=== PATIENT | female | born 1990 | race Caucasian/White ===

== ENCOUNTER 2019-12-18 16:57 | Inpatient (IN) ==
[2019-12-18] MEDS ORDERED: MoRPHine SULFATE 4 MG/ML 1 ML CARP\\VIAL IV STA ×2 (17:20→21:26)
[2019-12-18] MEDS ORDERED: ONDANSETRON INJ 2 MG/ML 2 ML VIAL IV STA (17:20)
[2019-12-18] MEDS ORDERED: SODIUM CHLORIDE 0.9% 1000ML 1,000 ML IV SCH (17:30)
--- NOTE | 2019-12-18 17:32 | Emergency Department Note ---
Impression & Plan DKA (diabetic ketoacidoses), of unknown anatomic location, Vaginal bleeding during , Abdominal pain during ED Provider Note CHIEF COMPLAINT: Heavy vaginal bleeding, severe abdominal pain, HISTORY OF PRESENTING ILLNESS: This is a 29-year-old female who presents to the emergency department by private vehicle with complaint of severe lower abdominal pain and heavy vaginal bleeding that started this morning. The patient states that she has been having very heavy bleeding and also passing large clots, states she was going through 2 pads an hour. She states that she is having severe stabbing lower abdominal pain that is constant, she has had trouble finding a position that is comfortable, and she rates the pain 10/10. She did not try anything for the pain. She notes that she believes she is about 13 weeks , she states her last menstrual period was 09/14, and she states she took home tests that were positive. She has not been evaluated for this by any medical billing and coding instructor and has not had an ultrasound. This is her first , she denies any previous pregnancies. She does not know her blood type. She denies any fevers, chills, headaches, vision changes, chest pain, shortness of breath, nausea or vomiting, urinary symptoms, or unusual rash. REVIEW OF SYSTEMS: A complete 10 point review of systems was reviewed with the patient with pertinent positives and negatives as per history of present illness. All else were negative. PAST MEDICAL HISTORY: No significant past medical or surgical history SOCIAL HISTORY: Lives at home, she is a current every day smoker ALLERGIES: No known allergies PHYSICAL EXAM: CONSTITUTIONAL: Alert, appears uncomfortable, hyperventilating and tearful. No acute distress. HEENT: Normocephalic, atraumatic. PERRL, EOMI, normal conjunctiva. Pharynx normal. NECK: Supple, full active range of motion without discomfort. RESPIRATORY: Clear to auscultation bilaterally with no wheezing, crackles, rhonchi or stridor. Equal expansion bilaterally. CARDIOVASCULAR: Regular rate and rhythm with no murmurs, rubs or gallops. Normal peripheral perfusion. No edema. GASTROINTESTINAL: Tender to palpation in the suprapubic and right lower quadrant, no rebound tenderness or guarding. Abdomen is otherwise nontender, soft, nondistended, obese abdomen. No palpable masses or HSM. Bowel sounds present in all quadrants. No CVA tenderness bilaterally. PELVIC EXAM: VULVA: No ulcers, vesicles or atrophy. VAGINA: Moderate amount of dark blood and blood clots within the vaginal canal, no foul odor. CERVIX: Cervical os is fingertip with open, pink, nontender, no cervical motion tenderness, with a small amount of bleeding from the opening. UTERUS: Slightly enlarged and tender to palpation. ADNEXAE: No masses or tenderness bilaterally. A nurse was present as a gravel hauler during the examination. MUSCULOSKELETAL: Full range of motion of all joints without discomfort. INTEGUMENTARY: No rash or other significant dermatologic conditions noted. NEUROLOGIC: Alert and oriented X 4 with normal affect. Normal strength and sensation in all 4 extremities. Normal speech. Normal gait observed. ED COURSE AND MEDICAL DECISION MAKING: CC: Patient presenting with complaint of abdominal pain, vaginal bleeding, DIFFERENTIAL DIAGNOSIS: Includes, but not limited to miscarriage, ectopic , ovarian cyst, ovarian torsion, hemorrhagic cyst, dysfunctional uterine bleeding, anemia, electrolyte abnormality, undiagnosed diabetes, DKA, among others. INTERPRETATION OF LABS: Mild leukocytosis with left shift, no anemia, normal platelets, hyponatremia, hyperkalemia, low bicarb with open gap, hyperglycemia, normal renal function, normal liver enzymes. Hemoglobin A1c significantly elevated at 9.0%. Beta hydroxybutyric acid is elevated. Beta hCG quant is elevated. Blood type A positive. IMAGING: US OB <= 14 weeks fetus HISTORY: 29 years-old Female , vag bleeding and severe pain acute vaginal bleeding with COMPARISON: None TECHNIQUE: Multiple real-time sonographic images of the deep pelvic structures were obtained transabdominally and transvaginally assessing grayscale appearance, color and spectral flow FINDINGS: TRANSABDOMINAL: Anteflexed uterus measures 10.1 x 4.3 x 4.6 cm. Endometrium measures 4 mm in thickness. No myometrial mass lesion. Ovaries are not diagnostically visualized. There is an indeterminate hypoechoic structure noted on the right aspect of the uterine body measuring 1.6 x 1.5 x 2.5 cm without associated color flow. TRANSVAGINAL: Heterogeneous appearance of the uterus. Endometrium measures 6 mm in thickness at the fundus and measures 1.8 cm within the mid aspect with ill-defined margins and areas of color flow. Complex material is noted within the endometrial cavity and endocervical canal. No intrauterine or extrauterine gestation identified. Nonvisualization of the ovaries. The patient experienced reported pain when scanning adnexal distributions. Trace free fluid is seen within the dependent pelvis. The study is overall limited secondary to patient's pain. IMPRESSION: 1. No definite intrauterine or extrauterine gestation identified. Additionally, there is a heterogeneous appearance of the endometrium with probable blood products in the endometrial cavity and endocervical canal. This finding in association with reported positive beta-hCG is concerning for possible spontaneous . Areas of increased flow within the endometrium which may reflect retained products of conception. Follow-up with serial quantitative beta hCG analysis and ultrasound imaging is needed. 2. Nonvisualization of the ovaries. 3. Indeterminate hypoechoic structure adjacent to the right aspect of the uterine body measures 2.5 cm. This may reflect a paraovarian cyst. An ectopic gestation is considered less likely. This finding should also be evaluated on follow-up. EKG INTERPRETATION: Shows normal sinus rhythm with a rate of 78 bpm, prolonged QT, no ST or T wave abnormalities, no peaked T waves, no ectopy, no significant change when compared to previous EKG from 08/08/2018 by my interpretation. MEDICATION RECONCILIATION: I attest that I have personally reviewed the patient's current medication list. INITIAL VITAL SIGNS REVIEW: I reviewed the patient's initial vital signs and interpret them as follows: T: Afebrile; BP: Hypertensive; HR: Within normal limits; RR: Within normal limits; Pulse Ox: Within normal limits on room air. Blood pressure screening: The patient was found to have an elevated blood pressure and was referred to the inpatient team for further management. MDM SUMMARY: Patient was evaluated at bedside, history and physical exam performed. Patient is alert and oriented, in no acute distress, but does appear uncomfortable, hyperventilating and tearful. Tender to palpation in the mid and right lower abdomen, no acute abdomen. She is afebrile and nontoxic-appearing. No pallor. Vital signs stable. Cardiac monitoring: An order was placed for continuous cardiac monitoring. The monitor shows a rate of 75 bpm with normal sinus rhythm. Orders were placed at bedside for labs including a beta hCG quant, IV fluid bolus for hydration, IV morphine for pain, IV Zofran for nausea, pelvic ultrasound to evaluate for miscarriage versus ectopic versus ovarian etiology. Patient discussed with Dr. Leon, who agrees with my assessment, plan, and disposition. Labs and imaging reviewed as above, lab abnormalities notable for hyperglycemia with hyponatremia, hyperkalemia, and low bicarb with an open gap. Beta hydroxybutyric acid is also elevated. Mild leukocytosis. Serum hCG quant is elevated consistent with early , blood type is a positive. Lab findings are concerning for DKA, most likely in the setting of undiagnosed diabetes. These findings were discussed with Dr. Leon, who agreed with the plan to start the patient on an insulin drip. Pelvic ultrasound noting findings appear consistent with spontaneous and possible retained products of conception. There is also note of an indeterminate extrauterine hypoechoic structure, cannot rule out an ectopic . Pelvic exam notable for a moderate amount of dark blood and blood clots, no significant bleeding or tissue noted within the cervical os. I spoke on the phone with Dr. Washington, [employer], who recommended that the patient have repeat quant in 2 days. She was happy to consult on the patient. I requested that Dr. Marques, [facility] Hospitalist, evaluate the patient for admission to manage her DKA and new onset diabetes. Patient reassessed multiple times throughout ED stay, she has remained hemodynamically stable and afebrile, and her pain is improved with IV morphine. The patient was updated on all results and plan for admission, all questions were answered to the best of my ability and patient verbalized understanding, she was agreeable to this plan. The patient was stable at time of admission. The chart was completed utilizing [email or web address] Speech voice recognition software. Grammatical errors, random word insertions, pronoun errors, and incomplete sentences are an occasional consequence of this system due to software limitations, ambient noise, and hardware issues. Any formal questions or concerns about the content, text, or information contained within the body of this dictation should be directly addressed to the nurse practitioner for clarification. Past Med/Surg History Medical History (Updated 12/19/19 @ 01:20 by PHILIP [place]) No significant past medical history Social History Smoking Status: Current every day smoker Tobacco Type: E-cigarettes / Vaping Preferred Language: Irish Current Living Situation: Family Feels Safe at Home: Yes Allergies Allergies Allergy/AdvReac Type Severity Reaction Status Date / Time Penicillins Allergy Unknown Unknown Verified 12/18/19 17:33 Home Meds Home Medications Medication Instructions Recorded Confirmed No Known Home Medications 12/18/19 12/18/19 Results & Data (ED) Vital Signs Vital Signs - 24 hr 12/18/19 17:06 12/18/19 17:43 12/18/19 17:52 Temperature 36.6 C Temperature Source Oral Pulse Rate 75 65 68 Pulse Rate [Right Finger] Pulse Rate from SpO2 Sensor Pulse Rhythm [Right Finger] Respiratory Rate 18 26 H 28 H Respiratory Depth Blood Pressure 144/93 H 139/71 Blood Pressure [Right Arm] Blood Pressure Mean 110 94 Blood Pressure Mean [Right Arm] Blood Pressure Position [Right Arm] Pulse Oximetry 99 100 Oxygen Delivery Method Room Air Room Air Sepsis Recent Fever Within 48 Hours No Sepsis New/Unexplained Change in Mental Status No Sepsis Action Taken by Nursing No Action Required 12/18/19 18:00 12/18/19 18:30 12/18/19 20:50 Temperature Temperature Source Pulse Rate 71 71 Pulse Rate [Right Finger] 85 Pulse Rate from SpO2 Sensor 69 71 Pulse Rhythm [Right Finger] Respiratory Rate 24 18 22 Respiratory Depth Normal Blood Pressure 144/90 H Blood Pressure [Right Arm] 144/74 H Blood Pressure Mean 103 Blood Pressure Mean [Right Arm] 97 Blood Pressure Position [Right Arm] Lying Pulse Oximetry 100 97 100 Oxygen Delivery Method Room Air Sepsis Recent Fever Within 48 Hours Sepsis New/Unexplained Change in Mental Status Sepsis Action Taken by Nursing 12/18/19 22:40 12/19/19 00:00 Temperature Temperature Source Pulse Rate Pulse Rate [Right Finger] 84 73 Pulse Rate from SpO2 Sensor Pulse Rhythm [Right Finger] Regular Respiratory Rate 18 16 Respiratory Depth Normal Normal Blood Pressure Blood Pressure [Right Arm] 152/91 H 147/86 H Blood Pressure Mean Blood Pressure Mean [Right Arm] 111 106 Blood Pressure Position [Right Arm] Lying Lying Pulse Oximetry 98 100 Oxygen Delivery Method Room Air Room Air Sepsis Recent Fever Within 48 Hours Sepsis New/Unexplained Change in Mental Status Sepsis Action Taken by Nursing Laboratory Data Result diagrams: 12/18/19 17:56 12/19/19 00:05 Lab Results 12/18/19 12/18/19 12/18/19 Range/Units 17:56 17:56 17:56 WBC 12.05 H (4.8-10.8) K/uL RBC 5.09 (4.2-5.4) M/uL Hgb 14.3 (12.0-16.0) g/dL Hct 41.5 (37-47) % MCV 81.5 (80-100) fL MCH 28.1 (25-34) pg MCHC 34.5 (32-36) g/dL RDW Std Deviation 44.5 (36.4-46.3) fL RDW Coeff of Sandy 15.1 H (11.5-14.5) % Plt Count 302 (130-400) K/uL MPV 10.7 H (7.4-10.4) fL Immature Gran % (Auto) 0.2 % Neut % (Auto) 90.0 % Lymph % (Auto) 6.6 % [place] % (Auto) 2.9 % Eos % (Auto) 0.1 % Baso % (Auto) 0.2 % Neut # (Auto) 10.86 H (1.4-6.5) K/uL Lymph # (Auto) 0.79 L (1.2-3.4) K/uL [place] # (Auto) 0.35 (0.11-0.59) K/uL Eos # (Auto) 0.01 (0-0.5) K/uL Baso # (Auto) 0.02 (0-0.2) K/uL Immature Gran # (Auto) 0.02 (0.00-0.02) K/uL PT 10.6 (9.0-12.0) Seconds INR 1.0 (0.9-1.1) APTT 20.5 L (21.0-31.0) Seconds PTT Ratio 0.7 VBG pH Sodium (136-145) mmol/L Potassium (3.5-5.1) mmol/L Chloride (98-107) mmol/L Carbon Dioxide (21-32) mmol/L Anion Gap (3-11) BUN (7-18) mg/dl Creatinine (0.6-1.2) mg/dl Est Cr Clr Drug Dosing Est GFR ( Amer) Est GFR (Non-Af Amer) BUN/Creatinine Ratio (10-20) Glucose (70-99) mg/dl POC Glucose (70-99) mg/dl Estimat Average Glucose mg/dl Hemoglobin A1c (4.5-5.6) % Calcium (8.5-10.1) mg/dl Phosphorus (2.5-4.9) mg/dl Magnesium (1.8-2.4) mg/dl Total Bilirubin (0.2-1) mg/dl AST (15-37) U/L ALT (12-78) U/L Alkaline Phosphatase (45-117) U/L Total Protein (6.4-8.2) gm/dl Albumin (3.4-5.0) gm/dl Globulin (2.5-4.0) gm/dl Albumin/Globulin Ratio (0.9-2) Beta-Hydroxybutyric Acd (0.2-2.81) mg/dl HCG, Quant mIU/ml Blood Type A Positive 12/18/19 12/18/19 12/18/19 Range/Units 17:56 17:56 17:56 WBC (4.8-10.8) K/uL RBC (4.2-5.4) M/uL Hgb (12.0-16.0) g/dL Hct (37-47) % MCV (80-100) fL MCH (25-34) pg MCHC (32-36) g/dL RDW Std Deviation (36.4-46.3) fL RDW Coeff of Sandy (11.5-14.5) % Plt Count (130-400) K/uL MPV (7.4-10.4) fL Immature Gran % (Auto) % Neut % (Auto) % Lymph % (Auto) % [place] % (Auto) % Eos % (Auto) % Baso % (Auto) % Neut # (Auto) (1.4-6.5) K/uL Lymph # (Auto) (1.2-3.4) K/uL [place] # (Auto) (0.11-0.59) K/uL Eos # (Auto) (0-0.5) K/uL Baso # (Auto) (0-0.2) K/uL Immature Gran # (Auto) (0.00-0.02) K/uL PT (9.0-12.0) Seconds INR (0.9-1.1) APTT (21.0-31.0) Seconds PTT Ratio VBG pH Sodium 129 L (136-145) mmol/L Potassium 5.6 H (3.5-5.1) mmol/L Chloride 103 (98-107) mmol/L Carbon Dioxide 14 L (21-32) mmol/L Anion Gap 12.0 H (3-11) BUN 12 (7-18) mg/dl Creatinine 0.73 (0.6-1.2) mg/dl Est Cr Clr Drug Dosing Not Reportable Est GFR ( Amer) 128.1 Est GFR (Non-Af Amer) 110.5 BUN/Creatinine Ratio 16.5 (10-20) Glucose 292 H (70-99) mg/dl POC Glucose (70-99) mg/dl Estimat Average Glucose mg/dl Hemoglobin A1c (4.5-5.6) % Calcium 9.3 (8.5-10.1) mg/dl Phosphorus (2.5-4.9) mg/dl Magnesium (1.8-2.4) mg/dl Total Bilirubin 0.8 (0.2-1) mg/dl AST 10 L (15-37) U/L ALT 28 (12-78) U/L Alkaline Phosphatase 90 (45-117) U/L Total Protein 8.5 H (6.4-8.2) gm/dl Albumin 4.1 (3.4-5.0) gm/dl Globulin 4.4 H (2.5-4.0) gm/dl Albumin/Globulin Ratio 0.9 (0.9-2) Beta-Hydroxybutyric Acd 33.37 H (0.2-2.81) mg/dl HCG, Quant 1168 mIU/ml Blood Type 12/18/19 12/18/19 12/18/19 Range/Units 17:56 20:02 20:08 WBC (4.8-10.8) K/uL RBC (4.2-5.4) M/uL Hgb (12.0-16.0) g/dL Hct (37-47) % MCV (80-100) fL MCH (25-34) pg MCHC (32-36) g/dL RDW Std Deviation (36.4-46.3) fL RDW Coeff of Sanyd (11.5-14.5) % Plt Count (130-400) K/uL MPV (7.4-10.4) fL Immature Gran % (Auto) % Neut % (Auto) % Lymph % (Auto) % [place] % (Auto) % Eos % (Auto) % Baso % (Auto) % Neut # (Auto) (1.4-6.5) K/uL Lymph # (Auto) (1.2-3.4) K/uL [place] # (Auto) (0.11-0.59) K/uL Eos # (Auto) (0-0.5) K/uL Baso # (Auto) (0-0.2) K/uL Immature Gran # (Auto) (0.00-0.02) K/uL PT (9.0-12.0) Seconds INR (0.9-1.1) APTT (21.0-31.0) Seconds PTT Ratio VBG pH Sodium 135 L (136-145) mmol/L Potassium 3.7 D (3.5-5.1) mmol/L Chloride 106 (98-107) mmol/L Carbon Dioxide 15 L (21-32) mmol/L Anion Gap 14.0 H (3-11) BUN 11 (7-18) mg/dl Creatinine 0.60 (0.6-1.2) mg/dl Est Cr Clr Drug Dosing Not Reportable Est GFR ( Amer) 141.8 Est GFR (Non-Af Amer) 122.3 BUN/Creatinine Ratio 17.9 (10-20) Glucose 269 H (70-99) mg/dl POC Glucose 254 H (70-99) mg/dl Estimat Average Glucose 212 mg/dl Hemoglobin A1c 9.0 H (4.5-5.6) % Calcium 8.7 (8.5-10.1) mg/dl Phosphorus 2.3 L (2.5-4.9) mg/dl Magnesium 1.7 L (1.8-2.4) mg/dl Total Bilirubin (0.2-1) mg/dl AST (15-37) U/L ALT (12-78) U/L Alkaline Phosphatase (45-117) U/L Total Protein (6.4-8.2) gm/dl Albumin (3.4-5.0) gm/dl Globulin (2.5-4.0) gm/dl Albumin/Globulin Ratio (0.9-2) Beta-Hydroxybutyric Acd (0.2-2.81) mg/dl HCG, Quant mIU/ml Blood Type 12/18/19 12/18/1920 Range/Units 20:08 20:40 22:08 WBC (4.8-10.8) K/uL RBC (4.2-5.4) M/uL Hgb (12.0-16.0) g/dL Hct (37-47) % MCV (80-100) fL MCH (25-34) pg MCHC (32-36) g/dL RDW Std Deviation (36.4-46.3) fL RDW Coeff of Sandy (11.5-14.5) % Plt Count (130-400) K/uL MPV (7.4-10.4) fL Immature Gran % (Auto) % Neut % (Auto) % Lymph % (Auto) % [place] % (Auto) % Eos % (Auto) % Baso % (Auto) % Neut # (Auto) (1.4-6.5) K/uL Lymph # (Auto) (1.2-3.4) K/uL [place] # (Auto) (0.11-0.59) K/uL Eos # (Auto) (0-0.5) K/uL Baso # (Auto) (0-0.2) K/uL Immature Gran # (Auto) (0.00-0.02) K/uL PT (9.0-12.0) Seconds INR (0.9-1.1) APTT (21.0-31.0) Seconds PTT Ratio VBG pH Cancelled 7.43 H Sodium (136-145) mmol/L Potassium (3.5-5.1) mmol/L Chloride (98-107) mmol/L Carbon Dioxide (21-32) mmol/L Anion Gap (3-11) BUN (7-18) mg/dl Creatinine (0.6-1.2) mg/dl Est Cr Clr Drug Dosing Est GFR ( Amer) Est GFR (Non-Af Amer) BUN/Creatinine Ratio (10-20) Glucose (70-99) mg/dl POC Glucose 320 H* (70-99) mg/dl Estimat Average Glucose mg/dl Hemoglobin A1c (4.5-5.6) % Calcium (8.5-10.1) mg/dl Phosphorus (2.5-4.9) mg/dl Magnesium (1.8-2.4) mg/dl Total Bilirubin (0.2-1) mg/dl AST (15-37) U/L ALT (12-78) U/L Alkaline Phosphatase (45-117) U/L Total Protein (6.4-8.2) gm/dl Albumin (3.4-5.0) gm/dl Globulin (2.5-4.0) gm/dl Albumin/Globulin Ratio (0.9-2) Beta-Hydroxybutyric Acd (0.2-2.81) mg/dl HCG, Quant mIU/ml Blood Type 12/18/19 12/19/19 12/19/19 Range/Units 22:56 00:05 00:05 WBC (4.8-10.8) K/uL RBC (4.2-5.4) M/uL Hgb (12.0-16.0) g/dL Hct (37-47) % MCV (80-100) fL MCH (25-34) pg MCHC (32-36) g/dL RDW Std Deviation (36.4-46.3) fL RDW Coeff of Sandy (11.5-14.5) % Plt Count (130-400) K/uL MPV (7.4-10.4) fL Immature Gran % (Auto) % Neut % (Auto) % Lymph % (Auto) % [place] % (Auto) % Eos % (Auto) % Baso % (Auto) % Neut # (Auto) (1.4-6.5) K/uL Lymph # (Auto) (1.2-3.4) K/uL [place] # (Auto) (0.11-0.59) K/uL Eos # (Auto) (0-0.5) K/uL Baso # (Auto) (0-0.2) K/uL Immature Gran # (Auto) (0.00-0.02) K/uL PT (9.0-12.0) Seconds INR (0.9-1.1) APTT (21.0-31.0) Seconds PTT Ratio VBG pH 7.41 Sodium 136 (136-145) mmol/L Potassium 3.7 (3.5-5.1) mmol/L Chloride 106 (98-107) mmol/L Carbon Dioxide 16 L (21-32) mmol/L Anion Gap 14.0 H (3-11) BUN 10 (7-18) mg/dl Creatinine 0.56 L (0.6-1.2) mg/dl Est Cr Clr Drug Dosing Not Reportable Est GFR ( Amer) 145.0 Est GFR (Non-Af Amer) 125.1 BUN/Creatinine Ratio 17.2 (10-20) Glucose 244 H (70-99) mg/dl POC Glucose 257 H (70-99) mg/dl Estimat Average Glucose mg/dl Hemoglobin A1c (4.5-5.6) % Calcium 8.7 (8.5-10.1) mg/dl Phosphorus 3.0 (2.5-4.9) mg/dl Magnesium 1.8 (1.8-2.4) mg/dl Total Bilirubin (0.2-1) mg/dl AST (15-37) U/L ALT (12-78) U/L Alkaline Phosphatase (45-117) U/L Total Protein (6.4-8.2) gm/dl Albumin (3.4-5.0) gm/dl Globulin (2.5-4.0) gm/dl Albumin/Globulin Ratio (0.9-2) Beta-Hydroxybutyric Acd (0.2-2.81) mg/dl HCG, Quant mIU/ml Blood Type Administered Medications Discontinued Medications Sodium Chloride (Nss 1000ml) 1,000 mls @ 999 mls/hr IV .Q1H1M GALI Stop: 12/18/19 18:30 Last Infusion: 12/18/19 19:04 Dose: 0 mls/hr Documented by: [id number] Admin: 12/18/19 17:59 Dose: 999 mls/hr Documented by: [id number] Insulin Human Regular 250 (units/ Sodium Chloride) 250 mls @ 2.8 mls/hr IV .Q24H GALI; Protocol Stop: 01/17/20 19:44 Last Titration: 12/18/19 22:58 Dose: 0 units/hr, 0 mls/hr Documented by: [id number] Cosigned by: [id number] Admin: 12/18/19 22:09 Dose: 2.8 units/hr, 2.8 mls/hr Documented by: [id number] Cosigned by: [id number] Parenteral Electrolytes (Normosol-R) 1,000 mls @ 200 mls/hr IV .Q5H GALI Stop: 01/17/20 19:44 Last Admin: 12/18/19 22:09 Dose: 200 mls/hr Documented by: [id number] Morphine Sulfate (Morphine Sulfate 4 Mg/Ml 1 Ml Carp\Vial) 4 mg IV NOW STA Stop: 12/18/19 17:21 Last Admin: 12/18/19 17:59 Dose: 4 mg Documented by: [id number] Morphine Sulfate (Morphine Sulfate 4 Mg/Ml 1 Ml Carp\Vial) 4 mg IV NOW STA Stop: 12/18/19 21:27 Last Admin: 12/18/19 21:49 Dose: 4 mg Documented by: [id number] Ondansetron HCl (Ondansetron Inj 2 Mg/Ml 2 Ml Vial) 4 mg IV NOW STA Stop: 12/18/19 17:21 Last Admin: 12/18/19 17:59 Dose: 4 mg Documented by: [id number] Discharge Plan Visit Data Chief Complaint: Abdominal Pain Stated Complaint: POSSIBLE MISCARRIAGE,13 WKS,ABD PAIN ED Provider: Michael Leon ED Midlevel Provider: Kamla Atkins Discharge Problem: DKA (diabetic ketoacidoses), of unknown anatomic location, Vaginal bleeding during , Abdominal pain during Patient Disposition: Admitted As Inpatient Condition: Good Forms Stand Alone Forms: [employer] Prescriptions Prescriptions: No Action No Known Home Medications RF: 0 Referrals Referrals: PCP,NO [Primary Care Provider] - Discharge Problem: DKA (diabetic ketoacidoses) Qualifiers: Diabetes mellitus complication detail: without coma Abdominal pain during Qualifiers: Trimester: unspecified trimester Qualified Code(s): O26.899 - Other specified related conditions, unspecified trimester
[2019-12-18 18:05] LABS: Basophils # (auto) 0.02 K/uL (0-0.2); Basophils % (auto) 0.2 %; Eosinophils # (auto) 0.01 K/uL (0-0.5); Eosinophils % (auto) 0.1 %; Hematocrit (blood only) 41.5 % (37-47); Hemoglobin 14.3 g/dL (12.0-16.0); Immature Granulocytes # (auto) 0.02 K/uL (0.00-0.02); Immature Granulocytes % (auto) 0.2 %; Lymphocytes # (auto) 0.79 K/uL (1.2-3.4); Lymphocytes % (auto) 6.6 %; Mean Corpuscular Hemoglobin 28.1 pg (25-34); Mean Corpuscular Hgb Conc 34.5 g/dL (32-36); Mean Corpuscular Volume 81.5 fL (80-100); Mean Platelet Volume 10.7 fL (7.4-10.4); Monocytes # (auto) 0.35 K/uL (0.11-0.59); Monocytes % (auto) 2.9 %; Neutrophils # (auto) 10.86 K/uL (1.4-6.5); Platelet Count 302 K/uL (130-400); RDW Coefficient of Variation 15.1 % (11.5-14.5); RDW Standard Deviation 44.5 fL (36.4-46.3); Red Blood Count 5.09 M/uL (4.2-5.4); White Blood Count 12.05 K/uL (4.8-10.8)
[2019-12-18 18:17] LABS: Partial Thromboplastin Ratio 0.7; Partial Thromboplastin Time 20.5 Seconds (21.0-31.0); Prothrombin Time 10.6 Seconds (9.0-12.0)
[2019-12-18 18:22] LABS: Alanine Aminotransferase 28 U/L (12-78); Albumin Level 4.1 gm/dl (3.4-5.0); Aspartate Aminotransferase 10 U/L (15-37); BUN Creatinine Ratio 16.5 (10-20); Blood Urea Nitrogen 12 mg/dl (7-18); Calcium 9.3 mg/dl (8.5-10.1); Carbon Dioxide 14 mmol/L (21-32); Chloride 103 mmol/L (98-107); Est GFR (African American) 128.1; Est GFR (Non-African American) 110.5; Glucose 292 mg/dl (70-99); Potassium 5.6 mmol/L (3.5-5.1); Sodium 129 mmol/L (136-145)
[2019-12-18 18:25] LABS: Albumin Globulin Ratio 0.9 (0.9-2); Alkaline Phosphatase 90 U/L (45-117); Bilirubin,Total 0.8 mg/dl (0.2-1); Globulin 4.4 gm/dl (2.5-4.0); Total Protein 8.5 gm/dl (6.4-8.2)
[2019-12-18 19:24] LABS: Estimated Average Glucose 212 mg/dl
[2019-12-18] MEDS ORDERED: INSULIN REGULAR 250 UNITS in SODIUM CHLORIDE 0.9% 247.5 ML IV SCH (19:45)
[2019-12-18] MEDS ORDERED: NORMOSOL-R 1,000 ML IV SCH (19:45)
--- NOTE | 2019-12-18 20:15 | Ultrasound Report ---
US OB <= 14 weeks fetus HISTORY: 29 years-old Female , vag bleeding and severe pain acute vaginal bleeding with preg jory COMPARISON: None TECHNIQUE: Multiple real-time sonographic images of the deep pelvic structures were obtained transabd ominally and transvaginally assessing grayscale appearance, color and spectral flow FINDINGS: TRANSABDOMINAL: Anteflexed uterus measures 10.1 x 4.3 x 4.6 cm. Endometrium measures 4 mm in thickness. No myometrial mass lesion. Ovaries are not diagnostically visualized. There is an indeterminate hypoechoic structu re noted on the right aspect of the uterine body measuring 1.6 x 1.5 x 2.5 cm without associated colo r flow. TRANSVAGINAL: Heterogeneous appearance of the uterus. Endometrium measures 6 mm in thickness at the fundus and jeremías ures 1.8 cm within the mid aspect with ill-defined margins and areas of color flow. Complex material is noted within the endometrial cavity and endocervical canal. No intrauterine or extrauterine gestat ion identified. Nonvisualization of the ovaries. The patient experienced reported pain when scanning adnexal distribu tions. Trace free fluid is seen within the dependent pelvis. The study is overall limited secondary t o patient's pain. IMPRESSION: 1. No definite intrauterine or extrauterine gestation identified. Additionally, there is a heterogene ous appearance of the endometrium with probable blood products in the endometrial cavity and endocerv ical canal. This finding in association with reported positive beta-hCG is concerning for possible sp ontaneous . Areas of increased flow within the endometrium which may reflect retained product s of conception. Follow-up with serial quantitative beta hCG analysis and ultrasound imaging is neede d. 2. Nonvisualization of the ovaries. 3. Indeterminate hypoechoic structure adjacent to the right aspect of the uterine body measures 2.5 c m. This may reflect a paraovarian cyst. An ectopic gestation is considered less likely. This finding should also be evaluated on follow-up. ACT 112: Negative or not required by law. The above report was generated using voice recognition software. It may contain grammatical, syntax o r spelling errors. Electronically signed by: Phoenix Sifuentes M.D. 12/18/2019 8:14 PM
[2019-12-18 20:37] LABS: BUN Creatinine Ratio 17.9 (10-20); Blood Urea Nitrogen 11 mg/dl (7-18); Calcium 8.7 mg/dl (8.5-10.1); Carbon Dioxide 15 mmol/L (21-32); Chloride 106 mmol/L (98-107); Est GFR (African American) 141.8; Est GFR (Non-African American) 122.3; Glucose 269 mg/dl (70-99); Magnesium 1.7 mg/dl (1.8-2.4); Phosphorus 2.3 mg/dl (2.5-4.9); Potassium 3.7 mmol/L (3.5-5.1); Sodium 135 mmol/L (136-145)
--- NOTE | 2019-12-18 23:56 | History & Physical Report ---
Date of Service December 18, 2019 Assessment & Plan (1) Spontaneous : Presumed spontaneous - Patient will be seen by TRAFFIC WORKFORCE REPRESENTATIVE in the a.m. Emergency discussed the case with TRAFFIC WORKFORCE REPRESENTATIVE while in the ED. Present on Admission?: Yes (2) Hyperglycemia due to diabetes mellitus: Patient has had chronically elevated blood sugar since her assessment over 1 year ago. Do not think she needs to be on insulin drip. We will place her on IV fluids, NSS plus KCl 20 mEq at 125 mL's per hour Perform Accu-Cheks before meals and at bedtime with NovoLog coverage. Check hemoglobin A1c in the a.m. Patient should be restarted on metformin as before, upon discharge, and may be best off establishing care with the resident group. Present on Admission?: Yes (3) of unknown anatomic location: (4) Abdominal pain during : History of Present Illness Chief Complaint: The patient presents to the emergency department with complaint of severe, a pelvic pain, with heavy vaginal bleeding. Primary Care Provider: NO PCP The patient is a 29-year-old female with past medical history of hyperglycemia/diabetes mellitus, that she reports she has been trying to control by diet due to not having any insurance. She had been prescribed metformin in the past but has not been able to afford it. She presents to the emergency department tonight with heavy vaginal bleeding and severe lower abdominal and pelvic pain. She underwent a transabdominal/transvaginal/ ultrasound which showed a heterogeneous appearance of the endometrium with probable blood products in the endometrial cavity and endocervical canal, that when combined with a positive beta hCG was concerning for possible spontaneous . Laboratory in the emergency department was significant for increased WBC 12.05, and glucose of 292, anion gap of 14, and beta hydroxybutyric acid 33.37 Allergies Allergy/AdvReac Type Severity Reaction Status Date / Time Penicillins Allergy Unknown Unknown Verified 12/18/19 17:33 Home Medications Home Medications Medication Instructions Recorded Confirmed Type No Known Home Medications 12/18/19 12/18/19 History Past Med/Surg History Medical History (Updated 12/19/19 @ 04:21 by Des Fink MD) Hyperglycemia due to diabetes mellitus No significant past medical history Social History Smoking Status: Current every day smoker Tobacco Type: E-cigarettes / Vaping Do You Dip or Chew Tobacco: No; Hx Alcohol Use: No Hx Substance Use: No Preferred Language: Sami Identification Clerk Required: No Beliefs That Will Affect Care: None Current Living Situation: Spouse Current Living Situation Comment: lives with boyfriend Aamir Bond Other Information That Helps Us Care for You: No Feels Safe at Home: Yes Safety Concerns: Feels Safe At This Time Review of Systems Review of Systems: The patient denies chest pain, palpitations, shortness of breath, dyspnea on exertion, cough, lower extremity swelling, sore throat, fevers, chills, sweats, nausea, vomiting, diarrhea , constipation, blood in urine or stool, dysuria, urinary frequency or urgency, lightheadedness, dizziness, headache, memory loss, loss of consciousness, rash, imbalance, focal or generalized weakness, numbness or tingling in arms or legs, neck pain, or night sweats. The review of systems is otherwise negative other than for that already noted above, and at least 10 systems have been reviewed. Physical Exam Physical Exam: The patient is awake, alert and oriented 3, normocephalic and atraumatic, sitting upright in bed and in no acute distress. HEENT--PERRL, EOMI, mucous membranes and oropharynx normal. Neck--supple. No JVD. No bruits. Thyroid normal, trachea midline, no adenopathy. Heart--normal S1 and S2. No murmurs, rubs or gallops. Lungs--clear bilaterally, no respiratory distress, no accessory muscle use. Abdomen--normal bowel sounds and soft. Tender lower abdominal/ pelvic area Extremities--no cyanosis or clubbing. No edema. Dermatologic--normal skin turgor, normal color, no abnormal lymph nodes, no rash. Neurologic--cranial nerves II through XII grossly intact. Rheumatologic--limited exam Psychiatric--tearful. Results & Data Results & Data ([facility]) Vital Signs (Past 12 Hours) Vital Signs Temp Pulse Pulse Resp BP BP Pulse Ox 12/18/19 22:40 84 18 152/91 H 98 12/18/19 20:50 85 22 144/74 H 100 12/18/19 18:30 71 18 144/90 H 97 12/18/19 18:00 71 24 100 12/18/19 17:52 68 28 H 12/18/19 17:43 65 26 H 139/71 100 12/18/19 17:06 97.9 F 75 18 144/93 H 99 Laboratory Results Laboratory Results WBC 13.84 K/uL (4.8-10.8) H 12/19/19 03:43 RBC 4.56 M/uL (4.2-5.4) 12/19/19 03:43 Hgb 12.8 g/dL (12.0-16.0) 12/19/19 03:43 Hct 36.7 % (37-47) L 12/19/19 03:43 MCV 80.5 fL (80-100) 12/19/19 03:43 MCH 28.1 pg (25-34) 12/19/19 03:43 MCHC 34.9 g/dL (32-36) 12/19/19 03:43 RDW Std Deviation 44.7 fL (36.4-46.3) 12/19/19 03:43 RDW Coeff of Sandy 15.3 % (11.5-14.5) H 12/19/19 03:43 Plt Count 282 K/uL (130-400) 12/19/19 03:43 MPV 10.4 fL (7.4-10.4) 12/19/19 03:43 Immature Gran % (Auto) 0.3 % 12/19/19 03:43 Neut % (Auto) 86.3 % 12/19/19 03:43 Lymph % (Auto) 9.0 % 12/19/19 03:43 Harris % (Auto) 4.2 % 12/19/19 03:43 Eos % (Auto) 0.1 % 12/19/19 03:43 Baso % (Auto) 0.1 % 12/19/19 03:43 Neut # (Auto) 11.95 K/uL (1.4-6.5) H 12/19/19 03:43 Lymph # (Auto) 1.24 K/uL (1.2-3.4) 12/19/19 03:43 Harris # (Auto) 0.58 K/uL (0.11-0.59) 12/19/19 03:43 Eos # (Auto) 0.02 K/uL (0-0.5) 12/19/19 03:43 Baso # (Auto) 0.01 K/uL (0-0.2) 12/19/19 03:43 Immature Gran # (Auto) 0.04 K/uL (0.00-0.02) H 12/19/19 03:43 PT 10.6 Seconds (9.0-12.0) 12/18/19 17:56 INR 1.0 (0.9-1.1) 12/18/19 17:56 APTT 26.3 Seconds (21.0-31.0) 12/19/19 03:43 PTT Ratio 0.9 12/19/19 03:43 VBG pH 7.41 (7.36-7.41) 12/19/19 03:43 Sodium 135 mmol/L (136-145) L 12/19/19 03:43 Potassium 3.6 mmol/L (3.5-5.1) 12/19/19 03:43 Chloride 107 mmol/L (98-107) 12/19/19 03:43 Carbon Dioxide 16 mmol/L (21-32) L 12/19/19 03:43 Anion Gap 12.0 (3-11) H 12/19/19 03:43 BUN 10 mg/dl (7-18) 12/19/19 03:43 Creatinine 0.49 mg/dl (0.6-1.2) L 12/19/19 03:43 Est Cr Clr Drug Dosing 197.9 ml/min 12/19/19 03:43 Est GFR ( Amer) > 150.0 12/19/19 03:43 Est GFR (Non-Af Amer) 130.7 12/19/19 03:43 BUN/Creatinine Ratio 20.3 (10-20) H 12/19/19 03:43 Glucose 230 mg/dl (70-99) H 12/19/19 03:43 POC Glucose 245 mg/dl (70-99) H 12/19/19 01:52 Estimat Average Glucose 212 mg/dl 12/18/19 17:56 Hemoglobin A1c 9.0 % (4.5-5.6) H 12/18/19 17:56 Calcium 8.2 mg/dl (8.5-10.1) L 12/19/19 03:43 Phosphorus 3.0 mg/dl (2.5-4.9) 12/19/19 03:43 Magnesium 1.7 mg/dl (1.8-2.4) L 12/19/19 03:43 Total Bilirubin 0.6 mg/dl (0.2-1) 12/19/19 03:43 AST 6 U/L (15-37) L 12/19/19 03:43 ALT 25 U/L (12-78) 12/19/19 03:43 Alkaline Phosphatase 75 U/L (45-117) 12/19/19 03:43 Total Protein 7.5 gm/dl (6.4-8.2) 12/19/19 03:43 Albumin 3.5 gm/dl (3.4-5.0) 12/19/19 03:43 Globulin 4.0 gm/dl (2.5-4.0) 12/19/19 03:43 Albumin/Globulin Ratio 0.9 (0.9-2) 12/19/19 03:43 Beta-Hydroxybutyric Acd 33.37 mg/dl (0.2-2.81) H 12/18/19 17:56 HCG, Quant 1168 mIU/ml 12/18/19 17:56 Blood Type A Positive 12/18/19 17:56 Diagnostic Findings [facility], [place] [phone] Ultrasound Report Patient: JAMES PARISH Date: 12/18/19 MR#: [id number]: [id number] [facility] Acct ID:[id number]: Date: 1990[facility] Zip: [place] [address] Age: 29Location: ED Sex: FRoom/Bed: Att Phy:Diagnosis: POSSIBLE MISCARRIAGE,13 WKS,ABD PAIN Courtney Phy: PCP,NOService Date: 12/18/19 Fam Phy: PCP,NOInterpreting Phy: Christ Sifuentes Admit Phy: Ordering Phy: Kamla Atkins CRNP cc: ~ US OB <= 14 weeks fetus HISTORY: 29 years-old Female , vag bleeding and severe pain acute vagin al bleeding with COMPARISON: None TECHNIQUE: Multiple real-time sonographic images of the deep pelvic structures were obtained transabdominally and transvaginally assessing grayscale appea angel, color and spectral flow FINDINGS: TRANSABDOMINAL: Anteflexed uterus measures 10.1 x 4.3 x 4.6 cm. Endometrium measures 4 mm in thickness. No myometrial mass lesion. Ovaries are not diagnostically visualized. There is an indeterminate hypoechoic structure noted on the right aspect of the uterine body measuring 1.6 x 1.5 x 2.5 cm without associated color flow. TRANSVAGINAL: Heterogeneous appearance of the uterus. Endometrium measures 6 mm in thickness at the fundus and measures 1.8 cm within the mid aspect with ill-defined margins and areas of color flow. Complex material is noted within the endometrial cavity and endocervical canal. No intrauterine or extrauterine gestation identified. Nonvisualization of the ovaries. The patient experienced reported pain when scanning adnexal distributions. Trace free fluid is seen within the dependent pelvis. The study is overall limited secondary to patient's pain. IMPRESSION: 1. No definite intrauterine or extrauterine gestation identified. Additionally, there is a heterogeneous appearance of the endometrium with probable blood products in the endometrial cavity and endocervical canal. This finding in association with reported positive beta-hCG is concerning for possible spontaneous . Areas of increased flow within the endometrium which may reflect retained products of conception. Follow-up with serial quantitative beta hCG analysis and ultrasound imaging is needed. 2. Nonvisualization of the ovaries. 3. Indeterminate hypoechoic structure adjacent to the right aspect of the uterine body measures 2.5 cm. This may reflect a paraovarian cyst. An ectopic gestation is considered less likely. This finding should also be evaluated on follow-up. ACT 112: Negative or not required by law. The above report was generated using voice recognition software. It may contain grammatical, syntax or spelling errors. Electronically signed by: Phoenix Sifuentes M.D. 12/18/2019 8:14 PM Dictated: 12/18/192006 Transcribed: 12/18/192006 Code Status & VTE Plan Code Status Full code VTE Prophylaxis Plan VTE Prophylaxis will be ordered: Yes PG Care Time/CCT Total # of Minutes Spent Total Time Spent with Patient: Total time spent is greater than 50% in coordination of care (as documented) at patient's floor/unit and/or counseling patient: Coding Level of Care Code 28574 OBS Care - Level 3 Diagnoses Spontaneous O03.9 Hyperglycemia due to diabetes mellitus E11.65 of unknown anatomic location O36.80X0 Abdominal pain during O26.899; R10.9 Trimester: unspecified trimester (1) Abdominal pain during Trimester: unspecified trimester Qualified Code(s): O26.899 - Other specified related conditions, unspecified trimester; R10.9 - Unspecified abdominal pain
[2019-12-19 00:41] LABS: BUN Creatinine Ratio 17.2 (10-20); Blood Urea Nitrogen 10 mg/dl (7-18); Calcium 8.7 mg/dl (8.5-10.1); Carbon Dioxide 16 mmol/L (21-32); Chloride 106 mmol/L (98-107); Est GFR (Non-African American) 125.1; Glucose 244 mg/dl (70-99); Magnesium 1.8 mg/dl (1.8-2.4); Potassium 3.7 mmol/L (3.5-5.1); Sodium 136 mmol/L (136-145)
[2019-12-19] MEDS ORDERED: GLUCOSE 40% GEL 15 GM TUBE PO PRN (02:01)
[2019-12-19] MEDS ORDERED: ZOLPIDEM TARTRATE 5 MG TAB PO PRN (02:01)
[2019-12-19] MEDS ORDERED: MAGNESIUM HYDROXIDE SUSP 30 ML UDC PO PRN (02:01)
[2019-12-19] MEDS ORDERED: GLUCOSE 10 TABS/TUBE PO PRN (02:01)
[2019-12-19] MEDS ORDERED: ALUMINUM/MAGNESIUM SUSP 30 ML UDC PO PRN (02:01)
[2019-12-19] MEDS ORDERED: GLUCAGON FOR INJ 1 MG VIAL SQ PRN (02:01)
[2019-12-19] MEDS ORDERED: CARBOHYDRATES FOR HYPOGLYCEMIA PO PRN (02:01)
[2019-12-19] MEDS ORDERED: ACETAMINOPHEN 325 MG TAB PO PRN (02:01)
[2019-12-19] MEDS ORDERED: DEXTROSE 50% 50 ML SYRINGE IV PRN (02:01)
[2019-12-19] MEDS: PATIENT'S HEIGHT AND/OR WEIGHT NEEDED SCH ×2 (02:21→02:25)
[2019-12-19] MEDS: HYDROCODONE/ACETAMOPHEN 5/325MG TAB PO PRN ×4 (02:29→20:14)
[2019-12-19] MEDS: NSS + 20MEQ KCL 20 MEQ/1,000 ML BAG IV SCH ×3 (02:30→18:11)
[2019-12-19] MEDS: MoRPHine SULFATE 4 MG/ML 1 ML CARP\\VIAL IV PRN ×4 (03:08→21:18)
[2019-12-19 03:55] LABS: Basophils # (auto) 0.01 K/uL (0-0.2); Basophils % (auto) 0.1 %; Eosinophils # (auto) 0.02 K/uL (0-0.5); Eosinophils % (auto) 0.1 %; Hematocrit (blood only) 36.7 % (37-47); Hemoglobin 12.8 g/dL (12.0-16.0); Immature Granulocytes # (auto) 0.04 K/uL (0.00-0.02); Immature Granulocytes % (auto) 0.3 %; Lymphocytes # (auto) 1.24 K/uL (1.2-3.4); Mean Corpuscular Hemoglobin 28.1 pg (25-34); Mean Corpuscular Hgb Conc 34.9 g/dL (32-36); Mean Corpuscular Volume 80.5 fL (80-100); Mean Platelet Volume 10.4 fL (7.4-10.4); Monocytes # (auto) 0.58 K/uL (0.11-0.59); Monocytes % (auto) 4.2 %; Neutrophils # (auto) 11.95 K/uL (1.4-6.5); Neutrophils % (auto) 86.3 %; Platelet Count 282 K/uL (130-400); RDW Coefficient of Variation 15.3 % (11.5-14.5); RDW Standard Deviation 44.7 fL (36.4-46.3); Red Blood Count 4.56 M/uL (4.2-5.4); White Blood Count 13.84 K/uL (4.8-10.8)
[2019-12-19 04:12] LABS: Alanine Aminotransferase 25 U/L (12-78); Albumin Level 3.5 gm/dl (3.4-5.0); Aspartate Aminotransferase 6 U/L (15-37); BUN Creatinine Ratio 20.3 (10-20); Blood Urea Nitrogen 10 mg/dl (7-18); Calcium 8.2 mg/dl (8.5-10.1); Carbon Dioxide 16 mmol/L (21-32); Chloride 107 mmol/L (98-107); Creatinine Clr Calc Pharmacy 197.9 ml/min; Est GFR (African American) > 150.0; Est GFR (Non-African American) 130.7; Glucose 230 mg/dl (70-99); Magnesium 1.7 mg/dl (1.8-2.4); Partial Thromboplastin Ratio 0.9; Partial Thromboplastin Time 26.3 Seconds (21.0-31.0); Potassium 3.6 mmol/L (3.5-5.1); Sodium 135 mmol/L (136-145)
[2019-12-19 04:15] LABS: Albumin Globulin Ratio 0.9 (0.9-2); Alkaline Phosphatase 75 U/L (45-117); Bilirubin,Total 0.6 mg/dl (0.2-1); Total Protein 7.5 gm/dl (6.4-8.2)
--- NOTE | 2019-12-19 08:13 | OB/GYN Consultation ---
Date of Consultation December 19, 2019 Assessment & Plan (1) of unknown anatomic location: (2) Threatened : Discussed with patient that we don't know if this bleeding is related to intrauterine or ectopic . explained significance of ectopic and sx associated with such that can be a surgical emergency. this most likely is an intrauterine with miscarriage. discussed common causes of miscarriage and association of poorly controlled dm with anomalies. RH pos. Need to follow trend of hcg to determine true dx and next steps. Rec repeat quant for about 48hr from prior, so that would be late afternoon tomorrow. I have put the order into ambulatory and plan to see the patient on in the office. She is aware of location of our facilities. She is obviously going to be encouraged to consider routine rail bonder care. She verbalized understanding. Unsure her LOS, and so if still in house tomorrow, can also have quant hcg drawn here in afternoon. Discussed ectopic precautions and likely abnl and support given. We do have apt planned for her in our office at 115pm with Dr. Washington--needs to arrive at 1pm to do paperwork since new to our office. She will me made aware of this by our office. History of Present Illness Reason for Consultation: and bleeding Requesting Physician: Dr. Davidson Attending Physician: Godfrey Davidson, DO History of Present Illness 29yo with cc of bleeding and new to me who i am asked to see on consult by Dr. Davidson. Patient has been SA with same partner and not contracepting. She was not trying to conceive. Her LMP was 5.29.20. She has usually monthly cycles but has been known to skip a few weeks, but when she had a gap longer than typical she checked a HPT about 2wks ago and it was positive. She has no rail bonder and so had appt [facility] see [facility]. On wednesday she started with spotting and then wednesday had heavy bleeding with clots and soaking a pad q hr and came to our ER. She was noted to have slowed bleeding by then, with stable hgb and vital signs and quant of 1100. She had u/s that did not show iup or evidence of ectopic although location was unsure. She has not seen or been anywhere for this prior to yesterday. She was having cramps yesterday as well, that were painful and in midline lower quadrant. The bleeding and cramping is less today, although she says they are offering her pain meds which she thinks has helped. She is rh positive. OBH: g1 GYNH: never had rail bonder care, no paps, no known stds. All Active Problems (Updated 12/19/19 @ 04:21 by Des Fink MD) Spontaneous Hyperglycemia due to diabetes mellitus of unknown anatomic location (Acute) Vaginal bleeding during (Acute) Abdominal pain during (Acute) Injury of right knee (Acute) Knee effusion, left (Acute) Knee pain (Acute) Numbness of right hand (Acute) Patella fracture (Acute) Allergies Allergy/AdvReac Type Severity Reaction Status Date / Time Penicillins Allergy Unknown Unknown Verified 12/18/19 17:33 Home Medications Home Medications Medication Instructions Recorded Confirmed Type No Known Home Medications 12/18/19 12/18/19 History Patient History Medical History (Updated 12/19/19 @ 08:12 by Carlie Washington MD, FACOG) Hyperglycemia due to diabetes mellitus No significant past medical history Surgical History (Updated 12/19/19 @ 08:09 by Carlie Washington MD, FACOG) No history of previous surgery Social History Smoking Status: Current every day smoker Tobacco Type: E-cigarettes / Vaping Do You Dip or Chew Tobacco: No; Hx Alcohol Use: No Hx Substance Use: No Preferred Language: Beninese Mounter Sousaphones Required: No Beliefs That Will Affect Care: None Current Living Situation: Spouse Current Living Situation Comment: lives with boyfriend Aamir Bond Other Information That Helps Us Care for You: No Feels Safe at Home: Yes Safety Concerns: Feels Safe At This Time Review of Systems Constitutional: as per Subjective / HPI; no fever Respiratory: no problem reported Cardiovascular: no problem reported Gastrointestinal: no change in stools Genitourinary: + abnormal vaginal bleeding; no dysuria Neurologic: no problem reported Psychiatric: tearful as all "this is overwhelming" Physical Exam Constitutional: WD/WN, vitals as above Respiratory: normal respiratory effort, lungs clear to auscultation Cardiovascular: Rate/Rhythm: regular rate and regular rhythm Gastrointestinal (Abdomen): Inspection/Auscultation: abdomen normal to inspection Percussion/Palpation: abdomen soft (obese); abdomen nontender and no guarding Musculoskeletal: nt calves Neurologic: grossly normal Psychiatric: A+Ox3, euthymic affect Affect: + tearful affect (on occasion) Genitourinary: deferred, perineal pad with blood. not soaked. Results & Data ([facility]) Vital Signs (Past 12 Hours) Vital Signs Temp Pulse Pulse Resp BP BP BP 12/19/19 07:23 98.1 F 91 H 18 106/70 12/19/19 03:23 98.2 F 99 H 21 120/73 12/19/19 02:00 98.3 F 101 H 99 H 18 143/83 H 12/19/19 01:27 79 16 156/83 H 12/19/19 00:00 73 16 147/86 H 12/18/19 22:40 84 18 152/91 H 12/18/19 20:50 85 22 144/74 H Pulse Ox 12/19/19 07:23 99 12/19/19 03:23 98 12/19/19 02:00 98 12/19/19 01:27 99 12/19/19 00:00 100 12/18/19 22:40 98 12/18/19 20:50 100 PG Care Time/CCT Total # of Minutes Spent Total Time Spent with Patient: Total time spent is greater than 50% in coordination of care (as documented) at patient's floor/unit and/or counseling patient: Coding Level of Care Code 21810 Inpt Consult Level 3 Diagnoses of unknown anatomic location O36.80X0 Threatened O20.0 Time Spent (min) 35
[2019-12-19 08:40] LABS: BUN Creatinine Ratio 22.7 (10-20); Blood Urea Nitrogen 11 mg/dl (7-18); Calcium 8.7 mg/dl (8.5-10.1); Carbon Dioxide 17 mmol/L (21-32); Chloride 109 mmol/L (98-107); Est GFR (African American) > 150.0; Est GFR (Non-African American) 131.6; Glucose 217 mg/dl (70-99); Magnesium 1.9 mg/dl (1.8-2.4); Potassium 3.7 mmol/L (3.5-5.1); Sodium 136 mmol/L (136-145)
[2019-12-19 08:43] LABS: Phosphorus 2.3 mg/dl (2.5-4.9)
[2019-12-19] MEDS ORDERED: PHARMACY GLYCEMIC MGMT CONSULT PRN (08:53)
[2019-12-19] MEDS: INSULIN ASPART 100 UNITS/ML 3 ML PEN SC SCH ×4 (09:26→21:12)
[2019-12-19] MEDS: INSULIN GLARGINE SOLOSTAR 100 UNITS/ML 3 ML PEN SC SCH ×2 (09:29→21:13)
--- NOTE | 2019-12-19 13:31 | Hospitalist Progress Note ---
Date of Service December 19, 2019 Assessment & Plan (1) Spontaneous : Presumed spontaneous - preschool education director consulted: Likely intrauterine but ectopic not ruled out. Will need repeat hcg tomorrow afternoon. She will follow up with billing department supervisor in the office on . CBC am (2) Hyperglycemia due to type 2 diabetes mellitus: Initially diagnosed a year ago in the emergency department with an A1c of 10.9. She was prescribed metformin but did not follow up with a provider due to lack of health insurance. Her A1c here is 9.0. She is hyperglycemic here with an elevated anion gap on admission, gap now closed. Continues to have decreased CO2. VBG 7.44. Pharmacy consulted for glycemic management I spent time bedside discussing diabetes with the patient. special educator saw her. She recommends the following regimen for titrating up her metformin after discharge : 1. Start with 500mg x 1 wk. 2. If tolerating, increase to 500mg BID x 1 wk. 3. If tolerating, increase to 500mg with breakfast and 1000mg (2 pills) with dinner x 1 wk. 4. If tolerating, increase to 1000mg (2 pills) with breakfast and 1000mg (2 pills) with dinner. (3) Hypophosphatemia: 1.6 this afternoon. Recheck ordered in 4 hours. Will order po replacement qid (4) DVT prophylaxis: SCDs Admission and Anticipated Discharge Date Admission Date: December 19, 2019 Subjective Ms. Becerra's pain is better than on admission. Her bleeding is slowing down, changing pads about every 1-2 hours. She is tearful. ROS Constitutional: no chills, aches, sweats or fever Respiratory: no sob,cough, sputum, or wheezing Cardiac: no chest pain, palpitations, edema, orthopnea or lightheadedness GI: no abdominal pain, nausea, vomiting, diarrhea or constipation : no dysuria or hesitancy Extremities: no joint pain or weakness Skin: no rash All other systems reviewed and negative Physical Exam Physical Exam: General: no distress Eyes: normal inspection, PERLL Respiratory: chest non tender, clear to auscultation, normal breath sounds, no respiratory distress, no accessory muscle use Cardiac: regular rate and rhythm, no rub or gallop, no murmur, no edema, no jvd GI/: active bowel sounds, no abd pain or tenderness, soft, non distended Extremities: normal range of motion, normal strength, non tender Neuro/Psych: alert and oriented x 3, normal mood and affect Skin: normal color, dry Results & Data Results & Data ([facility]) Vital Signs (Past 12 Hours) Vital Signs Temp Pulse Pulse Resp BP BP Pulse Ox 12/19/19 11:53 36.8 C 111 H 18 122/69 98 12/19/19 08:00 124 H 12/19/19 07:23 36.7 C 91 H 18 106/70 99 12/19/19 03:23 36.8 C 99 H 21 120/73 98 12/19/19 02:00 36.8 C 101 H 99 H 18 143/83 H 98 PG Care Time/CCT Total # of Minutes Spent Total Time Spent with Patient: Total time spent is greater than 50% in coordination of care (as documented) at patient's floor/unit and/or counseling patient: Coding Level of Care Code 68389 Subseq Hosp Care Lvl 2 Diagnoses Spontaneous O03.9 Hyperglycemia due to type 2 diabetes mellitus E11.65 Hypophosphatemia E83.39 DVT prophylaxis Z29.9
--- NOTE | 2019-12-19 13:41 | Pharmacy Report ---
Glycemic Control Consultation - Date of Service December 19, 2019 - Scope Scope: Glycemic Pharmacist consulted for glycemic control and to write orders per [facility] inpatient glycemic control protocol. - Objective Weight: 111.5 kg Accuchecks BSG (last 24hrs): 12/18/19 12/18/19 12/18/19 17:56 20:02 20:08 Glucose 292 H 269 H POC Glucose 254 H 12/18/19 12/18/19 12/19/19 22:08 22:56 00:05 Glucose 244 H POC Glucose 320 H* 257 H 12/19/19 12/19/19 12/19/19 01:52 03:43 07:35 Glucose 230 H POC Glucose 245 H 220 H 12/19/19 12/19/19 07:47 12:01 Glucose 217 H POC Glucose 208 H Laboratory Data (last 24hrs): 12/18/19 12/18/19 12/18/19 17:56 17:56 20:08 Potassium 5.6 H 3.7 D Carbon Dioxide 14 L 15 L Anion Gap 12.0 H 14.0 H Creatinine 0.73 0.60 Est Cr Clr Drug Dosing Not Reportable Not Reportable Beta-Hydroxybutyric Acd 33.37 H 12/19/19 12/19/19 12/19/19 00:05 03:43 07:47 Potassium 3.7 3.6 3.7 Carbon Dioxide 16 L 16 L 17 L Anion Gap 14.0 H 12.0 H 9.0 Creatinine 0.56 L 0.49 L 0.48 L Est Cr Clr Drug Dosing Not Reportable 197.9 202.0 Beta-Hydroxybutyric Acd HbA1c: Hemoglobin A1c 9.0 % (4.5-5.6) H 12/18/19 17:56 - Recent Pertinent Medications Outpatient Anti-diabetic Regimen: * None (previously prescribed metformin in 2019, but is no longer taking) * A1c = 9 % (12/18/19) The patient is currently receiving: * Basal insulin: none * Correctional Insulin: Novolog Correction per scale ACHS Goal Range: Low 100 mg/dL - High 150 mg/dL Correction Factor: 25 mg/dL/unit * Prandial insulin: Per carb ratio of 1 unit per 10 grams CHO consumed * Oral Agents: none - Assessment & Plan Assessment & Plan: ASSESSMENT: * WALTER is a 29 year old female who presented to [facility] ED on 12/18/19 with CC of severe lower abdominal pain and heavy vaginal bleeding * Presumed spontaneous * Patient appears to have long-standing chronic hyperglycemia (diagnosed in 2019, but takes no medications) * Hyperglycemia/mild DKA on admission * Labs in ED: BS mg/dL, A, CO2: 14, Beta-hydroxybutyric acid: 33.4 * Insulin gtt started in ED, but discontinued upon admission @~2300 * IV fluids initiated and currently infusing (NSS w/ 20 mEq of KCl @125 mL/hr) * Pharmacy consulted this morning (12/19/19) * Will initiate SC basal/bolus regimen w/ overnight checks this evening PLAN FOR INPATIENT GLYCEMIC CONTROL: * Holding outpatient oral diabetes medications * Basal insulin * Lantus 15 units SQ BID * Bolus insulin * NovoLog per scale ACHS or Q6hrs while NPO * Goal Range: Low 110 mg/dL - High 150 mg/dL * Correction Factor: 20 mg/dL/unit * Nutritional / Prandial insulin per carb ratio of 1 unit per 7 grams CHO consumed * 00,04 checks with same parameters * Please note that the plan above was derived based on current level of insulin resistance and hospital stress. These recommendations are appropriate for inpatient admission only. Plan of care upon discharge will need to be reassessed to avoid potential outpatient hypo/hyperglycemia. Thank you.
[2019-12-19 13:45] LABS: BUN Creatinine Ratio 25.6 (10-20); Calcium 8.1 mg/dl (8.5-10.1); Creatinine Clr Calc Pharmacy 182.9 ml/min; Est GFR (African American) 147.7; Est GFR (Non-African American) 127.4; Magnesium 1.8 mg/dl (1.8-2.4); Potassium 3.6 mmol/L (3.5-5.1)
[2019-12-19 13:48] LABS: Phosphorus 1.6 mg/dl (2.5-4.9)
[2019-12-19 16:29] LABS: BUN Creatinine Ratio 25.3 (10-20); Calcium 8.1 mg/dl (8.5-10.1); Creatinine Clr Calc Pharmacy 179.5 ml/min; Est GFR (African American) 146.8; Est GFR (Non-African American) 126.6; Magnesium 1.8 mg/dl (1.8-2.4); Potassium 3.7 mmol/L (3.5-5.1)
[2019-12-19 16:49] LABS: Phosphorus 1.3 mg/dl (2.5-4.9)
[2019-12-19] MEDS ORDERED: POT PHOSPHATE MONOBASIC W/ SOD TAB PO SCH (17:00)
[2019-12-19] MEDS ORDERED: POTASSIUM PHOS 3 MMOL/1 ML INFUSION IV STA ×2 (18:58→19:37)
[2019-12-19] MEDS ORDERED: POTASSIUM PHOSPHATE 30 MMOL in SODIUM CHLORIDE 0.9% 500 ML IV ONE (19:15)
[2019-12-19] MEDS ORDERED: POTASSIUM PHOSPHATE 15 MMOL in SODIUM CHLORIDE 0.9% 250 ML IV ONE (20:00)
[2019-12-19] MEDS: SODIUM CHLORIDE 0.9% 1000ML 1,000 ML IV SCH (20:04)
--- NOTE | 2019-12-19 22:18 | Electrocardiogram Report ---
Test Reason : Blood Pressure : / mmHG Vent. Rate : 078 BPM Atrial Rate : 078 BPM P-R Int : 180 ms QRS Dur : 072 ms QT Int : 434 ms P-R-T Axes : 044 037 025 degrees QTc Int : 494 ms Normal sinus rhythm Prolonged QT Abnormal ECG When compared with ECG of 08-AUG-2018 19:56, No significant change was found Confirmed by Osbaldo Martin ([id number]) on 12/19/2019 10:17:52 PM Referred By: REFERRED SELF Confirmed By:Osbaldo Martin
[2019-12-20] MEDS: INSULIN ASPART 100 UNITS/ML 3 ML PEN SC SCH ×6 (00:22→20:50)
[2019-12-20] MEDS: HYDROCODONE/ACETAMOPHEN 5/325MG TAB PO PRN (04:23)
[2019-12-20] MEDS: ONDANSETRON INJ 2 MG/ML 2 ML VIAL IV PRN ×3 (06:14→19:41)
[2019-12-20] MEDS: SODIUM CHLORIDE 0.9% 1000ML 1,000 ML IV SCH (06:23)
[2019-12-20 07:17] LABS: Basophils # (auto) 0.01 K/uL (0-0.2); Basophils % (auto) 0.1 %; Eosinophils # (auto) 0.07 K/uL (0-0.5); Eosinophils % (auto) 0.9 %; Hematocrit (blood only) 33.8 % (37-47); Hemoglobin 11.3 g/dL (12.0-16.0); Immature Granulocytes # (auto) 0.01 K/uL (0.00-0.02); Immature Granulocytes % (auto) 0.1 %; Lymphocytes # (auto) 1.08 K/uL (1.2-3.4); Lymphocytes % (auto) 14.6 %; Mean Corpuscular Hemoglobin 27.9 pg (25-34); Mean Corpuscular Hgb Conc 33.4 g/dL (32-36); Mean Corpuscular Volume 83.5 fL (80-100); Monocytes # (auto) 0.39 K/uL (0.11-0.59); Monocytes % (auto) 5.3 %; Neutrophils # (auto) 5.82 K/uL (1.4-6.5); Platelet Count 220 K/uL (130-400); RDW Coefficient of Variation 15.8 % (11.5-14.5); RDW Standard Deviation 48.2 fL (36.4-46.3); Red Blood Count 4.05 M/uL (4.2-5.4); White Blood Count 7.38 K/uL (4.8-10.8)
[2019-12-20 07:27] LABS: Partial Thromboplastin Ratio 0.9
[2019-12-20 07:50] LABS: Alanine Aminotransferase 28 U/L (12-78); Albumin Level 2.9 gm/dl (3.4-5.0); Aspartate Aminotransferase 13 U/L (15-37); BUN Creatinine Ratio 28.7 (10-20); Blood Urea Nitrogen 12 mg/dl (7-18); Calcium 7.6 mg/dl (8.5-10.1); Carbon Dioxide 18 mmol/L (21-32); Chloride 111 mmol/L (98-107); Creatinine Clr Calc Pharmacy 230.4 ml/min; Est GFR (African American) > 150.0; Est GFR (Non-African American) 136.5; Glucose 214 mg/dl (70-99); Magnesium 1.7 mg/dl (1.8-2.4); Potassium 3.7 mmol/L (3.5-5.1); Sodium 138 mmol/L (136-145)
[2019-12-20 07:54] LABS: Albumin Globulin Ratio 0.9 (0.9-2); Alkaline Phosphatase 65 U/L (45-117); Bilirubin,Total 0.4 mg/dl (0.2-1); Globulin 3.4 gm/dl (2.5-4.0); Phosphorus 2.1 mg/dl (2.5-4.9); Total Protein 6.3 gm/dl (6.4-8.2)
[2019-12-20] MEDS ORDERED: POTASSIUM PHOS 3 MMOL/1 ML INFUSION IV STA ×2 (07:56→13:00)
[2019-12-20] MEDS ORDERED: POTASSIUM PHOSPHATE 21 MMOL in SODIUM CHLORIDE 0.9% 500 ML IV SCH (08:00)
[2019-12-20] MEDS ORDERED: PROMETHAZINE HCL 12.5 MG in SODIUM CHLORIDE 0.9% 50 ML IV STA (08:23)
[2019-12-20] MEDS: MAGNESIUM SULFATE / D5W 1 GM/100 ML BAG IV SCH ×2 (08:49→10:33)
[2019-12-20] MEDS ORDERED: INSULIN GLARGINE SOLOSTAR 100 UNITS/ML 3 ML PEN SC SCH (09:00)
--- NOTE | 2019-12-20 09:08 | Communication Note ---
Date of Service: December 20, 2019 Visited with patient this am to let her know that her quant dropped from 1168 to 192. So this is likely a SAB. Patient has appt in the office tomorrow with Dr. Washington. If she is not d/c, will r/s. Patient notes that she is still bleeding but it is slowing. Discussed bleeding precautions. Blood type A+. Will be available if you need us and will sign off for now. Of note, patient is quite nauseated this am and had just received antiemetics. Notes she does not feel particularly crampy. Management will be per primary medicine team. Thank you.
--- NOTE | 2019-12-20 10:56 | Hospitalist Progress Note ---
Date of Service December 20, 2019 Assessment & Plan (1) DKA (diabetic ketoacidoses): Initially diagnosed a year ago in the emergency department with an A1c of 10.9. She was prescribed metformin but did not follow up with a provider due to lack of health insurance. Her A1c is 9.0 currently Changed to full admission Patient evaluated this morning in acute distress with Kussmaul breathing, tachypneic, acidotic on AM labs. Has been Sinus rhythm on monitor 80-100s Possible patient Type I? and triggered DKA --> glucose >300 on admission and beta-hydroxybutyrate 33.37. Changed IVF to NSS + 20meq KCl @ 125cc/hr VBG with alkalosis, 7.49 with pCO2 22 --> improving Spoke with pharmacy this morning to place patient on insulin gtt (initially ordered on admission but discontinued) * Replace electrolytes as needed. Phos 1.7 --> now 3.2. Mag 2.3 (given replacement, keep >2.0) * pH currently 7.43, pCO2 30 * May need to incorporate D5 into IVF this afternoon if patient drops too low * Serial labs Q4 (2) Hyperglycemia due to type 2 diabetes mellitus: * See above * community nutrition educator saw her. She recommends the following regimen for titrating up her metformin after discharge : (also discussed with educator as patient may need insulin if appearing more like Type I) 1. Start with 500mg x 1 wk. 2. If tolerating, increase to 500mg BID x 1 wk. 3. If tolerating, increase to 500mg with breakfast and 1000mg (2 pills) with dinner x 1 wk. 4. If tolerating, increase to 1000mg (2 pills) with breakfast and 1000mg (2 pills) with dinner. (3) Spontaneous : * Presumed spontaneous - * tool worker consulted: Likely intrauterine but ectopic not ruled out. * Repeat hcg with significant drop -- 1168 down to 192 and likely spontaneous * To initially have f/u with [facility] but will be staying inpatient secondary to above -- can reach out in AM and will need f/u once discharged * CBC stable -- expect some decrease dilutional from IVF as well -- patient states bleeding has decreased * CBC in AM (4) Hypophosphatemia: * Continued to be low --> given IV replacement. Also on oral replacement QID * Resolved currently --> 3.2 * Repeat with labs as above (5) DVT prophylaxis: * SCDs * No chemical in setting of spontaneous /bleeding as above Admission and Anticipated Discharge Date Admission Date: December 18, 2019 Supervising Physician Co-Signing Physician Notes Patient seen and examined with Chantelle SCHMID. I agree with her exam findings, review of systems, assessment and plan. I personally reviewed the lab work and imaging as well. patient in more distress today, clearly experiencing Kussmaul's respirations, blowing off acid blood gas with pH of 7.3, CO2 low at 30 due to respiratory compensation discussed with Chantelle Pena, will get started on insulin drip to stop the DKA, patient may have type I diabetes still passing clots and products of conception today but a lot less, beta hcg down to 192 from 1000 reviewed labs, Phos and mag low, will replace, follow K closely, Cr is stable - DKA: insulin drip, fluids, monitor BMP q 4 hours Subjective Patient evaluated this morning. Unable to get comfortable in bed. Nauseous with vomiting, last emesis this morning following minimal PO intake. Decreased appetite. Phenergan minimally helpful as it did "knock her out" but increased cramping/nausea once worn off later this morning. Discussed increasing this dose to see if any additional relief as we are ordered more labs and possible initiation of insulin. Endorses shortness of breath, minimal chest discomfort in epigastric region. Has been passing smaller amount of blood with clots. Discussed could be related to a mild DKA as she is slightly acidotic on labs and will discuss with pharmacy about initiating insulin to see if we can get improved results as well as Kussmaul breathing. Review of Systems Review of Systems: All systems reviewed & are unremarkable except as noted in HPI & below Physical Exam Constitutional: well developed, well nourished and + ill appearing diaphoretic, Kussmaul breathing noted Eyes: + anicteric sclerae and PERRL ENMT: dry mm Neck: normal visual inspection Respiratory: + tachypneic; no respiratory distress and no labored breathing Auscultation: + diminished lung sounds; no wheezes Cardiovascular: Rate/Rhythm: regular rate and regular rhythm Heart Sounds: no murmur Extremities: normal capillary refill; no edema Gastrointestinal (Abdomen): Inspection/Auscultation: abdomen normal to inspection and normal bowel sounds Percussion/Palpation: + abdomen tender (minimally tender diffusely) and abdomen soft; no guarding Musculoskeletal: no cyanosis or clubbing, extremities motor strength 5/5 Skin: moist Neurologic: patellar DTR's 2+ bilat, sensation intact and PERRL, EOMI, accommodation nl, no face palsy, no dysarthria Psychiatric: Orientation: alert and oriented x 3 Affect: + anxious affect and + tearful affect Lymphatic: no cervical or axillary lymphadenopathy Results & Data Results & Data ([facility]) Vital Signs (Past 12 Hours) Vital Signs Temp Pulse Pulse Resp BP Pulse Ox 12/20/19 07:44 36.7 C 79 18 120/78 99 12/20/19 07:23 80 12/20/19 04:00 36.7 C 88 20 114/75 99 12/20/19 01:37 86 12/19/19 23:00 36.6 C 95 H 20 109/64 99 Laboratory Results 12/20/19 12/20/19 12/20/19 Range/Units 16:28 14:53 14:53 WBC (4.8-10.8) K/uL RBC (4.2-5.4) M/uL Hgb (12.0-16.0) g/dL Hct (37-47) % MCV (80-100) fL MCH (25-34) pg MCHC (32-36) g/dL RDW Std Deviation (36.4-46.3) fL RDW Coeff of Sandy (11.5-14.5) % Plt Count (130-400) K/uL MPV (7.4-10.4) fL Immature Gran % (Auto) % Neut % (Auto) % Lymph % (Auto) % Weld % (Auto) % Eos % (Auto) % Baso % (Auto) % Neut # (Auto) (1.4-6.5) K/uL Lymph # (Auto) (1.2-3.4) K/uL Weld # (Auto) (0.11-0.59) K/uL Eos # (Auto) (0-0.5) K/uL Baso # (Auto) (0-0.2) K/uL Immature Gran # (Auto) (0.00-0.02) K/uL APTT (21.0-31.0) Seconds PTT Ratio VBG pH 7.43 H (7.36-7.41) VBG pCO2 30 L (38-50) mmHg VBG pO2 25 mmHg VBG HCO3 20 mmol/L VBG O2 Saturation < 60.0 % VBG Base Excess -3.3 mEq/L Barometric Pressure 726.7 mm/Hg Sodium 137 (136-145) mmol/L Potassium 4.4 (3.5-5.1) mmol/L Chloride 109 H (98-107) mmol/L Carbon Dioxide 17 L (21-32) mmol/L Anion Gap 11.0 (3-11) BUN 8 (7-18) mg/dl Creatinine 0.54 L (0.6-1.2) mg/dl Est Cr Clr Drug Dosing 183.5 ml/min Est GFR ( Amer) 146.8 Est GFR (Non-Af Amer) 126.6 BUN/Creatinine Ratio 14.4 (10-20) Glucose 151 H (70-99) mg/dl POC Glucose 127 H (70-99) mg/dl Calcium 8.2 L (8.5-10.1) mg/dl Phosphorus 3.2 D (2.5-4.9) mg/dl Magnesium 2.3 (1.8-2.4) mg/dl Total Bilirubin (0.2-1) mg/dl AST (15-37) U/L ALT (12-78) U/L Alkaline Phosphatase (45-117) U/L Total Protein (6.4-8.2) gm/dl Albumin (3.4-5.0) gm/dl Globulin (2.5-4.0) gm/dl Albumin/Globulin Ratio (0.9-2) HCG, Quant mIU/ml 12/20/19 12/20/19 12/20/19 Range/Units 14:35 13:42 12:39 WBC (4.8-10.8) K/uL RBC (4.2-5.4) M/uL Hgb (12.0-16.0) g/dL Hct (37-47) % MCV (80-100) fL MCH (25-34) pg MCHC (32-36) g/dL RDW Std Deviation (36.4-46.3) fL RDW Coeff of Sandy (11.5-14.5) % Plt Count (130-400) K/uL MPV (7.4-10.4) fL Immature Gran % (Auto) % Neut % (Auto) % Lymph % (Auto) % Weld % (Auto) % Eos % (Auto) % Baso % (Auto) % Neut # (Auto) (1.4-6.5) K/uL Lymph # (Auto) (1.2-3.4) K/uL Weld # (Auto) (0.11-0.59) K/uL Eos # (Auto) (0-0.5) K/uL Baso # (Auto) (0-0.2) K/uL Immature Gran # (Auto) (0.00-0.02) K/uL APTT (21.0-31.0) Seconds PTT Ratio VBG pH (7.36-7.41) VBG pCO2 (38-50) mmHg VBG pO2 mmHg VBG HCO3 mmol/L VBG O2 Saturation % VBG Base Excess mEq/L Barometric Pressure mm/Hg Sodium (136-145) mmol/L Potassium (3.5-5.1) mmol/L Chloride (98-107) mmol/L Carbon Dioxide (21-32) mmol/L Anion Gap (3-11) BUN (7-18) mg/dl Creatinine (0.6-1.2) mg/dl Est Cr Clr Drug Dosing ml/min Est GFR ( Amer) Est GFR (Non-Af Amer) BUN/Creatinine Ratio (10-20) Glucose (70-99) mg/dl POC Glucose 166 H 179 H 201 H (70-99) mg/dl Calcium (8.5-10.1) mg/dl Phosphorus (2.5-4.9) mg/dl Magnesium (1.8-2.4) mg/dl Total Bilirubin (0.2-1) mg/dl AST (15-37) U/L ALT (12-78) U/L Alkaline Phosphatase (45-117) U/L Total Protein (6.4-8.2) gm/dl Albumin (3.4-5.0) gm/dl Globulin (2.5-4.0) gm/dl Albumin/Globulin Ratio (0.9-2) HCG, Quant mIU/ml 09/02/20 09/02/20 09/02/20 Range/Units 11:31 11:25 11:25 WBC (4.8-10.8) K/uL RBC (4.2-5.4) M/uL Hgb (12.0-16.0) g/dL Hct (37-47) % MCV (80-100) fL MCH (25-34) pg MCHC (32-36) g/dL RDW Std Deviation (36.4-46.3) fL RDW Coeff of Sandy (11.5-14.5) % Plt Count (130-400) K/uL MPV (7.4-10.4) fL Immature Gran % (Auto) % Neut % (Auto) % Lymph % (Auto) % Weld % (Auto) % Eos % (Auto) % Baso % (Auto) % Neut # (Auto) (1.4-6.5) K/uL Lymph # (Auto) (1.2-3.4) K/uL Weld # (Auto) (0.11-0.59) K/uL Eos # (Auto) (0-0.5) K/uL Baso # (Auto) (0-0.2) K/uL Immature Gran # (Auto) (0.00-0.02) K/uL APTT (21.0-31.0) Seconds PTT Ratio VBG pH 7.49 H (7.36-7.41) VBG pCO2 22 L (38-50) mmHg VBG pO2 34 mmHg VBG HCO3 17 mmol/L VBG O2 Saturation 70.5 % VBG Base Excess -4.5 mEq/L Barometric Pressure 728.4 mm/Hg Sodium 136 (136-145) mmol/L Potassium 4.0 (3.5-5.1) mmol/L Chloride 109 H (98-107) mmol/L Carbon Dioxide 17 L (21-32) mmol/L Anion Gap 10.0 (3-11) BUN 9 (7-18) mg/dl Creatinine 0.53 L (0.6-1.2) mg/dl Est Cr Clr Drug Dosing 187.0 ml/min Est GFR ( Amer) 147.7 Est GFR (Non-Af Amer) 127.4 BUN/Creatinine Ratio 17.3 (10-20) Glucose 204 H (70-99) mg/dl POC Glucose 202 H (70-99) mg/dl Calcium 8.4 L (8.5-10.1) mg/dl Phosphorus 1.7 L (2.5-4.9) mg/dl Magnesium 2.4 (1.8-2.4) mg/dl Total Bilirubin (0.2-1) mg/dl AST (15-37) U/L ALT (12-78) U/L Alkaline Phosphatase (45-117) U/L Total Protein (6.4-8.2) gm/dl Albumin (3.4-5.0) gm/dl Globulin (2.5-4.0) gm/dl Albumin/Globulin Ratio (0.9-2) HCG, Quant mIU/ml 12/20/19 12/20/19 12/20/19 Range/Units 11:25 08:54 06:58 WBC (4.8-10.8) K/uL RBC (4.2-5.4) M/uL Hgb (12.0-16.0) g/dL Hct (37-47) % MCV (80-100) fL MCH (25-34) pg MCHC (32-36) g/dL RDW Std Deviation (36.4-46.3) fL RDW Coeff of Sandy (11.5-14.5) % Plt Count (130-400) K/uL MPV (7.4-10.4) fL Immature Gran % (Auto) % Neut % (Auto) % Lymph % (Auto) % Weld % (Auto) % Eos % (Auto) % Baso % (Auto) % Neut # (Auto) (1.4-6.5) K/uL Lymph # (Auto) (1.2-3.4) K/uL Weld # (Auto) (0.11-0.59) K/uL Eos # (Auto) (0-0.5) K/uL Baso # (Auto) (0-0.2) K/uL Immature Gran # (Auto) (0.00-0.02) K/uL APTT (21.0-31.0) Seconds PTT Ratio VBG pH (7.36-7.41) VBG pCO2 (38-50) mmHg VBG pO2 mmHg VBG HCO3 mmol/L VBG O2 Saturation % VBG Base Excess mEq/L Barometric Pressure mm/Hg Sodium (136-145) mmol/L Potassium (3.5-5.1) mmol/L Chloride (98-107) mmol/L Carbon Dioxide (21-32) mmol/L Anion Gap (3-11) BUN (7-18) mg/dl Creatinine (0.6-1.2) mg/dl Est Cr Clr Drug Dosing ml/min Est GFR ( Amer) Est GFR (Non-Af Amer) BUN/Creatinine Ratio (-20) Glucose (70-99) mg/dl POC Glucose 214 H (70-99) mg/dl Calcium (8.5-10.1) mg/dl Phosphorus Cancelled (2.5-4.9) mg/dl Magnesium Cancelled (1.8-2.4) mg/dl Total Bilirubin (0.2-1) mg/dl AST (15-37) U/L ALT (12-78) U/L Alkaline Phosphatase (45-117) U/L Total Protein (6.4-8.2) gm/dl Albumin (3.4-5.0) gm/dl Globulin (2.5-4.0) gm/dl Albumin/Globulin Ratio (0.9-2) HCG, Quant 192 mIU/ml 12/20/19 12/20/19 12/20/19 Range/Units 06:58 06:58 06:58 WBC 7.38 (4.8-10.8) K/uL RBC 4.05 L (4.2-5.4) M/uL Hgb 11.3 L (12.0-16.0) g/dL Hct 33.8 L (37-47) % MCV 83.5 (80-100) fL MCH 27.9 (25-34) pg MCHC 33.4 (32-36) g/dL RDW Std Deviation 48.2 H (36.4-46.3) fL RDW Coeff of Sandy 15.8 H (11.5-14.5) % Plt Count 220 (130-400) K/uL MPV 10.0 (7.4-10.4) fL Immature Gran % (Auto) 0.1 % Neut % (Auto) 79.0 % Lymph % (Auto) 14.6 % Weld % (Auto) 5.3 % Eos % (Auto) 0.9 % Baso % (Auto) 0.1 % Neut # (Auto) 5.82 (1.4-6.5) K/uL Lymph # (Auto) 1.08 L (1.2-3.4) K/uL Weld # (Auto) 0.39 (0.11-0.59) K/uL Eos # (Auto) 0.07 (0-0.5) K/uL Baso # (Auto) 0.01 (0-0.2) K/uL Immature Gran # (Auto) 0.01 (0.00-0.02) K/uL APTT 26.0 (21.0-31.0) Seconds PTT Ratio 0.9 VBG pH (7.36-7.41) VBG pCO2 (38-50) mmHg VBG pO2 mmHg VBG HCO3 mmol/L VBG O2 Saturation % VBG Base Excess mEq/L Barometric Pressure mm/Hg Sodium 138 (136-145) mmol/L Potassium 3.7 (3.5-5.1) mmol/L Chloride 111 H (98-107) mmol/L Carbon Dioxide 18 L (21-32) mmol/L Anion Gap 9.0 (3-11) BUN 12 (7-18) mg/dl Creatinine 0.43 L (0.6-1.2) mg/dl Est Cr Clr Drug Dosing 230.4 ml/min Est GFR ( Amer) > 150.0 Est GFR (Non-Af Amer) 136.5 BUN/Creatinine Ratio 28.7 H (10-20) Glucose 214 H (70-99) mg/dl POC Glucose (70-99) mg/dl Calcium 7.6 L (8.5-10.1) mg/dl Phosphorus 2.1 L (2.5-4.9) mg/dl Magnesium 1.7 L (1.8-2.4) mg/dl Total Bilirubin 0.4 (0.2-1) mg/dl AST 13 L (15-37) U/L ALT 28 (12-78) U/L Alkaline Phosphatase 65 (45-117) U/L Total Protein 6.3 L (6.4-8.2) gm/dl Albumin 2.9 L (3.4-5.0) gm/dl Globulin 3.4 (2.5-4.0) gm/dl Albumin/Globulin Ratio 0.9 (0.9-2) HCG, Quant mIU/ml 12/20/19 12/20/19 12/19/19 Range/Units 04:01 00:18 20:22 WBC (4.8-10.8) K/uL RBC (4.2-5.4) M/uL Hgb (12.0-16.0) g/dL Hct (37-47) % MCV (80-100) fL MCH (25-34) pg MCHC (32-36) g/dL RDW Std Deviation (36.4-46.3) fL RDW Coeff of Sandy (11.5-14.5) % Plt Count (130-400) K/uL MPV (7.4-10.4) fL Immature Gran % (Auto) % Neut % (Auto) % Lymph % (Auto) % Weld % (Auto) % Eos % (Auto) % Baso % (Auto) % Neut # (Auto) (1.4-6.5) K/uL Lymph # (Auto) (1.2-3.4) K/uL Weld # (Auto) (0.11-0.59) K/uL Eos # (Auto) (0-0.5) K/uL Baso # (Auto) (0-0.2) K/uL Immature Gran # (Auto) (0.00-0.02) K/uL APTT (21.0-31.0) Seconds PTT Ratio VBG pH (7.36-7.41) VBG pCO2 (38-50) mmHg VBG pO2 mmHg VBG HCO3 mmol/L VBG O2 Saturation % VBG Base Excess mEq/L Barometric Pressure mm/Hg Sodium (136-145) mmol/L Potassium (3.5-5.1) mmol/L Chloride (98-107) mmol/L Carbon Dioxide (21-32) mmol/L Anion Gap (3-11) BUN (7-18) mg/dl Creatinine (0.6-1.2) mg/dl Est Cr Clr Drug Dosing ml/min Est GFR ( Amer) Est GFR (Non-Af Amer) BUN/Creatinine Ratio (10-20) Glucose (70-99) mg/dl POC Glucose 161 H 175 H 207 H (70-99) mg/dl Calcium (8.5-10.1) mg/dl Phosphorus (2.5-4.9) mg/dl Magnesium (1.8-2.4) mg/dl Total Bilirubin (0.2-1) mg/dl AST (15-37) U/L ALT (12-78) U/L Alkaline Phosphatase (45-117) U/L Total Protein (6.4-8.2) gm/dl Albumin (3.4-5.0) gm/dl Globulin (2.5-4.0) gm/dl Albumin/Globulin Ratio (0.9-2) HCG, Quant mIU/ml 12/19/19 Range/Units 15:54 WBC (4.8-10.8) K/uL RBC (4.2-5.4) M/uL Hgb (12.0-16.0) g/dL Hct (37-47) % MCV (80-100) fL MCH (25-34) pg MCHC (32-36) g/dL RDW Std Deviation (36.4-46.3) fL RDW Coeff of Sandy (11.5-14.5) % Plt Count (130-400) K/uL MPV (7.4-10.4) fL Immature Gran % (Auto) % Neut % (Auto) % Lymph % (Auto) % Weld % (Auto) % Eos % (Auto) % Baso % (Auto) % Neut # (Auto) (1.4-6.5) K/uL Lymph # (Auto) (1.2-3.4) K/uL Weld # (Auto) (0.11-0.59) K/uL Eos # (Auto) (0-0.5) K/uL Baso # (Auto) (0-0.2) K/uL Immature Gran # (Auto) (0.00-0.02) K/uL APTT (21.0-31.0) Seconds PTT Ratio VBG pH (7.36-7.41) VBG pCO2 (38-50) mmHg VBG pO2 mmHg VBG HCO3 mmol/L VBG O2 Saturation % VBG Base Excess mEq/L Barometric Pressure mm/Hg Sodium (136-145) mmol/L Potassium (3.5-5.1) mmol/L Chloride (98-107) mmol/L Carbon Dioxide (21-32) mmol/L Anion Gap (3-11) BUN (7-18) mg/dl Creatinine (0.6-1.2) mg/dl Est Cr Clr Drug Dosing ml/min Est GFR ( Amer) Est GFR (Non-Af Amer) BUN/Creatinine Ratio (10-20) Glucose (70-99) mg/dl POC Glucose (70-99) mg/dl Calcium (8.5-10.1) mg/dl Phosphorus 1.3 L* (2.5-4.9) mg/dl Magnesium (1.8-2.4) mg/dl Total Bilirubin (0.2-1) mg/dl AST (15-37) U/L ALT (12-78) U/L Alkaline Phosphatase (45-117) U/L Total Protein (6.4-8.2) gm/dl Albumin (3.4-5.0) gm/dl Globulin (2.5-4.0) gm/dl Albumin/Globulin Ratio (0.9-2) HCG, Quant mIU/ml PG Care Time/CCT Total # of Minutes Spent Total Time Spent with Patient: Total time spent is greater than 50% in coordination of care (as documented) at patient's floor/unit and/or counseling patient: Coding Level of Care Code 73156 Subseq Hosp Care Lvl 3 Diagnoses DKA (diabetic ketoacidoses) E11.10 Hyperglycemia due to type 2 diabetes mellitus E11.65 Spontaneous O03.9 Hypophosphatemia E83.39 DVT prophylaxis Z29.9
[2019-12-20] MEDS ORDERED: INSULIN PROTOCOL GOAL RANGE ONE (10:59)
[2019-12-20] MEDS ORDERED: MODERATE STRESS LEVEL ONE (10:59)
[2019-12-20] MEDS ORDERED: INSULIN REGULAR 250 UNITS in SODIUM CHLORIDE 0.9% 247.5 ML IV SCH (11:15)
[2019-12-20] MEDS: POTASSIUM CHLORIDE 20 MEQ in SODIUM CHLORIDE 0.9% 1000ML 1,000 ML IV SCH ×2 (11:32→19:41)
[2019-12-20 11:39] LABS: Base Excess VBG -4.5 mEq/L; Oxygen Saturation VBG 70.5 %; pH VBG 7.49 (7.36-7.41)
[2019-12-20 12:01] LABS: BUN Creatinine Ratio 17.3 (10-20); Calcium 8.4 mg/dl (8.5-10.1); Est GFR (African American) 147.7; Est GFR (Non-African American) 127.4; Magnesium 2.4 mg/dl (1.8-2.4)
[2019-12-20 12:04] LABS: Phosphorus 1.7 mg/dl (2.5-4.9)
[2019-12-20] MEDS ORDERED: POTASSIUM PHOSPHATE 30 MMOL in SODIUM CHLORIDE 0.9% 500 ML IV ONE (13:30)
--- NOTE | 2019-12-20 14:28 | Pharmacy Report ---
Pharmacy Glycemic Short Note 2 - Date of Service December 20, 2019 - Glycemic Short BSG Results (Last 24 hours): 12/19/19 12/19/19 12/19/19 15:29 15:54 20:22 Glucose 183 H POC Glucose 190 H 207 H 12/20/19 12/20/19 12/20/19 00:18 04:01 06:58 Glucose 214 H POC Glucose 175 H 161 H 12/20/19 12/20/19 12/20/19 08:54 11:25 11:31 Glucose 204 H POC Glucose 214 H 202 H 12/20/19 12/20/19 12:39 13:42 Glucose POC Glucose 201 H 179 H OUTPATIENT ANTIDIABETIC REGIMEN: * None (previously prescribed metformin in 2019, but is no longer taking) * A1c = 9 % (12/18/19) ASSESSMENT: 12/20/19 * Patient received 53 units of insulin yesterday * 30 units of basal and 23 units of prandial/correctional * BSGs ranging 175-220 mg/dL * Today, patient had increased nausea, vomiting, and shortness of breath * Believed to be potentially related to mild DKA - insulin drip requested to be restarted and maintained for rest of day today by hospitalist * NS w/ 20 mEq KCl infusing at 125 mL/hr -> may need to incorporate dextrose into fluids if BSGs remain within insulin drip target range * Will leave consult with second shift pharmacist to follow-up with provider * Most recent pertinent labs this afternoon: Anion gap: 11, CO2: 17, pH: 7.43, K+: 4.4 12/19/19 * HL is a 29 year old female who presented to [facility] ED on 12/18/19 with CC of severe lower abdominal pain and heavy vaginal bleeding * Presumed spontaneous * Patient appears to have long-standing chronic hyperglycemia (diagnosed in 2019, but takes no medications) * Hyperglycemia/mild DKA on admission * Labs in ED: BS mg/dL, A, CO2: 14, Beta-hydroxybutyric acid: 33.4 * Insulin gtt started in ED, but discontinued upon admission @~2300 * IV fluids initiated and currently infusing (NSS w/ 20 mEq of KCl @125 mL/hr) * Pharmacy consulted this morning (12/19/19) * Will initiate SC basal/bolus regimen w/ overnight checks this evening PLAN FOR INPATIENT GLYCEMIC CONTROL: * Insulin infusion with BSG range of 110-180 mg/dL * Basal insulin * Lantus 25 units SQ x 1 given this morning * Will hold basal this evening to allow for continued IV insulin infusion * Bolus insulin * NovoLog per scale ACHS or Q6hrs while NPO * Nutritional / Prandial insulin per carb ratio of 1 unit per 5 grams CHO consumed PLAN FOR DISCHARGE: * To be determined
[2019-12-20 15:08] LABS: Base Excess VBG -3.3 mEq/L; HCO3 VBG 20 mmol/L; Oxygen Saturation VBG < 60.0 %; PCO2 VBG 30 mmHg (38-50); PO2 VBG 25 mmHg; pH VBG 7.43 (7.36-7.41)
[2019-12-20 15:24] LABS: BUN Creatinine Ratio 14.4 (10-20); Calcium 8.2 mg/dl (8.5-10.1); Creatinine Clr Calc Pharmacy 183.5 ml/min; Est GFR (African American) 146.8; Est GFR (Non-African American) 126.6; Magnesium 2.3 mg/dl (1.8-2.4); Potassium 4.4 mmol/L (3.5-5.1)
[2019-12-20 15:38] LABS: Phosphorus 3.2 mg/dl (2.5-4.9)
[2019-12-20] MEDS: PROMETHAZINE HCL 25 MG in SODIUM CHLORIDE 0.9% 50 ML IV PRN ×2 (16:07→23:50)
[2019-12-20 19:07] LABS: Base Excess VBG -4.2 mEq/L; Oxygen Saturation VBG 76.2 %; pH VBG 7.44 (7.36-7.41)
[2019-12-20 19:20] LABS: Blood Urea Nitrogen 7 mg/dl (7-18); Calcium 7.9 mg/dl (8.5-10.1); Carbon Dioxide 17 mmol/L (21-32); Chloride 109 mmol/L (98-107); Creatinine Clr Calc Pharmacy 198.2 ml/min; Est GFR (African American) > 150.0; Est GFR (Non-African American) 129.9; Glucose 110 mg/dl (70-99); Magnesium 2.2 mg/dl (1.8-2.4); Sodium 136 mmol/L (136-145)
[2019-12-20 22:50] LABS: Base Excess VBG -3.1 mEq/L; pH VBG 7.44 (7.36-7.41)
[2019-12-20 23:03] LABS: BUN Creatinine Ratio 13.4 (10-20); Blood Urea Nitrogen 6 mg/dl (7-18); Calcium 8.2 mg/dl (8.5-10.1); Carbon Dioxide 20 mmol/L (21-32); Chloride 112 mmol/L (98-107); Creatinine Clr Calc Pharmacy 215.4 ml/min; Est GFR (African American) > 150.0; Est GFR (Non-African American) 133.5; Glucose 89 mg/dl (70-99); Magnesium 2.2 mg/dl (1.8-2.4); Phosphorus 3.1 mg/dl (2.5-4.9); Potassium 3.5 mmol/L (3.5-5.1); Sodium 139 mmol/L (136-145)
--- NOTE | 2019-12-21 00:29 | Communication Note ---
Date of Service: December 21, 2019 Pharmacy requested to discuss current management of drip, thoughts were to either discontinue or thought to actually add Dextrose to fluids to provide a dded glucose to ensure safe levels as last POCs were 93 and 101. No elevated anion gap from last blood draw and last two POC have been well controlled. Not sure any added benefit to continue drip at this point. In agreement with pharmacist, will stop the insulin drip and monitor with POC glucose. Resident Activity Tracking Resident Involvement: Resident Care Provided Care Provided: Adult Hospital Medicine
[2019-12-21] MEDS: POTASSIUM CHLORIDE 20 MEQ in SODIUM CHLORIDE 0.9% 1000ML 1,000 ML IV SCH (02:56)
[2019-12-21] MEDS ORDERED: INSULIN ASPART 100 UNITS/ML 3 ML PEN SC SCH (04:00)
[2019-12-21 06:21] LABS: Basophils # (auto) 0.01 K/uL (0-0.2); Basophils % (auto) 0.1 %; Eosinophils # (auto) 0.02 K/uL (0-0.5); Eosinophils % (auto) 0.3 %; Hematocrit (blood only) 33.2 % (37-47); Hemoglobin 11.5 g/dL (12.0-16.0); Immature Granulocytes # (auto) 0.03 K/uL (0.00-0.02); Immature Granulocytes % (auto) 0.4 %; Lymphocytes # (auto) 1.39 K/uL (1.2-3.4); Lymphocytes % (auto) 17.6 %; Mean Corpuscular Hemoglobin 28.1 pg (25-34); Mean Corpuscular Hgb Conc 34.6 g/dL (32-36); Mean Corpuscular Volume 81.2 fL (80-100); Mean Platelet Volume 9.9 fL (7.4-10.4); Monocytes # (auto) 0.45 K/uL (0.11-0.59); Monocytes % (auto) 5.7 %; Neutrophils # (auto) 5.99 K/uL (1.4-6.5); Neutrophils % (auto) 75.9 %; Platelet Count 246 K/uL (130-400); RDW Coefficient of Variation 15.4 % (11.5-14.5); RDW Standard Deviation 44.9 fL (36.4-46.3); Red Blood Count 4.09 M/uL (4.2-5.4); White Blood Count 7.89 K/uL (4.8-10.8)
[2019-12-21 06:43] LABS: Partial Thromboplastin Ratio 0.8; Partial Thromboplastin Time 22.5 Seconds (21.0-31.0)
[2019-12-21 07:15] LABS: Alanine Aminotransferase 54 U/L (12-78); Albumin Globulin Ratio 0.8 (0.9-2); Albumin Level 2.9 gm/dl (3.4-5.0); Alkaline Phosphatase 86 U/L (45-117); Aspartate Aminotransferase 37 U/L (15-37); BUN Creatinine Ratio 18.5 (10-20); Bilirubin,Total 0.5 mg/dl (0.2-1); Blood Urea Nitrogen 7 mg/dl (7-18); Calcium 8.1 mg/dl (8.5-10.1); Carbon Dioxide 16 mmol/L (21-32); Chloride 112 mmol/L (98-107); Creatinine Clr Calc Pharmacy 258.3 ml/min; Est GFR (African American) > 150.0; Est GFR (Non-African American) 142.2; Globulin 3.6 gm/dl (2.5-4.0); Glucose 148 mg/dl (70-99); Magnesium 2.1 mg/dl (1.8-2.4); Potassium 4.1 mmol/L (3.5-5.1); Sodium 137 mmol/L (136-145); Total Protein 6.5 gm/dl (6.4-8.2)
[2019-12-21] MEDS: ONDANSETRON INJ 2 MG/ML 2 ML VIAL IV PRN ×2 (08:34→17:27)
[2019-12-21] MEDS: INSULIN GLARGINE SOLOSTAR 100 UNITS/ML 3 ML PEN SC SCH (08:36)
[2019-12-21] MEDS: INSULIN ASPART 100 UNITS/ML 3 ML PEN SC SCH ×4 (08:37→21:00)
--- NOTE | 2019-12-21 10:25 | Pharmacy Report ---
Pharmacy Glycemic Short Note 2 - Date of Service December 21, 2019 - Glycemic Short BSG Results (Last 24 hours): 12/20/19 12/20/19 12/20/19 11:25 11:31 12:39 Glucose 204 H POC Glucose 202 H 201 H 12/20/19 12/20/19 12/20/19 13:42 14:35 14:53 Glucose 151 H POC Glucose 179 H 166 H 12/20/19 12/20/19 12/20/19 16:28 18:29 18:56 Glucose 110 H POC Glucose 127 H 106 H 12/20/19 12/20/19 12/20/19 20:25 22:27 22:37 Glucose 89 POC Glucose 107 H 93 12/20/19 12/21/19 12/21/19 23:58 03:57 05:55 Glucose 148 H POC Glucose 101 H 144 H 12/21/19 07:24 Glucose POC Glucose 159 H OUTPATIENT ANTIDIABETIC REGIMEN: * None (previously prescribed metformin in 2018, but is no longer taking) * A1c = 9 % (12/18/19) ASSESSMENT: 12/21/19: * Pt has received 31 units of SQ insulin + 40.6 units of IV insulin over the past 24hrs * 25 units of basal + 6 units of prandial (decreased PO intake d/t N/V) * IV insulin infusion stopped around midnight. Estimated total daily insulin dose is ~ 60-70 units/day. * Will start transition process of IV --> SQ basal bolus insulin regimen. 12/20/19 * Patient received 53 units of insulin yesterday * 30 units of basal and 23 units of prandial/correctional * BSGs ranging 175-220 mg/dL * Today, patient had increased nausea, vomiting, and shortness of breath * Believed to be potentially related to mild DKA - insulin drip requested to be restarted and maintained for rest of day today by hospitalist * NS w/ 20 mEq KCl infusing at 125 mL/hr -> may need to incorporate dextrose into fluids if BSGs remain within insulin drip target range * Will leave consult with second shift pharmacist to follow-up with provider * Most recent pertinent labs this afternoon: Anion gap: 11, CO2: 17, pH: 7.43, K+: 4.4 12/19/19 * HL is a 29 year old female who presented to [facility] ED on 12/18/19 with CC of severe lower abdominal pain and heavy vaginal bleeding * Presumed spontaneous * Patient appears to have long-standing chronic hyperglycemia (diagnosed in 2019, but takes no medications) * Hyperglycemia/mild DKA on admission * Labs in ED: BS mg/dL, A, CO2: 14, Beta-hydroxybutyric acid: 33.4 * Insulin gtt started in ED, but discontinued upon admission @~2300 * IV fluids initiated and currently infusing (NSS w/ 20 mEq of KCl @125 mL/hr) * Pharmacy consulted this morning (12/19/19) * Will initiate SC basal/bolus regimen w/ overnight checks this evening PLAN FOR INPATIENT GLYCEMIC CONTROL: * DC IV Insulin infusion and transition to SQ basal bolus (estimated TDD ~ 60-70 units) * May try to give 1st doses of oral anti-diabetic agents this evening. * Basal insulin * Lantus 30 units SQ x 1 given this morning * Bolus insulin * NovoLog per scale ACHS or Q6hrs while NPO * Goal range 110-140 mg/dl * CF = 15 mg/dl/unit * Nutritional / Prandial insulin per carb ratio of 1 unit per 5 grams CHO consumed PLAN FOR DISCHARGE: * A1c = 9% * Pt will require either two oral agents at dc VS one oral agent + basal insulin. Recommending two oral agents for low cost option and to increase compliance/complexity of regimen. Discussed with DM educator * Recommend: * Metformin XR 500mg PO daily with evening meal. Continue to titrate metformin dosing upwards as recommended. Dosage increases should be made in increments of 500 mg weekly, up to 2,000 mg/day PO, given in divided doses. Doses above 2000 mg/day may be better tolerated if divided and given 3 times per day with meals. Max: 2,550 mg/day PO, in divided doses * Glimepiride 2mg PO daily with breakfast (or the first meal of the day) * Both of these agents are on the $4 [employer] Spine-Yes[employer]! list
[2019-12-21] MEDS: HYDROCODONE/ACETAMOPHEN 5/325MG TAB PO PRN (11:09)
[2019-12-21] MEDS: PROMETHAZINE HCL 25 MG in SODIUM CHLORIDE 0.9% 50 ML IV PRN (12:01)
[2019-12-21] MEDS: NSS + 20MEQ KCL 20 MEQ/1,000 ML BAG IV SCH ×2 (12:01→21:13)
--- NOTE | 2019-12-21 12:47 | Hospitalist Progress Note ---
Date of Service December 21, 2019 Assessment & Plan (1) DKA (diabetic ketoacidoses): Initially diagnosed a year ago in the emergency department with an A1c of 10.9. She was prescribed metformin but did not follow up with a provider due to lack of health insurance. Her A1c is 9.0 currently On the morning of 12/19, patient was found to be in acute distress with Kussmaul breathing, tachypnea, and acidotic on labs. Possible patient Type I? and triggered DKA --> glucose >300 on admi ssion and beta-hydroxybutyrate 33.37. Continue IVF Insulin gtt discontinued 12/20 to transition patient to basal/bolus. Will need insulin administration education as it is now unclear what type of diabetes patient is suffering from. * Replace electrolytes as needed. (2) Hyperglycemia due to type 2 diabetes mellitus: * See above * Continue diabetes education (3) Spontaneous : * Presumed spontaneous - * marking machine tender consulted: Likely intrauterine but ectopic not ruled out. * Repeat hcg with significant drop -- 1168 down to 192 and likely spontaneous * To initially have f/u with [facility] but will be staying inpatient secondary to above -- follow up appt made and next hcg level 12/26 * CBC stable -- expect some decrease dilutional from IVF as well -- patient states bleeding has decreased * CBC in AM (4) Hypophosphatemia: * Replaced, continue oral supplementation (5) DVT prophylaxis: * SCDs * No chemical in setting of spontaneous /bleeding as above Admission and Anticipated Discharge Date Admission Date: December 20, 2019 Subjective Ms. Becerra feels better today but continues to be nauseas and had two episodes of vomiting this morning. No further abdominal pain. Bleeding slowing ROS Constitutional: no chills, aches, sweats or fever Respiratory: no sob,cough, sputum, or wheezing Cardiac: no chest pain, palpitations, edema, orthopnea or lightheadedness GI: see HPI : no dysuria or hesitancy Extremities: no joint pain or weakness Skin: no rash All other systems reviewed and negative Physical Exam Physical Exam: General: no distress Eyes: normal inspection, PERLL Respiratory: chest non tender, clear to auscultation, normal breath sounds, no respiratory distress, no accessory muscle use Cardiac: regular rate and rhythm, no rub or gallop, no murmur, no edema, no jvd GI/: active bowel sounds, no abd pain or tenderness, soft, non distended Extremities: normal range of motion, normal strength, non tender Neuro/Psych: alert and oriented x 3, normal mood and affect Skin: normal color, dry Results & Data Results & Data ([facility]) Vital Signs (Past 12 Hours) Vital Signs Temp Pulse Pulse Resp BP Pulse Ox 12/21/19 11:29 37.0 C 71 20 144/83 H 98 12/21/19 07:48 36.5 C 71 20 141/86 H 100 12/21/19 07:28 84 12/21/19 04:00 36.9 C 73 20 151/83 H 99 12/21/19 01:12 72 PG Care Time/CCT Total # of Minutes Spent Total Time Spent with Patient: Total time spent is greater than 50% in coordination of care (as documented) at patient's floor/unit and/or counseling patient: Coding Level of Care Code 47230 Subseq Hosp Care Lvl 3 Diagnoses DKA (diabetic ketoacidoses) E11.10 Hyperglycemia due to type 2 diabetes mellitus E11.65 Spontaneous O03.9 Hypophosphatemia E83.39 DVT prophylaxis Z29.9
[2019-12-22] MEDS: NSS + 20MEQ KCL 20 MEQ/1,000 ML BAG IV SCH ×2 (03:47→12:15)
[2019-12-22] MEDS: MoRPHine SULFATE 4 MG/ML 1 ML CARP\\VIAL IV PRN (06:08)
[2019-12-22] MEDS: ONDANSETRON INJ 2 MG/ML 2 ML VIAL IV PRN ×2 (07:18→13:13)
[2019-12-22] MEDS: HYDROCODONE/ACETAMOPHEN 5/325MG TAB PO PRN (07:19)
[2019-12-22 08:57] LABS: Hemoglobin 12.4 g/dL (12.0-16.0); Mean Corpuscular Hemoglobin 28.3 pg (25-34); Mean Corpuscular Hgb Conc 34.4 g/dL (32-36); Mean Corpuscular Volume 82.2 fL (80-100); Mean Platelet Volume 9.8 fL (7.4-10.4); Platelet Count 263 K/uL (130-400); RDW Coefficient of Variation 15.2 % (11.5-14.5); RDW Standard Deviation 45.5 fL (36.4-46.3); Red Blood Count 4.38 M/uL (4.2-5.4); White Blood Count 8.45 K/uL (4.8-10.8)
--- NOTE | 2019-12-22 09:06 | Pharmacy Report ---
Pharmacy Glycemic Short Note 2 - Date of Service December 22, 2019 - Glycemic Short BSG Results (Last 24 hours): 12/21/19 12/21/19 12/21/19 11:25 16:49 20:49 POC Glucose 149 H 156 H 117 H 12/22/19 07:25 POC Glucose 133 H OUTPATIENT ANTIDIABETIC REGIMEN: * None (previously prescribed metformin in 2019, but is no longer taking) * A1c = 9 % (12/18/19) ASSESSMENT: 12/22/19: * Pt has received 34 units of insulin over the past 24hrs * 30 units of basal + 4 units of correctional * BSGs [phone] mg/dl * Regimen is heavily weighted towards basal insulin d/t no PO intake yesterday secondary to significant N/V * AM fasting BS is in goal range for inpatient targets at 133 mg/dl. No changes needed to basal insulin at this time. * Unable to evaluate prandial insulin coverage orders since pt is essentially NPO. However, parameters currently ordered (31/08) are "aggressive"with respect to basal insulin needs. Will empirically loosen parameters to prevent low BSG if/when pt starts tolerating PO 12/21/19: * Pt has received 31 units of SQ insulin + 40.6 units of IV insulin over the past 24hrs * 25 units of basal + 6 units of prandial (decreased PO intake d/t N/V) * IV insulin infusion stopped around midnight. Estimated total daily insulin dose is ~ 60-70 units/day. * Will start transition process of IV --> SQ basal bolus insulin regimen. 12/20/19 * Patient received 53 units of insulin yesterday * 30 units of basal and 23 units of prandial/correctional * BSGs ranging 175-220 mg/dL * Today, patient had increased nausea, vomiting, and shortness of breath * Believed to be potentially related to mild DKA - insulin drip requested to be restarted and maintained for rest of day today by hospitalist * NS w/ 20 mEq KCl infusing at 125 mL/hr -> may need to incorporate dextrose into fluids if BSGs remain within insulin drip target range * Will leave consult with second shift pharmacist to follow-up with provider * Most recent pertinent labs this afternoon: Anion gap: 11, CO2: 17, pH: 7.43, K+: 4.4 12/19/19 * HL is a 29 year old female who presented to [facility] ED on 12/18/19 with CC of severe lower abdominal pain and heavy vaginal bleeding * Presumed spontaneous * Patient appears to have long-standing chronic hyperglycemia (diagnosed in 2019, but takes no medications) * Hyperglycemia/mild DKA on admission * Labs in ED: BS mg/dL, A, CO2: 14, Beta-hydroxybutyric acid: 3 3.4 * Insulin gtt started in ED, but discontinued upon admission @~2300 * IV fluids initiated and currently infusing (NSS w/ 20 mEq of KCl @125 mL/hr) * Pharmacy consulted this morning (12/19/19) * Will initiate SC basal/bolus regimen w/ overnight checks this evening PLAN FOR INPATIENT GLYCEMIC CONTROL: * Basal insulin: no change * Lantus 30 units SQ daily * Bolus insulin: loosen parameters * NovoLog per scale ACHS or Q6hrs while NPO * Goal range 110-140 mg/dl * CF = 20 mg/dl/unit * Nutritional / Prandial insulin per carb ratio of 1 unit per 7 grams CHO consumed PLAN FOR DISCHARGE: * A1c = 9% * Discussed transitions of care/discharge recs with Karie PALACIOS and DM educator Valorie Orr * Hospitalist would like to dc patient with insulin since this may be a mixed type1/2 picture * Pt is starting a new job and will likely have insurance to cover Lantus but does not at this time and is unsure of when it will start. Will outline two insulin regimens for discharge for patient to use based on insurance coverage * Lantus + Regular Insulin * At this time, Recommend Lantus 30 units SQ daily in AM (this dose may change based on the next 24hrs of BSG trends) * Regular insulin 5 units with snacks/small meals and 10 units with large meals (this dose may change based on the next 24hrs of BSG trends) * Pt can take home the Lantus pen that is being used in house and use until the pen is complete * When it is time for Rx refill, if she does not have insurance: * Recommend: NPH 15 units SQ BIDM + Regular insulin * Regular insulin 5 units with snacks/small meals and 10 units with large meals (this dose may change based on the next 24hrs of BSG trends)
[2019-12-22 09:24] LABS: Alanine Aminotransferase 72 U/L (12-78); Aspartate Aminotransferase 32 U/L (15-37); BUN Creatinine Ratio 20.6 (10-20); Blood Urea Nitrogen 8 mg/dl (7-18); Calcium 8.4 mg/dl (8.5-10.1); Carbon Dioxide 17 mmol/L (21-32); Chloride 109 mmol/L (98-107); Creatinine Clr Calc Pharmacy 251.7 ml/min; Est GFR (African American) > 150.0; Est GFR (Non-African American) 140.9; Glucose 133 mg/dl (70-99); Potassium 3.9 mmol/L (3.5-5.1); Sodium 136 mmol/L (136-145)
[2019-12-22 09:27] LABS: Albumin Globulin Ratio 0.8 (0.9-2); Alkaline Phosphatase 100 U/L (45-117); Bilirubin,Total 0.6 mg/dl (0.2-1); Globulin 3.6 gm/dl (2.5-4.0); Total Protein 6.6 gm/dl (6.4-8.2)
[2019-12-22] MEDS: INSULIN GLARGINE SOLOSTAR 100 UNITS/ML 3 ML PEN SC SCH (09:44)
[2019-12-22] MEDS: INSULIN ASPART 100 UNITS/ML 3 ML PEN SC SCH ×3 (09:45→17:52)
--- NOTE | 2019-12-22 13:18 | Hospitalist Progress Note ---
Date of Service December 22, 2019 Assessment & Plan (1) DKA (diabetic ketoacidoses): Initially diagnosed with diabetes a year ago in the emergency department with an A1c of 10.9. She was prescribed metformin but did not follow up with a provider due to lack of health insurance. Her A1c is 9.0 currently On the morning of 12/19, patient was found to be in acute distress with Kussmaul breathing, tachypnea, and acidotic on labs. Possible mixed type diabetes and triggered DKA --> glucose >300 on admission and beta-hydroxybutyrate 33.37. Continue IVF Insulin gtt discontinued 12/20 to transition patient to basal/bolus. Will need insulin administration education as it is now unclear what type of diabetes patient is suffering from. * Replace electrolytes as needed. Unfortunately patient will not be able to obtain insurance until open enrollment at her work. This likely means April as the earliest she can receive coverage. Case management gave her information for [facility]. It would be optimal to get her in to see endocrine shortly after discharge but this is probably not financially feasible for her. Could consider work ups for PCOS or other hormonal disturbances. Discussed plan for discharge glycemic management with pharmacist and stock shipper. Likely a combination of NPH, as it is relatively inexpensive without insurance, and metformin slowly titrated up, will be the best plan financially and complexity crow for Ms. Becerra. She is agreeable to self injecting. (2) Hyperglycemia due to type 2 diabetes mellitus: * See above * Continue diabetes education (3) Spontaneous : * Presumed spontaneous - * brim greaser operator consulted: Likely intrauterine but ectopic not ruled out. * Repeat hcg with significant drop -- 1168 down to 192 and likely spontaneous * To initially have f/u with [facility] but will be staying inpatient secondary to above -- follow up appt made and next hcg level 12/26 * CBC stable -- expect some decrease dilutional from IVF as well -- patient states bleeding has decreased * CBC in AM (4) Hypophosphatemia: * Replaced, continue oral supplementation (5) DVT prophylaxis: * SCDs * No chemical in setting of spontaneous /bleeding as above Admission and Anticipated Discharge Date Admission Date: December 20, 2019 Subjective Ms. Becerra is feeling better today. No vomiting, eating small amounts. Physical Exam Physical Exam: General: no distress Eyes: normal inspection, PERLL Respiratory: chest non tender, clear to auscultation, normal breath sounds, no respiratory distress, no accessory muscle use Cardiac: regular rate and rhythm, no rub or gallop, no murmur, no edema, no jvd GI/: active bowel sounds, no abd pain or tenderness, soft, non distended Extremities: normal range of motion, normal strength, non tender Neuro/Psych: alert and oriented x 3, normal mood and affect Skin: normal color, dry Results & Data Results & Data ([facility]) Vital Signs (Past 12 Hours) Vital Signs Temp Pulse Pulse Resp BP BP Pulse Ox 12/22/19 11:12 36.7 C 62 20 152/85 H 100 12/22/19 08:00 63 12/22/19 07:08 36.9 C 74 22 150/81 H 99 12/22/19 04:00 37 C 68 20 128/79 99 12/22/19 03:53 67 PG Care Time/CCT Total # of Minutes Spent Total Time Spent with Patient: Total time spent is greater than 50% in coordination of care (as documented) at patient's floor/unit and/or counseling patient: Coding Level of Care Code 92093 Subseq Hosp Care Lvl 3 Diagnoses DKA (diabetic ketoacidoses) E11.10 Hyperglycemia due to type 2 diabetes mellitus E11.65 Spontaneous O03.9 Hypophosphatemia E83.39 DVT prophylaxis Z29.9
--- NOTE | 2019-12-22 18:36 | Discharge Summary ---
Date of Service December 22, 2019 Admission HPI Per Admitting Provider The patient is a 29-year-old female with past medical history of hyperglycemia/diabetes mellitus, that she reports she has been trying to control by diet due to not having any insurance. She had been prescribed metformin in the past but has not been able to afford it. She presents to the emergency department tonight with heavy vaginal bleeding and severe lower abdominal and pelvic pain. She underwent a transabdominal/transvaginal/ ultrasound which showed a heterogeneous appearance of the endometrium with probable blood products in the endometrial cavity and endocervical canal, that when combined with a positive beta hCG was concerning for possible spontaneous . Laboratory in the emergency department was significant for increased WBC 12.05, and glucose of 292, anion gap of 14, and beta hydroxybutyric acid 33.37 Principal Diagnosis DKA, spontaneous Discharge Exam Constitutional WD/WN, vitals as above Respiratory normal respiratory effort, lungs clear to auscultation Cardiovascular RRR, no murmur, no edema Gastrointestinal (Abdomen) normal bowel sounds, soft, nontender, no hepatosplenomegaly Musculoskeletal no cyanosis or clubbing, extremities motor strength 5/5 Skin no rashes, warm and dry Neurologic moves all extremities and awake Psychiatric A+Ox3, euthymic affect Discharge Data Allergies Allergy/AdvReac Type Severity Reaction Status Date / Time Penicillins Allergy Unknown Unknown Verified 12/18/19 17:33 Consultations 12/18/19 22:02 ED Decision to Admit Stat 12/19/19 02:01 Consult Case Management - Discharge Planning Routine 12/19/19 07:49 Consult Gynecology Routine Ordered Studies 12/18/19 17:20 US OB <= 14 weeks fetus Stat 12/18/19 19:53 US OB transvaginal Routine Hospital Course (1) DKA (diabetic ketoacidoses): Initially diagnosed with diabetes a year ago in the emergency department with an A1c of 10.9. She was prescribed metformin but did not follow up with a provider due to lack of health insurance. Her A1c is 9.0 currently On the morning of 12/19, patient was found to be in acute distress with Kussmaul breathing, tachypnea, and acidotic on labs. Possible mixed type diabetes and triggered DKA --> glucose >300 on admission and beta-hydroxybutyrate 33.37. Given IVF Insulin gtt discontinued 12/20 to transition patient to basal/bolus. 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 This likely means April as the earliest she can receive coverage. Case management gave her information for [facility]. It would be optimal to get her in to see endocrine shortly after discharge but this is probably not financially feasible for her. Could consider work ups for PCOS or other hormonal disturbances in follow up. Discussed plan for discharge glycemic management with pharmacist and template inspector. Will start Novolin-N 15 units with breakfast and 15 units with dinner and metformin XR 500 mg with dinner. She can work to titrate up the metformin as she can tolerate it. She will finish her insulin glargine pen first . This is the best plan financially and complexity crow for Ms. Becerra. She is agreeable to self injecting and education on self injecting was given I was leaning on patient staying one more night as this is the first day that she was really eating and no longer nauseas or vomiting but she was adamant about going home. We spent time going over her discharge instructions and she felt she had a good handle on them. She also had significant teaching from the template inspector (2) Hyperglycemia due to type 2 diabetes mellitus: * See above * Continue diabetes education (3) Spontaneous : * Presumed spontaneous - * motorized squad sergeant consulted: Likely intrauterine but ectopic not ruled out. * Repeat hcg with significant drop -- 1168 down to 192 and likely spontaneous . Per motorized squad sergeant she does not need any follow up imaging at this time to monitor if the is ectopic, just to trend the HCG until it is zero. * Follow up appt made and next hcg level 12/26 (4) Hypophosphatemia: * Replaced (5) DVT prophylaxis: * SCDs * No chemical in setting of spontaneous /bleeding as above Total Time Total Time Spent Total Time Spent (In Minutes): greater than 30 minutes Discharge Plan Discharge Items Patient Disposition: Home - Self-Care Reason For Visit: SPONTANEOUS Discharge Diagnosis: Spontaneous , Diabetic Ketoacidosis Condition on Discharge: Good Activity: Resume your previous activity Non-emergency contact: Primary Care Provider Call non-emergency contact if: you have any medication questions Follow-up/Referrals: Carlie Washington MD, FACOG [Physician] - (When you are discharged please call [phone] to schedule an appt with Dr. Washington. You will need weekly labs drawn to check your levels, the next time your labs need to be drawn on 12/27/2019. It is very important that you have the lab drawn, the order was placed and be drawn here at the hospital or at the building in front of the hospital. ) Liana Cabello MD [Physician] - 12/27/19 2:00 pm (We have set you up with Dr. Liana Cabello for a new patient appt on WednesdayDec.26 at 2pm. New patient paperwork is online if you are interested in filling it out and take it with you. Please arrive 15 minutes prior to appt to speak with the nurse and do your check in. Remember to bring a mask with you. Dr. Cabello is located at [address] [place] [address]. The phone number to the office is [phone]. ) Diet: Regular Addtl Attending Provider Instructions: (1) DKA (diabetic ketoacidoses): Your A1c is 9.0. An A1c above 5.7 is abnormal, and above 6.5 is considered diabetic. Your goal is to get your A1c closer to 7.0. 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 While you were here you developed diabetic ketoacidosis due to elevated blood sugar levels for which you were treated. Plan: - You will use the insulin glargine pen 30 units per day in the morning until it runs out. At that time you will switch and use the Novolin - N ReliOn Flexpens which can be purchased over the counter from from [employer] - 15 units with breakfast and 15 units with supper. - You will take metformin 500 mg once per day with supper and will work to titrate this up with your primary care provider. You can start this medication tomorrow - Check your blood sugars two times per day before breakfast and before supper. - Please follow closely with your primary care provider at the above appointment. If you feel you cannot afford an appointment with Yovana [facility], please call [facility] for follow up next week - If you become hypoglycemic and your blood sugar is running below 70, you should drink 4 oz of orange juice or take a food/drink with 15 grams of sugar. Recheck your blood sugar after 15 minutes to ensure it is over 70 and then eat a food with protein and fat such as peanut butter crackers. If your blood sugar persists in being low you will need to call your doctor or return to the emergency room. If your blood sugar is above 200 you need to call your doctor or return to the emergency department - Please establish with [facility] endocrinology as soon as you feel you can financially do so (2) Spontaneous (miscarriage): Please make sure you keep your next appointment as above and repeat your lab work as instructed. Pending Studies at Discharge: No Stand-Alone Forms: My [facility] [employer], Smoking Cessation Medications and DC Order Prescriptions: New Novolin N Flexpen 100 unit/mL (3 mL) insulin pen 15 unit subcut BID Qty: 15 RF: 1 metformin 500 mg tablet extended release 24 hr 500 mg PO DAILY Qty: 30 RF: 1 No Action No Known Home Medications RF: 0 Discharge Orders: Discharge Order (Routine); Ordered 12/22/19 Ordered By: Kamla Gaitan/Other Patient Handouts: Hypoglycemia (Low Blood Sugar), Diabetic Ketoacidosis Admission Data Admit Date/Time: 12/20/19 16:48 Attending Provider: Godfrey Davidson Admit Provider: Des Fink Primary Care Provider: PCP,NO Other Providers: Des Fink ; Carlie Washington ; [facility],Medicine Other Interventions: Discharge Summary Assessment (RN) Last Done: 12/22/19 18:36 Supervising Physician Co-Signing Physician Notes Attending note: patient seen and examined with Kamla PALACIOS. I agree with her discharge summary. I personally reviewed the labs and imaging findings. patient feeling better, sugars well controlled on basal bolus insulin discussed with Dr. Condon, executive chairman of the board, pharmacy, and lead case manager will arrange for Metformin and NPH - DKA: likely type 1.5 diabetes gap closed, acidosis resolved treated initially with insulin drip now stable on basal bolus insulin due to cost, will use Metformin and NPH - Spontaneous no further bleeding or products of conception Coding Level of Care Code D/C Day Management >30 mins Diagnoses DKA (diabetic ketoacidoses) E11.10 Hyperglycemia due to type 2 diabetes mellitus E11.65 Spontaneous O03.9 Hypophosphatemia E83.39 DVT prophylaxis Z29.9
--- NOTE | 2019-12-24 17:32 | Communication Note ---
Date of Service: December 24, 2019 Called to follow up with patient post discharge. She continues to have reduced appetite but feels her nauseas is resolving, trying to eat small amounts throughout the day. Her blood sugars are around 125 on her checks and she is doing well with insulin administration. We discussed her options for following up. She is deciding whether to follow up with Dr. Cabello on Wednesday and pay out of pocket to establish or whether she will call [facility] on Wednesday. I stressed that she can do either but just needs to make sure she follows up with someone this week and gets her lab work drawn.
--- NOTE | 2019-12-27 09:53 | Coding Query ---
BMI To promote full compliance with coding requirements relating to patient care, physician participation is requested in all cases of tool machinist uncertainty. Please assist us with the question(s) below: Please place an X within the parenthesis (x). If other, please document: BMI 45 was documented in this record for this patient. If the BMI is significant, please check the box that provides a more specific associated diagnosis: ( ) Overweight/Obese ( x) Obesity ( ) Morbid obesity ( ) Obesity Hypoventilation Syndrome (OHS) ( ) Heathy weight, not significant ( ) Underweight/Thin ( ) Other, please specify Thank you Susan COLEMAN
== END 2019-12-22 19:22 | disposition home or self-care (01) | DRG 638 ==
LOC: 2N 16:57 → ED 16:57 → SUATTDRO 12-19 → 2N 12-19 01:27

== ENCOUNTER 2022-05-14 16:15 | Inpatient (IN) ==
[2022-05-14] MEDS ORDERED: SODIUM CHLORIDE 0.9% 1000ML 2,000 ML IV ONE (16:22)
[2022-05-14] MEDS ORDERED: cefTRIAXone SODIUM 2,000 MG/70 ML BAG IV STA (16:22)
--- NOTE | 2022-05-14 16:30 | Emergency Department Note ---
Impression & Plan DKA (diabetic ketoacidoses), Pneumomediastinum, Metabolic acidosis, Acute metabolic encephalopathy ED Provider Note NAME: JAMES PARISH AGE: 31 SEX: F : 1990 ARRIVES VIA: Ambulance INFORMANT: Patient, EMS ED PROVIDER(S): Rambo Maria DO CHIEF COMPLAINT: AMS and hypothermia HPI: Patient is a 31-year-old female with a past medical history of DKA, who presents to the ER who was found lying in her home covered in water and extremely cold. Family member there notes that she has not been taking her insulin for over a year. She has been confused for the past 3 to 4 days and this was significantly worse over the past 24 hours. He notes that she is not really getting up and moving around. History was obtained from EMS and family members as patient was initially nonverbal upon presentation PAST MEDICAL HISTORY:See Below PAST SURGICAL HISTORY:See Below FAMILY HISTORY:See Below SOCIAL HISTORY:See Below HOME MEDICATIONS:See Below ALLERGIES:See Below VITALS:See Below PHYSICAL EXAMINATION: GENERAL: Laying in bed, ill-appearing but alert extremely cold to the touch EYE EXAM: normal conjunctiva. OROPHARYNX: Dry mucous membranes NECK: supple, no nuchal rigidity, no adenopathy, non-tender LUNGS: Clear to auscultation. Normal chest wall mechanics HEART: no murmurs, S1 normal and S2 normal ABDOMEN: abdomen soft, non-tender, normo-active bowel sounds, no masses, no rebound or guarding. BACK: Back is symmetrical on inspection and there is no deformity, no midline tenderness, no CVA tenderness. UPPER EXTREMITIES: upper extremities are grossly normal. LOWER EXTREMITIES: No pitting edema. NEURO EXAM: Patient is awake moving upper and lower extremities but unable to state name or location. She is following commands and able to shake head yes and no to questions MEDICAL DECISION MAKING: Patient is a 31-year-old female brought in found to have a temperature of 88 C and is awake but not speaking and shaking her head yes and no. IVs were estab lished blood work was obtained. She found to be hypotensive. Labs show leukocytosis of 18,000. No significant anemia. VBG and ABG with a pH of less than 7 and a bicarb of 3. BMP with a potassium of initially 2.9. Bicarb was 5. Creatinine was 1.75 up from baseline of 25. Sugars were elevated at 44. LFTs bilirubin was unremarkable. Lipase at 1000. CT [place] scan shows small bowel pneumonitis. She does vape/smoke marijuana. Tox positive for marijuana. She is COVID-positive. She has been improving. She was given 3 L of IV fluids. She was given 40 mill equivalents of potassium IV as well as 40 through the NG tube. I discussed with director for [employer] who accept the patient was agreeable. Recommended adding Flagyl on top of the Rocephin already given due to pneumomediastinum and enteritis. Discussed with Lenny Christianson in regards to presentation work-up and treatment. Patient was not given insulin due to the hypokalemia at 2.9 which was repleted while in the ER. She was given aggressive IV fluid hydration. Family was updated bedside. She is admitted for further work-up to the ICU. External records were reviewed and family also notes that she is noncompliant and has not taken insulin for a year as she cannot afford it. Triage Nursing notes reviewed. Limited review of prior medical records performed Vital Signs: reviewed and remarkable for no significant abnormalities Differential diagnosis: Differential diagnoses includes but is not limited to toxic, metabolic, infectious, traumatic, cardiac, neurologic, hematologic, psychiatric and inflammatory etiologies. ER treatment provided: See below Diagnostics interpreted by me include EKG and cardiac monitoring as listed below : -Cardiac Monitoring: An order was placed for continuous cardiac monitoring. The monitor shows a rate of 90 with sinus rhythm. -ECG: none -Laboratory studies:Interpreted by me as stated above in MDM and shown below. Imaging studies: Xrays: As interpreted by me: KUB initially shows NG tube coiled in esophagus. This was repeated and KUB showed appropriate placement of NG tube CTs show: CT of the head chest abdomen pelvis shows pneumomediastinum. Consultation(s): Discussed with Lenny Christianson from the hospital service in regards to presentation work-up and treatment and further evaluation. Discussed with director for [employer] in regards to presentation treatment work-up and they are agreeable to taking the patient. They did recommend NG and 40 mill equivalents potassium via NG. Procedures:none Critical Care: I have personally spent 75 minutes of critical care time in the direct management of this patient. This includes bedside care, interpretation of diagnostic studies, and testing, discussion with consultants, patient, and family members, and other required patient management activities. This 75 minutes is in excess of all separately billable procedures. Past Med/Surg History Medical History (Updated 05/14/22 @ 21:53 by Rambo Maria, DO) Acute renal failure Duodenitis Hyperglycemia due to diabetes mellitus Hypovolemia No significant past medical history Pneumomediastinum Surgical History (Updated 12/19/19 @ 08:09 by Carlie Washington MD, FACOG) No history of previous surgery Social History (Updated 01/03/20 @ 13:16 by Tori Mendiola) Smoking Status: Unknown if ever smoked Tobacco Type: E-cigarettes / Vaping Do You Dip or Chew Tobacco: No; Tobacco Cessation Education Requested by Patient: Yes Hx Alcohol Use: No Hx Substance Use: No Preferred Language: Albanian Communication Ability: Effective Communication Ability Comment: unable to obtain Credit Advisor Required: No Beliefs That Will Affect Care: None Current Living Situation: Spouse Current Living Situation Comment: lives with boyfriend Aamir Bond Feels Safe at Home: Declines to Answer Assistive Devices: None Allergies Allergies Allergy/AdvReac Type Severity Reaction Status Date / Time Penicillins Allergy Unknown Unknown Verified 05/14/22 16:32 Home Meds Previous Rx's Medication Instructions Recorded insulin NPH isoph U-100 human 100 15 unit (0.15 mL) subcut BID #15 mL 12/22/19 unit/mL (3 mL) subcutaneous pen (Novolin N FlexPen) metformin 500 mg tablet,extended 500 mg PO DAILY #30 tabs 12/22/19 release 24 hr norgestimate 0.25 mg-ethinyl 1 tab PO DAILY #84 tabs 01/03/20 estradiol 35 mcg tablet (Sprintec (28)) Results & Data (ED) Vital Signs Vital Signs - 24 hr 05/14/22 16:30 05/14/22 17:57 05/14/22 16:50 Temperature 31.3 C L Temperature Source Rectal Pulse Rate 73 73 Pulse Rate from SpO2 Sensor 73 Pulse Rhythm Regular Pulse Strength Normal Respiratory Rate 27 H 29 H Respiratory Effort / Characteristics Spontaneous Accessory Muscle Use Respiratory Depth Normal Respiratory Pattern Regular Blood Pressure 93/54 L Blood Pressure Mean 67 Blood Pressure Position Lying Pulse Oximetry 99 100 Oxygen Delivery Method Room Air Room Air Sepsis Recent Fever Within 48 Hours No Sepsis New/Unexplained Change in Mental Status Yes Sepsis Action Taken by Nursing MD Previously Notified 05/14/22 17:00 05/14/22 17:09 05/14/22 17:09 Temperature Temperature Source Pulse Rate 73 Pulse Rate from SpO2 Sensor 74 75 Pulse Rhythm Pulse Strength Respiratory Rate 24 23 Respiratory Effort / Characteristics Respiratory Depth Respiratory Pattern Blood Pressure 82/60 L Blood Pressure Mean 67 Blood Pressure Position Pulse Oximetry 99 99 Oxygen Delivery Method Sepsis Recent Fever Within 48 Hours Sepsis New/Unexplained Change in Mental Status Sepsis Action Taken by Nursing 05/14/22 17:34 05/14/22 17:35 05/14/22 17:35 Temperature Temperature Source Pulse Rate Pulse Rate from SpO2 Sensor 75 76 Pulse Rhythm Pulse Strength Respiratory Rate Respiratory Effort / Characteristics Respiratory Depth Respiratory Pattern Blood Pressure 123/63 Blood Pressure Mean 83 Blood Pressure Position Pulse Oximetry 98 98 Oxygen Delivery Method Sepsis Recent Fever Within 48 Hours Sepsis New/Unexplained Change in Mental Status Sepsis Action Taken by Nursing 05/14/22 17:45 05/14/22 17:45 05/14/22 18:00 Temperature Temperature Source Pulse Rate 74 74 Pulse Rate from SpO2 Sensor 74 74 Pulse Rhythm Pulse Strength Respiratory Rate 31 H 23 Respiratory Effort / Characteristics Respiratory Depth Respiratory Pattern Blood Pressure 148/64 H Blood Pressure Mean 92 Blood Pressure Position Pulse Oximetry 98 97 Oxygen Delivery Method Sepsis Recent Fever Within 48 Hours Sepsis New/Unexplained Change in Mental Status Sepsis Action Taken by Nursing Laboratory Data 05/14/22 16:54 05/14/22 19:27 Lab Results 05/14/22 05/14/22 05/14/22 Range/Units 16:24 16:25 16:40 WBC (4.8-10.8) K/ul RBC (4.20-5.40) M/uL Hgb (12.0-16.0) g/dl Hct (37.0-47.0) % MCV (80.0-100.0) fL MCH (25.0-34.0) pg MCHC (32.0-36.0) g/dL RDW Std Deviation (36.4-46.3) fL RDW Coeff of Sandy (11.5-14.5) % Plt Count (130-400) K/uL MPV (9.4-12.4) fL Neutrophils % (Manual) % Lymphocytes % (Manual) % Monocytes % (Manual) % Neutrophils # (Manual) (1.40-6.50) K/uL Total Absolute Neuts (1.4-6.5) K/uL Lymphocytes # (Manual) (1.2-3.4) K/uL Total Abs Lymphocytes (1.2-3.4) K/uL Monocytes # (Manual) (0.11-0.59) K/uL Echinocytes ABG pH (7.35-7.45) ABG pCO2 (35-46) mmHg ABG pO2 (80-95) mmHg ABG HCO3 (19-24) mmol/L ABG O2 Saturation (90-95) % ABG Base Excess (-9-1.8) mEq/L Tavon Test (Pos) VBG pH (7.36-7.41) VBG pCO2 (38-50) mmHg VBG pO2 mmHg VBG HCO3 mmol/L VBG O2 Saturation % VBG Base Excess mEq/L Oxygen Given Sodium (136-145) mmol/L Potassium (3.5-5.1) mmol/L Chloride (98-107) mmol/L Carbon Dioxide (21-32) mmol/L Anion Gap (3-11) BUN (6-23) mg/dl Creatinine (0.6-1.2) mg/dl Est Cr Clr Drug Dosing ml/min Est GFR ( Amer) ml/min Est GFR (Non-Af Amer) ml/min BUN/Creatinine Ratio (10-20) Glucose (70-99(Fasting)) mg/dl POC Glucose 480 H* 491 H* (70-99) mg/dl Estimat Average Glucose mg/dl Hemoglobin A1c (4.5-5.6) % Lactate (0.4-2.0) mmol/L Calcium (8.5-10.1) mg/dl Magnesium (1.7-2.4) mg/dl Total Bilirubin (0.2-1.0) mg/dl Direct Bilirubin (0-0.2) mg/dl AST (13-39) U/L ALT (7-52) U/L Alkaline Phosphatase (34-104) U/L Total Creatine Kinase 82 (26-192) U/L Troponin I High Sens (0-14) pg/ml Total Protein (6.0-8.3) gm/dl Albumin (3.4-5.0) gm/dl Procalcitonin (0-0.5) ng/ml TSH (0.300-4.500) uIu/ml Urine Color Urine Appearance (Clear) Urine pH (4.5-7.5) Ur Specific [place] (1.000-1.030) Urine Protein (Negative) Urine Glucose (UA) (Negative) Urine Ketones (Negative) Urine Blood (Negative) Urine Nitrite (Negative) Urine Bilirubin (Negative) Urine Urobilinogen (Negative) Ur Leukocyte Esterase (Negative) Urine WBC (Auto) (0-5) /hpf Urine RBC (Auto) (0-4) /hpf U Hyaline Cast (Auto) (0-5) /lpf U Epithel Cells (Auto) (0-5) /lpf Urine Bacteria (Auto) (Negative) Urine Test (Negative) Urine Opiates Screen (Neg) Ur Methadone, Qual (Neg) Urine Barbiturates (Neg) Ur Phencyclidine (PCP) (Neg) U Amphetamin/Meth Scrn (Neg) MDMA (Ecstasy) Screen (Neg) U Benzodiazepines Scrn (Neg) Ur Cocaine Metabolite (Neg) U Marijuana (THC) Screen (Neg) SARS-CoV-2 (PCR) (Negative) Influenza Type A (PCR) (Neg) Influenza Type B (PCR) (Neg) RSV (RT-PCR) (Neg) 05/14/22 05/14/22 05/14/22 Range/Units 16:40 16:40 16:54 WBC 18.25 H (4.8-10.8) K/ul RBC 5.36 (4.20-5.40) M/uL Hgb 15.1 (12.0-16.0) g/dl Hct 42.5 (37.0-47.0) % MCV 79.3 L (80.0-100.0) fL MCH 28.2 (25.0-34.0) pg MCHC 35.5 (32.0-36.0) g/dL RDW Std Deviation 44.2 (36.4-46.3) fL RDW Coeff of Sandy 15.6 H (11.5-14.5) % Plt Count 223 (130-400) K/uL MPV 10.7 (9.4-12.4) fL Neutrophils % (Manual) 89 % Lymphocytes % (Manual) 3 % Monocytes % (Manual) 9 % Neutrophils # (Manual) 16.24 H (1.40-6.50) K/uL Total Absolute Neuts 16.24 H (1.4-6.5) K/uL Lymphocytes # (Manual) 0.55 L (1.2-3.4) K/uL Total Abs Lymphocytes 0.55 L (1.2-3.4) K/uL Monocytes # (Manual) 1.64 H (0.11-0.59) K/uL Echinocytes 1+ ABG pH (7.35-7.45) ABG pCO2 (35-46) mmHg ABG pO2 (80-95) mmHg ABG HCO3 (19-24) mmol/L ABG O2 Saturation (90-95) % ABG Base Excess (-9-1.8) mEq/L Tavon Test (Pos) VBG pH (7.36-7.41) VBG pCO2 (38-50) mmHg VBG pO2 mmHg VBG HCO3 mmol/L VBG O2 Saturation % VBG Base Excess mEq/L Oxygen Given Sodium (136-145) mmol/L Potassium (3.5-5.1) mmol/L Chloride (98-107) mmol/L Carbon Dioxide (21-32) mmol/L Anion Gap (3-11) BUN (6-23) mg/dl Creatinine (0.6-1.2) mg/dl Est Cr Clr Drug Dosing ml/min Est GFR ( Amer) ml/min Est GFR (Non-Af Amer) ml/min BUN/Creatinine Ratio (10-20) Glucose (70-99(Fasting)) mg/dl POC Glucose (70-99) mg/dl Estimat Average Glucose 237 mg/dl Hemoglobin A1c 9.9 H (4.5-5.6) % Lactate (0.4-2.0) mmol/L Calcium (8.5-10.1) mg/dl Magnesium (1.7-2.4) mg/dl Total Bilirubin (0.2-1.0) mg/dl Direct Bilirubin (0-0.2) mg/dl AST (13-39) U/L ALT (7-52) U/L Alkaline Phosphatase (34-104) U/L Total Creatine Kinase (26-192) U/L Troponin I High Sens (0-14) pg/ml Total Protein (6.0-8.3) gm/dl Albumin (3.4-5.0) gm/dl Procalcitonin (0-0.5) ng/ml TSH 2.709 (0.300-4.500) uIu/ml Urine Color Urine Appearance (Clear) Urine pH (4.5-7.5) Ur Specific [place] (1.000-1.030) Urine Protein (Negative) Urine Glucose (UA) (Negative) Urine Ketones (Negative) Urine Blood (Negative) Urine Nitrite (Negative) Urine Bilirubin (Negative) Urine Urobilinogen (Negative) Ur Leukocyte Esterase (Negative) Urine WBC (Auto) (0-5) /hpf Urine RBC (Auto) (0-4) /hpf U Hyaline Cast (Auto) (0-5) /lpf U Epithel Cells (Auto) (0-5) /lpf Urine Bacteria (Auto) (Negative) Urine Test (Negative) Urine Opiates Screen (Neg) Ur Methadone, Qual (Neg) Urine Barbiturates (Neg) Ur Phencyclidine (PCP) (Neg) U Amphetamin/Meth Scrn (Neg) MDMA (Ecstasy) Screen (Neg) U Benzodiazepines Scrn (Neg) Ur Cocaine Metabolite (Neg) U Marijuana (THC) Screen (Neg) SARS-CoV-2 (PCR) (Negative) Influenza Type A (PCR) (Neg) Influenza Type B (PCR) (Neg) RSV (RT-PCR) (Neg) 05/14/22 05/14/22 05/14/22 Range/Units 16:54 16:54 16:54 WBC (4.8-10.8) K/ul RBC (4.20-5.40) M/uL Hgb (12.0-16.0) g/dl Hct (37.0-47.0) % MCV (80.0-100.0) fL MCH (25.0-34.0) pg MCHC (32.0-36.0) g/dL RDW Std Deviation (36.4-46.3) fL RDW Coeff of Sandy (11.5-14.5) % Plt Count (130-400) K/uL MPV (9.4-12.4) fL Neutrophils % (Manual) % Lymphocytes % (Manual) % Monocytes % (Manual) % Neutrophils # (Manual) (1.40-6.50) K/uL Total Absolute Neuts (1.4-6.5) K/uL Lymphocytes # (Manual) (1.2-3.4) K/uL Total Abs Lymphocytes (1.2-3.4) K/uL Monocytes # (Manual) (0.11-0.59) K/uL Echinocytes ABG pH (7.35-7.45) ABG pCO2 (35-46) mmHg ABG pO2 (80-95) mmHg ABG HCO3 (19-24) mmol/L ABG O2 Saturation (90-95) % ABG Base Excess (-9-1.8) mEq/L Tavon Test (Pos) VBG pH (7.36-7.41) VBG pCO2 (38-50) mmHg VBG pO2 mmHg VBG HCO3 mmol/L VBG O2 Saturation % VBG Base Excess mEq/L Oxygen Given Sodium 129 L (136-145) mmol/L Potassium 2.9 L (3.5-5.1) mmol/L Chloride 105 (98-107) mmol/L Carbon Dioxide 4 L* (21-32) mmol/L Anion Gap 20 H (3-11) BUN 63 H (6-23) mg/dl Creatinine 1.94 H (0.6-1.2) mg/dl Est Cr Clr Drug Dosing 51.4 ml/min Est GFR ( Amer) 38.7 ml/min Est GFR (Non-Af Amer) 33.4 ml/min BUN/Creatinine Ratio 32.5 H (10-20) Glucose 483 H* (70-99(Fasting)) mg/dl POC Glucose (70-99) mg/dl Estimat Average Glucose mg/dl Hemoglobin A1c (4.5-5.6) % Lactate 0.9 (0.4-2.0) mmol/L Calcium 7.7 L (8.5-10.1) mg/dl Magnesium 2.6 H (1.7-2.4) mg/dl Total Bilirubin 0.6 (0.2-1.0) mg/dl Direct Bilirubin 0.1 (0-0.2) mg/dl AST 7 L (13-39) U/L ALT 12 (7-52) U/L Alkaline Phosphatase 114 H (34-104) U/L Total Creatine Kinase (26-192) U/L Troponin I High Sens 19.4 H (0-14) pg/ml Total Protein 7.0 (6.0-8.3) gm/dl Albumin 4.0 (3.4-5.0) gm/dl Procalcitonin 0.46 (0-0.5) ng/ml TSH (0.300-4.500) uIu/ml Urine Color Urine Appearance (Clear) Urine pH (4.5-7.5) Ur Specific [place] (1.000-1.030) Urine Protein (Negative) Urine Glucose (UA) (Negative) Urine Ketones (Negative) Urine Blood (Negative) Urine Nitrite (Negative) Urine Bilirubin (Negative) Urine Urobilinogen (Negative) Ur Leukocyte Esterase (Negative) Urine WBC (Auto) (0-5) /hpf Urine RBC (Auto) (0-4) /hpf U Hyaline Cast (Auto) (0-5) /lpf U Epithel Cells (Auto) (0-5) /lpf Urine Bacteria (Auto) (Negative) Urine Test (Negative) Urine Opiates Screen (Neg) Ur Methadone, Qual (Neg) Urine Barbiturates (Neg) Ur Phencyclidine (PCP) (Neg) U Amphetamin/Meth Scrn (Neg) MDMA (Ecstasy) Screen (Neg) U Benzodiazepines Scrn (Neg) Ur Cocaine Metabolite (Neg) U Marijuana (THC) Screen (Neg) SARS-CoV-2 (PCR) (Negative) Influenza Type A (PCR) (Neg) Influenza Type B (PCR) (Neg) RSV (RT-PCR) (Neg) 05/14/22 05/14/22 05/14/22 Range/Units 16:54 16:56 17:08 WBC (4.8-10.8) K/ul RBC (4.20-5.40) M/uL Hgb (12.0-16.0) g/dl Hct (37.0-47.0) % MCV (80.0-100.0) fL MCH (25.0-34.0) pg MCHC (32.0-36.0) g/dL RDW Std Deviation (36.4-46.3) fL RDW Coeff of Sandy (11.5-14.5) % Plt Count (130-400) K/uL MPV (9.4-12.4) fL Neutrophils % (Manual) % Lymphocytes % (Manual) % Monocytes % (Manual) % Neutrophils # (Manual) (1.40-6.50) K/uL Total Absolute Neuts (1.4-6.5) K/uL Lymphocytes # (Manual) (1.2-3.4) K/uL Total Abs Lymphocytes (1.2-3.4) K/uL Monocytes # (Manual) (0.11-0.59) K/uL Echinocytes ABG pH (7.35-7.45) ABG pCO2 (35-46) mmHg ABG pO2 (80-95) mmHg ABG HCO3 (19-24) mmol/L ABG O2 Saturation (90-95) % ABG Base Excess (-9-1.8) mEq/L Tavon Test (Pos) VBG pH < 7.00 L (7.36-7.41) VBG pCO2 24 L (38-50) mmHg VBG pO2 60 mmHg VBG HCO3 4 mmol/L VBG O2 Saturation 90.8 % VBG Base Excess -28.5 mEq/L Oxygen Given Sodium (136-145) mmol/L Potassium (3.5-5.1) mmol/L Chloride (98-107) mmol/L Carbon Dioxide (21-32) mmol/L Anion Gap (3-11) BUN (6-23) mg/dl Creatinine (0.6-1.2) mg/dl Est Cr Clr Drug Dosing ml/min Est GFR ( Amer) ml/min Est GFR (Non-Af Amer) ml/min BUN/Creatinine Ratio (10-20) Glucose (70-99(Fasting)) mg/dl POC Glucose (70-99) mg/dl Estimat Average Glucose mg/dl Hemoglobin A1c (4.5-5.6) % Lactate (0.4-2.0) mmol/L Calcium (8.5-10.1) mg/dl Magnesium 2.7 H (1.7-2.4) mg/dl Total Bilirubin (0.2-1.0) mg/dl Direct Bilirubin (0-0.2) mg/dl AST (13-39) U/L ALT (7-52) U/L Alkaline Phosphatase (34-104) U/L Total Creatine Kinase (26-192) U/L Troponin I High Sens (0-14) pg/ml Total Protein (6.0-8.3) gm/dl Albumin (3.4-5.0) gm/dl Procalcitonin (0-0.5) ng/ml TSH (0.300-4.500) uIu/ml Urine Color Yellow Urine Appearance Cloudy A (Clear) Urine pH 5.0 (4.5-7.5) Ur Specific [place] 1.018 (1.000-1.030) Urine Protein 2+ H (Negative) Urine Glucose (UA) 3+ H (Negative) Urine Ketones 3+ H (Negative) Urine Blood 2+ H (Negative) Urine Nitrite Negative (Negative) Urine Bilirubin Negative (Negative) Urine Urobilinogen Negative (Negative) Ur Leukocyte Esterase Negative (Negative) Urine WBC (Auto) 1-5 (0-5) /hpf Urine RBC (Auto) 5-10 H (0-4) /hpf U Hyaline Cast (Auto) 5-10 H (0-5) /lpf U Epithel Cells (Auto) >30 H (0-5) /lpf Urine Bacteria (Auto) Negative (Negative) Urine Test (Negative) Urine Opiates Screen (Neg) Ur Methadone, Qual (Neg) Urine Barbiturates (Neg) Ur Phencyclidine (PCP) (Neg) U Amphetamin/Meth Scrn (Neg) MDMA (Ecstasy) Screen (Neg) U Benzodiazepines Scrn (Neg) Ur Cocaine Metabolite (Neg) U Marijuana (THC) Screen (Neg) SARS-CoV-2 (PCR) (Negative) Influenza Type A (PCR) (Neg) Influenza Type B (PCR) (Neg) RSV (RT-PCR) (Neg) 05/14/22 05/14/22 05/14/22 Range/Units 17:08 17:08 17:10 WBC (4.8-10.8) K/ul RBC (4.20-5.40) M/uL Hgb (12.0-16.0) g/dl Hct (37.0-47.0) % MCV (80.0-100.0) fL MCH (25.0-34.0) pg MCHC (32.0-36.0) g/dL RDW Std Deviation (36.4-46.3) fL RDW Coeff of Sandy (11.5-14.5) % Plt Count (130-400) K/uL MPV (9.4-12.4) fL Neutrophils % (Manual) % Lymphocytes % (Manual) % Monocytes % (Manual) % Neutrophils # (Manual) (1.40-6.50) K/uL Total Absolute Neuts (1.4-6.5) K/uL Lymphocytes # (Manual) (1.2-3.4) K/uL Total Abs Lymphocytes (1.2-3.4) K/uL Monocytes # (Manual) (0.11-0.59) K/uL Echinocytes ABG pH (7.35-7.45) ABG pCO2 (35-46) mmHg ABG pO2 (80-95) mmHg ABG HCO3 (19-24) mmol/L ABG O2 Saturation (90-95) % ABG Base Excess (-9-1.8) mEq/L Tavon Test (Pos) VBG pH (7.36-7.41) VBG pCO2 (38-50) mmHg VBG pO2 mmHg VBG HCO3 mmol/L VBG O2 Saturation % VBG Base Excess mEq/L Oxygen Given Sodium (136-145) mmol/L Potassium (3.5-5.1) mmol/L Chloride (98-107) mmol/L Carbon Dioxide (21-32) mmol/L Anion Gap (3-11) BUN (6-23) mg/dl Creatinine (0.6-1.2) mg/dl Est Cr Clr Drug Dosing ml/min Est GFR ( Amer) ml/min Est GFR (Non-Af Amer) ml/min BUN/Creatinine Ratio (10-20) Glucose (70-99(Fasting)) mg/dl POC Glucose (70-99) mg/dl Estimat Average Glucose mg/dl Hemoglobin A1c (4.5-5.6) % Lactate (0.4-2.0) mmol/L Calcium (8.5-10.1) mg/dl Magnesium (1.7-2.4) mg/dl Total Bilirubin (0.2-1.0) mg/dl Direct Bilirubin (0-0.2) mg/dl AST (13-39) U/L ALT (7-52) U/L Alkaline Phosphatase (34-104) U/L Total Creatine Kinase (26-192) U/L Troponin I High Sens (0-14) pg/ml Total Protein (6.0-8.3) gm/dl Albumin (3.4-5.0) gm/dl Procalcitonin (0-0.5) ng/ml TSH (0.300-4.500) uIu/ml Urine Color Urine Appearance (Clear) Urine pH (4.5-7.5) Ur Specific [place] (1.000-1.030) Urine Protein (Negative) Urine Glucose (UA) (Negative) Urine Ketones (Negative) Urine Blood (Negative) Urine Nitrite (Negative) Urine Bilirubin (Negative) Urine Urobilinogen (Negative) Ur Leukocyte Esterase (Negative) Urine WBC (Auto) (0-5) /hpf Urine RBC (Auto) (0-4) /hpf U Hyaline Cast (Auto) (0-5) /lpf U Epithel Cells (Auto) (0-5) /lpf Urine Bacteria (Auto) (Negative) Urine Test Negative (Negative) Urine Opiates Screen Neg (Neg) Ur Methadone, Qual Neg (Neg) Urine Barbiturates Neg (Neg) Ur Phencyclidine (PCP) Neg (Neg) U Amphetamin/Meth Scrn Neg (Neg) MDMA (Ecstasy) Screen Neg (Neg) U Benzodiazepines Scrn Neg (Neg) Ur Cocaine Metabolite Neg (Neg) U Marijuana (THC) Screen Pos H (Neg) SARS-CoV-2 (PCR) POSITIVE A* (Negative) Influenza Type A (PCR) Negative (Neg) Influenza Type B (PCR) Negative (Neg) RSV (RT-PCR) Negative (Neg) 05/14/22 Range/Units 17:51 WBC (4.8-10.8) K/ul RBC (4.20-5.40) M/uL Hgb (12.0-16.0) g/dl Hct (37.0-47.0) % MCV (80.0-100.0) fL MCH (25.0-34.0) pg MCHC (32.0-36.0) g/dL RDW Std Deviation (36.4-46.3) fL RDW Coeff of Sandy (11.5-14.5) % Plt Count (130-400) K/uL MPV (9.4-12.4) fL Neutrophils % (Manual) % Lymphocytes % (Manual) % Monocytes % (Manual) % Neutrophils # (Manual) (1.40-6.50) K/uL Total Absolute Neuts (1.4-6.5) K/uL Lymphocytes # (Manual) (1.2-3.4) K/uL Total Abs Lymphocytes (1.2-3.4) K/uL Monocytes # (Manual) (0.11-0.59) K/uL Echinocytes ABG pH < 7.00 L* (7.35-7.45) ABG pCO2 14 L (35-46) mmHg ABG pO2 117 H (80-95) mmHg ABG HCO3 3 L (19-24) mmol/L ABG O2 Saturation 98.4 H (90-95) % ABG Base Excess -27.2 L (-9-1.8) mEq/L [place] Test Pos (Pos) VBG pH (7.36-7.41) VBG pCO2 (38-50) mmHg VBG pO2 mmHg VBG HCO3 mmol/L VBG O2 Saturation % VBG Base Excess mEq/L Oxygen Given ROOM AIR Sodium (136-145) mmol/L Potassium (3.5-5.1) mmol/L Chloride (98-107) mmol/L Carbon Dioxide (21-32) mmol/L Anion Gap (3-11) BUN (6-23) mg/dl Creatinine (0.6-1.2) mg/dl Est Cr Clr Drug Dosing ml/min Est GFR ( Amer) ml/min Est GFR (Non-Af Amer) ml/min BUN/Creatinine Ratio (10-20) Glucose (70-99(Fasting)) mg/dl POC Glucose (70-99) mg/dl Estimat Average Glucose mg/dl Hemoglobin A1c (4.5-5.6) % Lactate (0.4-2.0) mmol/L Calcium (8.5-10.1) mg/dl Magnesium (1.7-2.4) mg/dl Total Bilirubin (0.2-1.0) mg/dl Direct Bilirubin (0-0.2) mg/dl AST (13-39) U/L ALT (7-52) U/L Alkaline Phosphatase (34-104) U/L Total Creatine Kinase (26-192) U/L Troponin I High Sens (0-14) pg/ml Total Protein (6.0-8.3) gm/dl Albumin (3.4-5.0) gm/dl Procalcitonin (0-0.5) ng/ml TSH (0.300-4.500) uIu/ml Urine Color Urine Appearance (Clear) Urine pH (4.5-7.5) Ur Specific [place] (1.000-1.030) Urine Protein (Negative) Urine Glucose (UA) (Negative) Urine Ketones (Negative) Urine Blood (Negative) Urine Nitrite (Negative) Urine Bilirubin (Negative) Urine Urobilinogen (Negative) Ur Leukocyte Esterase (Negative) Urine WBC (Auto) (0-5) /hpf Urine RBC (Auto) (0-4) /hpf U Hyaline Cast (Auto) (0-5) /lpf U Epithel Cells (Auto) (0-5) /lpf Urine Bacteria (Auto) (Negative) Urine Test (Negative) Urine Opiates Screen (Neg) Ur Methadone, Qual (Neg) Urine Barbiturates (Neg) Ur Phencyclidine (PCP) (Neg) U Amphetamin/Meth Scrn (Neg) MDMA (Ecstasy) Screen (Neg) U Benzodiazepines Scrn (Neg) Ur Cocaine Metabolite (Neg) U Marijuana (THC) Screen (Neg) SARS-CoV-2 (PCR) (Negative) Influenza Type A (PCR) (Neg) Influenza Type B (PCR) (Neg) RSV (RT-PCR) (Neg) Administered Medications Pantoprazole Sodium 40 mg/ (Syringe) 10 mls @ 5 mls/min IV BID GALI Stop: 06/13/22 20:59 Last Admin: 05/14/22 21:01 Dose: 5 mls/min Documented By: BRA Discontinued Medications Ceftriaxone Sodium (Rocephin) 2,000 mg in 70 mls @ 140 mls/hr IV NOW STA Stop: 05/14/22 16:51 Last Infusion: 05/14/22 19:26 Dose: 0 mls/hr Documented By: Admin: 05/14/22 18:45 Dose: 140 mls/hr Documented By: LONNIE Sodium Chloride (Nss 1000ml) 2,000 mls @ 999 mls/hr IV .Q2H1M ONE Stop: 05/14/22 18:22 Last Infusion: 05/14/22 19:27 Dose: 0 mls/hr Documented By: Admin: 05/14/22 17:04 Dose: 999 mls/hr Documented By: LONNIE Potassium Chloride (K Keith / Wtr) 10 meq in 100 mls @ 100 mls/hr IV Q1H GALI; Protocol Stop: 05/14/22 18:59 Last Infusion: 05/14/22 19:27 Dose: 0 mls/hr Documented By: Admin: 05/14/22 18:09 Dose: 100 mls/hr Documented By: Infusion: 05/14/22 18:09 Dose: 0 mls/hr Documented By: Admin: 05/14/22 17:04 Dose: 100 mls/hr Documented By: LONNIE Potassium Chloride 10 meq/ (Sodium Chloride) 1,005 mls @ 1,005 mls/hr IV .Q1H GALI Stop: 05/14/22 18:29 Last Infusion: 05/14/22 19:27 Dose: 0 mls/hr Documented By: Admin: 05/14/22 18:09 Dose: 1,005 mls/hr Documented By: LONNIE Metronidazole (Flagyl) 500 mg in 100 mls @ 100 mls/hr IV NOW STA Stop: 05/14/22 18:51 Last Admin: 05/14/22 19:13 Dose: 100 mls/hr Documented By: KIRTI Lactated Ringer's (Lr) 1,000 mls @ 999 mls/hr IV .Q1H1M GALI Stop: 05/14/22 20:32 Last Admin: 05/14/22 21:35 Dose: 999 mls/hr Documented By: VERO Potassium Chloride (K Keith / Wtr) 10 meq in 100 mls @ 200 mls/hr IV Q30M GALI Stop: 05/14/22 21:29 Last Admin: 05/14/22 21:40 Dose: 200 mls/hr Documented By: Infusion: 05/14/22 21:31 Dose: 200 mls/hr Documented By: Admin: 05/14/22 21:01 Dose: 200 mls/hr Documented By: VERO Potassium Chloride (Potassium Chloride 20 Meq/15 Ml Udc) 40 meq PO NOW STA Stop: 05/14/22 17:53 Last Admin: 05/14/22 19:13 Dose: 40 meq Documented By: KIRTI Potassium Chloride (Potassium Chloride 20 Meq/15 Ml Udc) 40 meq PO NOW STA Stop: 05/14/22 21:05 Last Admin: 05/14/22 21:36 Dose: 40 meq Documented By: VERO Sodium Bicarbonate (Sodium Bicarbonate 8.4% Inj 50 Meq/50 Ml Vial) 50 meq IV NOW STA Stop: 05/14/22 18:33 Last Admin: 05/14/22 18:45 Dose: 50 meq Documented By: LONNIE Sodium Bicarbonate (Sodium Bicarb 8.4% Inj 50 Meq/50 Ml Syr) 50 meq IV NOW STA Stop: 05/14/22 21:07 Last Admin: 05/14/22 21:37 Dose: 50 meq Documented By: VERO Sodium Bicarbonate (Sodium Bicarb 8.4% Inj 50 Meq/50 Ml Syr) 50 meq IV NOW STA Stop: 05/14/22 21:09 Last Admin: 05/14/22 21:38 Dose: 50 meq Documented By: VERO Imaging Data Radiologist's Impression: Cervical Spine CT 05/14/22 16:[address] DOSE: HISTORY: fall TECHNIQUE: Multiaxial CT images of the cervical spine were performed and reformatted in the sagittal and coronal plane without the use of contrast. A dose lowering technique was utilized adhering to the principles of ALARA. COMPARISON: None. FINDINGS: No fractures. No subluxation. Prevertebral soft tissues and the C1-C2 interval are intact. No pneumothorax. IMPRESSION: No fractures within the cervical spine. ACT 112: Negative or not required by law. Electronically signed by: Joe Myers M.D. 05/14/2022 5:40 PM Chest X-Ray 05/14/22 16:22 XR chest 1V portable HISTORY: 31 years-old Female Sepsis acute sepsis COMPARISON: Chest radiograph 08/08/2018 TECHNIQUE: AP view of the chest FINDINGS: Cardiac silhouette is enlarged. No pneumothorax, pleural effusion, airspace consolidation or overt pulmonary edema. Bones of the chest appear grossly intact. IMPRESSION: No acute process. ACT 112: Negative or not required by law. The above report was generated using voice recognition software. It may contain grammatical, syntax or spelling errors. Electronically signed by: Christ Sifuentes M.D. 05/14/2022 4:[address] 05/14/22 16:[address] DOSE: HISTORY: Fall. Altered mental status. TECHNIQUE: Multiaxial CT images of the head were performed without the use of intravenous contrast. Automated exposure control was utilized for this study. A dose lowering technique was utilized adhering to the principles of ALARA. Comparison: None. Findings: Motion artifact. Near complete opacification of the right sphenoid sinus. The mastoid air cells are clear. The calvarium and skull base are intact. The ventricles and sulci are within normal limits. There is no mass, hematoma, midline shift, or acute infarct. Impression: Motion artifact. No definite acute intracranial abnormality. ACT 112: Negative or not required by law. Electronically signed by: Joe Myers M.D. 05/14/2022 5:38 PM Abdomen/Pelvis CT 05/14/22 16:51 CT chest diagnostic wo con, CT abd pelvis wo con CT DOSE: 5691.03 mGy.cm CLINICAL HISTORY: 31 years-old Female with ams. Acute chest and abdominal trauma status post fall TECHNIQUE: Multiaxial CT images of the chest, abdomen and pelvis were performed without contrast. A dose lowering technique was utilized adhering to the prin ciples of ALARA. COMPARISON: Chest radiograph of same day FINDINGS: CT CHEST: Limited exam secondary to positioning and respiratory motion artifact. No thyroid nodule. Small to moderate amount of pneumomediastinum which is most pronounced in the anterior and middle mediastinum and tracks inferiorly along the distal esophagus. The heart is mildly enlarged. No pericardial effusion. No thoracic aortic aneurysm. Pneumothorax, pleural effusion, airspace consolidation or overt pulmonary edema. Central airways are patent. Unremarkable soft tissues. No acute fracture identified considering the aforementioned limitations as above. CT ABDOMEN/PELVIS: Mild wall thickening of the distal esophagus. No pneumatosis or pneumoperitoneum. Study is limited secondary to positioning, and respiratory motion artifact. The unenhanced spleen, mildly atrophic pancreas and adrenal glands are unremarkable. Hepatic steatosis with mild hepatomegaly. The visualized gallbladder appears unremarkable. Unremarkable kidneys. Decompressed or bladder with Crespo catheter in place. Unremarkable uterus and adnexa. Aorta and IVC are unremarkable. Mildly prominent inguinal chain lymph nodes are likely reactive. Questioned mild wall thickening of the duodenal bulb. No bowel obstruction. Normal appendix. Unremarkable soft tissues. No acute fracture identified. Chronic bilateral L5 pars defects without spondylolisthesis. IMPRESSION: 1. Nonspecific mild to moderate pneumomediastinum. 2. No pneumothorax or acute fracture identified. 3. Mild nonspecific distal esophageal wall thickening. 4. Mild wall thickening of the duodenum may be secondary to partial distention versus a nonspecific duodenitis. 5. Hepatic steatosis. ACT 112: Negative or not required by law. Electronically signed by: Christ Sifuentes M.D. 05/14/2022 5:[address] 05/14/22 16:51 CT chest diagnostic wo con, CT abd pelvis wo con CT DOSE: 5691.03 mGy.cm CLINICAL HISTORY: 31 years-old Female with ams. Acute chest and abdominal trauma status post fall TECHNIQUE: Multiaxial CT images of the chest, abdomen and pelvis were performed without contrast. A dose lowering technique was utilized adhering to the principles of ALARA. COMPARISON: Chest radiograph of same day FINDINGS: CT CHEST: Limited exam secondary to positioning and respiratory motion artifact. No thyroid nodule. Small to moderate amount of pneumomediastinum which is most pronounced in the anterior and middle mediastinum and tracks inferiorly along the distal esophagus. The heart is mildly enlarged. No pericardial effusion. No thoracic aortic aneurysm. Pneumothorax, pleural effusion, airspace consolidation or overt pulmonary edema. Central airways are patent. Unremarkable soft tissues. No acute fracture identified considering the aforementioned limitations as above. CT ABDOMEN/PELVIS: Mild wall thickening of the distal esophagus. No pneumatosis or pneumoperitoneum. Study is limited secondary to positioning, and respiratory motion artifact. The unenhanced spleen, mildly atrophic pancreas and adrenal glands are unremarkable. Hepatic steatosis with mild hepatomegaly. The visualized gallbladder appears unremarkable. Unremarkable kidneys. Decompressed or bladder with Crespo catheter in place. Unremarkable uterus and adnexa. Aorta and IVC are unremarkable. Mildly prominent inguinal chain lymph nodes are likely reactive. Questioned mild wall thickening of the duodenal bulb. No bowel obstruction. Normal appendix. Unremarkable soft tissues. No acute fracture identified. Chronic bilateral L5 pars defects without spondylolisthesis. IMPRESSION: 1. Nonspecific mild to moderate pneumomediastinum. 2. No pneumothorax or acute fracture identified. 3. Mild nonspecific distal esophageal wall thickening. 4. Mild wall thickening of the duodenum may be secondary to partial distention versus a nonspecific duodenitis. 5. Hepatic steatosis. ACT 112: Negative or not required by law. Electronically signed by: Christ Sifuentes M.D. 05/14/2022 5:40 PM KUB X-Ray 05/14/22 17:52 KUB HISTORY: NG tube placement. COMPARISON: None. FINDINGS: The nasogastric tube is curled at the mid mediastinum with the tip terminating at the superior mediastinum. This could be curled within the esophagus or trachea. This should be removed. No pneumothorax. No pleural fusions. The heart is normal in size. The lungs are clear. IMPRESSION: The nasogastric tube is curled at the mid mediastinum with the tip terminating at the superior mediastinum. This could be curled within the esophagus or trachea. This should be removed. ACT 112: Negative or not required by law. Electronically signed by: Joe Myers M.D. 05/14/2022 6:20 PM Discharge Plan Visit Data Chief Complaint: Hyperglycemia Stated Complaint: HYPERGLYCEMIA, HYPOTHERMIA ED Provider: Rambo Maria Discharge Problem: DKA (diabetic ketoacidoses), Pneumomediastinum, Metabolic acidosis, Acute metabolic encephalopathy Patient Disposition: Admitted As Inpatient Discharge Instructions Interventions: ED Discharge Assessment Last Done: 05/14/22 20:04
--- NOTE | 2022-05-14 16:45 | XRay Report ---
XR chest 1V portable HISTORY: 31 years-old Female Sepsis acute sepsis COMPARISON: Chest radiograph 08/08/2018 TECHNIQUE: AP view of the chest FINDINGS: Cardiac silhouette is enlarged. No pneumothorax, pleural effusion, airspace consolidation or overt pu lmonary edema. Bones of the chest appear grossly intact. IMPRESSION: No acute process. ACT 112: Negative or not required by law. The above report was generated using voice recognition software. It may contain grammatical, syntax o r spelling errors. Electronically signed by: Christ Sifuentes M.D. 05/14/2022 4:44 PM
[2022-05-14] MEDS: POTASSIUM CHLORIDE / WTR 10 MEQ/100 ML PLCT IV SCH ×4 (17:04→21:40)
[2022-05-14 17:18] LABS: Hematocrit (blood only) 42.5 % (37.0-47.0); Hemoglobin 15.1 g/dl (12.0-16.0); Mean Corpuscular Hemoglobin 28.2 pg (25.0-34.0); Mean Corpuscular Hgb Conc 35.5 g/dL (32.0-36.0); Mean Corpuscular Volume 79.3 fL (80.0-100.0); Mean Platelet Volume 10.7 fL (9.4-12.4); Platelet Count 223 K/uL (130-400); RDW Coefficient of Variation 15.6 % (11.5-14.5); RDW Standard Deviation 44.2 fL (36.4-46.3); Red Blood Count 5.36 M/uL (4.20-5.40); White Blood Count 18.25 K/ul (4.8-10.8)
[2022-05-14 17:19] LABS: Base Excess VBG -28.5 mEq/L; HCO3 VBG 4 mmol/L; Oxygen Saturation VBG 90.8 %; PCO2 VBG 24 mmHg (38-50); PO2 VBG 60 mmHg; pH VBG < 7.00 (7.36-7.41)
[2022-05-14] MEDS ORDERED: GLUCOSE 10 TAB/TUBE PO PRN (17:26)
[2022-05-14] MEDS ORDERED: GLUCAGON FOR INJ 1 MG VIAL SQ PRN (17:26)
[2022-05-14] MEDS ORDERED: CARBOHYDRATES FOR HYPOGLYCEMIA PO PRN (17:26)
[2022-05-14] MEDS ORDERED: DKA GOAL RANGE 150-250 mg/dl ONE ×2 (17:26→20:19)
[2022-05-14] MEDS ORDERED: DEXTROSE 50% 50 ML SYRINGE IV PRN (17:26)
[2022-05-14] MEDS ORDERED: GLUCOSE 40% GEL 15 GM TUBE PO PRN (17:26)
[2022-05-14] MEDS ORDERED: POTASSIUM CHLORIDE 10 MEQ in SODIUM CHLORIDE 0.9% 1000ML 1,000 ML IV SCH (17:30)
[2022-05-14] MEDS ORDERED: INSULIN REGULAR 250 UNITS in SODIUM CHLORIDE 0.9% 247.5 ML IV SCH (17:30)
--- NOTE | 2022-05-14 17:40 | CT Scan Report ---
HEAD CT NONCONTRAST CT DOSE: HISTORY: Fall. Altered mental status. TECHNIQUE: Multiaxial CT images of the head were performed without the use of intravenous contrast. A utomated exposure control was utilized for this study. A dose lowering technique was utilized adheri ng to the principles of ALARA. Comparison: None. Findings: Motion artifact. Near complete opacification of the right sphenoid sinus. The mastoid air c ells are clear. The calvarium and skull base are intact. The ventricles and sulci are within normal l imits. There is no mass, hematoma, midline shift, or acute infarct. Impression: Motion artifact. No definite acute intracranial abnormality. ACT 112: Negative or not required by law. Electronically signed by: Joe Myers M.D. 05/14/2022 5:38 PM
--- NOTE | 2022-05-14 17:41 | CT Scan Report ---
CERVICAL SPINE CT CT DOSE: HISTORY: fall TECHNIQUE: Multiaxial CT images of the cervical spine were performed and reformatted in the sagittal and coronal plane without the use of contrast. A dose lowering technique was utilized adhering to th e principles of ALARA. COMPARISON: None. FINDINGS: No fractures. No subluxation. Prevertebral soft tissues and the C1-C2 interval are intact. No pneumothorax. IMPRESSION: No fractures within the cervical spine. ACT 112: Negative or not required by law. Electronically signed by: Joe Myers M.D. 05/14/2022 5:40 PM
[2022-05-14 17:42] LABS: ALC (manual) 0.55 K/uL (1.2-3.4); ANC (manual) 16.24 K/uL (1.4-6.5); Echinocytes 1+; Lymphocytes # (manual) 0.55 K/uL (1.2-3.4); Lymphocytes % (manual) 3 %; Monocytes # (manual) 1.64 K/uL (0.11-0.59); Monocytes % (manual) 9 %; Neutrophils # (manual) 16.24 K/uL (1.40-6.50); Neutrophils % (manual) 89 %
--- NOTE | 2022-05-14 17:42 | CT Scan Report ---
CT chest diagnostic wo con, CT abd pelvis wo con CT DOSE: 5691.03 mGy.cm CLINICAL HISTORY: 31 years-old Female with ams. Acute chest and abdominal trauma status post fall TECHNIQUE: Multiaxial CT images of the chest, abdomen and pelvis were performed without contrast. A dose lowering technique was utilized adhering to the principles of ALARA. COMPARISON: Chest radiograph of same day FINDINGS: CT CHEST: Limited exam secondary to positioning and respiratory motion artifact. No thyroid nodule. Small to mo derate amount of pneumomediastinum which is most pronounced in the anterior and middle mediastinum an d tracks inferiorly along the distal esophagus. The heart is mildly enlarged. No pericardial effusion . No thoracic aortic aneurysm. Pneumothorax, pleural effusion, airspace consolidation or overt pulmonary edema. Central airways are patent. Unremarkable soft tissues. No acute fracture identified considering the aforementioned limita tions as above. CT ABDOMEN/PELVIS: Mild wall thickening of the distal esophagus. No pneumatosis or pneumoperitoneum. Study is limited se condary to positioning, and respiratory motion artifact. The unenhanced spleen, mildly atrophic pancr eas and adrenal glands are unremarkable. Hepatic steatosis with mild hepatomegaly. The visualized gal lbladder appears unremarkable. Unremarkable kidneys. Decompressed or bladder with Crespo catheter in place. Unremarkable uterus and a dnexa. Aorta and IVC are unremarkable. Mildly prominent inguinal chain lymph nodes are likely reactiv e. Questioned mild wall thickening of the duodenal bulb. No bowel obstruction. Normal appendix. Unremark able soft tissues. No acute fracture identified. Chronic bilateral L5 pars defects without spondyloli sthesis. IMPRESSION: 1. Nonspecific mild to moderate pneumomediastinum. 2. No pneumothorax or acute fracture identified. 3. Mild nonspecific distal esophageal wall thickening. 4. Mild wall thickening of the duodenum may be secondary to partial distention versus a nonspecific d uodenitis. 5. Hepatic steatosis. ACT 112: Negative or not required by law. Electronically signed by: Christ Sifuentes M.D. 05/14/2022 5:40 PM
[2022-05-14 17:47] LABS: BUN Creatinine Ratio 32.5 (10-20); Bilirubin Direct 0.1 mg/dl (0-0.2); Bilirubin,Total 0.6 mg/dl (0.2-1.0); Calcium 7.7 mg/dl (8.5-10.1); Creatinine Clr Calc Pharmacy 51.4 ml/min; Est GFR (African American) 38.7 ml/min; Est GFR (Non-African American) 33.4 ml/min; Magnesium 2.6 mg/dl (1.7-2.4); Potassium 2.9 mmol/L (3.5-5.1); Troponin I High Sensitivity 19.4 pg/ml (0-14)
[2022-05-14] MEDS ORDERED: POTASSIUM CHLORIDE 20 MEQ/15 ML UDC PO STA ×2 (17:52→21:04)
[2022-05-14] MEDS ORDERED: metroNIDAZOLE 500 MG/100 ML BAG IV STA (17:52)
--- NOTE | 2022-05-14 18:08 | History & Physical Report ---
Date of Service May 14, 2022 Assessment & Plan (1) DKA (diabetic ketoacidoses): Plan: Secondary to not taking insulin, untreated diabetes. Previous DKA episode in 2019. NSS 2L bolus + NSS+[id number] 1L bolus given in ER. MAP currently > 65 will defer ongoing IV fluids to ICU team. Hold off insulin until K > 3.3. KCl 10meq IV x2. Agree with NG tube and 40 meq PO to be given. Repeat K following this. ABG pending to determine need for bicarbonate DKA protocol labs, insulin drip, IV fluids Admit to ICU - discussed care with Dr Vera on admission (2) Hypokalemia: Plan: As above (3) Acute metabolic encephalopathy: Plan: Suspect secondary to severe metabolic acidosis CT head negative for acute intracranial pathology Urine toxicology screen positive only for marijuana Procalcitonin negative - no clear infection on exam but limited history, blood cultures taken, antibiotics deferred to ICU team. (4) Hypothermia: Plan: Suspect environmental given story of being found covered in water TSH WNL Infection not ruled out until blood cultures negative Continue Kevin johnson, will defer warmed IV fluids to ICU (5) Acute renal failure: Plan: Secondary to severe dehydration from DKA. Continue to monitor with DKA labs q4h. Crespo catheter placed in ER and patient producing good amounts of urine already. (6) Metabolic acidosis: Plan: Secondary to ketosis from DKA Lactate 0.9 (7) Duodenitis: Plan: Pantoprazole 40mg IV BID (8) Pneumomediastinum: Plan: Seen incidentally on CT chest. Continue to monitor. (9) SARS-CoV-2 positive: Plan: Screening test in the ER positive. CT chest clear. Pt on room air. Unclear if pre-symptomatic, asymptomatic or false positive. Consider repeating if not having any symptoms of COVID-19 Plan VTE Prophylaxis - low risk given age Diet - NPO Disposition - admit to ICU Admission and Anticipated Discharge Date Admission Date: May 14, 2022 History of Present Illness Chief Complaint: Unresponsiveness Primary Care Provider: NO PCP Valorie Becerra is a 31 year old female who presents to the ER with unresponsiveness. Unable to get any history from patient at this time therefore history taken from EMS/triage/ER notes. Reportedly found unresponsive, extremely cold, covered in water. Known diabetic but not taking insulin for over a year and confused for the last 3-4 days. Allergies Allergy/AdvReac Type Severity Reaction Status Date / Time Penicillins Allergy Unknown Unknown Verified 05/14/22 16:32 Home Medications Medication Instructions Recorded Confirmed Type insulin NPH isoph U-100 human 100 15 unit (0.15 mL) subcut BID #15 mL 12/22/19 01/03/20 Rx unit/mL (3 mL) subcutaneous pen (Novolin N FlexPen) metformin 500 mg tablet,extended 500 mg PO DAILY #30 tabs 12/22/19 01/03/20 Rx release 24 hr norgestimate 0.25 mg-ethinyl 1 tab PO DAILY #84 tabs 01/03/20 01/03/20 Rx estradiol 35 mcg tablet (Sprintec (28)) Past Med/Surg History Medical History (Updated 05/15/22 @ 03:00 by Lenny Christianson MD) Acute renal failure Duodenitis Hyperglycemia due to diabetes mellitus Hypovolemia No significant past medical history Pneumomediastinum Surgical History (Updated 12/19/19 @ 08:09 by Carlie Washington MD, FACOG) No history of previous surgery Social History (Updated 01/03/20 @ 13:16 by Tori Mendiola) Smoking Status: Unknown if ever smoked Tobacco Type: E-cigarettes / Vaping Do You Dip or Chew Tobacco: No; Tobacco Cessation Education Requested by Patient: Yes Hx Alcohol Use: No Hx Substance Use: No Preferred Language: Danish Communication Ability: Effective Communication Ability Comment: unable to obtain [employer] Specialist Required: No Beliefs That Will Affect Care: None Current Living Situation: Spouse Current Living Situation Comment: lives with boyfriend Aamir Bond Feels Safe at Home: Declines to Answer Assistive Devices: None Review of Systems Review of Systems: Unobtainable due to cognitive status Physical Exam Constitutional: well developed, + acute distress (Kussmauls breathing) and + ill appearing Eyes: PERRL, conjunctivae normal, anicteric sclerae Respiratory: + respiratory distress, + labored breathing, + uses accessory muscles and + tachypneic; + abnormal respiratory effort, expiratory phase not prolonged, no audible wheezes and no stridor Auscultation: + diminished lung sounds; no crackles, no rales, no rhonchi and no wheezes Cardiovascular: Rate/Rhythm: regular rhythm and + tachycardic Heart Sounds: no murmur Extremities: normal capillary refill; no calf tenderness and no pedal edema Gastrointestinal (Abdomen): Percussion/Palpation: abdomen soft; abdomen nontender, no guarding and abdomen not rigid Skin: no rashes, warm and dry Neurologic: moves all extremities (appears to be moving all 4 equally, currently in restraints) and awake (GCS 10 [id number]) Psychiatric: Orientation: alert; + not oriented x 3 Results & Data Results & Data ([facility]) Vital Signs (Past 12 Hours) Vital Signs Temp Pulse Resp BP Pulse Ox O2 Del Method 05/14/22 16:30 31.3 C L 73 27 H 93/54 L 99 Room Air Diagnostic Findings HEAD CT NONCONTRAST CT DOSE: HISTORY: Fall. Altered mental status. TECHNIQUE: Multiaxial CT images of the head were performed without the use of intravenous contrast. Automated exposure control was utilized for this study. A dose lowering technique was utilized adhering to the principles of ALARA. Comparison: None. Findings: Motion artifact. Near complete opacification of the right sphenoid sinus. The mastoid air cells are clear. The calvarium and skull base are intact. The ventricles and sulci are within normal limits. There is no mass, hematoma, midline shift, or acute infarct. Impression: Motion artifact. No definite acute intracranial abnormality. XR chest 1V portable HISTORY: 31 years-old Female Sepsis acute sepsis COMPARISON: Chest radiograph 08/08/2018 TECHNIQUE: AP view of the chest FINDINGS: Cardiac silhouette is enlarged. No pneumothorax, pleural effusion, airspace con solidation or overt pulmonary edema. Bones of the chest appear grossly intact. IMPRESSION: No acute process. CERVICAL SPINE CT CT DOSE: HISTORY: fall TECHNIQUE: Multiaxial CT images of the cervical spine were performed and reformatted in the sagittal and coronal plane without the use of contrast. A dose lowering technique was utilized adhering to the principles of ALARA. COMPARISON: None. FINDINGS: No fractures. No subluxation. Prevertebral soft tissues and the C1-C2 interval are intact. No pneumothorax. IMPRESSION: No fractures within the cervical spine. CT chest diagnostic wo con, CT abd pelvis wo con CT DOSE: 5691.03 mGy.cm CLINICAL HISTORY: 31 years-old Female with ams. Acute chest and abdominal trauma status post fall TECHNIQUE: Multiaxial CT images of the chest, abdomen and pelvis were performed without contrast. A dose lowering technique was utilized adhering to the principles of ALARA. COMPARISON: Chest radiograph of same day FINDINGS: CT CHEST: Limited exam secondary to positioning and respiratory motion artifact. No thyroid nodule. Small to moderate amount of pneumomediastinum which is most pronounced in the anterior and middle mediastinum and tracks inferiorly along the distal esophagus. The heart is mildly enlarged. No pericardial effusion. No thoracic aortic aneurysm. Pneumothorax, pleural effusion, airspace consolidation or overt pulmonary edema. Central airways are patent. Unremarkable soft tissues. No acute fracture identified considering the aforementioned limitations as above. CT ABDOMEN/PELVIS: Mild wall thickening of the distal esophagus. No pneumatosis or pneumoperitoneum. Study is limited secondary to positioning, and respiratory motion artifact. The unenhanced spleen, mildly atrophic pancreas and adrenal glands are unremarkable. Hepatic steatosis with mild hepatomegaly. The visualized gallbladder appears unremarkable. Unremarkable kidneys. Decompressed or bladder with Crespo catheter in place. Unremarkable uterus and adnexa. Aorta and IVC are unremarkable. Mildly prominent inguinal chain lymph nodes are likely reactive. Questioned mild wall thickening of the duodenal bulb. No bowel obstruction. Normal appendix. Unremarkable soft tissues. No acute fracture identified. Chronic bilateral L5 pars defects without spondylolisthesis. IMPRESSION: 1. Nonspecific mild to moderate pneumomediastinum. 2. No pneumothorax or acute fracture identified. 3. Mild nonspecific distal esophageal wall thickening. 4. Mild wall thickening of the duodenum may be secondary to partial distention versus a nonspecific duodenitis. 5. Hepatic steatosis. Medications Administered ER medications given: Ceftriaxone 2 g IV NSS 2 L bolus K rider 10 M EQ's x2 10 M EQ potassium chloride in 1 L normal saline bolus Metronidazole 500 mg IV Potassium chloride elixir 40 M EQ p.o. (placed down NG tube) ECG Indication: altered mental status and tachycardia Rate (beats per minute): 72 Rhythm: normal sinus Additional Comments: Very poor quality limits interpretation of acute ischemic changes Code Status & VTE Plan Code Status Full VTE Prophylaxis Plan VTE Prophylaxis will be ordered: No PG Care Time/CCT Total # of Minutes Spent Total Time Spent with Patient: Total time spent is greater than 50% in coordination of care (as documented) at patient's floor/unit and/or counseling patient: Coding Level of Care Code 70999 INT INP/OBS CARE 3/75MIN Diagnoses DKA (diabetic ketoacidoses) E11.10 Hypokalemia E87.6 Acute metabolic encephalopathy G93.41 Hypothermia T68.XXXA Acute renal failure N17.9 Metabolic acidosis E87.20 Duodenitis K29.80 Pneumomediastinum J98.2 SARS-CoV-2 positive U07.1
--- NOTE | 2022-05-14 18:08 | Critical Care Consultation ---
Date of Consultation May 14, 2022 Assessment & Plan (1) DKA (diabetic ketoacidoses): (2) Pneumomediastinum: (3) Duodenitis: (4) Hypovolemia: (5) Acute renal failure: Plan 31-year-old female with history of medical noncompliance who presents to the hospital with severe diabetic ketoacidosis and altered mental status. Neurologic: Hypoactive delirium secondary to severe metabolic acidosis. Check urine drug screen. CT head negative, but limited due to motion artifact. Pulmonary: Tachypnea noted due to severe metabolic acidosis. Oxygen needs minimal. Incidental pneumomediastinum noted on CT chest. Continue supportive care. No intervention at this time. Cardiovascular: Hypotensive secondary to hypovolemia. Maintain maps above 65. Continue aggressive fluid hydration. Likely need placement of arterial line. Gastrointestinal: Start IV Protonix 40 mg twice daily given nonspecific findings of duodenitis on CT abdomen. Continue Rocephin. Start Flagyl. Monitor for signs of diarrhea. Check lipase level. Place NG tube. Renal: Aggressive hydration with crystalloids. Monitor electrolytes closely. Replace potassium aggressively. Monitor urine output. Will replace with IV potassium and p.o. potassium via NG. Check CK to evaluate for rhabdomyolysis. Give an amp of bicarb now due to severe acidosis. Infectious disease: Blood cultures, urine cultures and respiratory viral panel. Antibiotics with Rocephin and Flagyl. Hematologic: No issues. Endocrine: Check TSH to evaluate for myxedema coma. DKA protocol. A1c. Hypothermia likely secondary to DKA. Kevin hugger blanket in place. Lines and tubes: Peripheral IVs and Crespo catheter. 2 20-gauge IVs in place. I requested an additional 18-gauge IV. VTE prophylaxis: SCDs. CODE STATUS: Full Family at bedside: Not available at bedside Disposition: ICU I have personally spent 41 minutes of critical care time in the direct management of this patient. This is a life/limb threatening event. This includes time spent evaluating patient, direct bedside care, chart review, placing orders, interpretation of diagnostic studies, discussion with consultants, patient, and family members, as well as other required patient management activities. This time is exclusive of all separately billable procedures, and teaching time and separate from and in addition to any other critical care service time. Thank you for allowing us to participate in the care of this patient. History of Present Illness Reason for Consultation: Severe diabetic ketoacidosis History of Present Illness 31-year-old female who presented to the ER via EMS. She was found by her boyfriend on the floor. Apparently she has been confused for the last 3 to 4 days. History is limited due to the patient's altered mental status. I was able to obtain collateral information through chart review and discussion with the ER physician. She received approximately 650 mL of crystalloids prior to the ER and has a liter of fluids hanging currently along with potassium. I requested that an NG tube be placed and 40 mEq of p.o. potassium be given. Insulin drip has not been started as of yet due to severe hypokalemia. She was found to be hypotensive and profoundly hypothermic in the ER. She was started on Rocephin. I also requested the addition of Flagyl. Labs are significant for findings consistent with diabetic ketoacidosis and acute renal failure. She had a CT of her chest without contrast which was limited due to severe motion artifact. Mild wall thickening of the distal esophagus and nonspecific duodenitis was seen. Additionally, mild pneumomediastinum was noted. Allergies Allergy/AdvReac Type Severity Reaction Status Date / Time Penicillins Allergy Unknown Unknown Verified 05/14/22 16:32 Home Medications Medication Instructions Recorded Confirmed Type insulin NPH isoph U-100 human 100 15 unit (0.15 mL) subcut BID #15 mL 12/22/19 01/03/20 Rx unit/mL (3 mL) subcutaneous pen (Novolin N FlexPen) metformin 500 mg tablet,extended 500 mg PO DAILY #30 tabs 12/22/19 01/03/20 Rx release 24 hr norgestimate 0.25 mg-ethinyl 1 tab PO DAILY #84 tabs 01/03/20 01/03/20 Rx estradiol 35 mcg tablet (Sprintec (28)) Patient History Medical History (Updated 05/14/22 @ 18:03 by Raphael Vera MD) Acute renal failure Duodenitis Hyperglycemia due to diabetes mellitus Hypovolemia No significant past medical history Pneumomediastinum Surgical History (Updated 12/19/19 @ 08:09 by Carlie Washington MD, FACOG) No history of previous surgery Social History (Updated 01/03/20 @ 13:16 by Tori Mendiola) Smoking Status: Unknown if ever smoked Tobacco Type: E-cigarettes / Vaping Hx Alcohol Use: No Hx Substance Use: No Preferred Language: Moldovan Communication Ability: Effective Cleaning Crew Member Required: No Beliefs That Will Affect Care: None Current Living Situation: Spouse Current Living Situation Comment: lives with boyfriend Aamir Bond Feels Safe at Home: Declines to Answer Assistive Devices: None Review of Systems Review of Systems: Unobtainable due to reduced consciousness Physical Exam Physical Exam: Constitutional: Morbidly obese appearing female in severe distress. Tachypneic. Eyes: Pupils are equal round and reactive to light. Conjunctivae are normal. Anicteric sclera. Ears nose, mouth and throat: Mallampati class 2. Normal posterior oropharynx. Uvula is midline. Neck: Trachea is midline. Visual inspection is normal. Respiratory: Clear to auscultation bilaterally. No use of accessory muscles. No significant clubbing noted. Cardiovascular: Regular rate and rhythm. No murmurs. No edema. Gastrointestinal: Normal bowel sounds, soft, nontender and nondistended. No hepatosplenomegaly noted. Musculoskeletal: No cyanosis. Patient is able to move all extremities. Strength is 5 out of 5 in the upper and lower extremities. Skin: No rashes, warm dry and intact. Neurologic: GCS 8. Nonfocal. Psychiatric: Unable to assess due to decreased mentation Results & Data Results & Data ([facility]) Vital Signs (Past 12 Hours) Vital Signs Temp Pulse Resp BP Pulse Ox O2 Del Method 05/14/22 16:30 31.3 C L 73 27 H 93/54 L 99 Room Air Coding Level of Care Code Critical Care 1st 30-74 mins Diagnoses DKA (diabetic ketoacidoses) E11.10 Pneumomediastinum J98.2 Duodenitis K29.80 Hypovolemia E86.1 Acute renal failure N17.9 Time Spent (min) 41
[2022-05-14 18:09] LABS: Base Excess ABG -27.2 mEq/L (-9-1.8); HCO3 ABG 3 mmol/L (19-24); Oxygen Saturation ABG 98.4 % (90-95); PCO2 ABG 14 mmHg (35-46); PO2 ABG 117 mmHg (80-95)
[2022-05-14 18:16] LABS: pH ABG < 7.00 (7.35-7.45)
[2022-05-14 18:17] LABS: Allen Test Pos (Pos)
--- NOTE | 2022-05-14 18:22 | XRay Report ---
KUB HISTORY: NG tube placement. COMPARISON: None. FINDINGS: The nasogastric tube is curled at the mid mediastinum with the tip terminating at the super ior mediastinum. This could be curled within the esophagus or trachea. This should be removed. No pne umothorax. No pleural fusions. The heart is normal in size. The lungs are clear. IMPRESSION: The nasogastric tube is curled at the mid mediastinum with the tip terminating at the superior medias tinum. This could be curled within the esophagus or trachea. This should be removed. ACT 112: Negative or not required by law. Electronically signed by: Joe Myers M.D. 05/14/2022 6:20 PM
[2022-05-14] MEDS ORDERED: SODIUM BICARBONATE 8.4% INJ 50 MEQ/50 ML VIAL IV STA (18:32)
--- NOTE | 2022-05-14 18:50 | XRay Report ---
KUB HISTORY: NG tube placement COMPARISON: None. FINDINGS: The NG tube now terminates in the mid stomach. No pneumothorax. No pleural effusions. The h eart is normal in size. No pneumoperitoneum or pneumatosis. IMPRESSION: NG tube now terminates in the mid stomach. ACT 112: Negative or not required by law. Electronically signed by: Joe Myers M.D. 05/14/2022 6:47 PM
[2022-05-14 18:59] LABS: Influenza A virus by PCR Negative (Neg); Influenza B virus by PCR Negative (Neg); RSV by PCR Negative (Neg)
[2022-05-14 19:03] LABS: SARS CoV2 RNA(COVID-19) Ceph POSITIVE (Negative)
[2022-05-14] MEDS ORDERED: POTASSIUM CHLORIDE / WTR 10 MEQ/100 ML PLCT IV SCH (19:15)
[2022-05-14 19:26] LABS: Pregnancy Test, Urine Negative (Negative)
[2022-05-14 19:28] LABS: Appearance Urine Cloudy (Clear); Bacteria Urine Automated Negative (Negative); Bilirubin Urine Negative (Negative); Blood Urine 2+ (Negative); Color Urine Yellow; Epithelial Cell Urine Auto >30 /lpf (0-5); Glucose Urine UA 3+ (Negative); Ketones Urine 3+ (Negative); Leukocyte Esterase Urine Negative (Negative); Nitrite Urine Negative (Negative); Protein Urine 2+ (Negative); Specific Gravity Urine 1.018 (1.000-1.030); Urobilinogen Urine Negative (Negative)
[2022-05-14 19:58] LABS: Acetaminophen < 3 ug/ml (10-30); Salicylate < 3.0 mg/dl (3.0-30)
[2022-05-14 20:05] LABS: BUN Creatinine Ratio 34.9 (10-20); Calcium 6.9 mg/dl (8.5-10.1); Est GFR (African American) 43.9 ml/min; Est GFR (Non-African American) 37.9 ml/min; Potassium 3.2 mmol/L (3.5-5.1)
[2022-05-14 20:13] LABS: Amphetamines+Metham, Urine Neg (Neg); Barbiturates, Urine Neg (Neg); Benzodiazepine, Urine Neg (Neg); Cocaine, Urine Neg (Neg); MDMA (Ecstacy), Urine Neg (Neg); Methadone, Urine Neg (Neg); Opiate, Urine Neg (Neg); Phencyclidine, Urine Neg (Neg)
[2022-05-14 20:16] LABS: Estimated Average Glucose 237 mg/dl; Hemoglobin A1C 9.9 % (4.5-5.6)
[2022-05-14] MEDS ORDERED: PHARMACY GLYCEMIC MGMT CONSULT PRN (20:18)
[2022-05-14] MEDS ORDERED: STAT IV Infusion **Titration per Protocol STA (20:18)
[2022-05-14] MEDS ORDERED: PENDING 1/2NSS+40mEq KCL IVF SCH (20:30)
[2022-05-14 20:40] LABS: Creatine Kinase 87 U/L (26-192); Lipase 1061 U/L (11-82)
[2022-05-14] MEDS ORDERED: INSULIN ASPART PER UNIT SC SCH (21:00)
[2022-05-14] MEDS ORDERED: ICU Protocol for HYPERglycemia SCH (21:00)
[2022-05-14] MEDS: PANTOprazole 40 MG in SYRINGE 0 ML IV SCH (21:01)
[2022-05-14] MEDS ORDERED: SODIUM BICARB 8.4% INJ 50 MEQ/50 ML SYR IV STA ×2 (21:06→21:08)
[2022-05-14] MEDS ORDERED: CALCIUM GLUCONATE 10% 2,000 MG in DEXTROSE 5% 50 ML IV ONE (21:10)
[2022-05-14] MEDS ORDERED: STAT IV STA ×2 (21:10→21:11)
[2022-05-14] MEDS: LACTATED RINGER'S 1,000 ML IV SCH ×4 (21:35→22:40)
[2022-05-14] MEDS ORDERED: CALCIUM GLUCONATE 10% 3,000 MG in DEXTROSE 5% 100 ML IV ONE (21:45)
[2022-05-14] MEDS: POTASSIUM CHLORIDE 40 MEQ in SODIUM CHLORIDE 0.45 % 1,000 ML IV SCH (22:00)
[2022-05-14] MEDS: INSULIN ASPART PER UNIT SC SCH (22:25)
[2022-05-14] MEDS: INSULIN REGULAR 250 UNITS in SODIUM CHLORIDE 0.9% 247.5 ML IV SCH (22:30)
[2022-05-14] MEDS: PENDING D5 1/2NS+40mEq KCL IVF SCH (22:41)
[2022-05-15 01:07] LABS: BUN Creatinine Ratio 36.8 (10-20); Creatinine Clr Calc Pharmacy 56.8 ml/min; Est GFR (African American) 44.2 ml/min; Est GFR (Non-African American) 38.1 ml/min; Phosphorus 2.3 mg/dl (2.5-4.9); Potassium 3.6 mmol/L (3.5-5.1)
[2022-05-15] MEDS ORDERED: SODIUM BICARB 8.4% INJ 50 MEQ/50 ML SYR IV STA ×3 (01:07→18:24)
[2022-05-15] MEDS ORDERED: POTASSIUM CHLORIDE 20 MEQ/15 ML UDC PO STA ×3 (01:08→18:28)
[2022-05-15] MEDS: metroNIDAZOLE 500 MG/100 ML BAG IV SCH ×3 (01:25→17:20)
[2022-05-15] MEDS: POTASSIUM CHLORIDE 40 MEQ in SODIUM CHLORIDE 0.45 % 1,000 ML IV SCH (01:26)
[2022-05-15 02:03] LABS: Basophils # (auto) 0.04 K/uL (0-0.2); Basophils % (auto) 0.3 %; Hemoglobin 12.4 g/dl (12.0-16.0); Immature Granulocytes # (auto) 0.52 K/uL (0.01-0.20); Immature Granulocytes % (auto) 4.1 %; Lymphocytes # (auto) 0.22 K/uL (1.2-3.4); Lymphocytes % (auto) 1.7 %; Mean Corpuscular Hemoglobin 28.1 pg (25.0-34.0); Mean Corpuscular Hgb Conc 36.5 g/dL (32.0-36.0); Mean Corpuscular Volume 77.1 fL (80.0-100.0); Mean Platelet Volume 10.5 fL (9.4-12.4); Monocytes # (auto) 0.64 K/uL (0.11-0.59); Monocytes % (auto) 5.1 %; Neutrophils # (auto) 11.21 K/uL (1.40-6.50); Neutrophils % (auto) 88.8 %; Platelet Count 157 K/uL (130-400); RDW Standard Deviation 41.6 fL (36.4-46.3); Red Blood Count 4.41 M/uL (4.20-5.40); White Blood Count 12.63 K/ul (4.8-10.8)
[2022-05-15] MEDS: POTASSIUM CHLORIDE 40 MEQ in D5W AND 1/2NSS 1,000 ML IV SCH ×3 (02:19→10:02)
[2022-05-15] MEDS: PENDING D5 1/2NS+40mEq KCL IVF SCH (03:24)
[2022-05-15 04:48] LABS: Hematocrit (blood only) 34.3 % (37.0-47.0); Hemoglobin 12.6 g/dl (12.0-16.0); Mean Corpuscular Hemoglobin 27.9 pg (25.0-34.0); Mean Corpuscular Hgb Conc 36.7 g/dL (32.0-36.0); Mean Corpuscular Volume 76.1 fL (80.0-100.0); Platelet Count 155 K/uL (130-400); RDW Coefficient of Variation 15.1 % (11.5-14.5); RDW Standard Deviation 41.9 fL (36.4-46.3); Red Blood Count 4.51 M/uL (4.20-5.40); White Blood Count 11.37 K/ul (4.8-10.8)
[2022-05-15 05:14] LABS: Anion Gap 15 (3-11); BUN Creatinine Ratio 34.5 (10-20); Blood Urea Nitrogen 59 mg/dl (6-23); Carbon Dioxide 9 mmol/L (21-32); Chloride 117 mmol/L (98-107); Creatinine Clr Calc Pharmacy 57.8 ml/min; Est GFR (African American) 45.1 ml/min; Est GFR (Non-African American) 38.9 ml/min; Glucose 185 mg/dl (70-99(Fasting)); Lipase 516 U/L (11-82); Magnesium 1.8 mg/dl (1.7-2.4); Phosphorus < 1.0 mg/dl (2.5-4.9); Potassium 3.6 mmol/L (3.5-5.1); Sodium 141 mmol/L (136-145)
[2022-05-15 05:23] LABS: Basophils # (auto) 0.03 K/uL (0-0.2); Basophils % (auto) 0.3 %; Immature Granulocytes # (auto) 0.29 K/uL (0.01-0.20); Immature Granulocytes % (auto) 2.6 %; Lymphocytes # (auto) 0.16 K/uL (1.2-3.4); Lymphocytes % (auto) 1.4 %; Monocytes # (auto) 0.64 K/uL (0.11-0.59); Monocytes % (auto) 5.6 %; Neutrophils # (auto) 10.25 K/uL (1.40-6.50); Neutrophils % (auto) 90.1 %
[2022-05-15] MEDS ORDERED: POTASSIUM PHOS 3 MMOL/1 ML INFUSION IV STA ×2 (06:10→23:00)
[2022-05-15] MEDS ORDERED: MAGNESIUM SULFATE / D5W 1 GM/100 ML BAG IV ONE (06:11)
[2022-05-15] MEDS ORDERED: POTASSIUM PHOSPHATE 24 MMOL in SODIUM CHLORIDE 0.9% 500 ML IV ONE (06:45)
[2022-05-15] MEDS: INSULIN ASPART PER UNIT SC SCH ×4 (08:36→21:15)
[2022-05-15] MEDS ORDERED: LACTATED RINGER'S 2,000 ML IV ONE (09:05)
--- NOTE | 2022-05-15 09:08 | Critical Care Progress Note ---
Date of Service May 15, 2022 Assessment & Plan (1) DKA (diabetic ketoacidoses): (2) Pneumomediastinum: (3) Duodenitis: (4) Hypovolemia: (5) Acute renal failure: (6) Pancreatitis: Plan Pt is a 31 yo female with PMH of DM presenting to the hospital d/t being found unconscious on the ground. She was found to be in DKA d/t noncompliance w/ her medications. Reason critically ill: DKA w/ AMS Neuro: - Pt w/ AMS secondary to DKA; expect improvement with improvement of acidosis - UDS pos for cannabis - head CT upon admission neg Cardiac: - no significant cardiac hx - pt still appears hypovolemic; given an additional 2L LR Respiratory: - no significant pulmonary hx - tachypneic secondary to metabolic acidosis; O2 sats in high 90s on RA - continue to monitor GI: - duodenitis noted on CTAP; lipase trending down - continue flagyl and rocephin - continue protonix 40 mg BID - NG tube in place Renal/electrolytes: - given additional 2L LR, K and P replacement - continue q4hr BMP, Mg, P, VBG - replace electrolytes as needed : - scherer in place Endo: - continue DKA protocol; will overlap IV insulin with SQ insulin before d/c IV - A1c= 9.9 - anion gap decreasing, but not normal Heme: - Hgb stable - no concerns ID: - COVID pos but appears asymptomatic - blood cx pending Lines/IV access: peripheral IV DVT ppx: SCDs, heparin 5000 units BID Please refer to Dr. Vera's documentation for any further recommendations. Admission and Anticipated Discharge Date Admission Date: May 14, 2022 Supervising Physician Co-Signing Physician Notes Patient seen exam with resident physician. Agree with the assessment and plan aside for any additions/exceptions noted: Patient with profound DKA and hypovolemia. We will give an additional 2 L of lactated Ringer's and increase her insulin drip now. Her anion gap has improved, but she remains very drowsy and acidotic. She is protecting her airway and remains tachypneic. We will continue close monitoring the ICU. She was also found to be COVID-positive, but does not have any evidence of viral pneumonia. We will hold off on specific therapies for COVID-19 at this time. Continue ceftriaxone and Flagyl for nonspecific duodenitis. She also has mild pneumomediastinum likely secondary to smoking marijuana. We will review the chest x-ray today. She has evidence of pancreatitis which appears to be improving. Lipase is trending downwards. A1c 9.9. TSH within normal limits. CK unremarkable. He does continue to have renal failure, but urine output adequate. Continue aggressive hydration. Follow urine output closely. Continue aggressive electrolyte replacements. Continue BMP every 4 hours. Subjective Pt is a 31 yo female with PMH of DM presenting to the hospital d/t being found unconscious on the ground. She was found to be in DKA d/t noncompliance with her medications. Pt seen at bedside this AM. She is still mostly unresponsive. Her eyes open to her voice but she doesn't speak to answer any questions. When asked if she knows where she is, she shakes her head no. Review of Systems Review of Systems: Unobtainable due to cognitive status Physical Exam Constitutional: Pt appears uncomfortable. NG tube in place. Neck: Trachea midline. Respiratory: Tachypneic. CTA bilaterally. No wheezing, rhonchi, or crackles. Moderately labored breathing. Cardiovascular: Tachycardic. Regular rhythm. No murmur noted. No LE edema. Gastrointestinal (Abdomen): +BS. Soft. Pt winces and appears to be in pain upon deep palpation in all four quadrants. No masses noted. Neurologic: Pt opens her eyes to her voice but is unable to tell me her name. She does not respond to commands. She does indicate that she can hear me. She will shake her head yes/no for some simple questions. Results & Data Results & Data ([facility]) Vital Signs (Past 12 Hours) Vital Signs Temp Pulse Resp BP Pulse Ox O2 Del Method 05/15/22 07:00 Room Air 05/15/22 07:00 36.2 C L 131 H 47 H 146/78 H 97 Room Air 05/15/22 05:00 35.7 C L 123 H 51 H 97 05/15/22 04:30 35.6 C L 127 H 16 99 05/15/22 04:00 35.4 C L 124 H 38 H 97 05/15/22 04:00 111/70 05/15/22 03:38 35.4 C L 123 H 44 H 98 05/15/22 03:38 137/80 05/15/22 03:30 35.4 C L 126 H 36 H 98 05/15/22 03:01 35.4 C L 123 H 39 H 97 05/15/22 03:01 171/134 H 05/15/22 03:00 35.4 C L 124 H 49 H 98 05/15/22 02:30 35.3 C L 124 H 43 H 97 05/15/22 02:01 35.2 C L 126 H 27 H 95 05/15/22 02:01 153/110 H 05/15/22 02:00 35.2 C L 127 H 20 97 05/15/22 01:30 35.1 C L 121 H 24 98 05/15/22 01:01 145/65 H 05/15/22 01:01 34.9 C L 115 H 36 H 98 05/15/22 01:00 34.9 C L 116 H 42 H 97 05/15/22 00:30 34.8 C L 115 H 40 H 97 05/15/22 00:01 34.5 C L 114 H 27 H 97 05/15/22 00:01 126/64 05/15/22 00:00 34.5 C L 116 H 27 H 98 05/14/22 23:30 34.2 C L 108 H 39 H 97 05/14/22 23:00 33.8 C L 109 H 43 H 97 05/14/22 23:00 126/51 L 05/14/22 22:30 33.5 C L 103 H 35 H 95 05/14/22 22:00 33.1 C L 102 H 36 H 96 05/14/22 21:30 32.8 C L 91 H 35 H 97 Resident Activity Tracking Resident Involvement: Resident Care Provided Care Provided: Adult [facility] Medicine
[2022-05-15] MEDS: PANTOprazole 40 MG in SYRINGE 0 ML IV SCH ×2 (09:30→20:00)
[2022-05-15 09:48] LABS: iSTAT Creatinine 1.9 mg/dl (0.6-1.3); iSTAT Hemoglobin 15.6 g/dl (12.0-16.0); iSTAT Ionized Calcium 1.24 mmol/l (1.12-1.32)
--- NOTE | 2022-05-15 10:16 | Billing Data ---
Date of Service May 15, 2022 Coding Level of Care Code Critical Care 1st 30-74 mins Time Spent (min) 49
--- NOTE | 2022-05-15 10:50 | Pharmacy Report ---
Pharmacy Glycemic Short Note 2 - Date of Service May 15, 2022 - Glycemic Short BSG Results (Last 24 hours): 05/14/22 05/14/22 05/14/22 16:24 16:25 16:44 Glucose POC Glucose 480 H* 491 H* POC Glucose (other) 490 H* 05/14/22 05/14/22 05/14/22 16:54 19:27 20:08 Glucose 483 H* 440 H* POC Glucose 391 H* POC Glucose (other) 05/14/22 05/14/22 05/14/22 20:17 21:55 23:21 Glucose POC Glucose 403 H* 359 H* 334 H* POC Glucose (other) 05/14/22 05/15/22 05/15/22 23:54 00:37 01:29 Glucose 337 H* POC Glucose 277 H 244 H POC Glucose (other) 05/15/22 05/15/22 05/15/22 02:34 03:36 04:32 Glucose POC Glucose 181 H 174 H 194 H POC Glucose (other) 05/15/22 05/15/22 05/15/22 04:39 06:15 08:24 Glucose 185 H POC Glucose 173 H 187 H POC Glucose (other) 05/15/22 08:56 Glucose Cancelled POC Glucose POC Glucose (other) OUTPATIENT ANTIDIABETIC REGIMEN: * n/a -- not taking any meds @ home HbA1C: 9.9% (05/14/22) ASSESSMENT: * Patient is a 31 year old female with type 2 diabetes admitted after being found by her boyfriend on the floor. Arrived in severe DKA- initial labs: pH <7, CO2-4, AG-20, BSG-480. Pharmacy consulted to assist with glycemic management. * Insulin drip initiated yesterday ~2230 at half rate, 5 units/hr due to severe hypokalemia. Drip has been running at 5 units/hr all night into this AM based on BSG trend. BSGs within goal range. D5 1/2NS w/ 40mEq KCL running @ 250mL/hr. Pt remains NPO. * Remains in DKA and minimally responsive this AM. Discussed on rounds- will increase insulin drip rate (despite calculator). Pt likely severely basal deficient. Patient's BSG declined after rate increase so IVF adjusted to contain D10% in order to maintain a higher drip rate. Electrolyte repletion in D5 base. No plan for transition to SQ today. PLAN FOR INPATIENT GLYCEMIC CONTROL: * Hold outpatient oral diabetes medications * Basal insulin * Insulin infusion * Bolus insulin * NovoLog per scale ACHS or Q6hrs while NPO * Goal Range: Low 150 mg/dL - High 250 mg/dL * Correction Factor: - mg/dL/unit * Nutritional / Prandial insulin per carb ratio per calculator
[2022-05-15] MEDS: HEPARIN SOD 5,000 UNIT/0.5 ML VIAL SQ SCH ×2 (11:35→20:05)
[2022-05-15 11:59] LABS: Anion Gap 10 (3-11); Calcium 7.9 mg/dl (8.5-10.1); Carbon Dioxide 12 mmol/L (21-32); Chloride 121 mmol/L (98-107); Potassium 3.8 mmol/L (3.5-5.1); Sodium 143 mmol/L (136-145)
[2022-05-15 12:05] LABS: BUN Creatinine Ratio 33.5 (10-20); Blood Urea Nitrogen 55 mg/dl (6-23); Creatinine Clr Calc Pharmacy 60.3 ml/min; Est GFR (African American) 47.5 ml/min; Glucose 194 mg/dl (70-99(Fasting))
[2022-05-15] MEDS ORDERED: STAT IV STA ×2 (12:17→18:24)
[2022-05-15 12:18] LABS: Phosphorus < 1.0 mg/dl (2.5-4.9)
[2022-05-15] MEDS ORDERED: LACTATED RINGER'S 500 ML IV ONE (12:20)
--- NOTE | 2022-05-15 12:21 | XRay Report ---
XR chest 1V portable HISTORY: 31 years-old Female Pneumomediastinum acute shortness of breath in a patient with pneumomed iastinum COMPARISON: Chest CT May 14, 2022 TECHNIQUE: AP view of the chest FINDINGS: Enteric tube courses below the diaphragm with distal tip in the gastric cardia. Hypoinflation. Cardio megaly with pulmonary vascular congestion and interstitial coarsening with bronchovascular crowding. Question small pleural effusions with mild bibasilar densities. No definite pneumomediastinum identif ied. Bones appear grossly intact. IMPRESSION: 1. The patient's known pneumomediastinum is better seen on the comparison chest CT. 2. Hypoinflation. 3. Suggested pulmonary edema with small pleural effusions. 4. No pneumothorax identified. ACT 112: Negative or not required by law. The above report was generated using voice recognition software. It may contain grammatical, syntax o r spelling errors. Electronically signed by: Christ Sifuentes M.D. 05/15/2022 12:19 PM
[2022-05-15] MEDS ORDERED: SODIUM PHOSPHATE 3 MMOL/1 ML INFUSION IV STA (12:22)
[2022-05-15] MEDS ORDERED: CALCIUM GLUCONATE 10% 2,000 MG in DEXTROSE 5% 50 ML IV ONE (12:30)
[2022-05-15] MEDS ORDERED: D5W AND 1/2NSS + 20MEQ KCL 20 MEQ/1,000 ML BAG IV SCH (12:30)
[2022-05-15] MEDS ORDERED: SODIUM PHOSPHATE 21 MMOL in DEXTROSE 5% 500 ML IV ONE (12:35)
[2022-05-15] MEDS ORDERED: SODI CHLOR 2.5MEQ/ML 14.6% 77 MEQ, POTASSIUM CHLORIDE 20 MEQ in DEXTROSE 10% 1,000 ML IV SCH (12:45)
--- NOTE | 2022-05-15 14:36 | Hospitalist Progress Note ---
Date of Service May 15, 2022 Assessment & Plan (1) DKA (diabetic ketoacidoses): Plan: Anion gap has improved but still widened at 15. She remains on insulin drip. Continue DKA protocol. Critical care consultation and management appreciated (2) Hypokalemia: Plan: Parenteral replacement. Serial labs (3) Acute metabolic encephalopathy: Plan: Supportive care. Treat underlying DKA and other acute medical problems . CT h ead negative for acute intracranial pathology. Urine toxicology screen positive only for marijuana (4) Hypothermia: Plan: Suspect environmental etiology given story of being found covered in water. TSH WNL. Kevin hugger until body temperature normalized (5) Acute renal failure: Plan: Secondary to severe dehydration from DKA. IV fluid resuscitation. Monitor urine output. Serial labs. (6) Metabolic acidosis: Plan: Secondary to ketosis from DKA. Serial labs (7) Duodenitis: Plan: Seen on imaging. No evidence of GI bleeding. Continue pantoprazole 40mg IV BID (8) Pneumomediastinum: Plan: Seen incidentally on CT chest. No intervention necessary at this time. (9) SARS-CoV-2 positive: Plan: Screening test in the ER positive. CT chest clear. Pt on room air. No apparent active COVID infection. Supportive care Plan VTE Prophylaxis - low risk given age Diet -currently NPO Disposition -to be determined. Anticipate eventual discharge back to home Admission and Anticipated Discharge Date Admission Date: May 14, 2022 Subjective She still has a significant anion gap but improved. She remains on insulin drip. She remains on Rocephin and Flagyl, day 2. NG tube remains in place. Blood cultures and urine culture final results are pending. Review of Systems Review of Systems: The patient cannot answer any questions regarding review of systems at this time Physical Exam Physical Exam: General-awake but delirious. HEENT-head atraumatic and normocephalic, pupils equal and reactive to light, extraocular muscles intact. NG tube is in place Neck-no lymphadenopathy or thyromegaly, trachea midline Chest-clear to auscultation percussion. Scattered bilateral rhonchi. No wheezing. Tachypneic Cardiac-tachycardic regular rhythm. Normal S1 and S2. Abdomen-obese. Hypoactive bowel sounds. No apparent focal tenderness Extremities-no cyanosis, clubbing, or edema Neuro-moving all extremities randomly. No apparent focal deficits Psych-unable to assess Results & Data Results & Data ([facility]) Vital Signs (Past 12 Hours) Vital Signs Temp Pulse Resp BP Pulse Ox O2 Del Method 05/15/22 13:00 36.9 C 127 H 43 H 155/81 H 97 Room Air 05/15/22 11:00 36.4 C L 128 H 37 H 138/90 95 05/15/22 10:00 36.1 C L 128 H 28 H 144/97 H 98 Room Air 05/15/22 09:00 36.3 C L 127 H 46 H 115/93 97 Room Air 05/15/22 08:27 36.3 C L 128 H 37 H 144/75 H 96 Room Air 05/15/22 08:00 36.3 C L 129 H 41 H 97/67 L 96 Room Air 05/15/22 07:00 Room Air 05/15/22 07:00 36.2 C L 131 H 47 H 146/78 H 97 Room Air 05/15/22 05:00 35.7 C L 123 H 51 H 97 05/15/22 04:30 35.6 C L 127 H 16 99 05/15/22 04:00 35.4 C L 124 H 38 H 97 05/15/22 04:00 111/70 05/15/22 03:38 35.4 C L 123 H 44 H 98 05/15/22 03:38 137/80 05/15/22 03:30 35.4 C L 126 H 36 H 98 05/15/22 03:01 35.4 C L 123 H 39 H 97 05/15/22 03:01 171/134 H 05/15/22 03:00 35.4 C L 124 H 49 H 98 05/15/22 02:30 35.3 C L 124 H 43 H 97 Laboratory Results 05/15/22 04:39 PG Care Time/CCT Total # of Minutes Spent Total Time Spent with Patient: Total time spent is greater than 50% in coordination of care (as documented) at patient's floor/unit and/or counseling patient: Coding Level of Care Code 95295 SUB INP/OBS CARE 3/50MIN Diagnoses DKA (diabetic ketoacidoses) E11.10 Hypokalemia E87.6 Acute metabolic encephalopathy G93.41 Hypothermia T68.XXXA Acute renal failure N17.9 Metabolic acidosis E87.20 Duodenitis K29.80 Pneumomediastinum J98.2 SARS-CoV-2 positive U07.1
[2022-05-15 14:50] LABS: Calcium 8.4 mg/dl (8.5-10.1); Magnesium 1.9 mg/dl (1.7-2.4)
[2022-05-15 14:56] LABS: BUN Creatinine Ratio 32.4 (10-20); Creatinine Clr Calc Pharmacy 66.8 ml/min; Est GFR (African American) 53.7 ml/min; Est GFR (Non-African American) 46.4 ml/min
[2022-05-15 15:00] LABS: Phosphorus 1.2 mg/dl (2.5-4.9)
--- NOTE | 2022-05-15 15:08 | Electrocardiogram Report ---
Test Reason : Blood Pressure : / mmHG Vent. Rate : 072 BPM Atrial Rate : 072 BPM P-R Int : 162 ms QRS Dur : 078 ms QT Int : 508 ms P-R-T Axes : 068 041 -56 degrees QTc Int : 556 ms Poor data quality, interpretation may be adversely affected Normal sinus rhythm When compared with ECG of 18-DEC-2019 19:16, Inverted T waves have replaced nonspecific T wave abnormality in Inferior leads Nonspecific T wave abnormality, worse in Anterolateral leads QT has lengthened Confirmed by Garry Mcallister ([id number]) on 05/15/2022 3:07:53 PM Referred By: REFERRED SELF Confirmed By:Augusto Mcallister
[2022-05-15] MEDS ORDERED: cefTRIAXone SODIUM 2,000 MG in DEXTROSE 5% 50 ML IV SCH (16:00)
[2022-05-15 18:16] LABS: Calcium 8.4 mg/dl (8.5-10.1); Magnesium 1.9 mg/dl (1.7-2.4); Potassium 3.6 mmol/L (3.5-5.1)
[2022-05-15 18:25] LABS: BUN Creatinine Ratio 34.1 (10-20); Creatinine Clr Calc Pharmacy 74.9 ml/min; Est GFR (African American) 61.7 ml/min; Est GFR (Non-African American) 53.2 ml/min; Phosphorus 2.3 mg/dl (2.5-4.9)
[2022-05-15] MEDS ORDERED: NORMOSOL-R 500 ML IV ONE (18:26)
[2022-05-15] MEDS: MAGNESIUM SULFATE / D5W 1 GM/100 ML BAG IV SCH ×2 (19:46→21:41)
[2022-05-15] MEDS: SODIUM BICARBONATE 8.4% 150 MEQ in DEXTROSE 5% 1,000 ML IV SCH (19:46)
[2022-05-15] MEDS: SODIUM CHLOR 0.45% + 20MEQ KCL 20 MEQ/1,000 ML BAG IV SCH (19:59)
[2022-05-15] MEDS ORDERED: NYSTATIN POWDER 15GM BTL EXT PRN (22:12)
[2022-05-15 22:32] LABS: Calcium 8.2 mg/dl (8.5-10.1); Magnesium 2.2 mg/dl (1.7-2.4)
[2022-05-15 22:38] LABS: BUN Creatinine Ratio 29.9 (10-20); Creatinine Clr Calc Pharmacy 73.8 ml/min; Est GFR (African American) 60.6 ml/min; Est GFR (Non-African American) 52.3 ml/min
[2022-05-15] MEDS ORDERED: POTASSIUM PHOSPHATE 15 MMOL in SODIUM CHLORIDE 0.9% 250 ML IV ONE (23:30)
[2022-05-16] MEDS: TUBE FEEDING WATER FLUSH GT SCH ×6 (00:15→14:33)
[2022-05-16] MEDS: metroNIDAZOLE 500 MG/100 ML BAG IV SCH (01:56)
[2022-05-16 03:41] LABS: Eosinophils # (auto) 0.01 K/uL (0-0.50); Eosinophils % (auto) 0.1 %; Hematocrit (blood only) 31.4 % (37.0-47.0); Hemoglobin 11.8 g/dl (12.0-16.0); Immature Granulocytes # (auto) 0.08 K/uL (0.01-0.20); Immature Granulocytes % (auto) 1.1 %; Lymphocytes # (auto) 0.47 K/uL (1.2-3.4); Lymphocytes % (auto) 6.4 %; Mean Corpuscular Hemoglobin 27.8 pg (25.0-34.0); Mean Corpuscular Hgb Conc 37.6 g/dL (32.0-36.0); Mean Corpuscular Volume 73.9 fL (80.0-100.0); Monocytes # (auto) 0.73 K/uL (0.11-0.59); Neutrophils # (auto) 6.01 K/uL (1.40-6.50); Neutrophils % (auto) 82.4 %; Platelet Count 159 K/uL (130-400); RDW Coefficient of Variation 15.6 % (11.5-14.5); RDW Standard Deviation 41.7 fL (36.4-46.3); Red Blood Count 4.25 M/uL (4.20-5.40)
[2022-05-16] MEDS: SODIUM CHLOR 0.45% + 20MEQ KCL 20 MEQ/1,000 ML BAG IV SCH (03:51)
[2022-05-16 03:57] LABS: Calcium 8.1 mg/dl (8.5-10.1); Magnesium 2.3 mg/dl (1.7-2.4); Potassium 3.3 mmol/L (3.5-5.1)
[2022-05-16 04:10] LABS: BUN Creatinine Ratio 29.2 (10-20); Creatinine Clr Calc Pharmacy 82.4 ml/min; Est GFR (African American) 69.3 ml/min; Est GFR (Non-African American) 59.8 ml/min; Phosphorus 1.2 mg/dl (2.5-4.9)
[2022-05-16] MEDS: SODIUM BICARBONATE 8.4% 150 MEQ in DEXTROSE 5% 1,000 ML IV SCH (04:45)
[2022-05-16] MEDS ORDERED: POTASSIUM CHLORIDE 20 MEQ/15 ML UDC PO STA ×2 (05:05→10:50)
[2022-05-16] MEDS ORDERED: POTASSIUM PHOS 3 MMOL/1 ML INFUSION IV STA ×2 (05:07→10:50)
[2022-05-16] MEDS ORDERED: POTASSIUM PHOSPHATE 15 MMOL in DEXTROSE 5% 250 ML IV ONE (05:15)
[2022-05-16] MEDS ORDERED: SODIUM BICARBONATE 8.4% 100 MEQ in DEXTROSE 5% 1,000 ML IV SCH (05:15)
[2022-05-16] MEDS: POTASSIUM CHLORIDE 20 MEQ in DEXTROSE 5% 1,000 ML IV SCH ×2 (05:38→14:32)
[2022-05-16] MEDS: INSULIN REGULAR 250 UNITS in SODIUM CHLORIDE 0.9% 247.5 ML IV SCH ×2 (07:49→15:26)
[2022-05-16] MEDS: INSULIN ASPART PER UNIT SC SCH ×4 (07:53→20:32)
[2022-05-16] MEDS: PANTOprazole 40 MG in SYRINGE 0 ML IV SCH ×2 (08:15→20:12)
[2022-05-16] MEDS: HEPARIN SOD 5,000 UNIT/0.5 ML VIAL SQ SCH ×2 (08:15→20:12)
--- NOTE | 2022-05-16 08:36 | XRay Report ---
KUB CLINICAL HISTORY: NG placement COMPARISON STUDY: KUB and CT of the abdomen and pelvis May 14, 2022. FINDINGS: Tip of nasogastric tube is within the distal stomach. This study is compromised by suboptim al penetration. Visualized bowel gas pattern is unremarkable. IMPRESSION: Tip of nasogastric tube within the distal stomach. ACT 112: Negative or not required by law. Electronically signed by: Govind Roblero M.D. 05/16/2022 8:34 AM
[2022-05-16] MEDS ORDERED: LORazepam 2 MG/1 ML VIAL IV STA (08:37)
--- NOTE | 2022-05-16 09:02 | Critical Care Progress Note ---
Date of Service May 16, 2022 Assessment & Plan (1) DKA (diabetic ketoacidoses): (2) Pneumomediastinum: (3) Duodenitis: (4) Hypovolemia: (5) Acute renal failure: (6) Pancreatitis: (7) Delirium: Plan Pt is a 31 yo female with PMH of DM presenting to the hospital d/t being found unconscious on the ground. She was found to be in DKA d/t noncompliance w/ her medications. Reason critically ill: DKA w/ AMS Neuro: - Pt w/ AMS secondary to DKA; slowly improving. Appears delirious and possibly in withdrawal. Will trial dose of 1 mg Ativan. Start thiamine 200 mg every morning. Hypernatremia may also be contributing to agitation and delirium. - UDS pos for cannabis - head CT upon admission neg Cardiac: -Hypertensive and tachycardic. Possible component of withdrawal. Respiratory: - no significant pulmonary hx - tachypneic secondary to metabolic acidosis; O2 sats in high 90s on RA - continue to monitor -COVID-positive, but no signs of COVID viral pneumonia GI: - duodenitis noted on CTAP; no significant clinical signs of pancreatitis at this time despite elevated lipase on admission. - continue protonix 40 mg BID - NG tube in place Renal/electrolytes: -Continue free water due to hypernatremia. She also has a nongap acidosis. VBG suggestive of alkalosis. We will discontinue bicarbonate drip. - continue q4hr BMP, Mg, P - replace electrolytes as needed : - scherer in place Endo: -Appreciate pharmacy assistance with IV insulin. Continue DKA protocol. Bicarb trending upwards. - A1c= 9.9 Heme: - Hgb stable - no concerns ID: - COVID pos but appears asymptomatic - blood cx negative to date. Discontinue antibiotics as no clear signs of infection. Lines/IV access: peripheral IV DVT ppx: SCDs, heparin 5000 units BID CRITICAL CARE TIME - I have personally spent 39 minutes of critical care time in the direct management of this patient. This is a life/limb threatening event. This includes time spent evaluating patient, direct bedside care, chart review, placing orders, interpretation of diagnostic studies, discussion with consultants, patient, and family members, as well as other required patient management activities. This time is exclusive of all separately billable procedures, and teaching time and separate from and in addition to any other critical care service time. Admission and Anticipated Discharge Date Admission Date: May 14, 2022 Subjective Patient seen and examined. She is definitely more responsive today, but very anxious. She remains tachypneic and hypertensive at times. She is saturating well on room air. She pulled out her NG tube earlier this morning and a new 1 was placed. She denies any pain. She is able to follow simple commands such as squeezing my fingers and wiggling toes. Review of Systems Review of Systems: All systems reviewed & are unremarkable except as noted in HPI & below Physical Exam Physical Exam: Constitutional: Morbidly obese appearing female in severe distress. Tachypneic. Eyes: Pupils are equal round and reactive to light. Conjunctivae are normal. Anicteric sclera. Ears nose, mouth and throat: Mallampati class 2. Normal posterior oropharynx. Uvula is midline. Neck: Trachea is midline. Visual inspection is normal. Respiratory: Clear to auscultation bilaterally. Tachypnea. Cardiovascular: Regular rate and rhythm. No murmurs. No edema. Gastrointestinal: Normal bowel sounds, soft, nontender and nondistended. No hepatosplenomegaly noted. Musculoskeletal: No cyanosis. Patient is able to move all extremities. Strength is 5 out of 5 in the upper and lower extremities. Skin: Papular lesions noted in her lower extremities. No obvious rash. Neurologic: Able to move all extremities. Nonfocal. Agitated at times. Psychiatric: Very anxious appearing. Alert. Results & Data Results & Data ([facility]) Vital Signs (Past 12 Hours) Vital Signs Temp Pulse Resp BP Pulse Ox O2 Del Method 05/16/22 08:00 37.4 C 131 H 43 H 161/91 H 96 Room Air 05/16/22 07:46 37.4 C 128 H 34 H 145/95 H 97 Room Air 05/16/22 07:00 37.2 C 126 H 29 H 132/88 95 Room Air 05/16/22 08:00 130 H 05/16/22 07:00 Room Air 05/16/22 06:00 37.3 C 130 H 37 H 96 05/16/22 06:00 166/119 H 05/16/22 05:00 37.4 C 126 H 22 94 05/16/22 05:00 154/97 H 05/16/22 04:00 37.5 C 122 H 25 H 97 05/16/22 04:00 152/73 H 05/16/22 03:00 37.6 C H 120 H 27 H 97 05/16/22 03:00 157/79 H 05/16/22 02:00 37.7 C H 124 H 30 H 96 05/16/22 02:00 166/90 H 05/16/22 01:00 141/84 H 05/16/22 01:00 37.6 C H 124 H 33 H 96 05/16/22 01:00 141/84 H 05/16/22 00:00 37.5 C 125 H 30 H 93 05/16/22 00:00 139/88 05/15/22 23:00 159/83 H 05/16/22 00:17 122 H 05/15/22 23:00 37.7 C H 127 H 39 H 95 05/15/22 22:00 37.7 C H 123 H 35 H 05/15/22 22:00 157/86 H 05/15/22 21:00 37.5 C 127 H 31 H 98 05/15/22 21:00 157/83 H Coding Level of Care Code Critical Care 1st 30-74 mins Diagnoses DKA (diabetic ketoacidoses) E11.10 Pneumomediastinum J98.2 Duodenitis K29.80 Hypovolemia E86.1 Acute renal failure N17.9 Pancreatitis K85.90 Delirium R41.0 Time Spent (min) 39
[2022-05-16] MEDS: THIAMINE HCL 200 MG in SODIUM CHLORIDE 0.9% 50 ML IV SCH (09:18)
[2022-05-16 10:38] LABS: Calcium 7.8 mg/dl (8.5-10.1); Magnesium 2.2 mg/dl (1.7-2.4); Potassium 3.1 mmol/L (3.5-5.1)
[2022-05-16 10:43] LABS: BUN Creatinine Ratio 27.1 (10-20); Creatinine Clr Calc Pharmacy 96.1 ml/min; Est GFR (African American) 79.6 ml/min; Est GFR (Non-African American) 68.6 ml/min
[2022-05-16] MEDS ORDERED: STAT IV STA (10:54)
[2022-05-16] MEDS ORDERED: CALCIUM GLUCONATE 10% 2,000 MG in DEXTROSE 5% 50 ML IV ONE (11:15)
[2022-05-16] MEDS ORDERED: POTASSIUM PHOSPHATE 30 MMOL in DEXTROSE 5% 500 ML IV ONE (11:15)
[2022-05-16] MEDS ORDERED: POTASSIUM PHOSPHATE 30 MMOL in SODIUM CHLORIDE 0.9% 500 ML IV ONE (11:15)
--- NOTE | 2022-05-16 14:26 | Hospitalist Progress Note ---
Date of Service May 16, 2022 Assessment & Plan (1) DKA (diabetic ketoacidoses): Plan: Anion gap has now normalized. She remains on insulin drip. Continue DKA prot ocol. Critical care consultation and management appreciated (2) Hypokalemia: Plan: Parenteral replacement. Serial labs (3) Acute metabolic encephalopathy: Plan: Supportive care. Treat underlying DKA and other acute medical problems . CT head negative for acute intracranial pathology. Urine toxicology screen positive only for marijuana. Drug withdrawal has been considered and is being treated (4) Hypothermia: Plan: Suspect environmental etiology given story of being found covered in water. TSH WNL. Kevin hugger until body temperature normalized (5) Acute renal failure: Plan: Secondary to severe dehydration from DKA. IV fluid resuscitation. Monitor urine output. Serial labs. (6) Metabolic acidosis: Plan: Secondary to ketosis from DKA. Serial labs (7) Duodenitis: Plan: Seen on imaging. No evidence of GI bleeding. Continue pantoprazole 40mg IV BID (8) Pneumomediastinum: Plan: Seen incidentally on CT chest. No intervention necessary at this time. (9) SARS-CoV-2 positive: Plan: Screening test in the ER positive. CT chest clear. Pt on room air. No apparent active COVID infection. Supportive care (10) Hypophosphatemia: Plan: Parenteral replacement therapy. Serial labs Plan VTE Prophylaxis - low risk given age Diet -currently NPO Disposition -to be determined. Anticipate eventual discharge back to home Admission and Anticipated Discharge Date Admission Date: May 14, 2022 Subjective Somewhat improved from yesterday, May 15, but she still remains delirious. Critical care entry noted. Cultures remain negative. She continues with intravenous Rocephin and Flagyl. Anion gap has normalized. Glucose 180 earlier this morning. Phosphorus is low and replacement ordered Review of Systems Review of Systems: The patient cannot answer any questions regarding review of systems at this time Physical Exam Physical Exam: General-awake but delirious. HEENT-head atraumatic and normocephalic, pupils equal and reactive to light, extraocular muscles intact. NG tube is in place Neck-no lymphadenopathy or thyromegaly, trachea midline Chest-clear to auscultation percussion. Scattered bilateral rhonchi. No wheezing. Tachypneic Cardiac-tachycardic regular rhythm. Normal S1 and S2. Abdomen-obese. Hypoactive bowel sounds. No apparent focal tenderness Extremities-no cyanosis, clubbing, or edema Neuro-moving all extremities randomly. No apparent focal deficits Psych-unable to assess Results & Data Results & Data ([facility]) Vital Signs (Past 12 Hours) Vital Signs Temp Pulse Resp BP Pulse Ox O2 Del Method 05/16/22 13:00 37.1 C 113 H 25 H 131/87 96 Room Air 05/16/22 12:00 37.1 C 120 H 27 H 165/71 H 97 Room Air 05/16/22 11:00 37.1 C 117 H 22 143/91 H 96 Room Air 05/16/22 10:18 37.3 C 126 H 30 H 164/99 H 96 Room Air 05/16/22 09:01 37.4 C 127 H 21 158/78 H 97 Room Air 05/16/22 08:00 37.4 C 131 H 43 H 161/91 H 96 Room Air 05/16/22 07:46 37.4 C 128 H 34 H 145/95 H 97 Room Air 05/16/22 07:00 37.2 C 126 H 29 H 132/88 95 Room Air 05/16/22 08:00 130 H 05/16/22 07:00 Room Air 05/16/22 06:00 37.3 C 130 H 37 H 96 05/16/22 06:00 166/119 H 05/16/22 05:00 37.4 C 126 H 22 94 05/16/22 05:00 154/97 H 05/16/22 04:00 37.5 C 122 H 25 H 97 05/16/22 04:00 152/73 H 05/16/22 03:00 37.6 C H 120 H 27 H 97 05/16/22 03:00 157/79 H Laboratory Results 05/16/22 03:21 05/16/22 09:59 PG Care Time/CCT Total # of Minutes Spent Total Time Spent with Patient: Total time spent is greater than 50% in coordination of care (as documented) at patient's floor/unit and/or counseling patient: Coding Level of Care Code 71608 SUB INP/OBS CARE 3/50MIN Diagnoses DKA (diabetic ketoacidoses) E11.10 Hypokalemia E87.6 Acute metabolic encephalopathy G93.41 Hypothermia T68.XXXA Acute renal failure N17.9 Metabolic acidosis E87.20 Duodenitis K29.80 Pneumomediastinum J98.2 SARS-CoV-2 positive U07.1 Hypophosphatemia E83.39
--- NOTE | 2022-05-16 14:39 | Pharmacy Report ---
Pharmacy Glycemic Short Note 2 - Date of Service May 16, 2022 - Glycemic Short BSG Results (Last 24 hours): 05/14/22 05/15/22 05/15/22 23:54 14:16 15:30 Glucose 337 H* 163 H POC Glucose 168 H 05/15/22 05/15/22 05/15/22 16:06 17:13 17:30 Glucose Cancelled 232 H POC Glucose 188 H 05/15/22 05/15/22 05/15/22 18:45 20:32 21:39 Glucose 145 H POC Glucose 172 H 158 H 05/15/22 05/15/22 05/16/22 22:36 23:47 00:46 Glucose POC Glucose 134 H 147 H 165 H 05/16/22 05/16/22 05/16/22 01:47 02:43 03:21 Glucose 180 H POC Glucose 171 H 160 H 05/16/22 05/16/22 05/16/22 04:50 05:55 07:01 Glucose POC Glucose 149 H 167 H 211 H 05/16/22 05/16/22 05/16/22 08:05 09:06 09:59 Glucose 233 H POC Glucose 209 H 221 H 05/16/22 05/16/22 10:19 11:16 Glucose POC Glucose 213 H 199 H OUTPATIENT ANTIDIABETIC REGIMEN: * n/a -- not taking any meds @ home HbA1C: 9.9% (05/14/22) ASSESSMENT: 05/16/22 * Patient remains on insulin infusion. Rates are roughly averaging out to 5.8 units/hr (~140 units/day). * Per previous admission, patient requires Lantus 30 units daily. Weight-based stress of 3 Lantus is 50 units daily. * Confirmed with provider that he will continue D5 @ 100 mL/hr. He is hopefully that patient may begin PO diet. Therefore will start with Lantus 40 units daily. Re-evaluate tomorrow with expectation that closer to 30 units will be necessary. Insulin infusion will end around 1999 so checks overnight will truly identify basal needs. * Novolog weight-based stress of 3 q4. Will use aggressive Novolog to provide tighter coverage. BACKGROUND * Patient is a 31 year old female with type 2 diabetes admitted after being found by her boyfriend on the floor. Arrived in severe DKA- initial labs: pH <7, CO2-4, AG-20, BSG-480. Pharmacy consulted to assist with glycemic management. * Insulin drip initiated yesterday ~2230 at half rate, 5 units/hr due to severe hypokalemia. Drip has been running at 5 units/hr all night into this AM based on BSG trend. BSGs within goal range. D5 1/2NS w/ 40mEq KCL running @ 250mL/hr. Pt remains NPO. * Remains in DKA and minimally responsive this AM. Discussed on rounds- will increase insulin drip rate (despite calculator). Pt likely severely basal deficient. Patient's BSG declined after rate increase so IVF adjusted to contain D10% in order to maintain a higher drip rate. Electrolyte repletion in D5 base. No plan for transition to SQ today. PLAN FOR INPATIENT GLYCEMIC CONTROL: * Hold outpatient oral diabetes medications * Basal insulin * Lantus 40 units SQ x 1 then re-evaluate 05/17/22 * Bolus insulin * NovoLog per scale ACHS or Q6hrs while NPO * Goal Range: Low 110 mg/dL - High 240 mg/dL * Correction Factor: 15 mg/dL/unit * Nutritional / Prandial insulin 1 units per 5 grams of carbohydrates consumed
[2022-05-16] MEDS ORDERED: LANTUS PER UNIT CHARGE SQ ONE (14:45)
[2022-05-16 16:39] LABS: Calcium 8.2 mg/dl (8.5-10.1); Magnesium 2.1 mg/dl (1.7-2.4); Potassium 3.8 mmol/L (3.5-5.1)
[2022-05-16 16:47] LABS: BUN Creatinine Ratio 22.6 (10-20); Est GFR (African American) 80.5 ml/min; Est GFR (Non-African American) 69.4 ml/min; Phosphorus 2.9 mg/dl (2.5-4.9)
[2022-05-16] MEDS ORDERED: DC IV INSULIN INFUSION 1 EA DEVI ONE (20:00)
[2022-05-17] MEDS: INSULIN ASPART PER UNIT SC SCH ×6 (01:30→20:05)
[2022-05-17 06:08] LABS: Calcium 7.8 mg/dl (8.5-10.1); Potassium 3.1 mmol/L (3.5-5.1)
[2022-05-17 06:14] LABS: BUN Creatinine Ratio 20.9 (10-20); Est GFR (African American) 96.8 ml/min; Est GFR (Non-African American) 83.5 ml/min; Phosphorus 2.1 mg/dl (2.5-4.9)
[2022-05-17 07:12] LABS: Marijuana Quant, GCMS Urine 52 ng/mL (<5)
[2022-05-17] MEDS: HEPARIN SOD 5,000 UNIT/0.5 ML VIAL SQ SCH ×2 (07:55→20:55)
[2022-05-17] MEDS: PANTOprazole 40 MG in SYRINGE 0 ML IV SCH (07:57)
[2022-05-17] MEDS: THIAMINE HCL 200 MG in SODIUM CHLORIDE 0.9% 50 ML IV SCH (07:57)
[2022-05-17] MEDS ORDERED: LANTUS PER UNIT CHARGE SQ ONE (08:00)
[2022-05-17] MEDS ORDERED: POTASSIUM PHOS 3 MMOL/1 ML INFUSION IV STA (09:04)
[2022-05-17] MEDS ORDERED: POTASSIUM PHOSPHATE 30 MMOL in DEXTROSE 5% 500 ML IV ONE (09:30)
[2022-05-17] MEDS: POTASSIUM CHLORIDE 20 MEQ in DEXTROSE 5% 1,000 ML IV SCH (09:56)
[2022-05-17] MEDS: SODIUM CHLOR 0.45% + 20MEQ KCL 20 MEQ/1,000 ML BAG IV SCH ×2 (10:34→22:59)
--- NOTE | 2022-05-17 12:21 | Pharmacy Report ---
Pharmacy Glycemic Short Note 2 - Date of Service May 17, 2022 - Glycemic Short BSG Results (Last 24 hours): 05/16/22 05/16/22 05/16/22 13:24 15:37 15:50 Glucose 267 H POC Glucose 204 H 248 H 05/16/22 05/16/22 05/17/22 17:21 20:20 00:16 Glucose POC Glucose 258 H 219 H 226 H 05/17/22 05/17/22 05/17/22 03:56 05:22 07:06 Glucose 203 H POC Glucose 209 H 192 H 05/17/22 11:23 Glucose POC Glucose 220 H OUTPATIENT ANTIDIABETIC REGIMEN: * n/a -- not taking any meds @ home HbA1C: 9.9% (05/14/22) ASSESSMENT: 05/17/22 * Patient remained on insulin infusion @ 5.8 units/hr until 1999. BSGs after that were 219-226-209 and today are 192-220 mg/dL. * Will split Lantus into 20 units SQ BID - this will allow for easier titration. * Patient continued on D5 @100 mL/hr until mid-morning and this was transition to 1/2NS. Patient has started to eat. * Will continue Novolog q4 at this time to better establish true basal needs. 05/16/22 * Patient remains on insulin infusion. Rates are roughly averaging out to 5.8 units/hr (~140 units/day). * Per previous admission, patient requires Lantus 30 units daily. Weight-based stress of 3 Lantus is 50 units daily. * Confirmed with provider that he will continue D5 @ 100 mL/hr. He is hopefully that patient may begin PO diet. Therefore will start with Lantus 40 units daily. Re-evaluate tomorrow with expectation that closer to 30 units will be necessary. Insulin infusion will end around 1999 so checks overnight will truly identify basal needs. * Novolog weight-based stress of 3 q4. Will use aggressive Novolog to provide tighter coverage. BACKGROUND * Patient is a 31 year old female with type 2 diabetes admitted after being found by her boyfriend on the floor. Arrived in severe DKA- initial labs: pH <7, CO2-4, AG-20, BSG-480. Pharmacy consulted to assist with glycemic management. * Insulin drip initiated yesterday ~2230 at half rate, 5 units/hr due to severe hypokalemia. Drip has been running at 5 units/hr all night into this AM based on BSG trend. BSGs within goal range. D5 1/2NS w/ 40mEq KCL running @ 250mL/hr. Pt remains NPO. * Remains in DKA and minimally responsive this AM. Discussed on rounds- will increase insulin drip rate (despite calculator). Pt likely severely basal deficient. Patient's BSG declined after rate increase so IVF adjusted to contain D10% in order to maintain a higher drip rate. Electrolyte repletion in D5 base. No plan for transition to SQ today. PLAN FOR INPATIENT GLYCEMIC CONTROL: * Hold outpatient oral diabetes medications * Basal insulin * Lantus 20 units SQ BID * Bolus insulin * NovoLog per scale ACHS or Q6hrs while NPO * Goal Range: Low 110 mg/dL - High 240 mg/dL * Correction Factor: 15 mg/dL/unit * Nutritional / Prandial insulin 1 units per 5 grams of carbohydrates consumed
--- NOTE | 2022-05-17 15:15 | Hospitalist Progress Note ---
Date of Service May 17, 2022 Assessment & Plan (1) DKA (diabetic ketoacidoses): Plan: Resolved. We will start metformin twice daily. Hopefully we can avoid long-t erm basal insulin therapy. She is off the insulin drip. (2) Hypokalemia: Plan: Parenteral replacement. Serial labs (3) Acute metabolic encephalopathy: Plan: Resolved. Mental status has now normalized. (4) Hypothermia: Plan: Resolved (5) Acute renal failure: Plan: Resolved. Monitor urine output. Serial labs. (6) Metabolic acidosis: Plan: Secondary to ketosis from DKA. Serial labs. Resolved (7) Duodenitis: Plan: Seen on imaging. No evidence of GI bleeding. No current symptoms. (8) Pneumomediastinum: Plan: Seen incidentally on CT chest. No intervention necessary at this time. (9) SARS-CoV-2 positive: Plan: Screening test in the ER positive. CT chest clear. Pt on room air. No apparent active COVID infection. Supportive care (10) Hypophosphatemia: Plan: Parenteral replacement therapy. Serial labs Plan VTE Prophylaxis - low risk given age. Ambulation Diet -ADA diet Disposition -probable discharge to home tomorrow, May 18 Admission and Anticipated Discharge Date Admission Date: May 14, 2022 Subjective Alert and oriented. Significant other at the bedside. She is much much improved. Antibiotics have been discontinued. Potassium and phosphorus replace ment continue. Sodium improved to 146. She is off the insulin drip. We will start her on metformin p.o. and hopefully avoid basal insulin therapy at discharge. Review of Systems Review of Systems: Constitutional-no fever or chills ENT-no blurred vision, no double vision, no epistaxis, no sore throat Respiratory-no cough, no wheezing, no shortness of breath Cardiac-no palpitations, no chest pain, no syncope GI-no nausea, vomiting, diarrhea, melena, hematochezia -no urinary retention, no urinary incontinence, no dysuria, no hematuria Musculoskeletal-no joint pain, no muscle tenderness Skin-no bruising, no rashes, no pruritus Neuro-no isolated weakness, no paresthesia, no weakness Psych-no depression, no anxiety Physical Exam Physical Exam: General-alert and oriented x3, no fevers, no chills HEENT-head atraumatic and normocephalic, pupils equal and reactive to light, extraocular muscles intact Neck-no lymphadenopathy or thyromegaly, trachea midline Chest-clear to auscultation percussion. No rales wheezing or rhonchi Cardiac-regular rate and rhythm, normal S1 and S2 Abdomen-normal bowel sounds, nontender, no hepatosplenomegaly Extremities-no cyanosis, clubbing, or edema Neuro-cranial nerves II through XII intact, motor and sensory function within normal limits, strength symmetrical , no focal deficits Psych-normal affect, normal mood Results & Data Results & Data ([facility]) Vital Signs (Past 12 Hours) Vital Signs Temp Pulse Pulse Resp BP BP Pulse Ox 05/17/22 14:22 108 H 05/17/22 13:22 05/17/22 12:56 37.2 C 110 H 12 125/81 100 05/17/22 11:15 100 H 18 134/77 99 05/17/22 11:15 36.6 C 05/17/22 07:08 108 H 23 118/86 98 05/17/22 07:00 05/17/22 07:08 37.0 C 05/17/22 07:00 108 H 05/17/22 06:06 110 H 19 05/17/22 05:00 37.4 C 104 H 24 98 05/17/22 05:00 133/79 05/17/22 04:00 34.9 C L 108 H 28 H 97 05/17/22 04:00 157/79 H 05/17/22 03:57 160/86 H 05/17/22 03:57 37.4 C 110 H 20 97 O2 Del Method 05/17/22 14:22 05/17/22 13:22 Room Air 05/17/22 12:56 Room Air 05/17/22 11:15 Room Air 05/17/22 11:15 05/17/22 07:08 Room Air 05/17/22 07:00 Room Air 05/17/22 07:08 05/17/22 07:00 05/17/22 06:06 05/17/22 05:00 05/17/22 05:00 05/17/22 04:00 05/17/22 04:00 05/17/22 03:57 05/17/22 03:57 Laboratory Results 05/16/22 03:21 05/17/22 05:22 PG Care Time/CCT Total # of Minutes Spent Total Time Spent with Patient: Total time spent is greater than 50% in coordination of care (as documented) at patient's floor/unit and/or counseling patient: Coding Level of Care Code 03464 SUB INP/OBS CARE 3/50MIN Diagnoses DKA (diabetic ketoacidoses) E11.10 Hypokalemia E87.6 Acute metabolic encephalopathy G93.41 Hypothermia T68.XXXA Acute renal failure N17.9 Metabolic acidosis E87.20 Duodenitis K29.80 Pneumomediastinum J98.2 SARS-CoV-2 positive U07.1 Hypophosphatemia E83.39
[2022-05-17] MEDS: metFORMIN HCL 500 MG TAB PO SCH (17:18)
[2022-05-18] MEDS: INSULIN ASPART PER UNIT SC SCH ×6 (00:21→20:06)
[2022-05-18] MEDS ORDERED: PYRIDOXINE HCL 50 MG TAB PO PRN (06:29)
[2022-05-18 06:46] LABS: Basophils # (auto) 0.01 K/uL (0-0.2); Basophils % (auto) 0.2 %; Eosinophils # (auto) 0.09 K/uL (0-0.50); Eosinophils % (auto) 2.2 %; Hematocrit (blood only) 29.8 % (37.0-47.0); Hemoglobin 10.4 g/dl (12.0-16.0); Immature Granulocytes # (auto) 0.02 K/uL (0.01-0.20); Immature Granulocytes % (auto) 0.5 %; Lymphocytes # (auto) 1.62 K/uL (1.2-3.4); Lymphocytes % (auto) 38.9 %; Mean Corpuscular Hemoglobin 27.7 pg (25.0-34.0); Mean Corpuscular Hgb Conc 34.9 g/dL (32.0-36.0); Mean Corpuscular Volume 79.3 fL (80.0-100.0); Mean Platelet Volume 10.9 fL (9.4-12.4); Monocytes # (auto) 0.39 K/uL (0.11-0.59); Monocytes % (auto) 9.4 %; Neutrophils # (auto) 2.03 K/uL (1.40-6.50); Neutrophils % (auto) 48.8 %; Platelet Count 106 K/uL (130-400); RDW Coefficient of Variation 15.8 % (11.5-14.5); RDW Standard Deviation 45.5 fL (36.4-46.3); Red Blood Count 3.76 M/uL (4.20-5.40); White Blood Count 4.16 K/ul (4.8-10.8)
[2022-05-18 07:17] LABS: Calcium 7.3 mg/dl (8.5-10.1); Magnesium 1.8 mg/dl (1.7-2.4); Potassium 3.7 mmol/L (3.5-5.1)
[2022-05-18 07:23] LABS: BUN Creatinine Ratio 16.7 (10-20); Creatinine Clr Calc Pharmacy 158.6 ml/min; Est GFR (African American) 135.5 ml/min; Est GFR (Non-African American) 116.9 ml/min; Phosphorus 2.2 mg/dl (2.5-4.9)
[2022-05-18] MEDS: HEPARIN SOD 5,000 UNIT/0.5 ML VIAL SQ SCH ×2 (08:34→20:34)
[2022-05-18] MEDS: PANTOprazole 40 MG TAB PO SCH (08:35)
[2022-05-18] MEDS: metFORMIN HCL 500 MG TAB PO SCH ×2 (08:35→17:43)
[2022-05-18] MEDS: THIAMINE HCL 100 MG TAB PO SCH (08:35)
[2022-05-18] MEDS ORDERED: LANTUS PER UNIT CHARGE SQ SCH (09:00)
[2022-05-18] MEDS ORDERED: POTASSIUM PHOS 3 MMOL/1 ML INFUSION IV STA (09:35)
[2022-05-18] MEDS ORDERED: POTASSIUM PHOSPHATE 21 MMOL in SODIUM CHLORIDE 0.9% 500 ML IV ONE (10:00)
[2022-05-18] MEDS: ONDANSETRON INJ 2 MG/ML 2 ML VIAL IV PRN ×2 (10:02→20:35)
[2022-05-18] MEDS: NSS + 20MEQ KCL 20 MEQ/1,000 ML BAG IV SCH ×2 (12:56→22:28)
--- NOTE | 2022-05-18 14:49 | Hospitalist Progress Note ---
Date of Service May 18, 2022 Assessment & Plan (1) DKA (diabetic ketoacidoses): Plan: Resolved. She is now on metformin. She has been requiring a considerable daniel unt of insulin and it appears she will need to be discharged on insulin. Basal dosing ordered. Continue sliding scale coverage. She is on a clear liquid diet at this time due to nausea and right upper quadrant tenderness. Underlying gallbladder disease needs to be ruled out. (2) Hypokalemia: Plan: Parenteral replacement. Serial labs (3) Acute metabolic encephalopathy: Plan: Resolved. Mental status has now normalized. (4) Hypothermia: Plan: Resolved (5) Acute renal failure: Plan: Resolved. Monitor urine output. Serial labs. (6) Metabolic acidosis: Plan: Secondary to ketosis from DKA. Serial labs. Resolved (7) Duodenitis: Plan: Seen on imaging. No evidence of GI bleeding. No current symptoms. (8) Pneumomediastinum: Plan: Seen incidentally on CT chest. No intervention necessary at this time. (9) SARS-CoV-2 positive: Plan: Screening test in the ER positive. CT chest clear. Pt on room air. No apparent active COVID infection. Supportive care (10) Hypophosphatemia: Plan: Parenteral replacement therapy. Serial labs Plan VTE Prophylaxis - low risk given age. Ambulation Diet -ADA diet Disposition -eventual discharge to home. It now appears she will need insulin therapy at discharge. We will consult surgery if HIDA scan and/or gallbladder ultrasound are abnormal. Admission and Anticipated Discharge Date Admission Date: May 14, 2022 Subjective Alert and oriented. She is nauseated and has right upper quadrant tenderness on exam. This raises the question of underlying gallbladder disease. Imaging has been ordered. She is requiring a considerable amount of insulin therapy and is now on basal insulin. It appears she will need insulin at discharge which will not be today. Potassium and phosphorus supplementation continues. Continue IV fluids until oral intake improves Review of Systems 2 Review of Systems: Constitutional-no fever or chills ENT-no blurred vision, no double vision, no epistaxis, no sore throat Respiratory-no cough, no wheezing, no shortness of breath Cardiac-no palpitations, no chest pain, no syncope GI-nauseated with right upper quadrant tenderness to palpation. No vomiting. No hematochezia. No melena. -no urinary retention, no urinary incontinence, no dysuria, no hematuria Musculoskeletal-no joint pain, no muscle tenderness Skin-no bruising, no rashes, no pruritus Neuro-no isolated weakness, no paresthesia, no weakness Psych-no depression, no anxiety Physical Exam Physical Exam: General-alert and oriented x3, no fevers, no chills HEENT-head atraumatic and normocephalic, pupils equal and reactive to light, extraocular muscles intact Neck-no lymphadenopathy or thyromegaly, trachea midline Chest-clear to auscultation percussion. No rales wheezing or rhonchi Cardiac-regular rate and rhythm, normal S1 and S2 Abdomen-mild right upper quadrant tenderness to palpation. Bowel sounds are active. No rebound or guarding . She is nauseated Extremities-no cyanosis, clubbing, or edema Neuro-cranial nerves II through XII intact, motor and sensory function within normal limits, strength symmetrical , no focal deficits Psych-normal affect, normal mood Results & Data Results & Data ([facility]) Vital Signs (Past 12 Hours) Vital Signs Temp Pulse Pulse Resp BP BP Pulse Ox 05/18/22 11:35 36.7 C 89 20 129/76 97 05/18/22 07:58 37.0 C 88 20 160/82 H 97 05/18/22 07:00 87 05/18/22 03:46 36.9 C 85 17 126/81 99 O2 Del Method 05/18/22 11:35 Room Air 05/18/22 07:58 Room Air 05/18/22 07:00 05/18/22 03:46 Room Air Laboratory Results 05/18/22 06:09 05/18/22 06:09 PG Care Time/CCT Total # of Minutes Spent Total Time Spent with Patient: Total time spent is greater than 50% in coordination of care (as documented) at patient's floor/unit and/or counseling patient: Coding Level of Care Code 23218 SUB INP/OBS CARE 3/50MIN Diagnoses DKA (diabetic ketoacidoses) E11.10 Hypokalemia E87.6 Acute metabolic encephalopathy G93.41 Hypothermia T68.XXXA Acute renal failure N17.9 Metabolic acidosis E87.20 Duodenitis K29.80 Pneumomediastinum J98.2 SARS-CoV-2 positive U07.1 Hypophosphatemia E83.39
--- NOTE | 2022-05-18 15:56 | Ultrasound Report ---
ABDOMINAL ULTRASOUND, RIGHT UPPER QUADRANT HISTORY: nausea, RUQ tenderness. COMPARISON: Abdomen and pelvis CT 05/14/2022. FINDINGS: Pancreas: The pancreas demonstrates a normal echotexture. Liver: The liver is echogenic consistent with fatty change. 20 cm in length. Gallbladder: No gallbladder wall thickening. No gallstones. CBD: 2 mm. Right kidney: No hydronephrosis. IMPRESSION: 1. Normal gallbladder. No gallstones. 2. Hepatomegaly demonstrating fatty change. ACT 112: Negative or not required by law. Electronically signed by: Joe Myers M.D. 05/18/2022 3:54 PM
[2022-05-18] MEDS: LANTUS PER UNIT CHARGE SQ SCH (20:06)
[2022-05-19 06:12] LABS: Basophils # (auto) 0.01 K/uL (0-0.2); Basophils % (auto) 0.2 %; Eosinophils # (auto) 0.07 K/uL (0-0.50); Eosinophils % (auto) 1.6 %; Hematocrit (blood only) 30.9 % (37.0-47.0); Hemoglobin 10.6 g/dl (12.0-16.0); Immature Granulocytes # (auto) 0.05 K/uL (0.01-0.20); Immature Granulocytes % (auto) 1.1 %; Lymphocytes # (auto) 1.74 K/uL (1.2-3.4); Lymphocytes % (auto) 39.3 %; Mean Corpuscular Hemoglobin 27.7 pg (25.0-34.0); Mean Corpuscular Hgb Conc 34.3 g/dL (32.0-36.0); Mean Corpuscular Volume 80.7 fL (80.0-100.0); Mean Platelet Volume 10.4 fL (9.4-12.4); Monocytes % (auto) 11.3 %; Neutrophils # (auto) 2.06 K/uL (1.40-6.50); Neutrophils % (auto) 46.5 %; Platelet Count 165 K/uL (130-400); RDW Coefficient of Variation 15.6 % (11.5-14.5); RDW Standard Deviation 45.2 fL (36.4-46.3); Red Blood Count 3.83 M/uL (4.20-5.40); White Blood Count 4.43 K/ul (4.8-10.8)
[2022-05-19] MEDS: metFORMIN HCL 500 MG TAB PO SCH ×2 (09:08→17:12)
[2022-05-19] MEDS: PANTOprazole 40 MG TAB PO SCH ×2 (09:08→22:02)
[2022-05-19] MEDS: THIAMINE HCL 100 MG TAB PO SCH (09:08)
[2022-05-19] MEDS: HEPARIN SOD 5,000 UNIT/0.5 ML VIAL SQ SCH ×2 (09:09→20:36)
[2022-05-19] MEDS: INSULIN ASPART PER UNIT SC SCH ×4 (09:19→20:08)
[2022-05-19] MEDS: LANTUS PER UNIT CHARGE SQ SCH ×2 (09:20→20:09)
[2022-05-19 10:25] LABS: Albumin Level 3.1 gm/dl (3.4-5.0); Bilirubin,Total 0.4 mg/dl (0.2-1.0); Calcium 7.7 mg/dl (8.5-10.1); Potassium 3.9 mmol/L (3.5-5.1)
[2022-05-19 10:31] LABS: Albumin Globulin Ratio 1.2 (0.9-2); BUN Creatinine Ratio 10.9 (10-20); Creatinine Clr Calc Pharmacy 163.8 ml/min; Est GFR (African American) 136.8 ml/min; Est GFR (Non-African American) 118.1 ml/min; Globulin 2.5 gm/dl (2.5-4.0); Total Protein 5.6 gm/dl (6.0-8.3)
[2022-05-19] MEDS: NSS + 20MEQ KCL 20 MEQ/1,000 ML BAG IV SCH (12:17)
[2022-05-19] MEDS: ONDANSETRON INJ 2 MG/ML 2 ML VIAL IV PRN (12:34)
[2022-05-19] MEDS ORDERED: SINCALIDE 2.4 MCG in 0.9 % SODIUM CHLORIDE 100 ML IV ONE (13:00)
--- NOTE | 2022-05-19 16:07 | Nuclear Medicine Report ---
NUCLEAR MEDICINE HEPATOBILIARY SCAN WITH EJECTION FRACTION HISTORY: nausea, RUQ tenderness, MO COMPARISON: Abdominal ultrasound 05/18/2022. TECHNIQUE: Immediately following the intravenous administration of 5.3 mCi Tc-99m Choletec, dynamic a nterior abdominal imaging pre/post 2.4 mcg of Kinevac was performed. FINDINGS: Uniform hepatic tracer accumulation is shown. Prompt intrahepatic biliary excretion is seen. The gall bladder, common bile duct, and small bowel are all visualized by 30 minutes. This appearance represen ts the normal sequence of biliary excretion. The gall bladder ejection fraction following administration of Kinevac was 98% (normal >35%). IMPRESSION: 1. No evidence for cystic duct obstruction. 2. Gallbladder ejection fraction calculated to be 98 %. ACT 112: Negative or not required by law. Electronically signed by: Joe Myers M.D. 05/19/2022 4:06 PM
[2022-05-19] MEDS: LACTATED RINGER'S 1,000 ML IV SCH (17:12)
[2022-05-19] MEDS: FAMOTIDINE 20 MG in SYRINGE 3 ML IV SCH (18:45)
[2022-05-19] MEDS ORDERED: METOCLOPRAMIDE HCL INJ 5 MG/ML 2 ML VIAL IV ONE (19:00)
--- NOTE | 2022-05-19 20:24 | Hospitalist Progress Note ---
Date of Service May 19, 2022 Assessment & Plan (1) Nausea and vomiting: Plan: 2nd to acute pancreatitis? 2nd to esophageal issues / esophagitis (CT chest early in stay with esophageal wall thickening)? THC hyperemesis syndrome? (tox screen +THC use at admission) other? keep on clears. change fluids to LR. add pepcid IV bid. increase PPI to bid dosing. if THC related consider trial of capsaicin cream and hot showers. (2) Acute pancreatitis: Plan: peak lipase about 1000 trended towards about 100, then increased overnight to 300 GB u/s, CT a/p, and HIDA all negative for biliary tract disease check trigs in am given +COVID status her pancreatitis may be from COVID itself cont clears change fluids to LR at 125cc/hr supportive care. if any worsening then MRCP to r/o pancreatic divisum, etc. (3) COVID-19: Plan: pulmonary crow very few symptoms. could have acute pancreatitis from such. no indication at this time for Remdesivir or steroids. cont airborne precautions. (4) Pneumomediastinum: Plan: Seen incidentally on CT chest early in stay. Suspect barotrauma from frequent vomiting in context of DKA. Given the esophageal findings on CT, and given ongoing vomiting etc - check CT chest with PO contrast to ensure no esophageal tear, etc. (5) DKA (diabetic ketoacidoses): Plan: Resolved. Appreciate pharmacy glycemic team and recs. Cont lantus BID Cont novolog metformin added back (500mg BID) by prior attending Control at this time satisfactory (6) Hypokalemia: Plan: replaced resolved (7) Acute metabolic encephalopathy: Plan: Resolved. 2nd to DKA at time of admission. (8) Hypothermia: Plan: Resolved Present on admission 2nd to DKA (9) Acute renal failure: Plan: Resolved. Peak Cr 1.9 0.6 today was 2nd to DKA and severe volume depletion at admission (10) Metabolic acidosis: Plan: Secondary to ketosis from DKA. Resolved. (11) Duodenitis: Plan: Seen on imaging. Increase PPI to bid dosing. Add pepcid IV. if #1 persists consider GI consultation. (12) Hypophosphatemia: Plan: s/p replacement repeat level am (13) Marihuana abuse: Plan: as seen on tox screen from admission causing hyperemesis syndrome?? see #1 above (14) Morbid obesity with BMI of 40.0-44.9, adult: Plan: BMI 44 (15) DVT prophylaxis: Plan: heparin SC but dose is low for her body size this needs adjustment given her LE edema will check dopplers - r/o DVT (risk factors - COVID infection, prior OCP use, immobility first few days of hospital stay, etc) Admission and Anticipated Discharge Date Admission Date: May 14, 2022 Subjective tele stable/normal overnight she continues with frequent episodes of nausea along with vomiting has vomited at least 3-4 times today unable to really take even clear liquids continues with mild stomach pain - some located centrally, and still some pain located lateral RUQ denies chest pain has mild cough/congestion but no dyspnea no fever boyfriend at bedside during the visit her mother was on speaker phone during the visit Review of Systems Review of Systems: gen - no fevers/chills; remains tired HENT - nasal congestion pulm - no sputum GI - throwing up "bile" but the contents are not green - they are yellow; +diarrhea x 1 today - no LUTS Physical Exam Physical Exam: gen - obese, NAD mouth - MMM neck - no JVD heart - RRR, s1 s2, no murmur lungs - CTA b/l abd - soft, mildly tender periumbilical and RUQ; no peritoneal signs; BS+, no HSM ext - 1+ edema b/l, pulses 2+ b/l psych - a/o x 3 skin - no rash Results & Data Results & Data ([facility]) Vital Signs (Past 12 Hours) Vital Signs Temp Pulse Pulse Resp BP Pulse Ox O2 Del Method 05/19/22 19:39 36.7 C 84 18 151/87 H 99 Room Air 05/19/22 16:00 86 05/19/22 16:09 36.5 C 82 18 159/95 H 100 Room Air Laboratory Results Laboratory Results - last 24 hr 05/19/22 05/19/22 05/19/22 05:40 08:04 09:19 WBC 4.43 L RBC 3.83 L Hgb 10.6 L Hct 30.9 L MCV 80.7 MCH 27.7 MCHC 34.3 RDW Std Deviation 45.2 RDW Coeff of Sandy 15.6 H Plt Count 165 D MPV 10.4 Immature Gran % (Auto) 1.1 Neut % (Auto) 46.5 Lymph % (Auto) 39.3 [place] % (Auto) 11.3 Eos % (Auto) 1.6 Baso % (Auto) 0.2 Neut # (Auto) 2.06 Lymph # (Auto) 1.74 [place] # (Auto) 0.50 Eos # (Auto) 0.07 Baso # (Auto) 0.01 Immature Gran # (Auto) 0.05 Sodium 141 Potassium 3.9 Chloride 111 H Carbon Dioxide 22 Anion Gap 8 BUN 7 Creatinine 0.64 Est Cr Clr Drug Dosing 163.8 Est GFR ( Amer) 136.8 Est GFR (Non-Af Amer) 118.1 BUN/Creatinine Ratio 10.9 Glucose 245 H POC Glucose 165 H Calcium 7.7 L Total Bilirubin 0.4 AST 26 ALT 30 Alkaline Phosphatase 150 H Total Protein 5.6 L Albumin 3.1 L Globulin 2.5 Albumin/Globulin Ratio 1.2 Lipase 303 H 05/19/22 05/19/22 05/19/22 11:51 16:08 19:27 WBC RBC Hgb Hct MCV MCH MCHC RDW Std Deviation RDW Coeff of Sandy Plt Count MPV Immature Gran % (Auto) Neut % (Auto) Lymph % (Auto) [place] % (Auto) Eos % (Auto) Baso % (Auto) Neut # (Auto) Lymph # (Auto) [place] # (Auto) Eos # (Auto) Baso # (Auto) Immature Gran # (Auto) Sodium Potassium Chloride Carbon Dioxide Anion Gap BUN Creatinine Est Cr Clr Drug Dosing Est GFR ( Amer) Est GFR (Non-Af Amer) BUN/Creatinine Ratio Glucose POC Glucose 202 H 116 H 165 H Calcium Total Bilirubin AST ALT Alkaline Phosphatase Total Protein Albumin Globulin Albumin/Globulin Ratio Lipase PG Care Time/CCT Total # of Minutes Spent Total Time Spent with Patient: Total time spent is greater than 50% in coordination of care (as documented) at patient's floor/unit and/or counseling patient: Coding Level of Care Code 64091 SUB INP/OBS CARE 3/50MIN Diagnoses Nausea and vomiting R11.2 Acute pancreatitis K85.90 COVID-19 U07.1 Pneumomediastinum J98.2 DKA (diabetic ketoacidoses) E11.10 Hypokalemia E87.6 Acute metabolic encephalopathy G93.41 Hypothermia T68.XXXA Acute renal failure N17.9 Metabolic acidosis E87.20 Duodenitis K29.80 Hypophosphatemia E83.39 Marihuana abuse F12.10 Morbid obesity with BMI of 40.0-44.9, adult E66.01; Z68.41 DVT prophylaxis Z29.9
[2022-05-20] MEDS: LACTATED RINGER'S 1,000 ML IV SCH ×3 (00:52→17:23)
[2022-05-20] MEDS: FAMOTIDINE 20 MG in SYRINGE 3 ML IV SCH ×2 (04:52→17:31)
[2022-05-20 07:39] LABS: Basophils # (auto) 0.03 K/uL (0-0.2); Basophils % (auto) 0.4 %; Eosinophils % (auto) 1.2 %; Hematocrit (blood only) 34.1 % (37.0-47.0); Hemoglobin 11.5 g/dl (12.0-16.0); Immature Granulocytes # (auto) 0.13 K/uL (0.01-0.20); Immature Granulocytes % (auto) 1.6 %; Lymphocytes # (auto) 1.75 K/uL (1.2-3.4); Lymphocytes % (auto) 21.1 %; Mean Corpuscular Hemoglobin 27.3 pg (25.0-34.0); Mean Corpuscular Hgb Conc 33.7 g/dL (32.0-36.0); Mean Corpuscular Volume 80.8 fL (80.0-100.0); Mean Platelet Volume 10.1 fL (9.4-12.4); Monocytes # (auto) 0.87 K/uL (0.11-0.59); Monocytes % (auto) 10.5 %; Neutrophils # (auto) 5.42 K/uL (1.40-6.50); Neutrophils % (auto) 65.2 %; Platelet Count 220 K/uL (130-400); RDW Coefficient of Variation 15.2 % (11.5-14.5); Red Blood Count 4.22 M/uL (4.20-5.40)
[2022-05-20 08:00] LABS: Albumin Globulin Ratio 1.3 (0.9-2); Albumin Level 3.4 gm/dl (3.4-5.0); BUN Creatinine Ratio 6.6 (10-20); Bilirubin,Total 0.5 mg/dl (0.2-1.0); Calcium 8.4 mg/dl (8.5-10.1); Creatinine Clr Calc Pharmacy 137.8 ml/min; Est GFR (African American) 120.3 ml/min; Est GFR (Non-African American) 103.8 ml/min; Globulin 2.7 gm/dl (2.5-4.0); Phosphorus 3.1 mg/dl (2.5-4.9); Potassium 3.6 mmol/L (3.5-5.1); Total Protein 6.1 gm/dl (6.0-8.3)
[2022-05-20] MEDS: PANTOprazole 40 MG TAB PO SCH ×2 (08:08→20:45)
[2022-05-20] MEDS: HEPARIN SOD 5,000 UNIT/0.5 ML VIAL SQ SCH ×3 (08:08→20:44)
[2022-05-20] MEDS: metFORMIN HCL 500 MG TAB PO SCH (08:08)
[2022-05-20] MEDS: THIAMINE HCL 100 MG TAB PO SCH (08:08)
[2022-05-20] MEDS: ONDANSETRON INJ 2 MG/ML 2 ML VIAL IV PRN (08:13)
[2022-05-20] MEDS: INSULIN ASPART PER UNIT SC SCH ×4 (08:19→20:15)
[2022-05-20] MEDS: LANTUS PER UNIT CHARGE SQ SCH ×2 (08:20→20:02)
--- NOTE | 2022-05-20 09:00 | Ultrasound Report ---
ULTRASOUND BILATERAL LOWER EXTREMITY VENOUS CLINICAL HISTORY: Lower extremity edema. COMPARISON STUDY: No priors. TECHNIQUE: Real-time, grayscale, and color Doppler sonography of the deep veins of the right and left lower extremity was performed from the inguinal crease to the calf. Compression and augmentation wer e utilized. FINDINGS: There is no sonographic evidence of deep venous thrombosis identified in the right or left lower extremity. The common femoral, superficial femoral, and popliteal veins are patent and normally compressible bilaterally. The greater saphenous vein and the profunda femoris vein at the junction w ith the common femoral vein are clear in both legs. The visualized calf veins are patent bilaterally. IMPRESSION: There is no sonographic evidence of deep venous thrombosis identified in the right or lef t lower extremity. ACT 112: Negative or not required by law. Electronically signed by: Claudio Pool M.D. 05/20/2022 8:59 AM
[2022-05-20] MEDS ORDERED: CAPSAICIN CR 0.075% 60 GM TUBE EXT PRN (14:04)
[2022-05-20] MEDS ORDERED: PROMETHAZINE HCL 12.5 MG in SODIUM CHLORIDE 0.9% 50 ML IV STA (14:05)
--- NOTE | 2022-05-20 15:44 | CT Scan Report ---
CT chest diagnostic wo con CT DOSE: 1192.72 mGy.cm CLINICAL HISTORY: 31 years-old Female with pneumomediastinum; r/o esoph. rupture. Follow-up study in a patient with pneumomediastinum TECHNIQUE: Multiaxial CT images of the chest were performed without IV contrast. A small amount of en teric contrast was used. A dose lowering technique was utilized adhering to the principles of ALARA. COMPARISON: Chest CT 05/14/2022 FINDINGS: Limited study secondary to respiratory motion artifact. No thyroid nodule. Resolution of the previous ly described pneumomediastinum. The heart is mildly enlarged. No pericardial effusion. No thoracic ao rtic aneurysm. No pneumothorax, airspace consolidation or overt pulmonary edema. Small pleural effusions with mild s ubsegmental bibasilar atelectasis. Central airways are patent. Unremarkable soft tissues. No acute fr acture identified. Enteric contrast noted within the stomach and esophagus. No extravasation identifi ed. Minimal nonspecific esophageal wall thickening. Hepatomegaly with hepatic steatosis. Unremarkable soft tissues. No acute fracture. IMPRESSION: 1. Resolution of the previously described pneumomediastinum. 2. No enteric contrast extravasation identified to suggest esophageal perforation. 3. Small pleural effusions with mild bibasilar atelectasis. 4. Hepatomegaly with hepatic steatosis. ACT 112: Negative or not required by law. Electronically signed by: Christ Sifuentes M.D. 05/20/2022 3:43 PM
--- NOTE | 2022-05-20 20:49 | Hospitalist Progress Note ---
Date of Service May 20, 2022 Assessment & Plan (1) Nausea and vomiting: Plan: slightly improved today. 2nd to acute pancreatitis? 2nd to esophageal issues / esophagitis (CT chest early in stay with esophageal wall thickening)? THC hyperemesis syndrome? (tox screen +THC use at admission) combination? keep on clears today. cont LR hydration. cont pepcid IV bid. cont PPI bid. we discussed her THC use today. she is a daily user for several years. if THC related will trial her on capsaicin cream today and encouraged to take hot showers frequently. although LFTs flor overnight she has no pain on exam - thus, hold off on MRCP for now. previous CT abd/pelvis, HIDA, and GB u/s without acute biliary tract pathology. (2) Acute pancreatitis: Plan: peak lipase about 1000 trended towards about 100, then increased to 300, but now back to ~200. GB u/s, CT a/p, and HIDA all negative for biliary tract disease triglycerides minimally elevated thus not the cause. given +COVID status her pancreatitis may be from COVID itself cont clears cont LR at 125cc/hr supportive care. defer on MRCP for now. repeat LFTs and lipase in am. (3) COVID-19: Plan: pulmonary crow very few symptoms. could have acute pancreatitis from such. no indication at this time for Remdesivir or steroids. cont airborne precautions. (4) Pneumomediastinum: Plan: Seen incidentally on CT chest early in stay. Suspect barotrauma from frequent vomiting in context of DKA. Given the esophageal findings on CT, and given ongoing vomiting etc - check CT chest with PO contrast to ensure no esophageal tear, etc. This returned NEGATIVE today. (5) DKA (diabetic ketoacidoses): Plan: Resolved. Appreciate pharmacy glycemic team and recs. Cont lantus BID Cont novolog HOLD metformin Control at this time satisfactory (6) Hypokalemia: Plan: replaced resolved (7) Acute metabolic encephalopathy: Plan: Resolved. 2nd to DKA at time of admission. (8) Hypothermia: Plan: Resolved Present on admission 2nd to DKA (9) Acute renal failure: Plan: Resolved. Peak Cr 1.9 was 2nd to DKA and severe volume depletion at admission (10) Metabolic acidosis: Plan: Secondary to ketosis from DKA. Resolved. (11) Duodenitis: Plan: Seen on imaging. Increased PPI to bid dosing. Added pepcid IV. if #1 persists consider GI consultation. (12) Hypophosphatemia: Plan: s/p replacement repeat level wnl today (13) Marihuana abuse: Plan: as seen on tox screen from admission causing hyperemesis syndrome?? see #1 above (14) Morbid obesity with BMI of 40.0-44.9, adult: Plan: BMI 44 (15) DVT prophylaxis: Plan: heparin SC but dose is low for her body size this needs adjustment - increased to 7500 units TID checked dopplers legs -- neg for DVT Admission and Anticipated Discharge Date Admission Date: May 14, 2022 Subjective tele wnl overnight pt still with nausea and still with emesis but quantities of emesis are smaller drinking very little abd pain resolved today no diarrhea today mild chest symptoms - cough/congestion, but no pleuritic pain despite the above she says "I do think I feel a little better today" Review of Systems Review of Systems: gen - no fevers or chills cv - no chest pain pulm - mild cough; no sputum GI - no abd pain today; no hematemesis Physical Exam Physical Exam: gen - obese, NAD; she looks better today mouth - MMM neck - no JVD heart - RRR, s1 s2, no murmur lungs - CTA b/l abd - soft, nontender, no peritoneal signs; BS+, no HSM ext - <1+ edema b/l, pulses 2+ b/l psych - a/o x 3 skin - no rash Results & Data Results & Data ([facility]) Vital Signs (Past 12 Hours) Vital Signs Temp Pulse Pulse Resp BP Pulse Ox O2 Del Method 05/20/22 20:05 36.5 C 78 20 176/95 H 99 Room Air 05/20/22 16:00 76 05/20/22 16:49 36.8 C 86 18 156/95 H 97 Room Air 05/20/22 15:00 Room Air 05/20/22 11:29 36.6 C 75 20 159/93 H 100 Room Air Laboratory Results Laboratory Results - last 24 hr 05/20/22 05/20/22 05/20/22 07:17 07:17 07:17 WBC 8.30 RBC 4.22 Hgb 11.5 L Hct 34.1 L MCV 80.8 MCH 27.3 MCHC 33.7 RDW Std Deviation 45.0 RDW Coeff of Sandy 15.2 H Plt Count 220 MPV 10.1 Immature Gran % (Auto) 1.6 Neut % (Auto) 65.2 Lymph % (Auto) 21.1 [place] % (Auto) 10.5 Eos % (Auto) 1.2 Baso % (Auto) 0.4 Neut # (Auto) 5.42 Lymph # (Auto) 1.75 [place] # (Auto) 0.87 H Eos # (Auto) 0.10 Baso # (Auto) 0.03 Immature Gran # (Auto) 0.13 Sodium 144 Potassium 3.6 Chloride 110 H Carbon Dioxide 25 Anion Gap 9 BUN 5 L Creatinine 0.76 Est Cr Clr Drug Dosing 137.8 Est GFR ( Amer) 120.3 Est GFR (Non-Af Amer) 103.8 BUN/Creatinine Ratio 6.6 L Glucose 131 H POC Glucose Calcium 8.4 L Phosphorus 3.1 Cancelled Magnesium 2.0 Cancelled Total Bilirubin 0.5 AST 59 H ALT 58 H Alkaline Phosphatase 255 H Total Protein 6.1 Albumin 3.4 Globulin 2.7 Albumin/Globulin Ratio 1.3 Triglycerides 213 H Lipase 216 H 05/20/22 05/20/22 05/20/22 07:38 10:52 16:38 WBC RBC Hgb Hct MCV MCH MCHC RDW Std Deviation RDW Coeff of Sandy Plt Count MPV Immature Gran % (Auto) Neut % (Auto) Lymph % (Auto) [place] % (Auto) Eos % (Auto) Baso % (Auto) Neut # (Auto) Lymph # (Auto) [place] # (Auto) Eos # (Auto) Baso # (Auto) Immature Gran # (Auto) Sodium Potassium Chloride Carbon Dioxide Anion Gap BUN Creatinine Est Cr Clr Drug Dosing Est GFR ( Amer) Est GFR (Non-Af Amer) BUN/Creatinine Ratio Glucose POC Glucose 143 H 130 H 104 H Calcium Phosphorus Magnesium Total Bilirubin AST ALT Alkaline Phosphatase Total Protein Albumin Globulin Albumin/Globulin Ratio Triglycerides Lipase 05/20/22 19:35 WBC RBC Hgb Hct MCV MCH MCHC RDW Std Deviation RDW Coeff of Sandy Plt Count MPV Immature Gran % (Auto) Neut % (Auto) Lymph % (Auto) [place] % (Auto) Eos % (Auto) Baso % (Auto) Neut # (Auto) Lymph # (Auto) [place] # (Auto) Eos # (Auto) Baso # (Auto) Immature Gran # (Auto) Sodium Potassium Chloride Carbon Dioxide Anion Gap BUN Creatinine Est Cr Clr Drug Dosing Est GFR ( Amer) Est GFR (Non-Af Amer) BUN/Creatinine Ratio Glucose POC Glucose 83 Calcium Phosphorus Magnesium Total Bilirubin AST ALT Alkaline Phosphatase Total Protein Albumin Globulin Albumin/Globulin Ratio Triglycerides Lipase PG Care Time/CCT Total # of Minutes Spent Total Time Spent with Patient: Total time spent is greater than 50% in coordination of care (as documented) at patient's floor/unit and/or counseling patient: Coding Level of Care Code 48093 SUB INP/OBS CARE 3/50MIN Diagnoses Nausea and vomiting R11.2 Acute pancreatitis K85.90 COVID-19 U07.1 Pneumomediastinum J98.2 DKA (diabetic ketoacidoses) E11.10 Hypokalemia E87.6 Acute metabolic encephalopathy G93.41 Hypothermia T68.XXXA Acute renal failure N17.9 Metabolic acidosis E87.20 Duodenitis K29.80 Hypophosphatemia E83.39 Marihuana abuse F12.10 Morbid obesity with BMI of 40.0-44.9, adult E66.01; Z68.41 DVT prophylaxis Z29.9
[2022-05-21] MEDS: ONDANSETRON INJ 2 MG/ML 2 ML VIAL IV PRN (01:54)
[2022-05-21] MEDS: LACTATED RINGER'S 1,000 ML IV SCH ×2 (01:55→12:31)
[2022-05-21] MEDS: FAMOTIDINE 20 MG in SYRINGE 3 ML IV SCH ×2 (05:10→17:19)
[2022-05-21 07:52] LABS: Hematocrit (blood only) 34.6 % (37.0-47.0); Hemoglobin 11.8 g/dl (12.0-16.0); Mean Corpuscular Hemoglobin 27.6 pg (25.0-34.0); Mean Corpuscular Hgb Conc 34.1 g/dL (32.0-36.0); Mean Corpuscular Volume 80.8 fL (80.0-100.0); Mean Platelet Volume 10.1 fL (9.4-12.4); Platelet Count 292 K/uL (130-400); RDW Coefficient of Variation 14.9 % (11.5-14.5); RDW Standard Deviation 43.6 fL (36.4-46.3); Red Blood Count 4.28 M/uL (4.20-5.40)
[2022-05-21] MEDS: INSULIN ASPART PER UNIT SC SCH ×4 (07:56→20:22)
[2022-05-21] MEDS: LANTUS PER UNIT CHARGE SQ SCH ×2 (08:32→20:33)
[2022-05-21] MEDS: THIAMINE HCL 100 MG TAB PO SCH (08:40)
[2022-05-21] MEDS: PANTOprazole 40 MG TAB PO SCH ×2 (08:40→20:36)
[2022-05-21] MEDS: HEPARIN SOD 5,000 UNIT/0.5 ML VIAL SQ SCH ×3 (08:40→20:22)
[2022-05-21 08:59] LABS: Albumin Level 3.5 gm/dl (3.4-5.0); Bilirubin,Total 0.5 mg/dl (0.2-1.0); Calcium 8.5 mg/dl (8.5-10.1); Potassium 3.3 mmol/L (3.5-5.1)
[2022-05-21 09:05] LABS: Albumin Globulin Ratio 1.3 (0.9-2); BUN Creatinine Ratio 5.5 (10-20); Creatinine Clr Calc Pharmacy 144.8 ml/min; Est GFR (African American) 126.3 ml/min; Globulin 2.8 gm/dl (2.5-4.0); Total Protein 6.3 gm/dl (6.0-8.3)
[2022-05-21] MEDS: POTASSIUM CHLORIDE CRTAB 20 MEQ TABCR PO SCH ×2 (12:31→20:36)
[2022-05-21] MEDS: SUCRALFATE 1 GM/10 ML UDC PO SCH ×2 (17:19→20:23)
--- NOTE | 2022-05-21 22:01 | Hospitalist Progress Note ---
Date of Service May 21, 2022 Assessment & Plan (1) Nausea and vomiting: Plan: again improved today/resolving slowly. suspect multi-factorial - acute pancreatitis, 2nd to esophageal issues / esophagitis (CT chest early in stay with esophageal wall thickening), THC hyperemesis syndrome (tox screen +THC use at admission) and COVID itself. allow full liquids today. stop LR hydration. cont pepcid IV bid. cont PPI bid. she is THC daily user for several years. if THC related cont hot showers frequently. She tried capcaisin - no relief of symptoms. although LFTs flor overnight once again she still has no pain on exam - thus, hold off on MRCP for now. previous CT abd/pelvis, HIDA, and GB u/s without acute biliary tract pathology. (2) Acute pancreatitis: Plan: peak lipase about 1000. now nearly normal. abdominal pain resolved. GB u/s, CT a/p, and HIDA all negative for biliary tract disease triglycerides minimally elevated thus not the cause. given +COVID status her pancreatitis may be from COVID itself advance diet to full liquids. stop IV fluids. defer on MRCP for now. repeat LFTs in am. if any worsening in LFTs and especially if she has abd pain again -- MRCP. (3) COVID-19: Plan: pulmonary crow very few symptoms. could have acute pancreatitis from such. no indication at this time for Remdesivir or steroids. cont airborne precautions. (4) Pneumomediastinum: Plan: Seen incidentally on CT chest early in stay. Suspect barotrauma from frequent vomiting in context of DKA. CT chest with PO contrast - NO evidence of esophageal tear/rupture. And - pneumomediastinum resolved on this study. (5) DKA (diabetic ketoacidoses): Plan: Resolved. Appreciate pharmacy glycemic team and recs. Cont lantus BID - pt's BSGs are very tightly controlled with AM lows -- drop lantus to 15 units BID Cont novolog HOLD metformin (6) Hypokalemia: Plan: replaced (7) Acute metabolic encephalopathy: Plan: Resolved. 2nd to DKA at time of admission. (8) Hypothermia: Plan: Resolved Present on admission 2nd to DKA (9) Acute renal failure: Plan: Resolved. Peak Cr 1.9 was 2nd to DKA and severe volume depletion at admission (10) Metabolic acidosis: Plan: Secondary to ketosis from DKA. Resolved. (11) Duodenitis: Plan: Seen on imaging. Increased PPI to bid dosing. Added pepcid IV. if #1 persists consider GI consultation. 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 see #1 above (14) Morbid obesity with BMI of 40.0-44.9, adult: Plan: BMI 44 (15) DVT prophylaxis: Plan: heparin SC 7500 units TID checked dopplers legs -- neg for DVT Plan edema of legs - due to IV fluids and 3rd spacing once she is overall improved -- lasix making steady progress Admission and Anticipated Discharge Date Admission Date: May 14, 2022 Subjective tele overnight wnl she continues with occasional emesis but this is slowly improving less frequent, and less voluminous hot showers do help symptoms tried capcaisin cream on abdominal wall - uncertain if it helped her GI symptoms is drinking some fluids denies abd pain c/o burping mild cough and URI symptoms but no dyspnea complains of LE edema - feet are tight Review of Systems Review of Systems: gen - no fevers; she overall feels that she is improving cv - no chest pain pulm - no dyspnea; cough is nonproductive GI - no RUQ pain Physical Exam Physical Exam: gen - obese, NAD; she looks good today; more energetic mouth - MMM neck - no JVD heart - RRR, s1 s2, no murmur lungs - CTA b/l abd - soft, nontender, no peritoneal signs; BS+, no HSM ext - 1+ edema b/l, pulses 2+ b/l psych - a/o x 3 Results & Data Results & [facility]) Vital Signs (Past 12 Hours) Vital Signs Temp Pulse Pulse Resp BP Pulse Ox O2 Del Method 05/21/22 19:14 36.8 C 92 H 18 145/86 H 97 Room Air 05/21/22 16:00 73 05/21/22 15:29 36.7 C 78 20 160/96 H 98 Room Air 05/21/22 11:28 36.6 C 79 19 157/83 H 96 Room Air Laboratory Results Laboratory Results - last 24 hr 02/06/1105/21/22 05/21/22 07:16 07:16 07:28 WBC 7.30 RBC 4.28 Hgb 11.8 L Hct 34.6 L MCV 80.8 MCH 27.6 MCHC 34.1 RDW Std Deviation 43.6 RDW Coeff of Sandy 14.9 H Plt Count 292 MPV 10.1 Sodium 143 Potassium 3.3 L Chloride 107 Carbon Dioxide 26 Anion Gap 10 BUN 4 L Creatinine 0.73 Est Cr Clr Drug Dosing 144.8 Est GFR ( Amer) 126.3 Est GFR (Non-Af Amer) 109.0 BUN/Creatinine Ratio 5.5 L Glucose 64 L POC Glucose 67 L* Calcium 8.5 Total Bilirubin 0.5 AST 66 H ALT 79 H Alkaline Phosphatase 308 H Total Protein 6.3 Albumin 3.5 Globulin 2.8 Albumin/Globulin Ratio 1.3 Lipase 94 H 05/21/22 05/21/22 05/21/22 07:50 08:38 11:32 WBC RBC Hgb Hct MCV MCH MCHC RDW Std Deviation RDW Coeff of Sandy Plt Count MPV Sodium Potassium Chloride Carbon Dioxide Anion Gap BUN Creatinine Est Cr Clr Drug Dosing Est GFR ( Amer) Est GFR (Non-Af Amer) BUN/Creatinine Ratio Glucose POC Glucose 70 101 H 102 H Calcium Total Bilirubin AST ALT Alkaline Phosphatase Total Protein Albumin Globulin Albumin/Globulin Ratio Lipase 05/21/22 05/21/22 16:22 20:20 WBC RBC Hgb Hct MCV MCH MCHC RDW Std Deviation RDW Coeff of Sandy Plt Count MPV Sodium Potassium Chloride Carbon Dioxide Anion Gap BUN Creatinine Est Cr Clr Drug Dosing Est GFR ( Amer) Est GFR (Non-Af Amer) BUN/Creatinine Ratio Glucose POC Glucose 99 126 H Calcium Total Bilirubin AST ALT Alkaline Phosphatase Total Protein Albumin Globulin Albumin/Globulin Ratio Lipase PG Care Time/CCT Total # of Minutes Spent Total Time Spent with Patient: Total time spent is greater than 50% in coordination of care (as documented) at patient's floor/unit and/or counseling patient: Coding Level of Care Code 50793 SUB INP/OBS CARE 2/35MIN Diagnoses Nausea and vomiting R11.2 Acute pancreatitis K85.90 COVID-19 U07.1 Pneumomediastinum J98.2 DKA (diabetic ketoacidoses) E11.10 Hypokalemia E87.6 Acute metabolic encephalopathy G93.41 Hypothermia T68.XXXA Acute renal failure N17.9 Metabolic acidosis E87.20 Duodenitis K29.80 Hypophosphatemia E83.39 Marihuana abuse F12.10 Morbid obesity with BMI of 40.0-44.9, adult E66.01; Z68.41 DVT prophylaxis Z29.9
[2022-05-22] MEDS: FAMOTIDINE 20 MG in SYRINGE 3 ML IV SCH ×2 (05:21→17:43)
[2022-05-22] MEDS: INSULIN ASPART PER UNIT SC SCH ×4 (07:59→20:20)
[2022-05-22 08:52] LABS: Albumin Globulin Ratio 1.3 (0.9-2); Albumin Level 3.5 gm/dl (3.4-5.0); BUN Creatinine Ratio 4.7 (10-20); Bilirubin,Total 0.6 mg/dl (0.2-1.0); Calcium 9.2 mg/dl (8.5-10.1); Creatinine Clr Calc Pharmacy 120.3 ml/min; Est GFR (African American) 103.6 ml/min; Est GFR (Non-African American) 89.4 ml/min; Globulin 2.7 gm/dl (2.5-4.0); Total Protein 6.2 gm/dl (6.0-8.3)
[2022-05-22] MEDS: LANTUS PER UNIT CHARGE SQ SCH ×2 (08:53→20:20)
[2022-05-22] MEDS: PANTOprazole 40 MG TAB PO SCH ×2 (08:58→21:00)
[2022-05-22] MEDS: POTASSIUM CHLORIDE CRTAB 20 MEQ TABCR PO SCH (08:58)
[2022-05-22] MEDS: HEPARIN SOD 5,000 UNIT/0.5 ML VIAL SQ SCH ×3 (08:58→20:59)
[2022-05-22] MEDS: THIAMINE HCL 100 MG TAB PO SCH (08:59)
[2022-05-22] MEDS: SUCRALFATE 1 GM/10 ML UDC PO SCH ×4 (08:59→20:59)
[2022-05-22] MEDS ORDERED: POTASSIUM CHLORIDE CRTAB 20 MEQ TABCR PO STA ×2 (11:01→18:08)
[2022-05-22] MEDS ORDERED: POTASSIUM CHLORIDE CRTAB 20 MEQ TABCR PO SCH (14:00)
[2022-05-22] MEDS ORDERED: MAGNESIUM OXIDE 400 MG TAB PO STA (18:08)
[2022-05-22] MEDS ORDERED: FUROSEMIDE 20 MG TAB PO ONE (18:08)
--- NOTE | 2022-05-22 20:54 | Hospitalist Progress Note ---
Date of Service May 22, 2022 Assessment & Plan (1) Nausea and vomiting: Plan: resolved multi-factorial - acute pancreatitis, esophageal issues / esophagitis (CT chest early in stay with esophageal wall thickening), THC hyperemesis syndrome (tox screen +THC use at admission) and COVID itself. now tolerating DM/low-fat diet. stop pepcid cont PPI bid. she is THC daily user for several years. if THC related cont hot showers frequently. She tried capcaisin - no relief of symptoms. LFTs improving; thus, hold off on MRCP. previous CT abd/pelvis, HIDA, and GB u/s without acute biliary tract pathology. (2) Acute pancreatitis: Plan: peak lipase about 1000. most recent level nearly normal. abdominal pain resolved. GB u/s, CT a/p, and HIDA all negative for biliary tract disease triglycerides minimally elevated thus not the cause. does not drink etoh. given +COVID status her pancreatitis may have been from COVID itself advance diet to DM/low-fat today will need to follow low-fat diet for at least 10 days post-d/c repeat LFTs in am. if any worsening in LFTs and especially if she has recurrent abd pain -- MRCP. (3) COVID-19: Plan: resolving never qualified for dexamethasone or Remdesivir likely cause of pancreatitis likely cause of DKA (4) Pneumomediastinum: Plan: Seen incidentally on CT chest early in stay. Suspect barotrauma from frequent vomiting in context of DKA. Repeat CT chest with PO contrast - NO evidence of esophageal tear/rupture. And - pneumomediastinum resolved on that study. (5) DKA (diabetic ketoacidoses): Plan: Resolved. Appreciate pharmacy glycemic team and recs. Cont lantus BID - pt's BSGs are very tightly controlled with AM lows -- dropped lantus to 15 units BID Cont novolog Resume metformin in am - use XR version at discharge plan metformin xr BID and once-daily lantus appreciate pharmacy assistance & diabetes education assistance (6) Hypokalemia: Plan: replace multiple times today repeat BMP with mag in am (7) Acute metabolic encephalopathy: Plan: Resolved. 2nd to DKA at time of admission. (8) Hypothermia: Plan: Resolved Present on admission 2nd to DKA (9) Acute renal failure: Plan: Resolved. Peak Cr 1.9 was 2nd to DKA and severe volume depletion at admission last few creatinine levels all normal (10) Metabolic acidosis: Plan: 2nd DKA -- Resolved. (11) Duodenitis: Plan: Seen on imaging. Increased PPI to bid dosing. In light of duodenitis, esophagitis, etc -- refer to GI post d/c for consideration of EGD. (12) Hypophosphatemia: Plan: s/p replacement repeat level wnl (13) [place] abuse: Plan: as seen on tox screen from admission suspect THC hyperemesis syndrome contributing to previous vomiting see #1 above patient is hoping to NOT resume regular use post-d/c (14) Morbid obesity with BMI of 40.0-44.9, adult: Plan: BMI 44 (15) DVT prophylaxis: Plan: heparin SC 7500 units TID checked dopplers legs -- neg for DVT (16) Edema: Plan: lasix 20mg po x 1 2nd to COPIOUS IV hydration during the stay likely to need another dose tomorrow (17) Abnormal LFTs: Plan: IMPROVING was likely reactive to her COVID-[address] abd/pelvis, RUQ u/s, and HIDA scan without signs of acute cholecystitis fatty liver only on imaging repeat LFTs am (18) Insomnia: Plan: chronic issue try combo of melatonin 3mg HS + vistaril 25mg HS tonight if effective send home with vistaril Plan anticipate d/c home tomorrow AM Admission and Anticipated Discharge Date Admission Date: May 14, 2022 Subjective patient feeling much better today has not had emesis at all throughout the day no nausea tolerating a regular low-fat meal no diarrhea no abd pain occasional reflux symptoms but mild minimal cough; no dyspnea anxious to go home reports chronic sleep issues often worsened by anxiety can't fall asleep at HS - often her mind races and she ruminates over things her Medicaid application was approved; she is very happy about this needs a new PCP Review of Systems Review of Systems: gen - no fevers; better energy; appetite is good cv - no orthopnea pulm - no dyspnea GI - no pain, no further vomiting Physical Exam Physical Exam: gen - obese, NAD, sitting in chair, best she has looked all week; is tearful discussing her medical problems mouth - MMM neck - no JVD heart - RRR, s1 s2, no murmur lungs - CTA b/l abd - soft, nontender, no peritoneal signs; BS+, no HSM ext - 1+ edema b/l ankles/feet, pulses 2+ b/l psych - a/o x 3 Results & Data Results & Data ([facility]) Vital Signs (Past 12 Hours) Vital Signs Temp Pulse Resp BP Pulse Ox O2 Del Method 05/22/22 19:38 36.5 C 93 H 20 150/83 H 95 Room Air 05/22/22 16:29 36.8 C 81 18 166/100 H 96 Room Air 05/22/22 11:48 36.8 C 103 H 18 136/85 97 Room Air Laboratory Results Laboratory Results - last 24 hr 05/22/22 05/22/22 05/22/22 07:05 07:23 11:40 Sodium 144 Potassium 3.0 L Chloride 107 Carbon Dioxide 26 Anion Gap 11 BUN 4 L Creatinine 0.86 Est Cr Clr Drug Dosing 120.3 Est GFR ( Amer) 103.6 Est GFR (Non-Af Amer) 89.4 BUN/Creatinine Ratio 4.7 L Glucose 75 POC Glucose 72 82 Calcium 9.2 Total Bilirubin 0.6 AST 29 ALT 62 H Alkaline Phosphatase 247 H Total Protein 6.2 Albumin 3.5 Globulin 2.7 Albumin/Globulin Ratio 1.3 05/22/22 05/22/22 16:27 20:08 Sodium Potassium Chloride Carbon Dioxide Anion Gap BUN Creatinine Est Cr Clr Drug Dosing Est GFR ( Amer) Est GFR (Non-Af Amer) BUN/Creatinine Ratio Glucose POC Glucose 140 H 87 Calcium Total Bilirubin AST ALT Alkaline Phosphatase Total Protein Albumin Globulin Albumin/Globulin Ratio PG Care Time/CCT Total # of Minutes Spent Total Time Spent with Patient: Total time spent is greater than 50% in coordination of care (as documented) at patient's floor/unit and/or counseling patient: Coding Level of Care Code 91915 SUB INP/OBS CARE 3/50MIN Diagnoses Nausea and vomiting R11.2 Acute pancreatitis K85.90 COVID-19 U07.1 Pneumomediastinum J98.2 DKA (diabetic ketoacidoses) E11.10 Hypokalemia E87.6 Acute metabolic encephalopathy G93.41 Hypothermia T68.XXXA Acute renal failure N17.9 Metabolic acidosis E87.20 Duodenitis K29.80 Hypophosphatemia E83.39 [place] abuse F12.10 Morbid obesity with BMI of 40.0-44.9, adult E66.01; Z68.41 DVT prophylaxis Z29.9 Edema R60.9 Abnormal LFTs R79.89 Insomnia G47.00
[2022-05-22] MEDS ORDERED: hydrOXYzine HCl 25 MG TAB PO SCH (21:30)
[2022-05-22] MEDS ORDERED: MELATONIN 3 MG TAB PO SCH (21:30)
[2022-05-23 07:18] LABS: Albumin Globulin Ratio 1.2 (0.9-2); Albumin Level 3.1 gm/dl (3.4-5.0); BUN Creatinine Ratio 5.2 (10-20); Bilirubin,Total 0.6 mg/dl (0.2-1.0); Calcium 8.6 mg/dl (8.5-10.1); Creatinine Clr Calc Pharmacy 134.2 ml/min; Est GFR (African American) 118.4 ml/min; Est GFR (Non-African American) 102.2 ml/min; Globulin 2.6 gm/dl (2.5-4.0); Magnesium 2.1 mg/dl (1.7-2.4); Potassium 3.7 mmol/L (3.5-5.1); Total Protein 5.7 gm/dl (6.0-8.3)
[2022-05-23] MEDS: INSULIN ASPART PER UNIT SC SCH (07:33)
[2022-05-23] MEDS: LANTUS PER UNIT CHARGE SQ SCH (08:13)
[2022-05-23] MEDS: SUCRALFATE 1 GM/10 ML UDC PO SCH (08:15)
[2022-05-23] MEDS: THIAMINE HCL 100 MG TAB PO SCH (08:15)
[2022-05-23] MEDS: PANTOprazole 40 MG TAB PO SCH (08:15)
[2022-05-23] MEDS: HEPARIN SOD 5,000 UNIT/0.5 ML VIAL SQ SCH (08:15)
[2022-05-23] MEDS ORDERED: metFORMIN HCL ER 500 MG TABCR PO SCH (09:00)
--- NOTE | 2022-05-23 10:18 | Discharge Summary ---
Date of Service date of admission - May 14, 2022 date of discharge - May 23, 2022 Admission HPI Per Admitting Provider Valorie Becerra is a 31 year old female who presents to the ER with unresponsiveness. Unable to get any history from patient at this time therefore history taken from EMS/triage/ER notes. Reportedly found unresponsive, extremely cold, covered in water. Known diabetic but not taking insulin for over a year and confused for the last 3-4 days. Principal Diagnosis 1. COVID-19 infection - resolving 2. Diabetic ketoacidosis - resolved 3. Uncontrolled diabetes - improved; hemoglobin a1c 9.9% 4. acute pancreatitis - likely due to COVID infection - resolved 5. abnormal liver function tests - likely due to COVID infection - resolving 6. nausea and vomiting - likely combo of factors including COVID infection, acute pancreatitis, possible hyperemesis syndrome from Marijuana use, esophagitis, etc 7. pneumomediastinum - likely due to forceful vomiting - resolved radiographically 8. chronic THC use 9. acute kidney injury / acute renal failure - resolved Discharge Exam gen - obese, NAD, sitting in chair, looks very good mouth - MMM neck - no JVD heart - RRR, s1 s2, no murmur lungs - CTA b/l abd - soft, nontender, no peritoneal signs; BS+, no HSM ext - < 1+ edema b/l ankles/feet, pulses 2+ b/l psych - a/o x 3 skin - no rash Discharge Data Allergies Allergy/AdvReac Type Severity Reaction Status Date / Time Penicillins Allergy Unknown Unknown Verified 05/14/22 16:32 Consultations Programming [facility] [facility] glycemic team Ordered Studies Cervical Spine CT 05/14/22 16:[address] DOSE: HISTORY: fall TECHNIQUE: Multiaxial CT images of the cervical spine were performed and reformatted in the sagittal and coronal plane without the use of contrast. A dose lowering technique was utilized adhering to the principles of ALARA. COMPARISON: None. FINDINGS: No fractures. No subluxation. Prevertebral soft tissues and the C1-C2 interval are intact. No pneumothorax. IMPRESSION: No fractures within the cervical spine. ACT 112: Negative or not required by law. Electronically signed by: Joe Myers M.D. 05/14/2022 5:40 PM Chest X-Ray 05/14/22 16:22 XR chest 1V portable HISTORY: 31 years-old Female Sepsis acute sepsis COMPARISON: Chest radiograph 08/08/2018 TECHNIQUE: AP view of the chest FINDINGS: Cardiac silhouette is enlarged. No pneumothorax, pleural effusion, airspace consolidation or overt pulmonary edema. Bones of the chest appear grossly intact. IMPRESSION: No acute process. ACT 112: Negative or not required by law. The above report was generated using voice recognition software. It may contain grammatical, syntax or spelling errors. Electronically signed by: Christ Sifuentes M.D. 05/14/2022 4:[address] 05/14/22 16:[address] DOSE: HISTORY: Fall. Altered mental status. TECHNIQUE: Multiaxial CT images of the head were performed without the use of intravenous contrast. Automated exposure control was utilized for this study. A dose lowering technique was utilized adhering to the principles of ALARA. Comparison: None. Findings: Motion artifact. Near complete opacification of the right sphenoid sinus. The mastoid air cells are clear. The calvarium and skull base are intact. The ventricles and sulci are within normal limits. There is no mass, hematoma, midline shift, or acute infarct. Impression: Motion artifact. No definite acute intracranial abnormality. ACT 112: Negative or not required by law. Electronically signed by: Joe Myers M.D. 05/14/2022 5:38 PM Abdomen/Pelvis CT 05/14/22 16:51 CT chest diagnostic wo con, CT abd pelvis wo con CT DOSE: 5691.03 mGy.cm CLINICAL HISTORY: 31 years-old Female with ams. Acute chest and abdominal trauma status post fall TECHNIQUE: Multiaxial CT images of the chest, abdomen and pelvis were performed without contrast. A dose lowering technique was utilized adhering to the principles of ALARA. COMPARISON: Chest radiograph of same day FINDINGS: CT CHEST: Limited exam secondary to positioning and respiratory motion artifact. No thyroid nodule. Small to moderate amount of pneumomediastinum which is most pronounced in the anterior and middle mediastinum and tracks inferiorly along the distal esophagus. The heart is mildly enlarged. No pericardial effusion. No thoracic aortic aneurysm. Pneumothorax, pleural effusion, airspace consolidation or overt pulmonary edema. Central airways are patent. Unremarkable soft tissues. No acute fracture identified considering the aforementioned limitations as above. CT ABDOMEN/PELVIS: Mild wall thickening of the distal esophagus. No pneumatosis or pneumoperitoneum. Study is limited secondary to positioning, and respiratory motion artifact. The unenhanced spleen, mildly atrophic pancreas and adrenal glands are unremarkable. Hepatic steatosis with mild hepatomegaly. The visualized gallbladder appears unremarkable. Unremarkable kidneys. Decompressed or bladder with Crespo catheter in place. Unremarkable uterus and adnexa. Aorta and IVC are unremarkable. Mildly prominent inguinal chain lymph nodes are likely reactive. Questioned mild wall thickening of the duodenal bulb. No bowel obstruction. Normal appendix. Unremarkable soft tissues. No acute fracture identified. Chronic bilateral L5 pars defects without spondylolisthesis. IMPRESSION: 1. Nonspecific mild to moderate pneumomediastinum. 2. No pneumothorax or acute fracture identified. 3. Mild nonspecific distal esophageal wall thickening. 4. Mild wall thickening of the duodenum may be secondary to partial distention versus a nonspecific duodenitis. 5. Hepatic steatosis. ACT 112: Negative or not required by law. Electronically signed by: Christ Sifuentes M.D. 05/14/2022 5:[address] 05/14/22 16:51 CT chest diagnostic wo con, CT abd pelvis wo con CT DOSE: 5691.03 mGy.cm CLINICAL HISTORY: 31 years-old Female with ams. Acute chest and abdominal trauma status post fall TECHNIQUE: Multiaxial CT images of the chest, abdomen and pelvis were performed without contrast. A dose lowering technique was utilized adhering to the principles of ALARA. COMPARISON: Chest radiograph of same day FINDINGS: CT CHEST: Limited exam secondary to positioning and respiratory motion artifact. No thyroid nodule. Small to moderate amount of pneumomediastinum which is most pronounced in the anterior and middle mediastinum and tracks inferiorly along the distal esophagus. The heart is mildly enlarged. No pericardial effusion. No thoracic aortic aneurysm. Pneumothorax, pleural effusion, airspace consolidation or overt pulmonary edema. Central airways are patent. Unremarkable soft tissues. No acute fracture identified considering the aforementioned limitations as above. CT ABDOMEN/PELVIS: Mild wall thickening of the distal esophagus. No pneumatosis or pneumoperitoneum. Study is limited secondary to positioning, and respiratory motion artifact. The unenhanced spleen, mildly atrophic pancreas and adrenal glands are unremarkable. Hepatic steatosis with mild hepatomegaly. The visualized gallbladder appears unremarkable. Unremarkable kidneys. Decompressed or bladder with Crespo catheter in place. Unremarkable uterus and adnexa. Aorta and IVC are unremarkable. Mildly prominent inguinal chain lymph nodes are likely reactive. Questioned mild wall thickening of the duodenal bulb. No bowel obstruction. Normal appendix. Unremarkable soft tissues. No acute fracture identified. Chronic bilateral L5 pars defects without spondylolisthesis. IMPRESSION: 1. Nonspecific mild to moderate pneumomediastinum. 2. No pneumothorax or acute fracture identified. 3. Mild nonspecific distal esophageal wall thickening. 4. Mild wall thickening of the duodenum may be secondary to partial distention versus a nonspecific duodenitis. 5. Hepatic steatosis. ACT 112: Negative or not required by law. Electronically signed by: Christ Sifuentes M.D. 05/14/2022 5:40 PM KUB X-Ray 05/14/22 17:52 KUB HISTORY: NG tube placement. COMPARISON: None. FINDINGS: The nasogastric tube is curled at the mid mediastinum with the tip terminating at the superior mediastinum. This could be curled within the esophagus or trachea. This should be removed. No pneumothorax. No pleural fusions. The heart is normal in size. The lungs are clear. IMPRESSION: The nasogastric tube is curled at the mid mediastinum with the tip terminating at the superior mediastinum. This could be curled within the esophagus or trachea. This should be removed. ACT 112: Negative or not required by law. Electronically signed by: Joe Myers M.D. 05/14/2022 6:20 PM KUB X-Ray 05/14/22 18:38 KUB HISTORY: NG tube placement COMPARISON: None. FINDINGS: The NG tube now terminates in the mid stomach. No pneumothorax. No pleural effusions. The heart is normal in size. No pneumoperitoneum or p neumatosis. IMPRESSION: NG tube now terminates in the mid stomach. ACT 112: Negative or not required by law. Electronically signed by: Joe Myers M.D. 05/14/2022 6:47 PM Chest X-Ray 05/15/22 11:55 XR chest 1V portable HISTORY: 31 years-old Female Pneumomediastinum acute shortness of breath in a patient with pneumomediastinum COMPARISON: Chest CT May 14, 2022 TECHNIQUE: AP view of the chest FINDINGS: Enteric tube courses below the diaphragm with distal tip in the gastric cardia. Hypoinflation. Cardiomegaly with pulmonary vascular congestion and interstitial coarsening with bronchovascular crowding. Question small pleural effusions with mild bibasilar densities. No definite pneumomediastinum identified. Bones appear grossly intact. IMPRESSION: 1. The patient's known pneumomediastinum is better seen on the comparison chest CT. 2. Hypoinflation. 3. Suggested pulmonary edema with small pleural effusions. 4. No pneumothorax identified. ACT 112: Negative or not required by law. The above report was generated using voice recognition software. It may contain grammatical, syntax or spelling errors. Electronically signed by: Christ Sifuentes M.D. 05/15/2022 12:19 PM KUB X-Ray 05/16/22 01:52 KUB CLINICAL HISTORY: NG placement COMPARISON STUDY: KUB and CT of the abdomen and pelvis May 14, 2022. FINDINGS: Tip of nasogastric tube is within the distal stomach. This study is compromised by suboptimal penetration. Visualized bowel gas pattern is unremarkable. IMPRESSION: Tip of nasogastric tube within the distal stomach. ACT 112: Negative or not required by law. Electronically signed by: Govind Roblero M.D. 05/16/2022 8:34 AM Gallbladder Ultrasound 05/18/22 10:43 ABDOMINAL ULTRASOUND, RIGHT UPPER QUADRANT HISTORY: nausea, RUQ tenderness. COMPARISON: Abdomen and pelvis CT 05/14/2022. FINDINGS: Pancreas: The pancreas demonstrates a normal echotexture. Liver: The liver is echogenic consistent with fatty change. 20 cm in length. Gallbladder: No gallbladder wall thickening. No gallstones. CBD: 2 mm. Right kidney: No hydronephrosis. IMPRESSION: 1. Normal gallbladder. No gallstones. 2. Hepatomegaly demonstrating fatty change. ACT 112: Negative or not required by law. Electronically signed by: Joe Myers M.D. 05/18/2022 3:54 PM Hepatobiliary Scan Nuclear Medicine 05/19/22 14:15 NUCLEAR MEDICINE HEPATOBILIARY SCAN WITH EJECTION FRACTION HISTORY: nausea, RUQ tenderness, MO COMPARISON: Abdominal ultrasound 05/18/2022. TECHNIQUE: Immediately following the intravenous administration of 5.3 mCi Tc- 99m Choletec, dynamic anterior abdominal imaging pre/post 2.4 mcg of Kinevac was performed. FINDINGS: Uniform hepatic tracer accumulation is shown. Prompt intrahepatic biliary excretion is seen. The gallbladder, common bile duct, and small bowel are all visualized by 30 minutes. This appearance represents the normal sequence of biliary excretion. The gall bladder ejection fraction following administration of Kinevac was 98% (normal >35%). IMPRESSION: 1. No evidence for cystic duct obstruction. 2. Gallbladder ejection fraction calculated to be 98 %. ACT 112: Negative or not required by law. Electronically signed by: Joe Myers M.D. 05/19/2022 4:[address] 05/19/22 17:47 CT chest diagnostic wo con CT DOSE: 1192.72 mGy.cm CLINICAL HISTORY: 31 years-old Female with pneumomediastinum; r/o esoph. rupture. Follow-up study in a patient with pneumomediastinum TECHNIQUE: Multiaxial CT images of the chest were performed without IV contrast. A small amount of enteric contrast was used. A dose lowering technique was utilized adhering to the principles of ALARA. COMPARISON: Chest CT 05/14/2022 FINDINGS: Limited study secondary to respiratory motion artifact. No thyroid nodule. Resolution of the previously described pneumomediastinum. The heart is mildly enlarged. No pericardial effusion. No thoracic aortic aneurysm. No pneumothorax, airspace consolidation or overt pulmonary edema. Small pleural effusions with mild subsegmental bibasilar atelectasis. Central airways are patent. Unremarkable soft tissues. No acute fracture identified. Enteric contrast noted within the stomach and esophagus. No extravasation identified. Minimal nonspecific esophageal wall thickening. Hepatomegaly with hepatic steatosis. Unremarkable soft tissues. No acute fracture. IMPRESSION: 1. Resolution of the previously described pneumomediastinum. 2. No enteric contrast extravasation identified to suggest esophageal perforation. 3. Small pleural effusions with mild bibasilar atelectasis. 4. Hepatomegaly with hepatic steatosis. ACT 112: Negative or not required by law. Electronically signed by: Christ Sifuentes M.D. 05/20/2022 3:43 PM Venous Doppler Study 05/20/22 07:00 ULTRASOUND BILATERAL LOWER EXTREMITY VENOUS CLINICAL HISTORY: Lower extremity edema. COMPARISON STUDY: No priors. TECHNIQUE: Real-time, grayscale, and color Doppler sonography of the deep veins of the right and left lower extremity was performed from the inguinal crease to the calf. Compression and augmentation were utilized. FINDINGS: There is no sonographic evidence of deep venous thrombosis identified in the right or left lower extremity. The common femoral, superficial femoral, and popliteal veins are patent and normally compressible bilaterally. The greater saphenous vein and the profunda femoris vein at the junction with the common femoral vein are clear in both legs. The visualized calf veins are patent bilaterally. IMPRESSION: There is no sonographic evidence of deep venous thrombosis identified in the right or left lower extremity. ACT 112: Negative or not required by law. Electronically signed by: Claudio Pool M.D. 05/20/2022 8:59 AM Hospital Course (1) DKA (diabetic ketoacidoses): Patient presented with severe DKA with significantly altered mental status, glucose of 483, and pH of <7. She was initiated on insulin drip, copious IV hydration, and was admitted to the ICU. Her mentation improved with Rx of her DKA. Her DKA was managed by the wood veneer taper and the pharmacy glycemic team. She was ultimately transitioned to SC lantus/novolog. Hemoglobin a1c was 9.9%. Her stay was complicated by COVID-19 infection, acute pancreatitis, and refractory nausea/vomiting. Fortunately all of the above ultimately resolved with supportive care and time. At discharge her diabetes medication plan included - * metformin XR 500mg BID * once-daily lantus 15 units qam She was requiring little to no novolog coverage in the days leading up to discharge. However, as she transitions home, her BSGs will need to be tracked carefully to determine if she needs novolog with meals in the future. (2) COVID-19: Patient tested positive for such at time of admission. She never had hypoxia or signs of COVID-19 pneumonia while here. She never qualified for dexamethasone or Remdesivir treatment. However, I suspect her COVID-19 was the cause of her acute pancreatitis, abnormal LFTs, and likely instigated the development of DKA. The patient had presented with severe hypothermia - likely due to DKA. Her only documented low-grade fevers were on 05/15 and 05/16. (3) Nausea and vomiting: Finally resolved about 36 hours prior to discharge. Likely multi-factorial - acute pancreatitis, esophageal issues / esophagitis (CT chest with esophageal wall thickening), THC hyperemesis syndrome (tox screen +THC use at admission), and COVID infection itself. Was tolerating a diabetic/low-fat diet at time of discharge. The patient reported she was a daily THC user for several years. Thus, she was allowed to take frequent hot showers in the event she had THC hyperemesis syndrome. This did provide relief of nausea/emesis. She did not have relief of symptoms with topical capcaisin cream, however. CT abd/pelvis, HIDA, and GB u/s without acute biliary tract pathology. MRCP was deferred while here. Due to the severity of the nausea/emesis, CT chest showing signs of possible esophagitis, etc we recommended - * protonix 40mg BID * f/u with [facility] for consideration of EGD (4) Acute pancreatitis: Peak lipase was about 1000. Level prior to discharge was ~90. Abdominal pain, nausea, and emesis fully resolved by time of discharge. She was tolerating a low fat/diabetic diet prior to discharge. GB u/s, CT a/p, and HIDA all negative for biliary tract disease / acute cholecystitis. Triglycerides were only mildly elevated at 213; thus not the cause. She does not drink etoh. Was not on any offending medications that would cause pancreatitis. Total calcium levels were normal. Given her COVID positive status her pancreatitis may have been from COVID infection as there is a large body of evidence showing COVID-19 causing acute pancreatitis. Advised a low-fat diet for at least 10 days post-d/c. MRCP was deferred during the stay as her abnormal LFTs nearly normalized and her abdominal pain resolved with supportive measures. (5) Pneumomediastinum: Seen incidentally on CT chest early in stay. Suspect barotrauma from frequent vomiting in context of DKA. Repeat CT chest with PO contrast - NO evidence of esophageal tear/rupture, and - pneumomediastinum resolved on that study. (6) Hypokalemia: replaced and resolved. (7) Acute metabolic encephalopathy: Resolved. 2nd to DKA at time of admission. (8) Hypothermia: Resolved. Present on admission. 2nd to DKA. (9) Acute renal failure: Resolved. Peak Cr 1.9 Was 2nd to DKA and severe volume depletion at admission. Creatinine at discharge = 0.77. (10) Metabolic acidosis: 2nd DKA -- Resolved. Presenting pH was <7. (11) Duodenitis: Seen on imaging. Discharged on PPI twice daily. In light of duodenitis, esophagitis, etc -- refer to GI post d/c for consideration of EGD. (12) Hypophosphatemia: s/p replacement resolved (13) Morbid obesity with BMI of 40.0-44.9, adult: BMI 43-44 (14) Edema: 2nd to COPIOUS IV hydration during the stay was given lasix by mouth while here, and will d/c home on a short course of low- dose oral lasix LE venous dopplers were NEGATIVE for DVT (15) Abnormal LFTs: Was likely reactive to her COVID-[address] abd/pelvis, RUQ u/s, and HIDA scan without signs of acute cholecystitis. fatty liver only on imaging. LFTs were nearly normal by time of discharge. (16) Insomnia: chronic issue improved with combination of melatonin 3mg HS + vistaril 25mg HS patient was given a prescription for vistaril prn at discharge (17) Marijuana user: as seen on tox screen from admission suspect THC hyperemesis syndrome contributed to her nausea & vomiting patient is hoping to NOT resume regular THC use post-d/c hyperemesis syndrome was discussed with patient in detail Plan Given her morbid obesity and COVID-19 infection I recommended that she stop her oral contraceptive for at least 1 month given her higher risk of VTE during her recovery. Discussed use of back-up form of control while off of her OCPs. Defer to her outpatient providers the optimal time to resume her OCPs. Total Time Total Time Spent Total Time Spent (In Minutes): 50 Discharge Plan Discharge Items Patient Disposition: Home - Self-Care Reason For Visit: DIABETIC KETOACIDOSIS Discharge Diagnosis: 1. COVID-19 infection - resolving 2. Diabetic ketoacidosis - resolved 3. Uncontrolled diabetes - improved; hemoglobin a1c 9.9% 4. acute pancreatitis - likely due to COVID infection - resolved 5. abnormal liver function tests - likely due to COVID infection - resolving 6. nausea and vomiting - likely combo of factors including COVID infection, acute pancreatitis, "hyperemesis syndrome" from Marijuana use, esophagitis, etc - resolved 7. chronic insomnia 8. edema of legs - improving 9. low potassium - resolved Activity: As commented below Activity Comment: gradually increase activities over the next 7-10 days Sexual Activity: Wait until after follow-up appointment Exercise/Sports: Wait until after follow-up appointment Driving/Machine Use: Resume 1 day after discharge Non-emergency contact: Primary Care Provider and [employer] Superintendent Call non-emergency contact if: you have any medication questions, your symptoms worsen, your pain is not controlled, your pain is worsening, your pain is un usual for you, your pain is concerning for you and you have a fever Follow-up/Referrals: Debo Mcclelland PA-C [Physician Roll Carrier] - 05/29/22 11:00 am (see [facility] for consideration of endoscopy due to esophagitis seen on CT scan ) Yakelin Casillas MD [Physician] - 05/29/22 1:30 pm (we will help to set up an appointment for you this coming week ) Diet: Carb Consistent or DM2 and Low Fat Addtl Attending Provider Instructions: Ms Becerra, You were hospitalized for diabetic ketoacidosis, severe dehydration, confusion, COVID-19 infection, and acute pancreatitis. The dehydration and confusion were due to the diabetic ketoacidosis ("DKA"). Please see handout on DKA. You required ICU level of care for a period of time. Your DKA resolved with IV fluids, IV insulin, and supportive care. Fortunately you never had pneumonia from your COVID infection. The pancreatitis was likely due to the COVID infection itself as we have seen several cases of pancreatitis due to the virus. Later in the stay you had severe nausea and vomiting. This ultimately resolved with time, hot showers, nausea medications, etc. The nausea/vomiting was likely due to several factors as listed above. At this time your pancreatitis is resolved. Your liver function tests are nearly normal. Your blood sugars are excellent. Recommendations - 1. diabetes - * check blood sugars EVERY MORNING and at least 1 other time during the day * for the 2nd blood sugar check please vary the time day to day; for example, on some days check it at bedtime; on other days check it before lunch or dinner * by varying the time of the 2nd sugar check you will have a better feel for your overall diabetic control * write all numbers done and show these to your family doctor 2. diabetes medications - * metformin XR - 500mg twice daily with breakfast & dinner; take your next dose tonight with dinner * lantus 15 units once daily each morning; take your first dose tomorrow on 05/24/22 * please know we may need to increase or decrease the lantus depending on what your blood sugars do over the next 1-2 weeks * some people experience GI upset, loose stool, etc with metformin but the XR form is typically better tolerated than regular metformin; we have prescribed the XR (extended release) metformin 3. for insomnia / sleep - * hydroxyzine 25mg once daily at bedtime * if you use this medication please do not take Tylenol PM, benadryl, etc in conjunction with hydroxyzine 4. for swelling/edema - * furosemide 20mg once daily x 3 days beginning today upon return home * take potassium supplement once daily x 5 days beginning today upon return home 5. for nausea - * ondansetron 4mg every 6 hours as needed for nausea/vomiting 6. diet - please follow a diabetic diet indefinitely. Also, for the next 7-10 days, please follow a low-fat diet due to the recent pancreatitis. See handout on low-fat diet. 7. please discontinue your control at this time. You can resume it in about 1 month. If you are sexually active please use another form of control until you resume your oral control pill down the line. 8. for reflux/heartburn/esophagitis - * pantoprazole 40mg twice daily * we will help set up an appointment with Terry SHANNON in the near-future for consideration of endoscopy to look at your esophagus 9. at this time you are unlikely to be contagious to others from your COVID. However, to play it safe, please plan to spend this weekend recovering at home. Limit visitors to your home if possible. If you have visitors this weekend please have them wear a mask and you should mask as well. On Wednesday you can end your isolation and go about in the community as usual. 10. you likely have another 1-2 weeks of recovery from your COVID and this illness/hospital stay in general. You may need to rest more so than usual. This is common. Gradually increase activities as tolerated. Focus on good nutrition during your recovery (see handouts on diabetic diet and meal planning). 11. if possible please discontinue all marijuana use. Return to [facility] if - * you have worsening shortness of breath * you have chest pains * you have recurrent abdominal pains * you have nausea/vomiting not responding to your nausea medication * you have any concerns about high (sugars consistently >250) or low (<70) blood sugars * any other concerns It was our pleasure to care for you at [facility]! Please continue to feel better, Dr Moy Pending Studies at Discharge: No Stand-Alone Forms: [facility], Smoking Cessation Medications and DC Order Prescriptions: New pantoprazole 40 mg Tablet,Delayed Release (Dr/Ec) 40 mg PO BID Qty: 60 1RF hydroxyzine HCl 25 mg Tablet 25 mg PO HS PRN (Reason: sleep) Qty: 30 0RF furosemide [Lasix] 20 mg tablet 20 mg PO DAILY Qty: 3 0RF Rx Instructions: take 2/4, 2/5, and 2/6 for swelling. insulin glargine [Lantus Solostar U-100 Insulin] 100 unit/mL (3 mL) insulin pen 15 unit subcut QAM Qty: 15 2RF (DME) pen needle, diabetic [Comfort EZ Pen [place]] 32 gauge x 5/32" needle See Rx Instructions .Route Qty: 100 2RF Rx Instructions: As directed - use with lantus pen. (DME) blood-glucose meter [OneTouch Ultra2 Meter] Misc See Rx Instructions .Route Qty: 1 0RF Rx Instructions: As directed (DME) OneTouch Ultra Test Strip See Rx Instructions .Route Qty: 100 2RF Rx Instructions: As directed - check blood sugars at least twice daily. (DME) lancets [OneTouch Delica Lancets] 33 gauge misc See Rx Instructions .Route Qty: 100 2RF Rx Instructions: As directed - check blood sugars at least twice daily. ondansetron 4 mg tablet,disintegrating 4 mg PO Q6H PRN (Reason: nausea and vomiting) Qty: 10 0RF Changed metformin 500 mg tablet extended release 24 hr 500 mg PO BIDM Qty: 60 2RF Rx Instructions: take with breakfast & dinner meals. Discontinued norgestimate-ethinyl estradiol [Sprintec (28)] 0.25-35 mg-mcg tablet 1 tab PO DAILY Qty: 84 1RF Novolin N FlexPen 100 unit/mL (3 mL) insulin pen 15 unit subcut BID Qty: 15 1RF Rx Instructions: Before breakfast and before supper Discharge Orders: Discharge Order (Routine); Ordered 05/23/22 Ordered By: Lenny Gaitan/Other Patient Handouts: Esophagitis, Healthy Meals for Diabetes, Understanding Pancreatitis, Managing Diabetes: The A1C Test, Diabetes: Meal Planning, Diabetic Ketoacidosis, Hypoglycemia Tx Steps, ED Diet, Low Fat Admission Data Admit Date/Time: 05/14/22 18:01 Attending Provider: Lenny Moy Admit Provider: Lenny Christianson Primary Care Provider: PCP,NO Other Providers: Lenny Christianson ; Raphael Vera Other Interventions: Discharge Summary Assessment (RN) Last Done: 05/23/22 10:20 Coding Level of Care Code HOSP INP/OBS DISCH >30 MIN Diagnoses DKA (diabetic ketoacidoses) E11.10 COVID-19 U07.1 Nausea and vomiting R11.2 Acute pancreatitis K85.90 Pneumomediastinum J98.2 Hypokalemia E87.6 Acute metabolic encephalopathy G93.41 Hypothermia T68.XXXA Acute renal failure N17.9 Metabolic acidosis E87.20 Duodenitis K29.80 Hypophosphatemia E83.39 Morbid obesity with BMI of 40.0-44.9, adult E66.01; Z68.41 Edema R60.9 Abnormal LFTs R79.89 Insomnia G47.00 Marijuana user F12.90
== END 2022-05-23 10:32 | disposition home or self-care (01) | DRG 637 ==
LOC: ED 16:20 → 1E 18:01 → SUATTDRO 18:01 → 1E 20:04 → 2S 05-17 12:41
DX: X58.XXXA Exposure to other specified factors, initial encounter; N17.9 Acute kidney failure, unspecified; E11.10 Type 2 diabetes mellitus with ketoacidosis without coma; Z68.41 Body mass index [BMI] 40.0-44.9, adult; R11.10 Vomiting, unspecified; F17.290 Nicotine dependence, other tobacco product, uncomplicated; E83.39 Other disorders of phosphorus metabolism; G93.41 Metabolic encephalopathy; E87.6 Hypokalemia; E87.2 Acidosis; B97.29 Other coronavirus as the cause of diseases classified elsewhere; E87.0 Hyperosmolality and hypernatremia; Z79.84 Long term (current) use of oral hypoglycemic drugs; K85.80 Other acute pancreatitis without necrosis or infection; Z79.4 Long term (current) use of insulin; Z91.14 Patient's other noncompliance with medication regimen; Y92.019 Unspecified place in single-family (private) house as the place of occurrence of the external cause; K20.9 Esophagitis, unspecified; E66.01 Morbid (severe) obesity due to excess calories; G47.00 Insomnia, unspecified; K29.80 Duodenitis without bleeding; F12.10 Cannabis abuse, uncomplicated; J98.2 Interstitial emphysema; T68.XXXA Hypothermia, initial encounter

== ENCOUNTER 2022-07-24 12:29 | Inpatient (IN) ==
[2022-07-24] MEDS ORDERED: SODIUM CHLORIDE 0.9% 1000ML 1,000 ML IV STA (12:35)
--- NOTE | 2022-07-24 12:39 | Emergency Department Note ---
Impression & Plan Hypoxia ADMIT ED Provider Note HPI: The patient is a 31-year-old female with history of Boerhaave syndrome with pneumomediastinum, previously required transfer to tertiary care facility at [facility] in [place] on 07/04/2022 from this facility, presents the emergency de partment with a chief complaint of cough and shortness of breath. Patient was seen initially at urgent care earlier today and brought to the ED by ambulance as she was noted to have oxygen saturations in the mid 80s in urgent care. On arrival here to the ED the patient has borderline oxygen saturations at 88 to 90%. She was placed on nasal cannula oxygen with good improvement. Patient states she does get some pain with deep breathing, states she has not had any vomiting recently but she has had a harsh cough. She does admit to some shortness of breath. Patient is initially hypertensive on arrival, mildly tachycardic, saturating well on nasal cannula oxygen following initially hypoxia. Patient denies any abdominal pain, states she does have some chest discomfort with deep breathing, denies any recent vomiting. Patient is afebrile on presentation at 37.3. ROS: - Per HPI *Outpatient medications and allergy history reviewed. *Pertinent external medical records reviewed. PE: General: Alert, obese, mild distress secondary to increased work of breathing HEENT: Normocephalic, trachea midline Eyes: Extraocular eye movement is intact, no scleral erythema Pulmonary: Diminished bilateral breath sounds without expiratory wheeze Cardio: Tachycardic rate with regular rhythm GI: Abdomen is soft to palpation : No suprapubic tenderness MSK: No evidence of trauma or malformation of the extremities, no edema Skin: No evidence of rash Neuro: Alert, no focal deficits Psychiatric: Cooperative telemetry monitor: (As interpreted by myself): - An order was placed for continuous cardiac monitoring - Patient was noted to be in sinus rhythm with a rate of 105 EKG: (As interpreted by myself): Rate: 112 Rhythm: Sinus tachycardia Intervals: QTc 507, otherwise within normal limits ST changes: No ST elevation Time: 1239 Interventions provided in ED: -IV vancomycin, IV cefepime, IV Lasix, IV potassium, IV fluid bolus, supplemental oxygen/high flow nasal cannula oxygen, IV morphine, IV Zofran Differential Diagnosis: Pneumomediastinum, mediastinitis, pneumonia, acute c ongestive heart failure, pulmonary embolism, acute coronary syndrome, myocarditis, amongst other potential pathologies. Medical Decision Making: The patient is a 31-year-old female with history of pneumomediastinum secondary to Boerhaave syndrome, presented to the emergency department with hypoxia. On arrival here to the ED the patient was initially hypertensive and placed on nasal cannula oxygen for hypoxia at 88% on room air with good improvement initially. IV was established and lab work was obtained, patient was placed on telemetry monitor. Patient was initially IV fluid bolused and given IV morphine and IV Zofran for chest discomfort. Lab work obtained and shows leukopenia at 4.57, also noted to be new anemia at 7.7, patient denies any recent hematemesis or blood per rectum. Platelet count is noted to be within normal limits, potassium is low 2.9 which was ordered for IV repletion. CT angiography of the chest does not show any evidence of pulmonary embolism but does show bilateral pleural effusions, right greater than left. Also evidence of what appears to be a multifocal pneumonia. No evidence of any pneumomediastinum. Following my discussion with on-call radiology, Dr. Roblero, findings are more consistent with CHF. BNP level was obtained and is elevated in the 700s. Troponin is also elevated at 66 although this has downtrended from the patient's previous level in June. COVID-19 testing is negative as is influenza testing. Following this finding, I did discuss the patient's presentation with on-call intensive care, Dr. Gates, recommends diuresis at this point and holding off on blood transfusion as the patient is likely fluid overloaded. Packed red blood cells were initially ordered but were canceled following findings on CT imaging of the chest, patient was ordered 40 of IV Lasix. She did require escalation of her oxygen requirements to 10 L OxyMask, patient remained stable on this prior to admission, case was then discussed with Dr. Christianson of the admitting service and patient was placed for admission. Patient shortly thereafter did have an escalation in her oxygen requirement and was placed on high flow nasal cannula oxygen with good improvement. Following this discussion was had by the hospitalist with intensive care service and plan was changed for the patient to be admitted to the ICU. Patient was placed for admission in the ICU in improved condition and transported in stable condition for further management. Consultants: -Intensive Care, Dr. Gates -Hospitalist, Dr. Christianson -Radiologist, Dr. Roblero Disposition discussion held by myself with: Patient * CRITICAL CARE TIME: ( 93 ) minutes -Time spent at the bedside independent of any procedures and stabilization of hypoxia requiring eventually high flow nasal cannula for oxygen saturations less than 90% on nasal cannula oxygen. Consultation with multiple physicians including intensive care, radiology, and hospitalist service for admission. Time spent at the bedside and physical examination and with the patient in regards to disposition. Interpretation of diagnostic studies and EKG, arrangement of admission to ICU for pulmonary edema, pleural effusions, and hypoxia. Diagnosis: 1. Hypoxia, acute 2. Bilateral pleural effusions, acute 3. Pulmonary edema, acute 4. Multifocal pneumonia, acute 5. Elevated high-sensitivity troponin level 6. Hypokalemia 7. Anemia, acute, nonspecific Disposition: Admission Faraz Evangelista DO Emergency Medicine Past Med/Surg History Medical History Abnormal LFTs Acute renal failure Asthma in childhood, no inhaler Diabetes mellitus, type 2 DKA (diabetic ketoacidoses) currently an inpatient @ [facility] (to be discharged today 07/08/22) for this (admitted on 07/03/22 to [facility] ICU)--pt states she was having severe vomiting History of COVID-19 diagnosed 05/14/22--pt was admitted to [facility] ICU with DKA (found unresponsive and had confusion for 4 days, does not appear to have had any breathing issues, was on room air)--complaints of taste issues still and having vomiting Insomnia Morbid obesity with BMI of 40.0-44.9, adult Pneumomediastinum Surgical History No history of previous surgery Family History Other No family history of adverse response to anesthesia Social History Smoking Status: Former smoker Tobacco Type: E-cigarettes / Vaping Second Hand Exposure: No; Hx Alcohol Use: No Hx Substance Use: Yes Last Used Substance: Unknown Last Used Substance Other:: hx of cocaine use, clean for 8yrs ago Preferred Language: [place] Communication Ability: Effective Cheese Cook Required: No Beliefs That Will Affect Care: None Current Living Situation: Significant Other Current Living Situation Comment: lives with boyfriend Aamir Bond current occupational status: employed Other Information That Helps Us Care for You: No Feels Safe at Home: Yes Safety Concerns: Feels Safe At This Time Assistive Devices: None Allergies Allergies Allergy/AdvReac Type Severity Reaction Status Date / Time Penicillins Allergy Unknown HAPPENED Verified 07/16/22 13:43 A SMALL CHILD Home Meds Home Medications Medication Instructions Recorded Confirmed insulin aspart U-100 100 unit/mL 5 unit subcut DAILY PRN BSG control 06/09/22 07/24/22 (3 mL) subcutaneous pen (Novolog FlexPen U-100 Insulin aspart) metformin 500 mg tablet,extended 500 mg PO UD 07/24/22 07/24/22 release 24 hr Previous Rx's Medication Instructions Recorded blood sugar diagnostic (OneTouch #100 ea 05/23/22 Ultra Test strips) blood-glucose meter (EV ConnectTouch #1 ea 05/23/22 Ultra2 Meter) hydroxyzine HCl 25 mg tablet 25 mg PO HS PRN sleep #30 tabs 05/23/22 insulin glargine 100 unit/mL (3 15 unit (0.15 mL) subcut QAM #15 mL 05/23/22 mL) subcutaneous pen (Lantus Solostar U-100 Insulin) lancets 33 gauge (OneTouch Delica #100 ea 05/23/22 Lancets) ondansetron 4 mg disintegrating 4 mg PO Q6H PRN nausea and 05/23/22 tablet vomiting #10 tabs pen needle, diabetic 32 gauge x #100 ea 05/23/22 532" (Comfort EZ Pen [place]) pantoprazole 40 mg tablet,delayed 40 mg PO BID #60 tabs 07/16/22 release Results & Data (ED) Vital Signs Vital Signs - 24 hr 07/24/22 12:32 07/24/22 12:32 07/24/22 12:42 Temperature 37.3 C Temperature Source Oral Pulse Rate 116 H Pulse Rate from SpO2 Sensor Respiratory Rate 26 H Respiratory Effort / Characteristics Non-Labored Spontaneous Labored Respiratory Depth Normal Normal Respiratory Pattern Regular Blood Pressure 174/97 H Blood Pressure Mean 122 Pulse Oximetry 89 L 89 L Oxygen Delivery Method Room Air Room Air Room Air Oxygen Flow Rate 0 Fraction of Inspired Oxygen Sepsis Recent Fever Within 48 Hours No Sepsis New/Unexplained Change in Mental Status N/A Sepsis Action Taken by Nursing Physician Notified Oxygen Flow Rate - Titration 4 Pulse Oximetry Post Tiitration 94 07/24/22 12:42 07/24/22 12:42 07/24/22 12:45 Temperature Temperature Source Pulse Rate 110 H Pulse Rate from SpO2 Sensor Respiratory Rate 19 Respiratory Effort / Characteristics Non-Labored Respiratory Depth Normal Respiratory Pattern Blood Pressure Blood Pressure Mean Pulse Oximetry 94 96 Oxygen Delivery Method Nasal Cannula Nasal Cannula Oxygen Flow Rate 4 4 Fraction of Inspired Oxygen Sepsis Recent Fever Within 48 Hours Sepsis New/Unexplained Change in Mental Status Sepsis Action Taken by Nursing Oxygen Flow Rate - Titration Pulse Oximetry Post Tiitration 07/24/22 12:44 07/24/22 13:00 07/24/22 13:30 Temperature Temperature Source Pulse Rate 109 H 110 H 106 H Pulse Rate from SpO2 Sensor 109 H 110 H 106 H Respiratory Rate 20 29 H 27 H Respiratory Effort / Characteristics Respiratory Depth Respiratory Pattern Blood Pressure Blood Pressure Mean Pulse Oximetry 97 89 L 87 L Oxygen Delivery Method Oxygen Flow Rate Fraction of Inspired Oxygen Sepsis Recent Fever Within 48 Hours Sepsis New/Unexplained Change in Mental Status Sepsis Action Taken by Nursing Oxygen Flow Rate - Titration Pulse Oximetry Post Tiitration 07/24/22 14:00 07/24/22 14:24 07/24/22 14:24 Temperature Temperature Source Pulse Rate 108 H 107 H Pulse Rate from SpO2 Sensor 108 H 109 H Respiratory Rate 30 H 34 H Respiratory Effort / Characteristics Respiratory Depth Respiratory Pattern Blood Pressure 158/100 H Blood Pressure Mean 119 Pulse Oximetry 90 90 Oxygen Delivery Method Nasal Cannula Oxygen Flow Rate 5 Fraction of Inspired Oxygen Sepsis Recent Fever Within 48 Hours Sepsis New/Unexplained Change in Mental Status Sepsis Action Taken by Nursing Oxygen Flow Rate - Titration Pulse Oximetry Post Tiitration 07/24/22 14:30 07/24/22 14:30 07/24/22 15:00 Temperature Temperature Source Pulse Rate 109 H Pulse Rate from SpO2 Sensor 109 H Respiratory Rate 20 Respiratory Effort / Characteristics Respiratory Depth Respiratory Pattern Blood Pressure 150/90 H 150/85 H Blood Pressure Mean 110 106 Pulse Oximetry 91 Oxygen Delivery Method Oxymask Oxygen Flow Rate 7 Fraction of Inspired Oxygen Sepsis Recent Fever Within 48 Hours Sepsis New/Unexplained Change in Mental Status Sepsis Action Taken by Nursing Oxygen Flow Rate - Titration Pulse Oximetry Post Tiitration 07/24/22 15:00 07/24/22 15:30 07/24/22 15:43 Temperature Temperature Source Pulse Rate 105 H 110 H Pulse Rate from SpO2 Sensor 106 H 110 H Respiratory Rate 37 H 41 H Respiratory Effort / Characteristics Respiratory Depth Respiratory Pattern Blood Pressure 147/81 H Blood Pressure Mean 103 Pulse Oximetry 90 93 Oxygen Delivery Method Oxygen Flow Rate Fraction of Inspired Oxygen Sepsis Recent Fever Within 48 Hours Sepsis New/Unexplained Change in Mental Status Sepsis Action Taken by Nursing Oxygen Flow Rate - Titration Pulse Oximetry Post Tiitration 07/24/22 15:43 07/24/22 16:00 07/24/22 16:00 Temperature Temperature Source Pulse Rate 115 H 109 H Pulse Rate from SpO2 Sensor 116 H 109 H Respiratory Rate 18 34 H Respiratory Effort / Characteristics Respiratory Depth Respiratory Pattern Blood Pressure 157/88 H Blood Pressure Mean 111 Pulse Oximetry 93 93 Oxygen Delivery Method Oxymask Oxygen Flow Rate 15 Fraction of Inspired Oxygen Sepsis Recent Fever Within 48 Hours Sepsis New/Unexplained Change in Mental Status Sepsis Action Taken by Nursing Oxygen Flow Rate - Titration Pulse Oximetry Post Tiitration 07/24/22 16:30 Temperature Temperature Source Pulse Rate 117 H Pulse Rate from SpO2 Sensor 116 H Respiratory Rate 40 H Respiratory Effort / Characteristics Respiratory Depth Respiratory Pattern Blood Pressure Blood Pressure Mean Pulse Oximetry 99 Oxygen Delivery Method High Flow Nasal Cannula Oxygen Flow Rate 40 Fraction of Inspired Oxygen 90 Sepsis Recent Fever Within 48 Hours Sepsis New/Unexplained Change in Mental Status Sepsis Action Taken by Nursing Oxygen Flow Rate - Titration Pulse Oximetry Post Tiitration Laboratory Data 07/24/22 17:59 07/24/22 17:06 Lab Results 07/24/22 07/24/22 07/24/22 Range/Units 13:10 13:10 13:10 WBC 4.57 L (4.8-10.8) K/ul RBC 2.66 L (4.20-5.40) M/uL Hgb 7.7 L (12.0-16.0) g/dl Hct 23.5 L (37.0-47.0) % MCV 88.3 (80.0-100.0) fL MCH 28.9 (25.0-34.0) pg MCHC 32.8 (32.0-36.0) g/dL RDW Std Deviation 58.4 H (36.4-46.3) fL RDW Coeff of Sandy 18.4 H (11.5-14.5) % Plt Count 262 (130-400) K/uL MPV 10.7 (9.4-12.4) fL Immature Gran % (Auto) 0.4 % Neut % (Auto) 72.7 % Lymph % (Auto) 19.7 % [place] % (Auto) 5.9 % Eos % (Auto) 1.1 % Baso % (Auto) 0.2 % Neut # (Auto) 3.32 (1.40-6.50) K/uL Lymph # (Auto) 0.90 L (1.2-3.4) K/uL [place] # (Auto) 0.27 (0.11-0.59) K/uL Eos # (Auto) 0.05 (0-0.50) K/uL Baso # (Auto) 0.01 (0-0.2) K/uL Immature Gran # (Auto) 0.02 (0.01-0.20) K/uL Polychromasia 1+ Microcytosis Present Stomatocytes 1+ PT (9.0-12.0) Seconds INR (0.9-1.1) APTT PTT Ratio D-Dimer 1660 H* (0-500) ug/L FEU Sodium (136-145) mmol/L Potassium (3.5-5.1) mmol/L Chloride (98-107) mmol/L Carbon Dioxide (21-32) mmol/L Anion Gap (3-11) BUN (6-23) mg/dl Creatinine (0.6-1.2) mg/dl Est Cr Clr Drug Dosing ml/min Est GFR ( Amer) ml/min Est GFR (Non-Af Amer) ml/min BUN/Creatinine Ratio (10-20) Glucose (70-99(Fasting)) mg/dl Lactate (0.4-2.0) mmol/L Calcium (8.6-10.3) mg/dl Total Bilirubin (0.2-1.0) mg/dl AST (13-39) U/L ALT (7-52) U/L Alkaline Phosphatase (34-104) U/L Troponin I High Sens (0-14) pg/ml B-Natriuretic Peptide (0-100) pg/ml Total Protein (6.0-8.3) gm/dl Albumin (3.4-5.0) gm/dl Globulin (2.5-4.0) gm/dl Albumin/Globulin Ratio (0.9-2) Lipase (11-82) U/L Procalcitonin (0-0.5) ng/ml HCG, Qual Negative (Negative) Nasal Screen MRSA (PCR) (Negative) SARS-CoV-2 (PCR) (Negative) Influenza Type A (PCR) (Neg) Influenza Type B (PCR) (Neg) RSV (RT-PCR) (Neg) Blood Type Antibody Screen Crossmatch 07/24/22 07/24/22 07/24/22 Range/Units 13:10 13:10 13:10 WBC (4.8-10.8) K/ul RBC (4.20-5.40) M/uL Hgb (12.0-16.0) g/dl Hct (37.0-47.0) % MCV (80.0-100.0) fL MCH (25.0-34.0) pg MCHC (32.0-36.0) g/dL RDW Std Deviation (36.4-46.3) fL RDW Coeff of Sandy (11.5-14.5) % Plt Count (130-400) K/uL MPV (9.4-12.4) fL Immature Gran % (Auto) % Neut % (Auto) % Lymph % (Auto) % [place] % (Auto) % Eos % (Auto) % Baso % (Auto) % Neut # (Auto) (1.40-6.50) K/uL Lymph # (Auto) (1.2-3.4) K/uL [place] # (Auto) (0.11-0.59) K/uL Eos # (Auto) (0-0.50) K/uL Baso # (Auto) (0-0.2) K/uL Immature Gran # (Auto) (0.01-0.20) K/uL Polychromasia Microcytosis Stomatocytes PT 12.2 H (9.0-12.0) Seconds INR 1.2 H (0.9-1.1) APTT Cancelled PTT Ratio Cancelled D-Dimer (0-500) ug/L FEU Sodium 143 (136-145) mmol/L Potassium 2.9 L (3.5-5.1) mmol/L Chloride 107 (98-107) mmol/L Carbon Dioxide 27 (21-32) mmol/L Anion Gap 9 (3-11) BUN 12 (6-23) mg/dl Creatinine 0.47 L (0.6-1.2) mg/dl Est Cr Clr Drug Dosing 202.0 ml/min Est GFR ( Amer) > 150.0 ml/min Est GFR (Non-Af Amer) 130.7 ml/min BUN/Creatinine Ratio 25.5 H (10-20) Glucose 135 H (70-99(Fasting)) mg/dl Lactate (0.4-2.0) mmol/L Calcium 8.3 L (8.6-10.3) mg/dl Total Bilirubin 1.0 (0.2-1.0) mg/dl AST 21 (13-39) U/L ALT 32 (7-52) U/L Alkaline Phosphatase 167 H (34-104) U/L Troponin I High Sens 66.1 H* (0-14) pg/ml B-Natriuretic Peptide (0-100) pg/ml Total Protein 6.6 (6.0-8.3) gm/dl Albumin 3.5 (3.4-5.0) gm/dl Globulin 3.1 (2.5-4.0) gm/dl Albumin/Globulin Ratio 1.1 (0.9-2) Lipase 30 (11-82) U/L Procalcitonin 0.13 (0-0.5) ng/ml HCG, Qual (Negative) Nasal Screen MRSA (PCR) (Negative) SARS-CoV-2 (PCR) (Negative) Influenza Type A (PCR) (Neg) Influenza Type B (PCR) (Neg) RSV (RT-PCR) (Neg) Blood Type Antibody Screen Crossmatch 07/24/22 07/24/22 07/24/22 Range/Units 14:36 15:05 15:19 WBC (4.8-10.8) K/ul RBC (4.20-5.40) M/uL Hgb (12.0-16.0) g/dl Hct (37.0-47.0) % MCV (80.0-100.0) fL MCH (25.0-34.0) pg MCHC (32.0-36.0) g/dL RDW Std Deviation (36.4-46.3) fL RDW Coeff of Sandy (11.5-14.5) % Plt Count (130-400) K/uL MPV (9.4-12.4) fL Immature Gran % (Auto) % Neut % (Auto) % Lymph % (Auto) % [place] % (Auto) % Eos % (Auto) % Baso % (Auto) % Neut # (Auto) (1.40-6.50) K/uL Lymph # (Auto) (1.2-3.4) K/uL [place] # (Auto) (0.11-0.59) K/uL Eos # (Auto) (0-0.50) K/uL Baso # (Auto) (0-0.2) K/uL Immature Gran # (Auto) (0.01-0.20) K/uL Polychromasia Microcytosis Stomatocytes PT (9.0-12.0) Seconds INR (0.9-1.1) APTT PTT Ratio D-Dimer (0-500) ug/L FEU Sodium (136-145) mmol/L Potassium (3.5-5.1) mmol/L Chloride (98-107) mmol/L Carbon Dioxide (21-32) mmol/L Anion Gap (3-11) BUN (6-23) mg/dl Creatinine (0.6-1.2) mg/dl Est Cr Clr Drug Dosing ml/min Est GFR ( Amer) ml/min Est GFR (Non-Af Amer) ml/min BUN/Creatinine Ratio (10-20) Glucose (70-99(Fasting)) mg/dl Lactate (0.4-2.0) mmol/L Calcium (8.6-10.3) mg/dl Total Bilirubin (0.2-1.0) mg/dl AST (13-39) U/L ALT (7-52) U/L Alkaline Phosphatase (34-104) U/L Troponin I High Sens (0-14) pg/ml B-Natriuretic Peptide 721 H (0-100) pg/ml Total Protein (6.0-8.3) gm/dl Albumin (3.4-5.0) gm/dl Globulin (2.5-4.0) gm/dl Albumin/Globulin Ratio (0.9-2) Lipase (11-82) U/L Procalcitonin (0-0.5) ng/ml HCG, Qual (Negative) Nasal Screen MRSA (PCR) (Negative) SARS-CoV-2 (PCR) NEGATIVE (Negative) Influenza Type A (PCR) Negative (Neg) Influenza Type B (PCR) Negative (Neg) RSV (RT-PCR) Negative (Neg) Blood Type A Positive Antibody Screen NEGATIVE Crossmatch See Detail 07/24/22 07/24/22 07/24/22 Range/Units 15:19 15:28 16:04 WBC (4.8-10.8) K/ul RBC (4.20-5.40) M/uL Hgb (12.0-16.0) g/dl Hct (37.0-47.0) % MCV (80.0-100.0) fL MCH (25.0-34.0) pg MCHC (32.0-36.0) g/dL RDW Std Deviation (36.4-46.3) fL RDW Coeff of Sandy (11.5-14.5) % Plt Count (130-400) K/uL MPV (9.4-12.4) fL Immature Gran % (Auto) % Neut % (Auto) % Lymph % (Auto) % [place] % (Auto) % Eos % (Auto) % Baso % (Auto) % Neut # (Auto) (1.40-6.50) K/uL Lymph # (Auto) (1.2-3.4) K/uL [place] # (Auto) (0.11-0.59) K/uL Eos # (Auto) (0-0.50) K/uL Baso # (Auto) (0-0.2) K/uL Immature Gran # (Auto) (0.01-0.20) K/uL Polychromasia Microcytosis Stomatocytes PT (9.0-12.0) Seconds INR (0.9-1.1) APTT 26.5 PTT Ratio 1.0 D-Dimer (0-500) ug/L FEU Sodium (136-145) mmol/L Potassium (3.5-5.1) mmol/L Chloride (98-107) mmol/L Carbon Dioxide (21-32) mmol/L Anion Gap (3-11) BUN (6-23) mg/dl Creatinine (0.6-1.2) mg/dl Est Cr Clr Drug Dosing ml/min Est GFR ( Amer) ml/min Est GFR (Non-Af Amer) ml/min BUN/Creatinine Ratio (10-20) Glucose (70-99(Fasting)) mg/dl Lactate 1.1 (0.4-2.0) mmol/L Calcium (8.6-10.3) mg/dl Total Bilirubin (0.2-1.0) mg/dl AST (13-39) U/L ALT (7-52) U/L Alkaline Phosphatase (34-104) U/L Troponin I High Sens Cancelled (0-14) pg/ml B-Natriuretic Peptide (0-100) pg/ml Total Protein (6.0-8.3) gm/dl Albumin (3.4-5.0) gm/dl Globulin (2.5-4.0) gm/dl Albumin/Globulin Ratio (0.9-2) Lipase (11-82) U/L Procalcitonin (0-0.5) ng/ml HCG, Qual (Negative) Nasal Screen MRSA (PCR) (Negative) SARS-CoV-2 (PCR) (Negative) Influenza Type A (PCR) (Neg) Influenza Type B (PCR) (Neg) RSV (RT-PCR) (Neg) Blood Type Antibody Screen Crossmatch 07/24/22 Range/Units 16:15 WBC (4.8-10.8) K/ul RBC (4.20-5.40) M/uL Hgb (12.0-16.0) g/dl Hct (37.0-47.0) % MCV (80.0-100.0) fL MCH (25.0-34.0) pg MCHC (32.0-36.0) g/dL RDW Std Deviation (36.4-46.3) fL RDW Coeff of Sandy (11.5-14.5) % Plt Count (130-400) K/uL MPV (9.4-12.4) fL Immature Gran % (Auto) % Neut % (Auto) % Lymph % (Auto) % [place] % (Auto) % Eos % (Auto) % Baso % (Auto) % Neut # (Auto) (1.40-6.50) K/uL Lymph # (Auto) (1.2-3.4) K/uL [place] # (Auto) (0.11-0.59) K/uL Eos # (Auto) (0-0.50) K/uL Baso # (Auto) (0-0.2) K/uL Immature Gran # (Auto) (0.01-0.20) K/uL Polychromasia Microcytosis Stomatocytes PT (9.0-12.0) Seconds INR (0.9-1.1) APTT PTT Ratio D-Dimer (0-500) ug/L FEU Sodium (136-145) mmol/L Potassium (3.5-5.1) mmol/L Chloride (98-107) mmol/L Carbon Dioxide (21-32) mmol/L Anion Gap (3-11) BUN (6-23) mg/dl Creatinine (0.6-1.2) mg/dl Est Cr Clr Drug Dosing ml/min Est GFR ( Amer) ml/min Est GFR (Non-Af Amer) ml/min BUN/Creatinine Ratio (10-20) Glucose (70-99(Fasting)) mg/dl Lactate (0.4-2.0) mmol/L Calcium (8.6-10.3) mg/dl Total Bilirubin (0.2-1.0) mg/dl AST (13-39) U/L ALT (7-52) U/L Alkaline Phosphatase (34-104) U/L Troponin I High Sens (0-14) pg/ml B-Natriuretic Peptide (0-100) pg/ml Total Protein (6.0-8.3) gm/dl Albumin (3.4-5.0) gm/dl Globulin (2.5-4.0) gm/dl Albumin/Globulin Ratio (0.9-2) Lipase (11-82) U/L Procalcitonin (0-0.5) ng/ml HCG, Qual (Negative) Nasal Screen MRSA (PCR) Negative (Negative) SARS-CoV-2 (PCR) (Negative) Influenza Type A (PCR) (Neg) Influenza Type B (PCR) (Neg) RSV (RT-PCR) (Neg) Blood Type Antibody Screen Crossmatch Administered Medications Pantoprazole Sodium 40 mg/ (Dextrose) 100 mls @ 20 mls/hr IV Q5H GALI Stop: 08/23/22 15:59 Last Admin: 07/24/22 17:53 Dose: 8 mg/hr, 20 mls/hr Documented By: MICHELLE Miscellaneous (Icu Protocol For Hyperglycemia) 1 each N/A ACHS GALI Stop: 07/26/22 17:48 Last Admin: 07/24/22 17:54 Dose: 1 each Documented By: MICHELLE Discontinued Medications Furosemide (Furosemide 40 Mg/4 Ml Vial) 40 mg IV ONE ONE Stop: 07/24/22 15:09 Last Admin: 07/24/22 15:11 Dose: 40 mg Documented By: LESLY Sodium Chloride (Nss 1000ml) 1,000 mls @ 999 mls/hr IV .Q1H1M STA Stop: 07/24/22 13:35 Last Infusion: 07/24/22 18:09 Dose: 0 mls/hr Documented By: Admin: 07/24/22 13:14 Dose: 999 mls/hr Documented By: LESLY Potassium Chloride (K Keith / Wtr) 10 meq in 100 mls @ 100 mls/hr IV Q1H GALI; Protocol Stop: 07/24/22 15:59 Last Infusion: 07/24/22 18:09 Dose: 0 mls/hr Documented By: Infusion: 07/24/22 18:09 Dose: 0 mls/hr Documented By: Admin: 07/24/22 15:51 Dose: 100 mls/hr Documented By: Infusion: 07/24/22 15:24 Dose: 100 mls/hr Documented By: Admin: 07/24/22 14:24 Dose: 100 mls/hr Documented By: LESLY Vancomycin HCl 2,250 mg/ (Sodium Chloride) 545 mls @ 200 mls/hr IV NOW ONE Stop: 07/24/22 17:37 Last Admin: 07/24/22 18:26 Dose: Not Given Documented By: MICHELLE Cefepime HCl (Maxipime) 2,000 mg in 20 mls @ 5 mls/min IV NOW STA; Protocol Stop: 07/24/22 15:01 Last Admin: 07/24/22 15:48 Dose: 5 mls/min Documented By: LESLY Pantoprazole Sodium 80 mg/ (Dextrose) 120 mls @ 400 mls/hr IV NOW ONE Stop: 07/24/22 16:02 Last Infusion: 07/24/22 18:09 Dose: 0 mls/hr Documented By: Admin: 07/24/22 16:22 Dose: 400 mls/hr Documented By: LESLY Ioversol (Optiray 320 500ml) 110 ml IV ONCE ONE Stop: 07/24/22 14:14 Last Admin: 07/24/22 14:13 Dose: 110 ml Documented By: VINNIE Lorazepam (Lorazepam 2 Mg/1 Ml Vial) 1 mg IV NOW STA Stop: 07/24/22 15:54 Last Admin: 07/24/22 16:19 Dose: 1 mg Documented By: LESLY Morphine Sulfate (Morphine Sulfate 4 Mg/Ml 1 Ml Carp\\Vial) 4 mg IV NOW STA Stop: 07/24/22 13:20 Last Admin: 07/24/22 13:22 Dose: 4 mg Documented By: LESLY Ondansetron HCl (Ondansetron Inj 2 Mg/Ml 2 Ml Vial) 4 mg IV NOW STA Stop: 07/24/22 13:20 Last Admin: 07/24/22 13:22 Dose: 4 mg Documented By: LESLY Potassium Chloride (Potassium Chloride Crtab 20 Meq Tabcr) 40 meq PO NOW STA Stop: 07/24/22 15:30 Last Admin: 07/24/22 18:08 Dose: Not Given Documented By: MICHELLE Imaging Data Radiologist's Impression: Chest CTA 07/24/22 12:35 CT ANGIOGRAPHY OF THE CHEST, PULMONARY EMBOLUS PROTOCOL CLINICAL HISTORY: Chest Pain, eval for PE, history of pneumomediastinum COMPARISON STUDY: Chest CT July 04, 2022. TECHNIQUE: Following IV administration of 110 mL of Optiray, helical axial images of the chest were obtained utilizing the pulmonary embolus protocol. Maximal intensity projections and sagittal and coronal reformats were viewed on an independent 3D workstation. IV contrast was administered without complication. Automated exposure control was utilized for the study. A dose lowering technique was utilized adhering to the principles of ALARA. CT DOSE: 2107.63 mGy.cm FINDINGS: No pulmonary emboli are identified. Mild cardiomegaly is noted. No thoracic aortic dissection. There is a trace pericardial effusion. There is a small amount of mediastinal fluid. However, no pneumomediastinum is identified. Large right and moderate left pleural effusions have developed since prior chest CT July 04, 2022. There are extensive bilateral lower lobe airspace opacities. There are additional airspace opacities within the upper lobes. Interlobular septal thickening is noted. There are tiny nodular densities within the lungs. The abdomen and pelvis CT will be reported separately. There is no thoracic lymphadenopathy. IMPRESSION: 1. No pulmonary emboli identified. 2. Interval development of large right and moderate left pleural effusions. Extensive airspace opacities within the lungs, greatest within the lower lobes. The findings favor multifocal pneumonia however alveolar pulmonary edema could appear similar. Discussed with Dr. Evangelista at time of dictation. 3. Interlobular septal thickening suggestive of interstitial pulmonary edema. Mild cardiomegaly. Trace pericardial effusion. 4. Small amount of mediastinal fluid. No pneumomediastinum. ACT 112: Negative or not required by law. Electronically signed by: Govind Roblero M.D. 07/24/2022 2:55 PM Abdomen/Pelvis CT 07/24/22 12:52 CT abd pelvis IV con only CLINICAL HISTORY: SOB, hx of Boerhaave syndrome TECHNIQUE: Helical axial images of the abdomen and pelvis were obtained and displayed. Automated dose lowering techniques and/or adjustment according to patient size were utilized for this exam. This exam was performed with intravenous contrast. COMPARISON: Comparison is made to CT abdomen pelvis 07/04/2022 FINDINGS: Lower chest: For findings above the diaphragm, please see CT chest performed same day. Liver: Focal fatty changes are noted about the falciform ligament. Gallbladder and biliary tree: Pericholecystic edema is seen. The gallbladder appears somewhat decreased in size from prior exam. No intra- or extrahepatic biliary ductal dilation. Pancreas: Unremarkable, no focal lesions. Spleen: Unremarkable. Adrenals: Unremarkable. Kidneys and ureters: Unremarkable. Bladder: Limited evaluation due to underdistention. Reproductive organs: Unremarkable. Bowel: The appendix is normal. Lymph nodes Retroperitoneal: Subcentimeter lymph nodes are noted. Pelvic: Unremarkable. Mesenteric: Unremarkable. Peritoneum: Normal. Vessels: Unremarkable. Abdominal wall: Mild subcutaneous fat stranding is seen. Bones: Degenerative changes in the visualized spine. 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 IMPRESSION: 1. Interval development of pericholecystic edema while the gallbladder is decrease in size. Clinical correlation for acute cholecystitis is recommended. 2. Additional findings as above. 3. Please see CT chest performed same day for findings above the diaphragm. ACT 112: Negative or not required by law. Electronically signed by: Godfrey Null M.D. 07/24/2022 2:39 PM Discharge Plan Visit Data Chief Complaint: Shortness of Breath/Dyspnea Stated Complaint: SOB ED Provider: Faraz Evangelista Discharge Problem: Hypoxia Patient Disposition: Admitted As Inpatient Discharge Instructions Interventions: ED Discharge Assessment Last Done: 07/24/22 17:07
[2022-07-24] MEDS ORDERED: ONDANSETRON INJ 2 MG/ML 2 ML VIAL IV STA (13:19)
[2022-07-24] MEDS ORDERED: MoRPHine SULFATE 4 MG/ML 1 ML CARP\\VIAL IV STA (13:19)
[2022-07-24 13:25] LABS: Basophils # (auto) 0.01 K/uL (0-0.2); Basophils % (auto) 0.2 %; Eosinophils # (auto) 0.05 K/uL (0-0.50); Eosinophils % (auto) 1.1 %; Hematocrit (blood only) 23.5 % (37.0-47.0); Hemoglobin 7.7 g/dl (12.0-16.0); Immature Granulocytes # (auto) 0.02 K/uL (0.01-0.20); Immature Granulocytes % (auto) 0.4 %; Lymphocytes % (auto) 19.7 %; Mean Corpuscular Hemoglobin 28.9 pg (25.0-34.0); Mean Corpuscular Hgb Conc 32.8 g/dL (32.0-36.0); Mean Corpuscular Volume 88.3 fL (80.0-100.0); Mean Platelet Volume 10.7 fL (9.4-12.4); Monocytes # (auto) 0.27 K/uL (0.11-0.59); Monocytes % (auto) 5.9 %; Neutrophils # (auto) 3.32 K/uL (1.40-6.50); Neutrophils % (auto) 72.7 %; Platelet Count 262 K/uL (130-400); RDW Coefficient of Variation 18.4 % (11.5-14.5); RDW Standard Deviation 58.4 fL (36.4-46.3); Red Blood Count 2.66 M/uL (4.20-5.40); White Blood Count 4.57 K/ul (4.8-10.8)
[2022-07-24 13:44] LABS: Alanine Aminotransferase 32 U/L (7-52); Albumin Globulin Ratio 1.1 (0.9-2); Albumin Level 3.5 gm/dl (3.4-5.0); Alkaline Phosphatase 167 U/L (34-104); Anion Gap 9 (3-11); Aspartate Aminotransferase 21 U/L (13-39); BUN Creatinine Ratio 25.5 (10-20); Blood Urea Nitrogen 12 mg/dl (6-23); Calcium 8.3 mg/dl (8.6-10.3); Carbon Dioxide 27 mmol/L (21-32); Chloride 107 mmol/L (98-107); Est GFR (African American) > 150.0 ml/min; Est GFR (Non-African American) 130.7 ml/min; Globulin 3.1 gm/dl (2.5-4.0); Glucose 135 mg/dl (70-99(Fasting)); Lipase 30 U/L (11-82); Potassium 2.9 mmol/L (3.5-5.1); Sodium 143 mmol/L (136-145); Total Protein 6.6 gm/dl (6.0-8.3)
[2022-07-24 13:49] LABS: Microcytosis Present; Polychromasia 1+; Stomatocytes 1+
[2022-07-24 13:52] LABS: INR 1.2 (0.9-1.1); Prothrombin Time 12.2 Seconds (9.0-12.0)
[2022-07-24 13:55] LABS: Troponin I High Sensitivity 66.1 pg/ml (0-14)
[2022-07-24 13:56] LABS: Pregnancy Test, Serum Negative (Negative)
[2022-07-24] MEDS ORDERED: SODIUM CHLORIDE 0.9% 250 ML IV PRN (13:56)
[2022-07-24 14:00] LABS: D Dimer 1660 ug/L FEU (0-500)
[2022-07-24] MEDS ORDERED: OPTIRAY 320 500ml IV ONE (14:13)
[2022-07-24] MEDS: POTASSIUM CHLORIDE / WTR 10 MEQ/100 ML PLCT IV SCH ×4 (14:24→20:31)
--- NOTE | 2022-07-24 14:42 | CT Scan Report ---
CT abd pelvis IV con only CLINICAL HISTORY: SOB, hx of Boerhaave syndrome TECHNIQUE: Helical axial images of the abdomen and pelvis were obtained and displayed. Automated dose lowering techniques and/or adjustment according to patient size were utilized for this exam. This e xam was performed with intravenous contrast. COMPARISON: Comparison is made to CT abdomen pelvis 07/04/2022 FINDINGS: Lower chest: For findings above the diaphragm, please see CT chest performed same day. Liver: Focal fatty changes are noted about the falciform ligament. Gallbladder and biliary tree: Pericholecystic edema is seen. The gallbladder appears somewhat decreas ed in size from prior exam. No intra- or extrahepatic biliary ductal dilation. Pancreas: Unremarkable, no focal lesions. Spleen: Unremarkable. Adrenals: Unremarkable. Kidneys and ureters: Unremarkable. Bladder: Limited evaluation due to underdistention. Reproductive organs: Unremarkable. Bowel: The appendix is normal. Lymph nodes Retroperitoneal: Subcentimeter lymph nodes are noted. Pelvic: Unremarkable. Mesenteric: Unremarkable. Peritoneum: Normal. Vessels: Unremarkable. Abdominal wall: Mild subcutaneous fat stranding is seen. Bones: Degenerative changes in the visualized spine. 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 IMPRESSION: 1. Interval development of pericholecystic edema while the gallbladder is decrease in size. Clinical correlation for acute cholecystitis is recommended. 2. Additional findings as above. 3. Please see CT chest performed same day for findings above the diaphragm. ACT 112: Negative or not required by law. Electronically signed by: Godfrey Null M.D. 07/24/2022 2:39 PM
[2022-07-24] MEDS ORDERED: VANCOMYCIN CONSULT ACTIVE PRN (14:54)
[2022-07-24] MEDS ORDERED: PIPERACILLIN/TAZOBACTAM 4.5 GM/120 ML BAG IV ONE (14:56)
--- NOTE | 2022-07-24 14:58 | CT Scan Report ---
CT ANGIOGRAPHY OF THE CHEST, PULMONARY EMBOLUS PROTOCOL CLINICAL HISTORY: Chest Pain, eval for PE, history of pneumomediastinum COMPARISON STUDY: Chest CT July 04, 2022. TECHNIQUE: Following IV administration of 110 mL of Optiray, helical axial images of the chest were o btained utilizing the pulmonary embolus protocol. Maximal intensity projections and sagittal and cor onal reformats were viewed on an independent 3D workstation. IV contrast was administered without co mplication. Automated exposure control was utilized for the study. A dose lowering technique was ut ilized adhering to the principles of ALARA. CT DOSE: 2107.63 mGy.cm FINDINGS: No pulmonary emboli are identified. Mild cardiomegaly is noted. No thoracic aortic dissect ion. There is a trace pericardial effusion. There is a small amount of mediastinal fluid. However, no pneumomediastinum is identified. Large right and moderate left pleural effusions have developed sinc e prior chest CT July 04, 2022. There are extensive bilateral lower lobe airspace opacities. There a re additional airspace opacities within the upper lobes. Interlobular septal thickening is noted. The re are tiny nodular densities within the lungs. The abdomen and pelvis CT will be reported separately . There is no thoracic lymphadenopathy. IMPRESSION: 1. No pulmonary emboli identified. 2. Interval development of large right and moderate left pleural effusions. Extensive airspace opacit ies within the lungs, greatest within the lower lobes. The findings favor multifocal pneumonia howeve r alveolar pulmonary edema could appear similar. Discussed with Dr. Evangelista at time of dictation. 3. Interlobular septal thickening suggestive of interstitial pulmonary edema. Mild cardiomegaly. Trac e pericardial effusion. 4. Small amount of mediastinal fluid. No pneumomediastinum. ACT 112: Negative or not required by law. Electronically signed by: Govind Roblero M.D. 07/24/2022 2:55 PM
[2022-07-24] MEDS ORDERED: FUROSEMIDE 40 MG/4 ML VIAL IV ONE (15:08)
[2022-07-24] MEDS ORDERED: POTASSIUM CHLORIDE CRTAB 20 MEQ TABCR PO STA (15:29)
[2022-07-24] MEDS ORDERED: PANTOPRAZOLE BOLUS/DRIP 1 EACH IV STA (15:31)
[2022-07-24] MEDS: VANCOMYCIN HCL 2,250 MG in SODIUM CHLORIDE 0.9% 500 ML IV ONE ×2 (15:32→18:26)
[2022-07-24] MEDS: CEFEPIME 2,000 MG/20 ML VIAL IV STA ×2 (15:32→15:48)
--- NOTE | 2022-07-24 15:43 | History & Physical Report ---
Date of Service July 24, 2022 Assessment & Plan (1) Acute respiratory failure with hypoxia: Plan: -Admit to the ICU on tele and pulse oximetry -At this time the etiology of the patient's acute hypoxic respiratory failure is likely multifactorial including but not limited to multifocal pneumonia, pulmonary edema, CHF -Patient started to develop SOB, non-productive cough, fever, and chills approximately 3 days ago -Found to be hypoxic in the 80's on RA, CTA of the chest showing possible multifocal pneumonia and/or pulmonary edema with worsening BL pleural effusions compared to her last visit last month -Currently stable on 15L Oxymask and S/P 40 mg IV lasix in the ED, BNP elevated at 721, no previous value to compare to, currently getting TTE >Will continue IV diuresis at 20 mg IV BID for now >Crespo cath placed, continue to monitor intake and output -S/P one dose of cefepime and Vancomycin in the ED, will continue with both for now with her recent hospitalization, procal is in process and will obtain MRSA swab -Pulm hygiene with incentive spirometry and flutter therapy -Will obtain sputum culture and blood cultures -Will transition to HFNC, titrate to keep SpO2 at or above 95%, would avoid bipap at this time with her recent hx of Pneumomediastinum -BL SCD's for DVT PPX, Hold chemical PPX at this time due to anemia -AM CBC, CMP, Mag (2) Hypokalemia: Plan: -Noted to be 2.9 in the ED -Patient states she has had low potassium since her admission to [facility] last month -Likely due to poor oral intake but could also but due to possible acidosis, waiting on VBG -S/P 40 meq IV KCL in the ED, will give another 40 IV STAT, want to try and avoid oral KCL at this time with her esophagitis/gastritis and recent pneu momediastinum -Continue to monitor on tele; will obtain 6 pm K level for reassessment (3) Anemia: Plan: -Hgb noted to be 7.7 today, down from 15.7 as of 07/04 -Etiology is unknown at this time but the most likely source is GI at this time with her history -Will stat Protonix drip and bolus now, keep NPO at this time -Continue to monitor for signs of bleeding (4) Nausea & vomiting: Plan: -Long hx of gastritis/esophagitis, cannabis hyperemesis syndrome -Continue protonix, NPO, will need to be cautious with antiemetics as QTc is currently 507 (5) Elevated troponin: Plan: -Noted to be 66, patient experienced substernal chest discomfort earlier today, this could be due to her esophagitis and current respiratory status -T-wave inversion noted in the later leads today, this could be due to her sinus tachycardia and demand -Repeat high sen trop in process, continue to monitor on tele (6) Diabetes mellitus type 2, uncontrolled: Plan: -ICU hypoglycemia protocol in place, glucose is currently stable -Will defer further glycemic control to the ICU staff History of Present Illness Chief Complaint: SOB, hypoxia Primary Care Provider: Yakelin Casillas MD Valorie is a 31-year-old female with past medical history of persistent nausea/vomiting, type 2 diabetes with a history of recurrent DKA, prior marijuana use in remission, and recent episode of DKA and Pneumomediastinum who presented to the [facility] ED on 07/24/22 from an Urgent Care for SOB and acute hypoxic respiratory failure. She was found to be hypoxic in the mid 's on RA and EMS was called. In the ED the patient was found to be afebrile, hemodynamically stable, but hypoxic at 87% on RA. She was also found to be in sinus tachycardia. Labs were remarkable for a WBC of 4.57, hgb of 7.7 (down from 15.7 as of on 07/04), stable platelets of 262, INR of 1.2, D-dimer of 1660, stable cr of 0.47, potassium of 2.9, calcium of 8.3, alk phos of 167 with other LFT's WNL, initial high sen trop of 66, with covid/influenza/rsv, lactate, BNP pending. At the time of the exam the patient was sitting in bed and appears anxious due to her current clinical status. She states that while down at [place] last month for her Pneumomediastinum she was monitored and did not require intervention. She has not smoked marijuana since April. Since her discharge from [facility] she has been having ongoing LE swelling and poor appetite. She started having recurrent episodes of nausea and vomiting since 07/21. She denies any bloody or coffee ground emesis recently. She started to develop SOB and a non- productive cough approximately 3 days ago. She feels as though she has been having fever and chills but did not take her temperature. She went to urgent care earlier today as she was experiencing some substernal chest discomfort with her cough. She denies radiation of this discomfort. She recently underwent EGD with [facility] on 07/09/22. Per chart review she was found to have severe esophagitis, gastritis, and and flattened mucosa in the duodenum suspicious for celiac disease, biopsies were obtained. She has been without abdominal pain, dysuria, hematuria, melena, diarrhea, and recent trauma. Please refer to Dr. Christianson's attestation for any changes to the treatment plan Allergies Allergy/AdvReac Type Severity Reaction Status Date / Time Penicillins Allergy Unknown HAPPENED Verified 07/16/22 13:43 A SMALL CHILD Home Medications Medication Instructions Recorded Confirmed Type blood sugar diagnostic (Grid NetTouch #100 ea 05/23/22 07/24/22 Rx Ultra Test strips) blood-glucose meter (Grid NetTouch #1 ea 05/23/22 07/24/22 Rx Ultra2 Meter) hydroxyzine HCl 25 mg tablet 25 mg PO HS PRN sleep #30 tabs 05/23/22 07/24/22 Rx insulin glargine 100 unit/mL (3 15 unit (0.15 mL) subcut QAM #15 mL 05/23/22 07/24/22 Rx mL) subcutaneous pen (Lantus Solostar U-100 Insulin) lancets 33 gauge (OneTouch Delica #100 ea 05/23/22 07/24/22 Rx Lancets) ondansetron 4 mg disintegrating 4 mg PO Q6H PRN nausea and 05/23/22 07/24/22 Rx tablet vomiting #10 tabs pen needle, diabetic 32 gauge x #100 ea 05/23/22 07/24/22 Rx 5/32" (Comfort EZ Pen Huger) insulin aspart U-100 100 unit/mL 5 unit subcut DAILY PRN BSG control 06/09/22 07/24/22 History (3 mL) subcutaneous pen (Novolog FlexPen U-100 Insulin aspart) pantoprazole 40 mg tablet,delayed 40 mg PO BID #60 tabs 07/16/22 07/24/22 Rx release metformin 500 mg tablet,extended 500 mg PO UD 07/24/22 07/24/22 History release 24 hr Past Med/Surg History Medical History Abnormal LFTs Acute renal failure Asthma in childhood, no inhaler Diabetes mellitus, type 2 DKA (diabetic ketoacidoses) currently an inpatient @ [facility] (to be discharged today 07/08/22) for this (admitted on 07/03/22 to [facility] ICU)--pt states she was having severe vomiting History of COVID-19 diagnosed 05/14/22--pt was admitted to [facility] ICU with DKA (found unresponsive and had confusion for 4 days, does not appear to have had any breathing issues, was on room air)--complaints of taste issues still and having vomiting Insomnia Morbid obesity with BMI of 40.0-44.9, adult Pneumomediastinum Surgical History No history of previous surgery Family History Other No family history of adverse response to anesthesia Social History Smoking Status: Former smoker Tobacco Type: E-cigarettes / Vaping Second Hand Exposure: No; Hx Alcohol Use: No Hx Substance Use: Yes Last Used Substance: Unknown Last Used Substance Other:: hx of cocaine use, clean for 8yrs ago Preferred Language: Sinhala Communication Ability: Effective City Letter Carrier Required: No Beliefs That Will Affect Care: None Current Living Situation: Significant Other Current Living Situation Comment: lives with boyfriend Aamir Bond current occupational status: employed Other Information That Helps Us Care for You: No Feels Safe at Home: Yes Safety Concerns: Feels Safe At This Time Assistive Devices: None Physical Exam Physical Exam: Physical Exam: General: Anxious at the time of the exam, stated age, ill but non-toxic appearing HEENT: Normocephalic, atraumatic, currently with oxymask in place, no scleral icterus, pupils around round, symmetrical, and reactive to light, moist mucus membranes, trachea midline, no thyromegaly Chest/Pulm: mild respiratory distress, symmetrical chest expansion, decreased breath sounds in the BL lower lung lindquist, scattered rhonchi and wheezing noted in all other lung lindquist Cardiac: tachycardic rate, regular rhythm, no murmurs noted Abdomen: Negative for ascites and bruising, normoactive bowel sounds, soft, n on-tender to palpation throughout Musculoskeletal: Symmetrical and without signs of acute trauma, upper and lower extremities with full ROM, no atrophy, spasticity, or flaccidity Extremities: Radial, dorsalis pedis, and posterior tibial pulses are intact and symmetrical, 1+ pitting edema in the BL LE's Skin: Warm, dry, no rashes , lesions, or scars noted Neuro: Alert and oriented to person, place, month, year, and president, no focal defects, no tremors noted Psych: Anxious but polite and cooperative during the exam Results & Data Results & Data Vital Signs (Past 12 Hours) Vital Signs Temp Pulse Resp BP Pulse Ox O2 Del Method O2 Flow Rate 07/24/22 14:30 109 H 20 91 Oxymask 7 07/24/22 14:30 150/90 H 07/24/22 14:24 158/100 H 07/24/22 14:24 107 H 34 H 90 Nasal Cannula 5 07/24/22 14:00 108 H 30 H 90 07/24/22 13:30 106 H 27 H 87 L 07/24/22 13:00 110 H 29 H 89 L 07/24/22 12:44 109 H 20 97 07/24/22 12:45 110 H 07/24/22 12:42 96 Nasal Cannula 4 07/24/22 12:42 19 94 Nasal Cannula 4 07/24/22 12:42 89 L Room Air 0 07/24/22 12:32 Room Air 07/24/22 12:32 37.3 C 116 H 26 H 174/97 H 89 L Room Air Laboratory Results Abnormal lab results 07/24/22 07/24/22 07/24/22 Range/Units 13:10 13:10 13:10 WBC 4.57 L (4.8-10.8) K/ul RBC 2.66 L (4.20-5.40) M/uL Hgb 7.7 L (12.0-16.0) g/dl Hct 23.5 L (37.0-47.0) % RDW Std Deviation 58.4 H (36.4-46.3) fL RDW Coeff of Sandy 18.4 H (11.5-14.5) % Lymph # (Auto) 0.90 L (1.2-3.4) K/uL PT 12.2 H (9.0-12.0) Seconds INR 1.2 H (0.9-1.1) D-Dimer 1660 H* (0-500) ug/L FEU Potassium (3.5-5.1) mmol/L Creatinine (0.6-1.2) mg/dl BUN/Creatinine Ratio (10-20) Glucose (70-99(Fasting)) mg/dl Calcium (8.6-10.3) mg/dl Alkaline Phosphatase (34-104) U/L Troponin I High Sens (0-14) pg/ml B-Natriuretic Peptide (0-100) pg/ml Crossmatch 07/24/22 07/24/22 07/24/22 Range/Units 13:10 14:36 15:19 WBC (4.8-10.8) K/ul RBC (4.20-5.40) M/uL Hgb (12.0-16.0) g/dl Hct (37.0-47.0) % RDW Std Deviation (36.4-46.3) fL RDW Coeff of Sandy (11.5-14.5) % Lymph # (Auto) (1.2-3.4) K/uL PT (9.0-12.0) Seconds INR (0.9-1.1) D-Dimer (0-500) ug/L FEU Potassium 2.9 L (3.5-5.1) mmol/L Creatinine 0.47 L (0.6-1.2) mg/dl BUN/Creatinine Ratio 25.5 H (10-20) Glucose 135 H (70-99(Fasting)) mg/dl Calcium 8.3 L (8.6-10.3) mg/dl Alkaline Phosphatase 167 H (34-104) U/L Troponin I High Sens 66.1 H* (0-14) pg/ml B-Natriuretic Peptide 721 H (0-100) pg/ml Crossmatch See Detail Diagnostic Findings Chest CTA 07/24/22 12:35 CT ANGIOGRAPHY OF THE CHEST, PULMONARY EMBOLUS PROTOCOL CLINICAL HISTORY: Chest Pain, eval for PE, history of pneumomediastinum COMPARISON STUDY: Chest CT July 04, 2022. TECHNIQUE: Following IV administration of 110 mL of Optiray, helical axial images of the chest were obtained utilizing the pulmonary embolus protocol. Maximal intensity projections and sagittal and coronal reformats were viewed on an independent 3D workstation. IV contrast was administered without complication. Automated exposure control was utilized for the study. A dose lowering technique was utilized adhering to the principles of ALARA. CT DOSE: 2107.63 mGy.cm FINDINGS: No pulmonary emboli are identified. Mild cardiomegaly is noted. No thoracic aortic dissection. There is a trace pericardial effusion. There is a small amount of mediastinal fluid. However, no pneumomediastinum is identified. Large right and moderate left pleural effusions have developed since prior chest CT July 04, 2022. There are extensive bilateral lower lobe airspace opacities. There are additional airspace opacities within the upper lobes. Interlobular septal thickening is noted. There are tiny nodular densities within the lungs. The abdomen and pelvis CT will be reported separately. There is no thoracic lymphadenopathy. IMPRESSION: 1. No pulmonary emboli identified. 2. Interval development of large right and moderate left pleural effusions. Extensive airspace opacities within the lungs, greatest within the lower lobes. The findings favor multifocal pneumonia however alveolar pulmonary edema could appear similar. Discussed with Dr. Evangelista at time of dictation. 3. Interlobular septal thickening suggestive of interstitial pulmonary edema. Mild cardiomegaly. Trace pericardial effusion. 4. Small amount of mediastinal fluid. No pneumomediastinum. ACT 112: Negative or not required by law. Electronically signed by: Govind Roblero M.D. 07/24/2022 2:55 PM Abdomen/Pelvis CT 07/24/22 12:52 CT abd pelvis IV con only CLINICAL HISTORY: SOB, hx of Boerhaave syndrome TECHNIQUE: Helical axial images of the abdomen and pelvis were obtained and displayed. Automated dose lowering techniques and/or adjustment according to patient size were utilized for this exam. This exam was performed with intravenous contrast. COMPARISON: Comparison is made to CT abdomen pelvis 07/04/2022 FINDINGS: Lower chest: For findings above the diaphragm, please see CT chest performed same day. Liver: Focal fatty changes are noted about the falciform ligament. Gallbladder and biliary tree: Pericholecystic edema is seen. The gallbladder appears somewhat decreased in size from prior exam. No intra- or extrahepatic biliary ductal dilation. Pancreas: Unremarkable, no focal lesions. Spleen: Unremarkable. Adrenals: Unremarkable. Kidneys and ureters: Unremarkable. Bladder: Limited evaluation due to underdistention. Reproductive organs: Unremarkable. Bowel: The appendix is normal. Lymph nodes Retroperitoneal: Subcentimeter lymph nodes are noted. Pelvic: Unremarkable. Mesenteric: Unremarkable. Peritoneum: Normal. Vessels: Unremarkable. Abdominal wall: Mild subcutaneous fat stranding is seen. Bones: Degenerative changes in the visualized spine. 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 IMPRESSION: 1. Interval development of pericholecystic edema while the gallbladder is decrease in size. Clinical correlation for acute cholecystitis is recommended. 2. Additional findings as above. 3. Please see CT chest performed same day for findings above the diaphragm. ACT 112: Negative or not required by law. Electronically signed by: Godfrey Null M.D. 07/24/2022 2:39 PM ECG Additional Comments: Sinus tachycardia Otherwise normal ECG When compared with ECG of 04-JUL-2022 13:08, Criteria for Anterior infarct are no longer Present Criteria for Anterolateral infarct are no longer Present Borderline criteria for Inferior infarct are no longer Present T wave inversion now evident in Lateral leads Code Status & VTE Plan Code Status Full code VTE Prophylaxis Plan VTE Prophylaxis will be ordered: Yes Critical Care Time Critical Care Time: Yes Total Critical Care Time: 45 Supervising Physician Co-Signing Physician Notes I personally saw and examined the patient. I verified all grey points and agree with Lucius Evans PA-C with the following exceptions and/or additions: 31 year old female with recent pneumomediastinum presents to the ER with hypoxia and shortness of breath. Lower extremity edema since discharge from [place] w ith poor appetite. Ongoing nausea and vomiting since for 3 days with increasing shortness of breath since then. No fever or chills. No nasal congestion, cough or sinus pain. No melena, hemoptysis, hematemesis, epistaxis, hematuria, hematochezia. O/E A&Ox3, HS increased rate, regular rhythm, no murmurs, in respiratory distress with tachypnea, using accessory muscles, unable to complete sentences. rhonchi throughout, Abdo SNT A/P Sepsis - after admission patient developed fever meeting criteria for sepsis with suspected PNA source. MRSA nasal swab negative therefore vancomycin d/c to reduce IV fluids and much lower likelihood of this with negative swab. Procalcitonin negative. Lactate 1.1. Acute respiratory failure with hypoxia - O2 sats 84% on 15LPM oxymask therefore decision was to transfer patient to the ICU, discussed with Dr Gates. Fortunately now maintaining O2 sats on high flow oxygen. Will defer CPAP due to recent pneumomediastinum. Suspect secondary to pulmonary edema +/- PNA Multifocal PNA - Biofire negative, cefepime. Discussed with ICU PA to consider addition of atypical coverage +/- metronidazole to cover for aspiration given ongoing vomiting Hypervolemic state - b/l pleural effusions and pulmonary edema. Lasix 40mg IV, will continue 40mg IV BID, monitor I&Os, daily weights, aim net negative 1.5-2L /day, unclear other than iatrogenic fluids that she likely had at [place] for this. TTE is unremarkable. LFTs normal and urine protein negative. Acute blood loss anemia - suspected GI bleed loss given no subjective source of bleeding and known severe esophagitits. Pantoprazole IV drip. Trend H&H. Will defer blood transfusions to avoid any extra fluid intake. Iron studies, B12, folate, retic count, LDH with AM labs PG Care Time/CCT Total # of Minutes Spent Total Time Spent with Patient: Total time spent is greater than 50% in coordination of care (as documented) at patient's floor/unit and/or counseling patient: Critical Care Time: Yes Total Critical Care Time: 45 I have personally spent 45 minutes of critical care time in the direct management of this patient. This is a life/limb threatening event. This includes time spent evaluating patient, direct bedside care, chart review, placing orders, interpretation of diagnostic studies including ABG, discussion with ER provider, ICU attending and PA, patient, as well as other required patient management activities. Coding [place] [address] INT INP/OBS CARE 3/75MIN Patient Type Established Medical Decision Making High Complexity Diagnoses Acute respiratory failure with hypoxia J96.01 Hypokalemia E87.6 Anemia D64.9 Nausea & vomiting R11.2 Elevated troponin R77.8 Diabetes mellitus type 2, uncontrolled Additional Codes Critical Care Time - Critical Care Time: Yes ([id number])
[2022-07-24] MEDS ORDERED: PANTOprazole 80 MG in DEXTROSE 5% 100 ML IV ONE (15:45)
[2022-07-24] MEDS ORDERED: LORazepam 2 MG/1 ML VIAL IV STA (15:53)
[2022-07-24 16:03] LABS: Partial Thromboplastin Time 26.5 Seconds (21.0-31.0)
[2022-07-24 16:32] LABS: Influenza A virus by PCR Negative (Neg); Influenza B virus by PCR Negative (Neg); RSV by PCR Negative (Neg); SARS CoV2 RNA(COVID-19) Ceph NEGATIVE (Negative)
--- NOTE | 2022-07-24 16:44 | XCELERA ---
[id number]
--- NOTE | 2022-07-24 16:51 | Electrocardiogram Report ---
Test Reason : Blood Pressure : / mmHG Vent. Rate : 112 BPM Atrial Rate : 112 BPM P-R Int : 144 ms QRS Dur : 066 ms QT Int : 372 ms P-R-T Axes : 056 082 119 degrees QTc Int : 507 ms Sinus tachycardia Poor R wave progression, consider anterior CO vs. lead placement vs. LVH Minor Nonspecific T wave abnormality Lateral leads Abnormal ECG When compared with ECG of 04-JUL-2022 13:08, Borderline criteria for Inferior infarct are no longer Present Nonspecific T wave abnormality now present Lateral leads Confirmed by Abdirahman Leigh ([id number]) on 07/24/2022 4:51:13 PM Referred By: REFERRED SELF Confirmed By:Abdirahman Leigh
[2022-07-24 17:53] LABS: Potassium 3.3 mmol/L (3.5-5.1)
[2022-07-24] MEDS: PANTOprazole 40 MG in DEXTROSE 5% 100 ML IV SCH ×2 (17:53→22:35)
[2022-07-24] MEDS: ICU Protocol for HYPERglycemia SCH ×2 (17:54→20:54)
[2022-07-24 18:03] LABS: Troponin I High Sensitivity 77.3 pg/ml (0-14)
[2022-07-24 18:18] LABS: Hematocrit (blood only) 24.8 % (37.0-47.0); Hemoglobin 8.1 g/dl (12.0-16.0)
[2022-07-24] MEDS ORDERED: PHARMACY GLYCEMIC MGMT CONSULT PRN (18:18)
[2022-07-24 18:29] LABS: Appearance Urine Clear (Clear); Bilirubin Urine Negative (Negative); Blood Urine Negative (Negative); Color Urine Yellow; Glucose Urine UA Negative (Negative); Ketones Urine Negative (Negative); Leukocyte Esterase Urine Negative (Negative); Nitrite Urine Negative (Negative); Protein Urine Negative (Negative); Specific Gravity Urine 1.009 (1.000-1.030); Urobilinogen Urine Negative (Negative)
[2022-07-24 18:52] LABS: Total Protein Urine Random < 4.0 mg/dl (0-11.9)
[2022-07-24 18:57] LABS: Magnesium 1.4 mg/dl (1.7-2.4)
[2022-07-24 19:01] LABS: Creatinine Urine Random 3.6 mg/dl
[2022-07-24] MEDS ORDERED: MAGNESIUM SULFATE / D5W 1 GM/100 ML BAG IV SCH (19:15)
[2022-07-24] MEDS ORDERED: MAGNESIUM OXIDE 400 MG TAB PO STA (19:17)
[2022-07-24 19:19] LABS: Adenovirus PCR Not Detected (NotDetected); Bordetella parapertussis PCR Not Detected (NotDetected); Bordetella pertussis PCR Not Detected (NotDetected); Chlamydia pneumoniae PCR Not Detected (NotDetected); Coronavirus 229E PCR Not Detected (NotDetected); Coronavirus CoV-2 (COVID19)PCR Not Detected (NotDetected); Coronavirus HKU1 PCR Not Detected (NotDetected); Coronavirus NL63 PCR Not Detected (NotDetected); Coronavirus OC43PCR Not Detected (NotDetected); Human Metapneumovirus PCR Not Detected (NotDetected); Influenza A PCR Not Detected (NotDetected); Influenza B PCR Not Detected (NotDetected); Mycoplasma pneumoniae PCR Not Detected (NotDetected); Parainfluenza Virus 1 PCR Not Detected (NotDetected); Parainfluenza Virus 2 PCR Not Detected (NotDetected); Parainfluenza Virus 3 PCR Not Detected (NotDetected); Parainfluenza Virus 4 PCR Not Detected (NotDetected); Respiratory Syncytial VirusPCR Not Detected (NotDetected); Rhinovirus/Enterovirus PCR Not Detected (NotDetected)
[2022-07-24] MEDS: MAGNESIUM SULFATE / D5W 1 GM/100 ML BAG IV SCH ×2 (19:19→21:58)
--- NOTE | 2022-07-24 20:35 | Critical Care Consultation ---
Date of Consultation July 24, 2022 Assessment & Plan (1) Acute respiratory failure with hypoxia: Reason Critically Ill: 31-year-old female presents to the ICU with acute hypoxic respiratory failure, currently requiring high flow nasal cannula. CTA neg for PE but just bilateral pleural effusions and extensive airspace opacities . Undergoing diuresis for pulmonary congestion and treatment for presumed pneumonia. Neuro - Anxiety disorderpatient states that she has undiagnosed anxiety and appears to have compulsive behaviors which are untreated, including excessive showering and drinking of fluids throughout the day. She previously used marijuana but claims she stopped in April. We will consult psych for recommendations involving inpatient and ongoing treatment Cardiac - No prior cardiac history. Although patient does have elevated BNP echo shows normal ventricular and valvular function with EF 55%. - CTA chest does show trace pericardial effusion - EKG with sinus tachycardia, no ST elevation, mildly prolonged QTc of 507. Troponin slightly elevated at 60. Most likely demand ischemia given hypoxia, continue to trend. -Continue with diuresis - Continuous monitoring on telemetry Respiratory - Acute hypoxic respiratory failuresuspect this is multifactorial in the setting of pulmonary edema and pleural effusions versus multifocal pneumonia. - CTA chest negative for PE, read as above - consider thoracentesis for effusions? - Currently maintaining oxygen saturations on high flow nasal cannula which was used in favor of CPAP given recent pneumomediastinum which is now absent on CTA. -See ID for treatment of pneumonia - Continue IV Lasix 40 mg twice daily. Maintain negative fluid balance - Continuous monitoring on pulse ox. Wean FiO2 as tolerated -Follow-up chest x-ray in a.m. GI - Recent diagnosis for Boerhaave syndrome with resulting pneumomediastinum. History of GERD and recent EGD with esophagitis and gastritis. Also undergoing work-up for potential Gastroparesis. - Patient was started on Protonix drip due to concerns for underlying GI bleed given reduced hemoglobin. We will continue for now. - Advance diabetic diet as tolerated. RENAL/LYTES - Creatinine within normal limits. Monitor with routine BMPs. Limits fluid intake and currently undergoing diuresis. Replete electrolytes as indicated. - Strict I's and O's ENDO - DM type II (uncontrolled) Last hemoglobin A1c 9.0. Hold metformin in favor of sliding scale. ICU hyperglycemic protocol HEME - Anemia Unsure of etiology at this time but suspect that dilution/volume overload may be playing a role. Cannot rule out upper GI bleed at this time and currently on Protonix drip. Will obtain Hemoccult if possible. No indication for transfusion at this time. Monitor H&H every 6 ID - PneumoniaCTA chest suspicious for possible multifocal pneumonia. Low-grade fever of 38.1, no leukocytosis. Procalcitonin and lactate within normal limits. - Urinalysis unremarkable, viral panel negative. Blood cultures and sputum culture pending. - Continue with broad-spectrum antibiotics, cefepime. Vancomycin DC'd due to negative nasal MRSA. LINES/IV ACCESS - Peripheral IVs DVT PROPHYLAXIS - SCDs, hold anticoagulation for now given anemia and suspicion for GI bleed. I have personally spent 40 minutes of critical care time in the direct management of this patient. This is a life/limb threatening event. This includes time spent evaluating patient, direct bedside care, chart review, placing orders, interpretation of diagnostic studies, discussion with consultants, patient, and family members, as well as other required patient management activities. This time is exclusive of all separately billable procedures, and teaching time and separate from and in addition to any other critical care service time. Thank you for allowing us to participate in the care of this patient. Please refer to my attending physician's documentation for any further recommendations. (2) Diabetes mellitus type 2, uncontrolled: (3) Boerhaave syndrome: (4) Anemia: (5) Hypokalemia: (6) Pneumonia: (7) Pleural effusion: History of Present Illness Attending Physician: Lenny Christianson MD History of Present Illness Patient is a 31-year-old female with past medical history of Boerhaave syndrome with pneumomediastinum, anxiety disorder, Diabetes type 2, GERD who presented to the emergency department earlier this evening with hypoxia. Patient complained of cough and shortness of breath and worsening dyspnea with activity. She was noted to have oxygen saturations in the 80s and was placed on nonrebreather. She has since been transitioned to high flow nasal cannula. She does report chest pain associated with deep breathing. She reports recent lower extremity swelling and abdominal bloating. CTA chest was negative for PE but did show large and moderate bilateral pleural effusions and opacifications consistent with multifocal pneumonia versus edema.Patient was started on broad-spectrum antibiotics and given Lasix for diuresis. She had elevated BNP of 700 and appears volume overloaded on exam. Patient does report having compulsive behaviors for which she has not sought treatment, including compulsive intake of fluids. On arrival to the ICU the patient is alert and oriented. She is mildly tachypneic but no use of accessory muscles or labored breathing and is maintaining oxygen saturations with high flow nasal cannula. She has developed a mild fever of 38.1 C. She is hemodynamically stable. Currently she complains of headache and intermittent dizziness which she says has been ongoing for some time and mild cough which is nonproductive with associated sternal chest pain. Patient states that her shortness of breath has improved from earlier. She was responsive to Lasix and has diuresed over a liter. She currently denies congestion or sore throat, palpitations, abdominal pain, diarrhea, changes in gait, changes in urine stream or burning. Patient to remain in ICU for further management at this time. Allergies Allergy/AdvReac Type Severity Reaction Status Date / Time Penicillins Allergy Unknown HAPPENED Verified 07/16/22 13:43 A SMALL CHILD Home Medications Medication Instructions Recorded Confirmed Type blood sugar diagnostic ([employer] #100 ea 05/23/22 07/24/22 Rx Ultra Test strips) blood-glucose meter ([employer] #1 ea 05/23/22 07/24/22 Rx Ultra2 Meter) hydroxyzine HCl 25 mg tablet 25 mg PO HS PRN sleep #30 tabs 05/23/22 07/24/22 Rx insulin glargine 100 unit/mL (3 15 unit (0.15 mL) subcut QAM #15 mL 05/23/22 07/24/22 Rx mL) subcutaneous pen (Lantus Solostar U-100 Insulin) lancets 33 gauge ([employer] Delica #100 ea 05/23/22 07/24/22 Rx Lancets) ondansetron 4 mg disintegrating 4 mg PO Q6H PRN nausea and 05/23/22 07/24/22 Rx tablet vomiting #10 tabs pen needle, diabetic 32 gauge x #100 ea 05/23/22 07/24/22 Rx 5/32" (Comfort EZ Pen [place]) insulin aspart U-100 100 unit/mL 5 unit subcut DAILY PRN BSG control 06/09/22 07/24/22 History (3 mL) subcutaneous pen (Novolog FlexPen U-100 Insulin aspart) pantoprazole 40 mg tablet,delayed 40 mg PO BID #60 tabs 07/16/22 07/24/22 Rx release metformin 500 mg tablet,extended 500 mg PO UD 07/24/22 07/24/22 History release 24 hr Patient History Medical History Abnormal LFTs Acute renal failure Asthma in childhood, no inhaler Diabetes mellitus, type 2 DKA (diabetic ketoacidoses) currently an inpatient @ [facility] (to be discharged today 07/08/22) for this (admitted on 07/03/22 to [facility] ICU)--pt states she was having severe vomiting History of COVID-19 diagnosed 05/14/22--pt was admitted to [facility] ICU with DKA (found unresponsive and had confusion for 4 days, does not appear to have had any breathing issues, was on room air)--complaints of taste issues still and having vomiting Insomnia Morbid obesity with BMI of 40.0-44.9, adult Pneumomediastinum Surgical History No history of previous surgery Family History Other No family history of adverse response to anesthesia Social History Smoking Status: Former smoker Tobacco Type: E-cigarettes / Vaping Second Hand Exposure: No; Hx Alcohol Use: No Hx Substance Use: Yes Last Used Substance: Unknown Last Used Substance Other:: hx of cocaine use, clean for 8yrs ago Preferred Language: Persian Communication Ability: Effective Tap Builder Required: No Beliefs That Will Affect Care: None Current Living Situation: Significant Other Current Living Situation Comment: lives with boyfriend Aamir Bond current occupational status: employed Other Information That Helps Us Care for You: No Feels Safe at Home: Yes Safety Concerns: Feels Safe At This Time Assistive Devices: None Review of Systems Review of Systems: All systems reviewed & are unremarkable except as noted in HPI & below Physical Exam Constitutional: + obese, cooperative and comfortable Eyes: PERRL, conjunctivae normal, anicteric sclerae ENMT: external ear and nose normal, oropharynx normal Neck: trachea midline, no thyromegaly Respiratory: + cough and + tachypneic Lungs diminished bilaterally, no crackles or wheezes. Symmetrical chest wall movement Cardiovascular: Rate/Rhythm: regular rate, regular rhythm and + tachycardic Heart Sounds: normal S1 and normal S2; no murmur +2 pedal edema bilaterally in lower extremities. Gastrointestinal (Abdomen): normal bowel sounds, soft, nontender, no hepatosplenomegaly Musculoskeletal: no cyanosis or clubbing, extremities motor strength 5/5 Skin: no rashes, warm and dry Neurologic: PERRL, EOMI, accommodation nl, no face palsy, no dysarthria Psychiatric: Orientation: alert and oriented x 3 Affect: + anxious affect Results & Data Results & Data Vital Signs (Past 12 Hours) Vital Signs Temp Pulse Pulse Resp BP BP Pulse Ox 07/24/22 19:50 112 H 22 95 07/24/22 18:30 38.1 C H 112 H 26 H 96 07/24/22 18:12 38.1 C H 113 H 34 H 96 07/24/22 18:12 136/68 07/24/22 18:00 38.1 C H 114 H 31 H 96 07/24/22 17:36 121 H 26 H 95 07/24/22 18:35 07/24/22 18:00 116 H 07/24/22 17:52 36.8 C 117 H 30 H 135/78 97 07/24/22 16:55 115 H 24 99 07/24/22 16:30 117 H 40 H 99 07/24/22 16:00 109 H 34 H 93 07/24/22 16:00 157/88 H 07/24/22 16:42 116 H 07/24/22 15:43 115 H 18 93 07/24/22 15:43 147/81 H 07/24/22 15:30 110 H 41 H 93 07/24/22 15:00 105 H 37 H 90 07/24/22 15:00 150/85 H 07/24/22 14:30 109 H 20 91 07/24/22 14:30 150/90 H 07/24/22 14:24 158/100 H 07/24/22 14:24 107 H 34 H 90 07/24/22 14:00 108 H 30 H 90 07/24/22 13:30 106 H 27 H 87 L 07/24/22 13:00 110 H 29 H 89 L 07/24/22 12:44 109 H 20 97 07/24/22 12:45 110 H 07/24/22 12:42 96 07/24/22 12:42 19 94 07/24/22 12:42 89 L 07/24/22 12:32 07/24/22 12:32 37.3 C 116 H 26 H 174/97 H 89 L O2 Del Method O2 Flow Rate FiO2 07/24/22 19:50 High Flow Nasal Cannula 40 60 07/24/22 18:30 07/24/22 18:12 07/24/22 18:12 07/24/22 18:00 07/24/22 17:36 07/24/22 18:35 High Flow Nasal Cannula 40 80 07/24/22 18:00 07/24/22 17:52 High Flow Nasal Cannula 40 70 07/24/22 16:55 High Flow Nasal Cannula 40 100 07/24/22 16:30 High Flow Nasal Cannula 40 90 07/24/22 16:00 07/24/22 16:00 07/24/22 16:42 07/24/22 15:43 Oxymask 15 07/24/22 15:43 07/24/22 15:30 07/24/22 15:00 07/24/22 15:00 07/24/22 14:30 Oxymask 7 07/24/22 14:30 07/24/22 14:24 07/24/22 14:24 Nasal Cannula 5 07/24/22 14:00 07/24/22 13:30 07/24/22 13:00 07/24/22 12:44 07/24/22 12:45 07/24/22 12:42 Nasal Cannula 4 07/24/22 12:42 Nasal Cannula 4 07/24/22 12:42 Room Air 0 07/24/22 12:32 Room Air 07/24/22 12:32 Room Air Diagnostic Findings CT abd pelvis IV con only CLINICAL HISTORY: SOB, hx of Boerhaave syndrome TECHNIQUE: Helical axial images of the abdomen and pelvis were obtained and displayed. Automated dose lowering techniques and/or adjustment according to patient size were utilized for this exam. This exam was performed with intravenous contrast. COMPARISON: Comparison is made to CT abdomen pelvis 07/04/2022 FINDINGS: Lower chest: For findings above the diaphragm, please see CT chest performed sa me day. Liver: Focal fatty changes are noted about the falciform ligament. Gallbladder and biliary tree: Pericholecystic edema is seen. The gallbladder appears somewhat decreased in size from prior exam. No intra- or extrahepatic biliary ductal dilation. Pancreas: Unremarkable, no focal lesions. Spleen: Unremarkable. Adrenals: Unremarkable. Kidneys and ureters: Unremarkable. Bladder: Limited evaluation due to underdistention. Reproductive organs: Unremarkable. Bowel: The appendix is normal. Lymph nodes Retroperitoneal: Subcentimeter lymph nodes are noted. Pelvic: Unremarkable. Mesenteric: Unremarkable. Peritoneum: Normal. Vessels: Unremarkable. Abdominal wall: Mild subcutaneous fat stranding is seen. Bones: Degenerative changes in the visualized spine. 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 IMPRESSION: 1. Interval development of pericholecystic edema while the gallbladder is decrease in size. Clinical correlation for acute cholecystitis is recommended. 2. Additional findings as above. 3. Please see CT chest performed same day for findings above the diaphragm. ACT 112: Negative or not required by law. Electronically signed by: Godfrey Null M.D. 07/24/2022 2:[address] ANGIOGRAPHY OF THE CHEST, PULMONARY EMBOLUS PROTOCOL CLINICAL HISTORY: Chest Pain, eval for PE, history of pneumomediastinum COMPARISON STUDY: Chest CT July 04, 2022. TECHNIQUE: Following IV administration of 110 mL of Optiray, helical axial images of the chest were obtained utilizing the pulmonary embolus protocol. Maximal intensity projections and sagittal and coronal reformats were viewed on an independent 3D workstation. IV contrast was administered without complication. Automated exposure control was utilized for the study. A dose lowering technique was utilized adhering to the principles of ALARA. CT DOSE: 2107.63 mGy.cm FINDINGS: No pulmonary emboli are identified. Mild cardiomegaly is noted. No thoracic aortic dissection. There is a trace pericardial effusion. There is a small amount of mediastinal fluid. However, no pneumomediastinum is identified. Large right and moderate left pleural effusions have developed since prior chest CT July 04, 2022. There are extensive bilateral lower lobe airspace opacities. There are additional airspace opacities within the upper lobes. Interlobular septal thickening is noted. There are tiny nodular densities within the lungs. The abdomen and pelvis CT will be reported separately. There is no thoracic lymphadenopathy. IMPRESSION: 1. No pulmonary emboli identified. 2. Interval development of large right and moderate left pleural effusions. Extensive airspace opacities within the lungs, greatest within the lower lobes. The findings favor multifocal pneumonia however alveolar pulmonary edema could appear similar. Discussed with Dr. Evangelista at time of dictation. 3. Interlobular septal thickening suggestive of interstitial pulmonary edema. Mild cardiomegaly. Trace pericardial effusion. 4. Small amount of mediastinal fluid. No pneumomediastinum. ACT 112: Negative or not required by law. Electronically signed by: Govind Roblero M.D. 07/24/2022 2:55 PM Coding Level of Care Code 83498 CRITICAL CARE 1ST 30-74M Diagnoses Acute respiratory failure with hypoxia J96.01 Diabetes mellitus type 2, uncontrolled Boerhaave syndrome K22.3 Anemia D64.9 Hypokalemia E87.6 Pneumonia J18.9 Pleural effusion J90
[2022-07-24] MEDS: FUROSEMIDE 40 MG/4 ML VIAL IV SCH (20:46)
[2022-07-24] MEDS: ACETAMINOPHEN 325 MG TAB PO PRN (21:06)
[2022-07-24] MEDS: CEFEPIME 2,000 MG in SYRINGE 0 ML IV SCH (23:27)
[2022-07-25 00:53] LABS: Hematocrit (blood only) 21.4 % (37.0-47.0); Hemoglobin 7.1 g/dl (12.0-16.0)
[2022-07-25 01:10] LABS: Potassium 2.9 mmol/L (3.5-5.1)
[2022-07-25] MEDS ORDERED: POTASSIUM CHLORIDE 20 MEQ/15 ML UDC PO STA (01:19)
[2022-07-25] MEDS: POTASSIUM CHLORIDE / WTR 10 MEQ/100 ML PLCT IV SCH ×4 (01:29→04:28)
[2022-07-25] MEDS ORDERED: GLUCOSE 40% GEL 15 GM TUBE PO PRN (01:30)
[2022-07-25] MEDS ORDERED: DEXTROSE 50% 50 ML SYRINGE IV PRN (01:30)
[2022-07-25] MEDS ORDERED: GLUCOSE 10 TAB/TUBE PO PRN (01:30)
[2022-07-25] MEDS ORDERED: GLUCAGON FOR INJ 1 MG VIAL IM PRN (01:30)
[2022-07-25] MEDS ORDERED: CARBOHYDRATES FOR HYPOGLYCEMIA PO PRN (01:30)
[2022-07-25 02:15] LABS: Troponin I High Sensitivity 69.5 pg/ml (0-14)
[2022-07-25] MEDS ORDERED: CEFEPIME 2,000 MG in SYRINGE 0 ML IV SCH (03:00)
[2022-07-25] MEDS: PANTOprazole 40 MG in DEXTROSE 5% 100 ML IV SCH ×2 (03:42→09:28)
[2022-07-25] MEDS: ACETAMINOPHEN 325 MG TAB PO PRN ×2 (05:21→19:58)
[2022-07-25 06:01] LABS: Basophils # (auto) 0.02 K/uL (0-0.2); Basophils % (auto) 0.5 %; Eosinophils # (auto) 0.12 K/uL (0-0.50); Hematocrit (blood only) 23.3 % (37.0-47.0); Hemoglobin 7.7 g/dl (12.0-16.0); Immature Granulocytes # (auto) 0.01 K/uL (0.01-0.20); Immature Granulocytes % (auto) 0.3 %; Lymphocytes # (auto) 0.93 K/uL (1.2-3.4); Lymphocytes % (auto) 23.4 %; Mean Corpuscular Hemoglobin 29.1 pg (25.0-34.0); Mean Corpuscular Volume 87.9 fL (80.0-100.0); Mean Platelet Volume 10.7 fL (9.4-12.4); Monocytes # (auto) 0.31 K/uL (0.11-0.59); Monocytes % (auto) 7.8 %; Neutrophils # (auto) 2.59 K/uL (1.40-6.50); Platelet Count 289 K/uL (130-400); RDW Coefficient of Variation 18.2 % (11.5-14.5); RDW Standard Deviation 56.8 fL (36.4-46.3); Red Blood Count 2.65 M/uL (4.20-5.40); Reticulocyte % 4.5 % (0.5-2.0); Reticulocytes # 0.12 10^6/uL (0.02-0.10); White Blood Count 3.98 K/ul (4.8-10.8)
[2022-07-25] MEDS: CEFEPIME 2,000 MG in SYRINGE 0 ML IV SCH (06:07)
[2022-07-25 06:20] LABS: Alanine Aminotransferase 27 U/L (7-52); Albumin Globulin Ratio 1.1 (0.9-2); Albumin Level 3.3 gm/dl (3.4-5.0); Alkaline Phosphatase 135 U/L (34-104); Anion Gap 9 (3-11); Aspartate Aminotransferase 14 U/L (13-39); BUN Creatinine Ratio 16.7 (10-20); Blood Urea Nitrogen 8 mg/dl (6-23); Carbon Dioxide 30 mmol/L (21-32); Chloride 104 mmol/L (98-107); Creatinine Clr Calc Pharmacy 194.7 ml/min; Est GFR (African American) > 150.0 ml/min; Est GFR (Non-African American) 129.8 ml/min; Globulin 3.1 gm/dl (2.5-4.0); Glucose 152 mg/dl (70-99(Fasting)); Iron 32 mcg/dl (35-150); Magnesium 1.6 mg/dl (1.7-2.4); Potassium 3.8 mmol/L (3.5-5.1); Sodium 143 mmol/L (136-145); Total Iron Binding Cap Calc 178 mcg/dl (250-450); Total Protein 6.4 gm/dl (6.0-8.3); Transferrin (FE) Percent Satur 18 % (15-50); Unsaturated Iron Binding Cap 146 mcg/dl (155-355)
[2022-07-25 06:23] LABS: INR 1.2 (0.9-1.1); Prothrombin Time 12.4 Seconds (9.0-12.0)
[2022-07-25] MEDS ORDERED: POTASSIUM CHLORIDE CRTAB 20 MEQ TABCR PO STA ×2 (06:28→19:42)
[2022-07-25 06:29] LABS: Ferritin 602.5 ng/ml (8-388)
[2022-07-25] MEDS ORDERED: MAGNESIUM OXIDE 400 MG TAB PO STA ×2 (06:29→19:43)
[2022-07-25 06:53] LABS: RBC Morphology Unremarkable
--- NOTE | 2022-07-25 06:57 | XRay Report ---
XR chest 1V portable CLINICAL HISTORY: Respiratory failure. COMPARISON STUDY: Chest CT July 24, 2022. Chest radiograph July 04, 2022. FINDINGS: Bilateral pleural effusions are again noted. These are better depicted on prior chest CT. T here is no pneumothorax. Extensive bilateral airspace opacities are greater within the right lung. Th gamal have slightly progressed. Interstitial thickening persists. Mild cardiomegaly is unchanged. IMPRESSION: 1. Mild cardiomegaly with persistent pulmonary edema. Bilateral pleural effusions right larger than l eft, better depicted on prior chest CT. 2. Extensive bilateral airspace opacities which have mildly progressed. These could reflect superimpo sed multifocal pneumonia or pulmonary edema. ACT 112: Negative or not required by law. Electronically signed by: Govind Roblero M.D. 07/25/2022 6:54 AM
[2022-07-25] MEDS: MAGNESIUM SULFATE / D5W 1 GM/100 ML BAG IV SCH ×2 (07:46→09:31)
[2022-07-25] MEDS ORDERED: LANTUS PER UNIT CHARGE SQ SCH (09:00)
[2022-07-25] MEDS: FUROSEMIDE 40 MG/4 ML VIAL IV SCH ×2 (09:31→20:08)
--- NOTE | 2022-07-25 09:31 | Critical Care Progress Note ---
Date of Service July 25, 2022 Assessment & Plan (1) Pleural effusion: (2) Hypoxia: (3) Acute respiratory failure with hypoxia: (4) Diabetes mellitus type 2, uncontrolled: (5) Anemia: Plan Impression: 31-year-old female with poorly controlled diabetes presents with bilateral pleural effusions and fluid overload with pulmonary edema. She is stabilized with diuresis but has persistent effusions. Recommendations: 1. Neurologic: No acute issues. Continue to follow clinically. 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 Psych consult pending 2. Cardiovascular: Echocardiogram was technically limited but LV appeared normal size and function with normal right ventricular size and function. Effusions were identified. No significant valvular disease identified however study was limited with poor acoustic windows. No pericardial effusion was identified. Diastolic dysfunction was noted with an E to E prime ratio of 11. Continue aggressive diuresis. She is currently on Lasix 40 IV twice daily. We will add Aldactone and metolazone. Continue to follow kidney function and replace electrolytes as needed. Needs aggressive blood pressure control with target blood pressure less than 135/75. We will add CARLEE inhibitor 3. Pulmonary: Hypoxemic respiratory failure. Diffuse pulmonary infiltrates appear consistent with pulmonary edema. She is afebrile and her white count is normal so my suspicion for infectious etiologies is low. Think antibiotics can be discontinued and we will follow the patient clinically. Procalcitonin was normal. Large effusions. I will perform ultrasound-guided thoracentesis on the right today. Wean oxygen as tolerated. If the patient's oxygen can be supplied without high flow, we can likely transfer her to the floor. 4. GI: No current issues. Continue diet as tolerated. 5. Renal: Continue ICU replacement protocols. Aggressive diuresis. Await pleural fluid studies. No protein identified on urinalysis so nephrotic syndrome appears less likely. 6. ID: Do not suspect infectious etiology. Antibiotics will be discontinued. Continue to follow for now. 7. Endocrine: History of diabetes with poor compliance. No evidence of DKA currently. Continue glycemic control. 8. Heme-onc: Anemia. No evidence of acute blood loss currently. On Protonix drip. Think we can discontinue this and transition to bolus PPI dosing Should the patient's hemoglobin continue to fall, additional evaluation may be warranted. We will check LDH, haptoglobin, and reticulocyte count. We will follow in the ICU pending improvement of her respiratory status and decreasing oxygen requirement. Plan was discussed with bedside critical care nurse as well as with patient. Admission and Anticipated Discharge Date Admission Date: July 24, 2022 Subjective Patient seen and examined. EMR reviewed. Patient states that her breathing is improved from yesterday. She is not coughing or expectorating phlegm. She denies any chest pain or palpitations. She has noted some lower extremity edema. Review of Systems Review of Systems: All systems reviewed & are unremarkable except as noted in Subjective Physical Exam Constitutional: WD/WN, vitals as above Neck: trachea midline, no thyromegaly Respiratory: no respiratory distress, no labored breathing and not tachypneic Auscultation: + diminished lung sounds and + crackles Diminished at the bilateral bases Cardiovascular: Rate/Rhythm: regular rhythm; not tachycardic Extremities: + edema Gastrointestinal (Abdomen): normal bowel sounds, soft, nontender, no hepatosplenomegaly Musculoskeletal: Extremities: extremities normal to inspection Skin: no rashes, warm and dry Neurologic: Nonfocal exam Lymphatic: no cervical lymphadenopathy Results & Data Results & Data Vital Signs (Past 12 Hours) Vital Signs Temp Pulse Pulse Resp BP Pulse Ox O2 Del Method 07/25/22 08:16 106 H 20 96 High Flow Nasal Cannula 07/25/22 06:00 37.2 C 106 H 34 H 154/97 H 91 High Flow Nasal Cannula 07/25/22 05:00 36.8 C 116 H 32 H 155/86 H 86 L High Flow Nasal Cannula 07/25/22 05:34 107 H 26 H 94 High Flow Nasal Cannula 07/25/22 04:00 36.9 C 92 H 24 121/82 93 High Flow Nasal Cannula 07/25/22 03:32 93 H 20 94 High Flow Nasal Cannula 07/25/22 03:00 36.8 C 92 H 28 H 134/87 97 High Flow Nasal Cannula 07/25/22 02:00 36.8 C 93 H 28 H 138/86 94 High Flow Nasal Cannula 07/25/22 01:00 36.8 C 100 H 28 H 140/85 93 High Flow Nasal Cannula 07/25/22 00:00 37.0 C 92 H 26 H 122/74 96 High Flow Nasal Cannula 07/24/22 23:00 37.3 C 96 H 25 H 115/70 96 High Flow Nasal Cannula 07/24/22 22:00 37.6 C H 105 H 26 H 136/91 94 High Flow Nasal Cannula 07/24/22 22:48 99 H 20 98 High Flow Nasal Cannula 07/24/22 21:00 38.0 C H 110 H 24 158/91 H 94 High Flow Nasal Cannula O2 Flow Rate FiO2 07/25/22 08:16 40 60 07/25/22 06:00 40 60 07/25/22 05:00 30 40 07/25/22 05:34 40 45 07/25/22 04:00 30 40 07/25/22 03:32 30 40 07/25/22 03:00 35 50 07/25/22 02:00 35 50 07/25/22 01:00 35 50 07/25/22 00:00 35 50 07/24/22 23:00 35 50 07/24/22 22:00 40 60 07/24/22 22:48 35 50 07/24/22 21:00 40 60 Critical Care Results & Data Vital Signs (Past 12 Hours) Vital Signs Temp Pulse Pulse Resp BP Pulse Ox O2 Del Method 07/25/22 08:16 106 H 20 96 High Flow Nasal Cannula 07/25/22 06:00 37.2 C 106 H 34 H 154/97 H 91 High Flow Nasal Cannula 07/25/22 05:00 36.8 C 116 H 32 H 155/86 H 86 L High Flow Nasal Cannula 07/25/22 05:34 107 H 26 H 94 High Flow Nasal Cannula 07/25/22 04:00 36.9 C 92 H 24 121/82 93 High Flow Nasal Cannula 07/25/22 03:32 93 H 20 94 High Flow Nasal Cannula 07/25/22 03:00 36.8 C 92 H 28 H 134/87 97 High Flow Nasal Cannula 07/25/22 02:00 36.8 C 93 H 28 H 138/86 94 High Flow Nasal Cannula 07/25/22 01:00 36.8 C 100 H 28 H 140/85 93 High Flow Nasal Cannula 07/25/22 00:00 37.0 C 92 H 26 H 122/74 96 High Flow Nasal Cannula 07/24/22 23:00 37.3 C 96 H 25 H 115/70 96 High Flow Nasal Cannula 07/24/22 22:00 37.6 C H 105 H 26 H 136/91 94 High Flow Nasal Cannula 07/24/22 22:48 99 H 20 98 High Flow Nasal Cannula O2 Flow Rate FiO2 07/25/22 08:16 40 60 07/25/22 06:00 40 60 07/25/22 05:00 30 40 07/25/22 05:34 40 45 07/25/22 04:00 30 40 07/25/22 03:32 30 40 07/25/22 03:00 35 50 07/25/22 02:00 35 50 07/25/22 01:00 35 50 07/25/22 00:00 35 50 07/24/22 23:00 35 50 07/24/22 22:00 40 60 07/24/22 22:48 35 50 Lab & Micro Results (Past 24 Hours) RBC 2.65 M/uL (4.20-5.40) L 07/25/22 WBC 3.98 K/ul (4.8-10.8) L 07/25/22 Hgb 7.7 g/dl (12.0-16.0) L 07/25/22 Hct 23.3 % (37.0-47.0) L 07/25/22 MCV 87.9 fL (80.0-100.0) 07/25/22 MCH 29.1 pg (25.0-34.0) 07/25/22 MCHC 33.0 g/dL (32.0-36.0) 07/25/22 RDW Standard Deviation 56.8 fL (36.4-46.3) H 07/25/22 RDW Coefficient of Variation 18.2 % (11.5-14.5) H 07/25/22 Plt Count 289 K/uL (130-400) 07/25/22 MPV 10.7 fL (9.4-12.4) 07/25/22 Neutrophils (%) (Auto) 65.0 % 07/25/22 Lymphocytes (%) (Auto) 23.4 % 07/25/22 Monocytes # (Auto) 0.31 K/uL (0.11-0.59) 07/25/22 Eosinophils # (Auto) 0.12 K/uL (0-0.50) 07/25/22 Immature Granulocyte % (Auto) 0.3 % 07/25/22 Neutrophils # (Auto) 2.59 K/uL (1.40-6.50) 07/25/22 Lymphocytes # (Auto) 0.93 K/uL (1.2-3.4) L 07/25/22 Monocytes # (Auto) 0.31 K/uL (0.11-0.59) 07/25/22 Eosinophils # (Auto) 0.12 K/uL (0-0.50) 07/25/22 Basophils # (Auto) 0.02 K/uL (0-0.2) 07/25/22 Immature Granulocyte # (Auto) 0.01 K/uL (0.01-0.20) 3 Red Blood Cell Morphology Unremarkable 07/25/22 Polychromasia 1+ 07/24/22 Microcytosis Present 07/24/22 Stomatocytes 1+ 07/24/22 Na 143 mmol/L (136-145) 07/25/22 K 3.8 mmol/L (3.5-5.1) 07/25/22 Cl 104 mmol/L (98-107) 07/25/22 CO2 30 mmol/L (21-32) 07/25/22 Anion Gap 9 (3-11) 07/25/22 BUN 8 mg/dl (6-23) 07/25/22 Creatinine 0.48 mg/dl (0.6-1.2) L 07/25/22 Estimated GFR ( Amer) > 150.0 ml/min 07/25/22 Estimated GFR (Non-Af Amer) 129.8 ml/min 07/25/22 BUN/Creatinine Ratio 16.7 (10-20) 07/25/22 Glu 152 mg/dl (70-99(Fasting)) H 07/25/22 Ca 8.0 mg/dl (8.6-10.3) L 07/25/22 Total Bilirubin 1.0 mg/dl (0.2-1.0) 07/25/22 AST 14 U/L (13-39) 07/25/22 ALT 27 U/L (7-52) 07/25/22 Alkaline Phosphatase 135 U/L (34-104) H 07/25/22 TP 6.4 gm/dl (6.0-8.3) 07/25/22 Albumin 3.3 gm/dl (3.4-5.0) L 07/25/22 Globulin 3.1 gm/dl (2.5-4.0) 07/25/22 Albumin/Globulin Ratio 1.1 (0.9-2) 07/25/22 Lactate Dehydrogenase 250 U/L (86-244) H 07/25/22 Mg 1.6 mg/dl (1.7-2.4) L 07/25/22 05:10 Calcium Level 8.0 mg/dl (8.6-10.3) L 07/25/22 05:10 Prothromb Time International Ratio 1.2 (0.9-1.1) H 07/25/22 05 :10 Diagnostic Findings (Past 24 Hours) Chest CTA 07/24/22 12:35 CT ANGIOGRAPHY OF THE CHEST, PULMONARY EMBOLUS PROTOCOL CLINICAL HISTORY: Chest Pain, eval for PE, history of pneumomediastinum COMPARISON STUDY: Chest CT July 04, 2022. TECHNIQUE: Following IV administration of 110 mL of Optiray, helical axial images of the chest were obtained utilizing the pulmonary embolus protocol. Maximal intensity projections and sagittal and coronal reformats were viewed on an independent 3D workstation. IV contrast was administered without complication. Automated exposure control was utilized for the study. A dose l owering technique was utilized adhering to the principles of ALARA. CT DOSE: 2107.63 mGy.cm FINDINGS: No pulmonary emboli are identified. Mild cardiomegaly is noted. No thoracic aortic dissection. There is a trace pericardial effusion. There is a small amount of mediastinal fluid. However, no pneumomediastinum is identified. Large right and moderate left pleural effusions have developed since prior chest CT July 04, 2022. There are extensive bilateral lower lobe airspace opacities. There are additional airspace opacities within the upper lobes. Interlobular septal thickening is noted. There are tiny nodular densities within the lungs. The abdomen and pelvis CT will be reported separately. There is no thoracic lymphadenopathy. IMPRESSION: 1. No pulmonary emboli identified. 2. Interval development of large right and moderate left pleural effusions. Extensive airspace opacities within the lungs, greatest within the lower lobes. The findings favor multifocal pneumonia however alveolar pulmonary edema could appear similar. Discussed with Dr. Evangelista at time of dictation. 3. Interlobular septal thickening suggestive of interstitial pulmonary edema. Mild cardiomegaly. Trace pericardial effusion. 4. Small amount of mediastinal fluid. No pneumomediastinum. ACT 112: Negative or not required by law. Electronically signed by: Govind Roblero M.D. 07/24/2022 2:55 PM Abdomen/Pelvis CT 07/24/22 12:52 CT abd pelvis IV con only CLINICAL HISTORY: SOB, hx of Boerhaave syndrome TECHNIQUE: Helical axial images of the abdomen and pelvis were obtained and displayed. Automated dose lowering techniques and/or adjustment according to patient size were utilized for this exam. This exam was performed with intravenous contrast. COMPARISON: Comparison is made to CT abdomen pelvis 07/04/2022 FINDINGS: Lower chest: For findings above the diaphragm, please see CT chest performed same day. Liver: Focal fatty changes are noted about the falciform ligament. Gallbladder and biliary tree: Pericholecystic edema is seen. The gallbladder appears somewhat decreased in size from prior exam. No intra- or extrahepatic biliary ductal dilation. Pancreas: Unremarkable, no focal lesions. Spleen: Unremarkable. Adrenals: Unremarkable. Kidneys and ureters: Unremarkable. Bladder: Limited evaluation due to underdistention. Reproductive organs: Unremarkable. Bowel: The appendix is normal. Lymph nodes Retroperitoneal: Subcentimeter lymph nodes are noted. Pelvic: Unremarkable. Mesenteric: Unremarkable. Peritoneum: Normal. Vessels: Unremarkable. Abdominal wall: Mild subcutaneous fat stranding is seen. Bones: Degenerative changes in the visualized spine. 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 IMPRESSION: 1. Interval development of pericholecystic edema while the gallbladder is decrease in size. Clinical correlation for acute cholecystitis is recommended. 2. Additional findings as above. 3. Please see CT chest performed same day for findings above the diaphragm. ACT 112: Negative or not required by law. Electronically signed by: Godfrey Null M.D. 07/24/2022 2:39 PM Chest X-Ray 07/25/22 07:00 XR chest 1V portable CLINICAL HISTORY: Respiratory failure. COMPARISON STUDY: Chest CT July 24, 2022. Chest radiograph July 04, 2022. FINDINGS: Bilateral pleural effusions are again noted. These are better depicted on prior chest CT. There is no pneumothorax. Extensive bilateral airspace opacities are greater within the right lung. These have slightly progressed. Interstitial thickening persists. Mild cardiomegaly is unchanged. IMPRESSION: 1. Mild cardiomegaly with persistent pulmonary edema. Bilateral pleural effusions right larger than left, better depicted on prior chest CT. 2. Extensive bilateral airspace opacities which have mildly progressed. These could reflect superimposed multifocal pneumonia or pulmonary edema. ACT 112: Negative or not required by law. Electronically signed by: Govind Roblero M.D. 07/25/2022 6:54 AM I & O Totals 24 Hours 07/24/22 07/25/22 07/26/22 06:59 06:59 06:59 Intake Total 2682.333 / 2682.333 Output Total 4990 / 4990 Balance -2307.667 / -2307.667 Cumulative 07/24/22 12:18 thru 07/25/22 06:00 Intake Total 2682.333 Output Total 4990 Balance -2307.667 RT Ventilator Mngmt (Last Documented) Ventilator Ordered Settings Respiratory Rate 20 07/25/22 08:16 Fraction of Inspired Oxygen 60 07/25/22 08:16 Ventilator - PT Measurements Respiratory Rate 20 Coding Level of Care Code 28342 SUB INP/OBS CARE 3/50MIN Diagnoses Pleural effusion J90 Hypoxia R09.02 Acute respiratory failure with hypoxia J96.01 Diabetes mellitus type 2, uncontrolled Anemia D64.9
--- NOTE | 2022-07-25 09:32 | Procedure Note ---
Procedure Note Date of Service July 25, 2022 Note Procedure: Diagnostic therapeutic ultrasound-guided catheter thoracentesis, right Project Superintendent: Dr. Rafael Gates Indication: Pleural effusion Consent: Signed by patient and verified with timeout prior to procedure Anesthesia: 8 mL's 1% lidocaine without epinephrine local. Procedure: Consent was verified and timeout performed. Appropriate imaging studies were reviewed prior to the procedure. Patient was placed in a seated position and limited thoracic ultrasound was performed of the right chest. A moderate sized right effusion was identified with compressive atelectasis. Site appropriate for thoracentesis was selected. The skin was prepped and draped in normal sterile fashion. Lidocaine was used for local analgesia. Fluid was aspirated via the finder needle. A small skin doreen was made with the scalpel and the cath eter over the needle apparatus was advanced over the rib into the pleural space. Using the syringe one-way valve system, a total of 1100 mL's of clear yellow fluid was removed. Procedure was terminated due to inability to withdraw additional fluid. The catheter was removed and observed to be intact. A sterile dressing was applied. Post procedure chest x-ray was ordered. Postthoracentesis ultrasound demonstrated minimal residual fluid with lung sliding noted Fluid was sent for cytology, cell count differential, Gram stain and culture, LDH, pH, total protein, and glucose. The patient tolerated the procedure well without obvious complication Coding CPT Codes Pulmonary/Thoracic - Pulmonary and Thoracic: 96886 Thoracentesis w imaging ([id number]) [place] Procedure Codes (Charges) Pulmonary/Thoracic Procedure 1: Pulmonary and Thoracic: 57051 Thoracentesis w imaging
--- NOTE | 2022-07-25 09:41 | XRay Report ---
XR chest 1V portable CLINICAL HISTORY: S/P Thoracentesis COMPARISON STUDY: Chest radiograph performed earlier today. FINDINGS: There is no pneumothorax following right thoracentesis. Right pleural effusion has signific antly decreased in size. A left pleural effusion is again noted. Interstitial thickening persists. Ri ght lung airspace opacities have improved. Persistent retrocardiac airspace opacity. IMPRESSION: 1. No pneumothorax following right thoracentesis. Significant decrease in size of the right pleural e ffusion. Interval improvement in right lung aeration. 2. Persistent left pleural effusion with retrocardiac opacity. 3. Mild improvement in suspected pulmonary edema. ACT 112: Negative or not required by law. Electronically signed by: Govind Roblero M.D. 07/25/2022 9:39 AM
[2022-07-25] MEDS: metOLazone 2.5 MG TABLET PO SCH (09:47)
[2022-07-25] MEDS: lisinopril 10 MG TAB PO SCH (09:47)
[2022-07-25] MEDS: SPIRONOLACTONE 25 MG TAB PO SCH (09:47)
[2022-07-25 09:59] LABS: Reticulocyte % 4.7 % (0.5-2.0); Reticulocytes # 0.12 10^6/uL (0.02-0.10)
[2022-07-25 10:34] LABS: Glucose Pleural Fluid 172 mg/dl; LDH Pleural Fluid 83 U/L; Total Protein Pleural Fluid < 3.0 gm/dl
[2022-07-25 11:21] LABS: Appearance Pleural Fluid Clear; Color Pleural Fluid Pale Yellow; Eosinophils, Fluid 1 %; Lymphocytes, Fluid 11 %; Mono,Macrophage,Mesothelial 69 %; Neutrophils, Fluid 19 %; RBC Pleural Fluid Auto < 2000 /uL; Source Pleural Fluid Right Lung; WBC Pleural Fluid Auto 284 /uL
[2022-07-25] MEDS: INSULIN ASPART PER UNIT CHARGE SC SCH ×3 (11:37→20:19)
--- NOTE | 2022-07-25 12:14 | Hospitalist Progress Note ---
Date of Service July 25, 2022 Assessment & Plan (1) Acute respiratory failure with hypoxia: Plan: Continue to treat pulmonary edema. Doubt overt bacterial pneumonia. Wean oxygen off as tolerated. Appreciate critical care assistance. (2) Hypokalemia: Plan: Continue potassium replacement. Serial labs (3) Anemia: Plan: Hgb noted to be 7.7 today, down from 15.7 as of 07/04 . No overt GI bleeding. Iron studies pending. Currently on Protonix drip. Serial labs (4) Nausea & vomiting: Plan: Long hx of gastritis/esophagitis, cannabis hyperemesis syndrome . Currently on Protonix drip. (5) Elevated troponin: Plan: Suspect demand ischemia. No evidence of acute coronary syndrome. No regional wall motion abnormality seen on cardiac echo (6) Diabetes mellitus type 2, uncontrolled: Plan: ICU hypoglycemia protocol in place. Eventual advancement to ADA diet (7) Pulmonary edema: Plan: Suspected on admission. Lasix diuresis. Serial chest x-rays. Plan Anticipate eventual discharge to home Admission and Anticipated Discharge Date Admission Date: July 24, 2022 Subjective Alert and oriented. No acute distress. She underwent right sided thoracentesis today with aspiration of 1100 cc of fluid. Fluid studies are pending. She is in no acute distress. Chest x-ray is consistent with pulmonary edema that could possibly be noncardiogenic. Cardiac echo reveals a normal ejection fraction. Nevertheless, she is on IV Lasix diuresis. Oxygen will be weaned off as tolerated and she will need serial chest x-rays. Review of Systems Review of Systems: Constitutional-no fever or chills ENT-no blurred vision, no double vision, no epistaxis, no sore throat Respiratory-intermittent nonproductive cough. No hemoptysis. Dyspnea on exertion Cardiac-no palpitations, no chest pain, no syncope GI-no nausea, vomiting, diarrhea, melena, hematochezia -no urinary retention, no urinary incontinence, no dysuria, no hematuria Musculoskeletal-no joint pain, no muscle tenderness Skin-no bruising, no rashes, no pruritus Neuro-no isolated weakness, no paresthesia, no weakness Psych-no depression, no anxiety Physical Exam Physical Exam: General-alert and oriented x3, no fevers, no chills HEENT-head atraumatic and normocephalic, pupils equal and reactive to light, extraocular muscles intact Neck-no lymphadenopathy or thyromegaly, trachea midline Chest-bilateral inspiratory rales. Bilateral end expiratory wheezes. No rhonchi Cardiac-tachycardic rate. Regular rhythm, normal S1 and S2 Abdomen-normal bowel sounds, nontender, no hepatosplenomegaly Extremities-1+ pitting edema bilateral lower extremities below the knees Neuro-cranial nerves II through XII intact, motor and sensory function within normal limits, strength symmetrical , no focal deficits Psych-normal affect, normal mood Results & Data Results & Data Vital Signs (Past 12 Hours) Vital Signs Temp Pulse Pulse Resp BP Pulse Ox O2 Del Method 07/25/22 11:25 37.4 C 111 H 19 96 07/25/22 11:25 131/90 07/25/22 11:00 37.4 C 112 H 21 99 07/25/22 11:40 102 H 07/25/22 11:10 108 H 20 100 High Flow Nasal Cannula 07/25/22 10:00 37.2 C 102 H 17 95 07/25/22 09:00 37.2 C 105 H 36 H 96 07/25/22 08:00 37.1 C 103 H 41 H 95 07/25/22 08:00 150/99 H 07/25/22 07:00 37.3 C 101 H 33 H 92 07/25/22 07:00 147/91 H 07/25/22 06:45 37.3 C 104 H 40 H 92 07/25/22 10:07 High Flow Nasal Cannula 07/25/22 08:00 106 H 07/25/22 08:16 106 H 20 96 High Flow Nasal Cannula 07/25/22 06:00 37.2 C 106 H 34 H 154/97 H 91 High Flow Nasal Cannula 07/25/22 05:00 36.8 C 116 H 32 H 155/86 H 86 L High Flow Nasal Cannula 07/25/22 05:34 107 H 26 H 94 High Flow Nasal Cannula 07/25/22 04:00 36.9 C 92 H 24 121/82 93 High Flow Nasal Cannula 07/25/22 03:32 93 H 20 94 High Flow Nasal Cannula 07/25/22 03:00 36.8 C 92 H 28 H 134/87 97 High Flow Nasal Cannula 07/25/22 02:00 36.8 C 93 H 28 H 138/86 94 High Flow Nasal Cannula 07/25/22 01:00 36.8 C 100 H 28 H 140/85 93 High Flow Nasal Cannula O2 Flow Rate FiO2 07/25/22 11:25 07/25/22 11:25 07/25/22 11:00 07/25/22 11:40 07/25/22 11:10 25 40 07/25/22 10:00 07/25/22 09:00 07/25/22 08:00 07/25/22 08:00 07/25/22 07:00 07/25/22 07:00 07/25/22 06:45 07/25/22 10:07 25 40 07/25/22 08:00 07/25/22 08:16 40 60 07/25/22 06:00 40 60 07/25/22 05:00 30 40 07/25/22 05:34 40 45 07/25/22 04:00 30 40 07/25/22 03:32 30 40 07/25/22 03:00 35 50 07/25/22 02:00 35 50 07/25/22 01:00 35 50 Laboratory Results 07/25/22 05:10 07/25/22 05:10 PG Care Time/CCT Total # of Minutes Spent Total Time Spent with Patient: Total time spent is greater than 50% in coordination of care (as documented) at patient's floor/unit and/or counseling patient: Coding Level of Care Code 01974 SUB INP/OBS CARE 3/50MIN Diagnoses Acute respiratory failure with hypoxia J96.01 Hypokalemia E87.6 Anemia D64.9 Nausea & vomiting R11.2 Elevated troponin R77.8 Diabetes mellitus type 2, uncontrolled Pulmonary edema J81.1
--- NOTE | 2022-07-25 13:14 | Pharmacy Report ---
Pharmacy Glycemic Short Note 2 - Date of Service July 25, 2022 - Glycemic Short BSG Results (Last 24 hours): 07/24/22 07/24/22 07/24/22 13:10 17:50 20:49 Glucose 135 H POC Glucose 134 H 162 H 07/25/22 07/25/22 07/25/22 05:10 05:26 11:35 Glucose 152 H POC Glucose 154 H 188 H OUTPATIENT ANTIDIABETIC REGIMEN: * Lantus 15 units daily * Novolog 5 units with dinner * metformin 500 mg PO BID * HbA1C = 9.0% (05/29/22) ASSESSMENT: * Ms Becerra is a 31 y/o F with a PMH of T2DM who presents with difficulty breathing. Patient has not received steroids. * Yesterday (day of admission) patient's BSGs were 134-162 mg/dL. Fasting today is 154 mg/dL. * Continue Lantus 15 units daily with higher dose available for elevated BSGs. Per last admission, patient was maintained on Lantus 15 units BID but blood sugars were consistently below goal. * Novolog weight-based stress of 2 (adjusted body weight due to body habitus) PLAN FOR INPATIENT GLYCEMIC CONTROL: * Hold outpatient oral diabetes medications * Basal insulin * Lantus 15 units SQ daily (20 units if BSG > 140 mg/dL) * Bolus insulin * NovoLog per scale ACHS or Q6hrs while NPO * Goal Range: Low 110 mg/dL - High 140 mg/dL * Correction Factor: 25 mg/dL/unit * Nutritional / Prandial insulin per carb ratio of 1 unit per 8 grams CHO consumed
[2022-07-25] MEDS ORDERED: INSULIN ASPART PER UNIT CHARGE SC SCH (18:45)
[2022-07-25 19:17] LABS: Magnesium 1.9 mg/dl (1.7-2.4); Phosphorus 2.1 mg/dl (2.5-4.9)
[2022-07-25 19:18] LABS: BUN Creatinine Ratio 14.3 (10-20); Calcium 8.9 mg/dl (8.6-10.3); Creatinine Clr Calc Pharmacy 190.7 ml/min; Est GFR (African American) 149.4 ml/min; Est GFR (Non-African American) 128.9 ml/min; Potassium 3.2 mmol/L (3.5-5.1)
--- NOTE | 2022-07-25 19:34 | Psychiatric Consultation ---
Date of Consultation July 25, 2022 Impression / Recommendations Impression Pt appears clearly to meet diagnostic criteria for obsessive-compulsive disorder and generalized anxiety disorder. At least some of her recent water consumption was compulsive. There's a good chance this does not represent psychogenic polydipsia, which is very resistant to treatment. (1) NINA (generalized anxiety disorder): (2) Obsessive compulsive disorder: Plan Discussed several medication options. Pt elected to pursue a trial of paroxetine. Discussed rational for, alternatives to, and known potential adverse events associated with paroxetine, including weight gain, sexual side effects, sedation, and headaches as well as possible discontinuation effects if stopped abruptly. Recommend trial of paroxetine starting at 10 mg QAM, titrating by 10 mg weekly to a target of 40 mg QAM then allowing at least a 3-month trial (in the absence of intolerable side effects) Psych History Identifying Data JAMES PARISH is a 31-year-old F with no formal psychiatric history, admitted on 07/24/2022 for pulmonary edema. Consult is by the hospitalist service for anxiety. Chief Complaint "I can't switch off my thoughts". History of Present Illness 31 y/o F admitted yesterday with fluid overload of uncertain etiology in the context of protracted nausea and vomiting over the past 2 months. Her already substantial degree of chronic anxiety "went into overdrive" and she became consumed with health anxieties. Of possible note is that, possibly as a result of esophagitis due to vomiting, she began "{drinking water constantly" to soothe her throat. Even after an "actual throat discomfort went away" she kept constantly sipping water because she "just felt a compulsive need to". At one point recently she was using a 2.5-gallon insulated container and refilling it every 2 days, so was drinking 4.5 L of water per day in addition to "a bunch" of Gatorade and Propel. Pt reports a long history of intrusive, repetitive thoughts that are unpleasant primarily because "they're dumb and don't make sense". She showers "at least 3 times a day", often necessitated by touching trash or even the outside of a trash bag. She finds herself having to repeat phrases in her head or count thing s "for no good reason". Pt describes generalized anxiety symptoms but denies panic or social anxiety. Denies mood symptoms. She has never sought treatment for any of these problems Past Psychiatric History Previous Psych History: none Allergies Allergy/AdvReac Type Severity Reaction Status Date / Time Penicillins Allergy Unknown HAPPENED Verified 07/16/22 13:43 A SMALL CHILD Home Medications Medication Instructions Recorded Confirmed Type blood sugar diagnostic (OneTouch #100 ea 05/23/22 07/24/22 Rx Ultra Test strips) blood-glucose meter (OneTouch #1 ea 05/23/22 07/24/22 Rx Ultra2 Meter) hydroxyzine HCl 25 mg tablet 25 mg PO HS PRN sleep #30 tabs 05/23/22 07/24/22 Rx insulin glargine 100 unit/mL (3 15 unit (0.15 mL) subcut QAM #15 mL 05/23/22 07/24/22 Rx mL) subcutaneous pen (Lantus Solostar U-100 Insulin) lancets 33 gauge (OneTouch Delica #100 ea 05/23/22 07/24/22 Rx Lancets) ondansetron 4 mg disintegrating 4 mg PO Q6H PRN nausea and 05/23/22 07/24/22 Rx tablet vomiting #10 tabs pen needle, diabetic 32 gauge x #100 ea 05/23/22 07/24/22 Rx 5/32" (Comfort EZ Pen [place]) insulin aspart U-100 100 unit/mL 5 unit subcut DAILY PRN BSG control 06/09/22 07/24/22 History (3 mL) subcutaneous pen (Novolog FlexPen U-100 Insulin aspart) pantoprazole 40 mg tablet,delayed 40 mg PO BID #60 tabs 07/16/22 07/24/22 Rx release metformin 500 mg tablet,extended 500 mg PO UD 07/24/22 07/24/22 History release 24 hr Patient History Medical History Abnormal LFTs Acute renal failure Asthma in childhood, no inhaler Diabetes mellitus, type 2 DKA (diabetic ketoacidoses) currently an inpatient @ [facility] (to be discharged today 07/08/22) for this (admitted on 07/03/[address] [facility] ICU)--pt states she was having severe vomiting History of COVID-19 diagnosed 05/14/22--pt was admitted to [facility] ICU with DKA (found unresponsive and had confusion for 4 days, does not appear to have had any breathing issues, was on room air)--complaints of taste issues still and having vomiti ng Insomnia Morbid obesity with BMI of 40.0-44.9, adult Pneumomediastinum Surgical History No history of previous surgery Family History Other No family history of adverse response to anesthesia Social History Smoking Status: Former smoker Tobacco Type: E-cigarettes / Vaping Second Hand Exposure: No; Hx Alcohol Use: No Hx Substance Use: Yes Last Used Substance: Unknown Last Used Substance Other:: hx of cocaine use, clean for 8yrs ago Preferred Language: Frisian Communication Ability: Effective District Administrative Assistant Required: No Beliefs That Will Affect Care: None Current Living Situation: Significant Other Current Living Situation Comment: lives with boyfriend Aamir Bond current occupational status: employed Other Information That Helps Us Care for You: No Feels Safe at Home: Yes Safety Concerns: Feels Safe At This Time Assistive Devices: None Physical Exam Psychiatric: Orientation: alert, oriented to person, oriented to place, oriented to time and cooperative Eye Contact: good eye contact Motor Behavior: no abnormal motor movements Speech: normal rate/rhythm/volume of speech Affect: + anxious affect Mood: + anxious mood Thought Process: goal directed thought process, linear/logical thought process and clear/coherent thought process Thought Content: + obsessions, + cognitive distortions and + compulsions Suicidal Thoughts: denies suicidal thoughts, denies suicidal plan and denies suicidal intent Homicidal Thoughts: denies homicidal thoughts Hallucinations: no auditory hallucinations and no visual hallucinations Cognition: recent memory grossly intact, remote memory grossly intact, attention grossly intact and language grossly intact Estimated Intelligence: average estimated intelligence Insight: good insight Judgment: good judgement Vital Signs (Past 24 Hours): Last Vital Signs Temp 37.6 C H 07/25/22 17:00 Pulse 105 H 07/25/22 17:00 Resp 24 07/25/22 17:00 BP 131/86 07/25/22 17:00 Pulse Ox 95 07/25/22 17:00 O2 Del Method High Flow Nasal C annula 07/25/22 11:10 O2 Flow Rate 25 07/25/22 11:10 FiO2 40 07/25/22 11:10 Review of Systems Psychiatric: + abnormal sleep pattern (initial and middle insomnia) and + anxiety; no hopelessness, no panic attacks, no paranoia and no hallucinations Results & Data (PSY) Medications Administered Acetaminophen (Acetaminophen 325 Mg Tab) 650 mg PO Q4H PRN PRN Reason: Pain or Fever Stop: 08/23/22 20:54 Last Admin: 07/25/22 05:21 Dose: 650 mg Documented By: Admin: 07/24/22 21:06 Dose: 650 mg Documented By: CHELA Furosemide (Furosemide 40 Mg/4 Ml Vial) 40 mg IV BID REPLACED BY [facility] Stop: 08/23/22 20:59 Last Admin: 07/25/22 09:31 Dose: 40 mg Documented By: Admin: 07/24/22 20:46 Dose: 40 mg Documented By: CHELA Insulin Aspart (Insulin Aspart Per Unit Charge) 0 units [facility] Stop: 08/24/22 11:29 Last Admin: 07/25/22 17:16 Dose: 3 units Documented By: MICHELLE Co-signed By: FATOUMATA Admin: 07/25/22 11:37 Dose: 5 units Documented By: MICHELLE Co-signed By: AZALIA Lisinopril (Lisinopril 10 Mg Tab) 10 mg PO [facility] Stop: 08/24/22 09:29 Last Admin: 07/25/22 09:47 Dose: 10 mg Documented By: MICHELLE Metolazone (Metolazone 2.5 Mg Tablet) 2.5 mg PO [facility] Stop: 08/24/22 09:29 Last Admin: 07/25/22 09:47 Dose: 2.5 mg Documented By: MICHELLE Spironolactone (Spironolactone 25 Mg Tab) 25 mg PO [facility] Stop: 08/24/22 09:29 Last Admin: 07/25/22 09:47 Dose: 25 mg Documented By: MICHELLE Coding Level of Care Code 91425 IN/OBS CONSULT LVL 4,60M Diagnoses NINA (generalized anxiety disorder) F41.1 Obsessive compulsive disorder F42.9 Time Spent (min) 75
[2022-07-25] MEDS ORDERED: POTASSIUM PHOS 3 MMOL/1 ML INFUSION IV STA (19:42)
[2022-07-25] MEDS ORDERED: POTASSIUM PHOSPHATE 30 MMOL in SODIUM CHLORIDE 0.9% 500 ML IV ONE (20:00)
[2022-07-25] MEDS: PANTOprazole 40 MG in SYRINGE 0 ML IV SCH (20:08)
[2022-07-26 05:56] LABS: Basophils # (auto) 0.02 K/uL (0-0.2); Basophils % (auto) 0.5 %; Eosinophils # (auto) 0.12 K/uL (0-0.50); Eosinophils % (auto) 3.1 %; Hematocrit (blood only) 24.5 % (37.0-47.0); Hemoglobin 8.3 g/dl (12.0-16.0); Immature Granulocytes # (auto) 0.01 K/uL (0.01-0.20); Immature Granulocytes % (auto) 0.3 %; Lymphocytes # (auto) 1.16 K/uL (1.2-3.4); Lymphocytes % (auto) 29.7 %; Mean Corpuscular Hemoglobin 28.6 pg (25.0-34.0); Mean Corpuscular Hgb Conc 33.9 g/dL (32.0-36.0); Mean Corpuscular Volume 84.5 fL (80.0-100.0); Mean Platelet Volume 10.4 fL (9.4-12.4); Monocytes # (auto) 0.27 K/uL (0.11-0.59); Monocytes % (auto) 6.9 %; Neutrophils # (auto) 2.33 K/uL (1.40-6.50); Neutrophils % (auto) 59.5 %; Platelet Count 308 K/uL (130-400); RDW Coefficient of Variation 17.5 % (11.5-14.5); RDW Standard Deviation 53.4 fL (36.4-46.3); White Blood Count 3.91 K/ul (4.8-10.8)
[2022-07-26 06:13] LABS: Albumin Globulin Ratio 1.2 (0.9-2); Albumin Level 3.3 gm/dl (3.4-5.0); BUN Creatinine Ratio 18.2 (10-20); Bilirubin,Total 0.9 mg/dl (0.2-1.0); Calcium 8.5 mg/dl (8.6-10.3); Creatinine Clr Calc Pharmacy 169.9 ml/min; Est GFR (African American) 143.8 ml/min; Est GFR (Non-African American) 124.1 ml/min; Globulin 2.8 gm/dl (2.5-4.0); Magnesium 1.9 mg/dl (1.7-2.4); Potassium 3.6 mmol/L (3.5-5.1); Total Protein 6.1 gm/dl (6.0-8.3)
[2022-07-26 06:24] LABS: INR 1.1 (0.9-1.1); Prothrombin Time 11.4 Seconds (9.0-12.0)
[2022-07-26] MEDS: lisinopril 10 MG TAB PO SCH (08:05)
[2022-07-26] MEDS: SPIRONOLACTONE 25 MG TAB PO SCH (08:05)
[2022-07-26] MEDS: FUROSEMIDE 40 MG/4 ML VIAL IV SCH ×2 (08:06→20:35)
[2022-07-26] MEDS: PANTOprazole 40 MG in SYRINGE 0 ML IV SCH ×2 (08:06→20:34)
[2022-07-26] MEDS: INSULIN ASPART PER UNIT CHARGE SC SCH ×4 (08:06→20:33)
[2022-07-26] MEDS: metOLazone 2.5 MG TABLET PO SCH (08:06)
[2022-07-26] MEDS: LANTUS PER UNIT CHARGE SQ SCH (08:07)
[2022-07-26] MEDS ORDERED: LANTUS PER UNIT CHARGE SQ SCH (09:00)
--- NOTE | 2022-07-26 09:29 | XRay Report ---
XR chest 1V portable CLINICAL HISTORY: Congestive heart failure. COMPARISON STUDY: Chest CT July 24, 2022 and chest radiograph July 25, 2022 at 9:24 AM. FINDINGS: There is no pneumothorax. No residual right pleural effusion identified following thoracent esis. Moderate left pleural effusion is noted with persistent left basilar opacity. Pulmonary edema h as improved. Cardiomediastinal silhouette is stable. IMPRESSION: 1. Interval improvement in pulmonary edema. 2. Moderate left pleural effusion with left basilar opacity which could reflect consolidation or atel ectasis. 3. No pneumothorax. ACT 112: Negative or not required by law. Electronically signed by: Govind Roblero M.D. 07/26/2022 9:28 AM
--- NOTE | 2022-07-26 11:29 | Hospitalist Progress Note ---
Date of Service July 26, 2022 Assessment & Plan (1) Acute respiratory failure with hypoxia: Plan: Much improved with Lasix diuresis. Pulmonary edema has resolved nearly totally. No evidence of pneumonia. Antibiotics have been discontinued. Oxygen requirements have decreased dramatically. Wean oxygen off as tolerated. Appreciate critical care assistance. (2) Hypokalemia: Plan: Continue potassium replacement. Serial labs. Corrected (3) Anemia: Plan: Hemoglobin has improved to 8.3 with diuresis. No evidence of GI bleeding. Protonix drip has been discontinued. Serial labs (4) Nausea & vomiting: Plan: Long hx of gastritis/esophagitis, cannabis hyperemesis syndrome . Now resolved. Protonix drip has been discontinued. (5) Elevated troponin: Plan: Suspect demand ischemia. No evidence of acute coronary syndrome. No regional wall motion abnormality seen on cardiac echo (6) Diabetes mellitus type 2, uncontrolled: Plan: ADA diet. Sliding scale coverage. Continue usual home medications (7) Pulmonary edema: Plan: POA. Much improved with Lasix diuresis. Chest x-ray done today, July 26, looks much better. No evidence of pneumonia. Plan Anticipate eventual discharge to home soon, after oxygen has been weaned off. Possibly tomorrow, July 27 Admission and Anticipated Discharge Date Admission Date: July 24, 2022 Subjective Much improved with brisk Lasix diuresis and right thoracentesis completed yesterday, July 25. Chest x-ray is better. Oxygen requirements are markedly improved. Hopefully she can be weaned off oxygen soon. Metoprolol added for heart rate and blood pressure control. She is off the Protonix drip. No evidence of GI bleeding. Hemoglobin improved to 8.3. Potassium improved to 3.6. Review of Systems Review of Systems: Constitutional-no fever or chills ENT-no blurred vision, no double vision, no epistaxis, no sore throat Respiratory-intermittent nonproductive cough. No hemoptysis. Dyspnea on exer tion has markedly improved Cardiac-no palpitations, no chest pain, no syncope GI-no nausea, vomiting, diarrhea, melena, hematochezia -no urinary retention, no urinary incontinence, no dysuria, no hematuria Musculoskeletal-no joint pain, no muscle tenderness Skin-no bruising, no rashes, no pruritus Neuro-no isolated weakness, no paresthesia, no weakness Psych-no depression, no anxiety Physical Exam Physical Exam: General-alert and oriented x3, no fevers, no chills HEENT-head atraumatic and normocephalic, pupils equal and reactive to light, extraocular muscles intact Neck-no lymphadenopathy or thyromegaly, trachea midline Chest-bilateral rales have markedly improved. Wheezing has resolved. No rhonchi Cardiac-tachycardic rate. Regular rhythm, normal S1 and S2 Abdomen-normal bowel sounds, nontender, no hepatosplenomegaly Extremities-1+ pitting edema bilateral lower extremities below the knees Neuro-cranial nerves II through XII intact, motor and sensory function within normal limits, strength symmetrical , no focal deficits Psych-normal affect, normal mood Results & Data Results & Data Vital Signs (Past 12 Hours) Vital Signs Temp Pulse Resp Pulse Ox O2 Del Method O2 Flow Rate 07/26/22 11:17 101 H 07/26/22 09:00 37.2 C 101 H 23 96 07/26/22 08:00 37.1 C 99 H 25 H 99 07/26/22 07:00 37.2 C 99 H 27 H 97 07/26/22 06:45 37.2 C 96 H 23 98 07/26/22 09:35 Nasal Cannula 2 07/26/22 08:00 101 H Laboratory Results 07/26/22 05:36 07/26/22 05:36 PG Care Time/CCT Total # of Minutes Spent Total Time Spent with Patient: Total time spent is greater than 50% in coordination of care (as documented) at patient's floor/unit and/or counseling patient: Coding Level of Care Code 80169 SUB INP/OBS CARE 3/50MIN Diagnoses Acute respiratory failure with hypoxia J96.01 Hypokalemia E87.6 Anemia D64.9 Nausea & vomiting R11.2 Elevated troponin R77.8 Diabetes mellitus type 2, uncontrolled Pulmonary edema J81.1
[2022-07-26] MEDS: METOPROLOL TARTRATE 50 MG TAB PO SCH ×2 (11:38→20:33)
[2022-07-26] MEDS ORDERED: POTASSIUM PHOS 3 MMOL/1 ML INFUSION IV STA (11:40)
[2022-07-26] MEDS ORDERED: POTASSIUM PHOSPHATE 24 MMOL in DEXTROSE 5% 500 ML IV ONE (11:45)
[2022-07-27 06:58] LABS: Basophils # (auto) 0.02 K/uL (0-0.2); Basophils % (auto) 0.3 %; Eosinophils # (auto) 0.14 K/uL (0-0.50); Eosinophils % (auto) 2.4 %; Hematocrit (blood only) 28.3 % (37.0-47.0); Hemoglobin 9.6 g/dl (12.0-16.0); Immature Granulocytes # (auto) 0.02 K/uL (0.01-0.20); Immature Granulocytes % (auto) 0.3 %; Lymphocytes # (auto) 1.42 K/uL (1.2-3.4); Lymphocytes % (auto) 24.1 %; Mean Corpuscular Hemoglobin 28.5 pg (25.0-34.0); Mean Corpuscular Hgb Conc 33.9 g/dL (32.0-36.0); Mean Platelet Volume 10.5 fL (9.4-12.4); Monocytes % (auto) 6.8 %; Neutrophils # (auto) 3.88 K/uL (1.40-6.50); Neutrophils % (auto) 66.1 %; Platelet Count 378 K/uL (130-400); RDW Coefficient of Variation 17.5 % (11.5-14.5); RDW Standard Deviation 52.3 fL (36.4-46.3); Red Blood Count 3.37 M/uL (4.20-5.40); White Blood Count 5.88 K/ul (4.8-10.8)
[2022-07-27 07:29] LABS: Albumin Globulin Ratio 1.1 (0.9-2); Albumin Level 3.5 gm/dl (3.4-5.0); Bilirubin,Total 0.8 mg/dl (0.2-1.0); Creatinine Clr Calc Pharmacy 122.5 ml/min; Est GFR (African American) 120.3 ml/min; Est GFR (Non-African American) 103.8 ml/min; Globulin 3.2 gm/dl (2.5-4.0); Magnesium 1.9 mg/dl (1.7-2.4); Phosphorus 5.3 mg/dl (2.5-4.9); Potassium 3.6 mmol/L (3.5-5.1); Total Protein 6.7 gm/dl (6.0-8.3)
[2022-07-27 07:38] LABS: Prothrombin Time 10.9 Seconds (9.0-12.0)
[2022-07-27] MEDS: INSULIN ASPART PER UNIT CHARGE SC SCH ×4 (08:22→20:18)
[2022-07-27] MEDS: LANTUS PER UNIT CHARGE SQ SCH (08:23)
[2022-07-27] MEDS: metOLazone 2.5 MG TABLET PO SCH (08:37)
[2022-07-27] MEDS: lisinopril 10 MG TAB PO SCH (08:37)
[2022-07-27] MEDS: FUROSEMIDE 40 MG/4 ML VIAL IV SCH ×2 (08:37→20:58)
[2022-07-27] MEDS: SPIRONOLACTONE 25 MG TAB PO SCH (08:38)
[2022-07-27] MEDS: METOPROLOL TARTRATE 50 MG TAB PO SCH (08:38)
[2022-07-27] MEDS: PANTOprazole 40 MG in SYRINGE 0 ML IV SCH (08:40)
[2022-07-27 11:34] LABS: iSTAT Arterial Blood Gas HCO3 28 meg/L (19-24); iSTAT Arterial Blood Gas pCO2 38 mmHg (35-46); iSTAT Arterial Blood Gas pH 7.47 (7.35-7.45); iSTAT Arterial Blood Gas pO2 94 mmHg (80-95); iSTAT Carbon Dioxide 29 mmol/L (24-31); iSTAT Hematocrit 25 % (37-47); iSTAT Hemoglobin 8.5 g/dl (12.0-16.0); iSTAT Potassium 2.9 mmol/L (3.3-5.0); iSTAT Sodium 143 mmol/L (135-144)
[2022-07-27] MEDS ORDERED: MAGNESIUM SULFATE / D5W 1 GM/100 ML BAG IV ONE (13:45)
--- NOTE | 2022-07-27 13:45 | Hospitalist Progress Note ---
Date of Service July 27, 2022 Assessment & Plan (1) Acute respiratory failure with hypoxia: Plan: Secondary to acute pulmonary edema with pleural effusions from volume overload from recent hospitalization for pneumomediastinum as well as excessive p.o. intake at home-drinking 4.5 L of water per day in addition to Gatorade Now much improved with Lasix diuresis and right-sided thoracentesis with removal of 1100 mL of clear yellow fluid which was transudative by lights criteria, cytology with histiocytes, benign mesothelial cells, and scattered mixed inflammation, negative for malignancy,Pleural fluid culture no growth to date, AFB smear negative. Initially on full facemask 15 L now down to 2 L nasal cannula,Initially in ICU and downgraded to PCU on 07/26 CTA chest negative for PE, no evidence of pneumonia. Antibiotics have been discontinued. -Continue IV diuresis, Aldactone, but will discontinue metolazone for relative hypotension causing lightheadedness -Repeat chest x-ray on 07/27 shows significant improvement on the right with some atelectasis and ongoing pleural effusion but improved on the left (2) Pulmonary edema: Plan: POA. Much improved with Lasix diuresis. Improving as above (3) Pleural effusion: Plan: As above (4) Chest pain: Plan: Had acute on chronic right-sided chest pain evaluated in 07/27 ECG with prolonged QTc but no ischemic changes, troponin continues to be trending downward Reproducible with palpation of the right chest wall Chest x-ray improving pleural effusions and pulmonary edema Could be intercostal muscle strain from previous severe vomiting -Trial of lidocaine patch -Tylenol as needed (5) Prolonged QT interval: Plan: QT even further prolonged today at 568 She is not on any QT prolonging medications Will give 1 g of IV magnesium sulfate to keep above 2.0 Consider cardiology consultation if persist Follow EKG in the morning Follow on telemetry (6) Hypokalemia: Plan: Continue potassium replacement. Serial labs. Corrected Continue Aldactone, stop metolazone Follow BMP (7) Anemia: Plan: Hemoglobin 7.7 on admission but now up to 9.6 with IV diuresis No bowel movement since admission in 3 days so do not suspect GI bleeding Probably had some acute blood loss anemia from her previous gastritis and Boerhaave syndrome Iron transferrin saturation was 18%, ferritin elevated at 602, serum iron mildly low at 32 B12 low at 216-will replace Folate normal TSH normal in April 2022 EGD 07/09 as an outpatient showed gastritis Was on Protonix drip initially and now on 40 IV twice daily-convert to p.o. for this evening Follow CBC in the morning (8) Nausea & vomiting: Plan: Long hx of gastritis/esophagitis, cannabis hyperemesis syndrome . Now resolved. Protonix drip has been discontinued. Convert to p.o. Protonix Never started Emend prescribed to her on discharge from [place] 2 weeks ago due to prior authorization not approved yet (9) Elevated troponin: Plan: Suspect demand ischemia. No evidence of acute coronary syndrome. No regional wall motion abnormality seen on cardiac echo Troponin continues to trend downward ECG without ischemic changes again on 07/27 with musculoskeletal chest pain (10) Diabetes mellitus type 2, uncontrolled: Plan: ADA diet. Sliding scale coverage. Continue usual home medications (11) Obsessive compulsive disorder: Plan: Diagnosed by psychiatry this admission Paxil 10 mg daily recommended to be started with titration up to 40 mg daily, however her prolonged QT is prohibitive of starting this at this time Appreciate psychiatry consultation Plan DVT prophylaxis-okay to start low-dose Lovenox given no evidence of GI bleeding and improvement in hemoglobin Disposition-continued stay in PCU Admission and Anticipated Discharge Date Admission Date: July 24, 2022 Subjective Patient seen acutely midday as was complaining of right-sided chest pain. She reports that since her oxygen was weaned to 1 L today she felt heavy pressure in the right side of her chest that was nonradiating, 6/10 in severity, worse with inspiration. She feels like this pain has been there all along since her hospitalization a few weeks ago where she was transferred to [place] and wonders if it is a muscle she pulled on her chest from all the vomiting she had previously. Does feel anxious and is hopeful that an antidepressant will help this, however her QT is prolonged and I cannot start her Paxil. Discussed her case with psychiatry. She denies any further nausea and is tolerating turkey sandwiches daily. Telemetry with normal sinus rhythm and rates in the 90s to 100s Physical Exam Constitutional: WD/WN, vitals as above well developed and + obese; no acute distress and not ill appearing Eyes: + anicteric sclerae Neck: trachea midline, no thyromegaly Respiratory: normal respiratory effort; no labored breathing and not tachypneic Auscultation: + diminished lung sounds (At left base); no crackles, no rhonchi and no wheezes Cardiovascular: RRR, no murmur, no edema Chest (Breasts): Additional Comments: Positive tenderness to palpation over right anterior superior chest wall at site of pain Gastrointestinal (Abdomen): normal bowel sounds, soft, nontender, no hepatosplenomegaly Musculoskeletal: Extremities: extremities normal to inspection; no cyanosis and no clubbing Skin: no rashes, warm and dry Neurologic: moves all extremities and awake; no focal motor deficits Psychiatric: Orientation: alert, oriented x 3 and cooperative Affect: + anxious affect Lymphatic: no lymphedema Results & Data Results & Data Vital Signs (Past 12 Hours) Vital Signs Temp Pulse Resp BP Pulse Ox O2 Del Method O2 Flow Rate 07/27/22 08:00 Nasal Cannula 2 07/27/22 11:54 36.8 C 96 H 21 99/68 L 96 Nasal Cannula 1.0 07/27/22 08:06 36.8 C 105 H 18 106/67 99 Nasal Cannula 2.0 07/27/22 04:15 36.7 C 98 H 16 92/53 L 96 Nasal Cannula 2 PG Care Time/CCT Total # of Minutes Spent Total Time Spent with Patient: Total time spent is greater than 50% in coordination of care (as documented) at patient's floor/unit and/or counseling patient: Coding Level of Care Code 60985 SUB INP/OBS CARE 3/50MIN Diagnoses Acute respiratory failure with hypoxia J96.01 Pulmonary edema J81.1 Pleural effusion J90 Chest pain R07.9 Prolonged QT interval R94.31 Hypokalemia E87.6 Anemia D64.9 Nausea & vomiting R11.2 Elevated troponin R77.8 Diabetes mellitus type 2, uncontrolled Obsessive compulsive disorder F42.9
--- NOTE | 2022-07-27 14:13 | XRay Report ---
SINGLE VIEW CHEST CLINICAL HISTORY: Pleural effusions. Atypical chest pain. FINDINGS: An AP, portable, upright chest radiograph is compared to study dated 07/26/2022 and correlate d with chest CT dated 07/24/2022. The cardiomediastinal silhouette is unremarkable. There is only mild persistent pulmonary vascular congestion. There is a left pleural effusion with left basilar consolid ation. There is no large pleural effusions on the right. There is bibasilar scarring/atelectasis. No pneumothorax is seen. The bony thorax is grossly intact. IMPRESSION: 1. Layering left pleural effusion with left basilar consolidation. 2. No residual pleural fluid is seen on the right. 3. There is mild persistent pulmonary vascular congestion.. ACT 112: Negative or not required by law. Electronically signed by: Claudio Pool M.D. 07/27/2022 2:11 PM
[2022-07-27] MEDS: LIDOCAINE 5% 1 PATCH TD SCH (14:24)
[2022-07-27] MEDS: ENOXAPARIN INJ 40 MG/0.4 ML SYR SQ SCH (20:42)
[2022-07-27] MEDS: PANTOprazole 40 MG TAB PO SCH (20:44)
[2022-07-27] MEDS: CYANOCOBALAMIN 1000 MCG/ML VIAL IM SCH (20:46)
[2022-07-28 07:42] LABS: Basophils # (auto) 0.02 K/uL (0-0.2); Basophils % (auto) 0.3 %; Eosinophils # (auto) 0.13 K/uL (0-0.50); Hematocrit (blood only) 28.6 % (37.0-47.0); Hemoglobin 9.6 g/dl (12.0-16.0); Immature Granulocytes # (auto) 0.03 K/uL (0.01-0.20); Immature Granulocytes % (auto) 0.5 %; Lymphocytes # (auto) 1.76 K/uL (1.2-3.4); Lymphocytes % (auto) 27.4 %; Mean Corpuscular Hemoglobin 28.7 pg (25.0-34.0); Mean Corpuscular Hgb Conc 33.6 g/dL (32.0-36.0); Mean Corpuscular Volume 85.6 fL (80.0-100.0); Mean Platelet Volume 10.9 fL (9.4-12.4); Monocytes # (auto) 0.45 K/uL (0.11-0.59); Neutrophils # (auto) 4.03 K/uL (1.40-6.50); Neutrophils % (auto) 62.8 %; Platelet Count 393 K/uL (130-400); RDW Coefficient of Variation 17.3 % (11.5-14.5); RDW Standard Deviation 52.9 fL (36.4-46.3); Red Blood Count 3.34 M/uL (4.20-5.40); White Blood Count 6.42 K/ul (4.8-10.8)
[2022-07-28 07:53] LABS: BUN Creatinine Ratio 31.9 (10-20); Calcium 8.9 mg/dl (8.6-10.3); Creatinine Clr Calc Pharmacy 98.6 ml/min; Est GFR (Non-African American) 80.3 ml/min; Magnesium 2.1 mg/dl (1.7-2.4); Potassium 3.7 mmol/L (3.5-5.1)
[2022-07-28] MEDS: INSULIN ASPART PER UNIT CHARGE SC SCH ×4 (08:31→21:20)
[2022-07-28] MEDS: PANTOprazole 40 MG TAB PO SCH ×2 (08:44→21:30)
[2022-07-28] MEDS: LIDOCAINE 5% 1 PATCH TD SCH (08:44)
[2022-07-28] MEDS: CYANOCOBALAMIN 1000 MCG/ML VIAL IM SCH (08:44)
[2022-07-28] MEDS: SPIRONOLACTONE 25 MG TAB PO SCH (08:45)
[2022-07-28] MEDS: FUROSEMIDE 40 MG/4 ML VIAL IV SCH ×2 (08:47→21:40)
[2022-07-28] MEDS ORDERED: LANTUS PER UNIT CHARGE SQ SCH (09:00)
[2022-07-28] MEDS ORDERED: POTASSIUM CHLORIDE CRTAB 20 MEQ TABCR PO STA (09:44)
--- NOTE | 2022-07-28 10:46 | Hospitalist Progress Note ---
Date of Service July 28, 2022 Assessment & Plan (1) Acute respiratory failure with hypoxia: Plan: Secondary to acute pulmonary edema with pleural effusions from volume overload from recent hospitalization for pneumomediastinum as well as excessive p.o. intake at home-drinking 4.5 L of water per day in addition to Gatorade Now much improved with Lasix diuresis and right-sided thoracentesis with removal of 1100 mL of clear yellow fluid which was transudative by lights criteria, cytology with histiocytes, benign mesothelial cells, and scattered mixed inflammation, negative for malignancy,Pleural fluid culture no growth to date, AFB smear negative. Initially on full facemask 15 L now down to 2 L nasal cannula and POx 100% Initially in ICU and downgraded to PCU on 07/26 CTA chest negative for PE, no evidence of pneumonia. Antibiotics have been discontinued. Repeat chest x-ray on 07/27 shows significant improvement on the right with some atelectasis and ongoing pleural effusion but improved on the left Weight down 4.4kg, I/O = -7.3L, peripheral edema improved, still with left pleural effusion ECHO with preserved EF, normal valves -Continue IV diuresis w/ lasix, Aldactone, but have since discontinued metolazone for relative hypotension causing lightheadedness -wean off supplemental O2 -continue ICS (2) Pulmonary edema: Plan: POA. Much improved with Lasix diuresis. Improving as above (3) Pleural effusion: Plan: As above follow CXR periodically (4) Chest pain: Plan: Had acute on chronic right-sided chest pain evaluated in 07/27 ECG with prolonged QTc but no ischemic changes, troponin continues to be trending downward Reproducible with palpation of the right chest wall Chest x-ray improving pleural effusions and pulmonary edema Could be intercostal muscle strain from previous severe vomiting Now much improved with lidocaine patch -Tylenol as needed (5) Prolonged QT interval: Plan: QT prolonged at 568 but in the past as high as 600 for at least the last 4 years She is not on any QT prolonging medications No definite syncope related to arrhythmias but has had multiple hospitalizations for DKA and dehydration, was unresponsive iearlier this year keep magnesium and potassium replete Will consult cardiology -will need EP eval Follow EKG in the morning Follow on telemetry-no arrhythmias (6) Hypokalemia: Plan: Continue potassium replacement. Serial labs. Continue Aldactone, stopped metolazone Follow BMP, mag (7) Anemia: Plan: Hemoglobin 7.7 on admission but now up to 9.6 with IV diuresis and stable No bowel movement since admission in 4 days so do not suspect GI bleeding Probably had some acute blood loss anemia from her previous gastritis and Boerhaave syndrome Iron transferrin saturation was 18%, ferritin elevated at 602, serum iron mildly low at 32 B12 low at 216-will replace with IM B12 x 3 days, then convert to po B12 Folate normal TSH normal in April 2022 EGD 07/09 as an outpatient showed gastritis Was on Protonix drip initially and now on po PPI bid Follow CBC in the morning (8) Nausea & vomiting: Plan: Long hx of gastritis/esophagitis, cannabis hyperemesis syndrome . Now resolved. Protonix drip has been discontinued. Converted to p.o. Protonix Never started Emend prescribed to her on discharge from [place] 2 weeks ago due to prior authorization not approved yet-does not seem to cause prolonged QT but may hesitate to start at this time (9) Elevated troponin: Plan: Suspect demand ischemia. No evidence of acute coronary syndrome. No regional wall motion abnormality seen on cardiac echo Troponin continues to trend downward ECG without ischemic changes again on 07/27 with musculoskeletal chest pain (10) Diabetes mellitus type 2, uncontrolled: Plan: ADA diet. Sliding scale coverage and [place], pharmacy managing. HgbA1C 9.0%, uncontrolled in 05/2022 (11) Obsessive compulsive disorder: Plan: Diagnosed by psychiatry this admission Paxil 10 mg daily recommended to be started with titration up to 40 mg daily, however her prolonged QT is prohibitive of starting this at this time Appreciate psychiatry consultation Plan DVT prophylaxis- Lovenox SQ given no evidence of GI bleeding and improvement in hemoglobin Disposition-continued stay in PCU Admission and Anticipated Discharge Date Admission Date: July 24, 2022 Subjective Pt feeling much better today. CP on right side much improved with lidocaine patch, able to get ICS to 750mL. Not lightheaded. Mild nausea this AM but now improved. Tele with NSR, ST, no arrhythmias Physical Exam Constitutional: WD/WN, vitals as above well developed and + obese; no acute distress and not ill appearing Eyes: + anicteric sclerae Neck: trachea midline, no thyromegaly Respiratory: normal respiratory effort; no labored breathing and not tachypneic Auscultation: + diminished lung sounds (At left base); no crackles, no rhonchi and no wheezes Cardiovascular: RRR, no murmur, no edema Gastrointestinal (Abdomen): normal bowel sounds, soft, nontender, no hepatosplenomegaly Musculoskeletal: Extremities: extremities normal to inspection; no cyanosis and no clubbing Skin: no rashes, warm and dry Neurologic: moves all extremities and awake; no focal motor deficits Psychiatric: Orientation: alert, oriented x 3 and cooperative Affect: euthymic affect Lymphatic: no lymphedema Results & Data Results & Data Vital Signs (Past 12 Hours) Vital Signs Temp Pulse Pulse Resp BP Pulse Ox O2 Del Method 07/28/22 07:53 36.8 C 104 H 18 111/76 100 Nasal Cannula 07/28/22 02:55 36.7 C 99 H 20 96/63 L 99 Nasal Cannula 07/27/22 23:32 36.8 C 101 H 22 100/68 98 Nasal Cannula 07/27/22 23:00 105 H O2 Flow Rate 07/28/22 07:53 2 07/28/22 02:55 2 07/27/22 23:32 2 07/27/22 23:00 Laboratory Results CBC, BMP, Magnesium reviewed ECG Additional Comments: ECG with sinus tach, rate 107, TW inversion V2 and avL similar to previous, QTc prolonged at 528, but improved from previous (561) PG Care Time/CCT Total # of Minutes Spent Total Time Spent with Patient: Total time spent is greater than 50% in coordination of care (as documented) at patient's floor/unit and/or counseling patient: Coding Level of Care Code 31797 SUB INP/OBS CARE 3/50MIN Diagnoses Acute respiratory failure with hypoxia J96.01 Pulmonary edema J81.1 Pleural effusion J90 Chest pain R07.9 Prolonged QT interval R94.31 Hypokalemia E87.6 Anemia D64.9 Nausea & vomiting R11.2 Elevated troponin R77.8 Diabetes mellitus type 2, uncontrolled Obsessive compulsive disorder F42.9
--- NOTE | 2022-07-28 14:00 | Pharmacy Report ---
Pharmacy Glycemic Short Note 2 - Date of Service July 28, 2022 - Glycemic Short BSG Results (Last 24 hours): 07/27/22 07/27/22 07/28/22 16:07 20:15 06:36 Glucose 161 H POC Glucose 181 H 138 H 07/28/22 07/28/22 07:33 11:23 Glucose POC Glucose 172 H 156 H OUTPATIENT ANTIDIABETIC REGIMEN: * Lantus 15 units daily * Novolog 5 units with dinner * metformin 500 mg PO BID * HbA1C = 9.0% (05/29/22) ASSESSMENT: 07/28: * The patient received a total of 41 units of insulin yesterday, of which 20 were basal. * Stressors are stable at this time * Fasting BSGs trending upwards, will increase Lantus 10% to cover * Prandial BSGs are still above goal range, Novolog parameters tightened 07/25: * Ms Becerra is a 31 y/o F with a PMH of T2DM who presents with difficulty breathing. Patient has not received steroids. * Yesterday (day of admission) patient's BSGs were 134-162 mg/dL. Fasting today is 154 mg/dL. * Continue Lantus 15 units daily with higher dose available for elevated BSGs. Per last admission, patient was maintained on Lantus 15 units BID but blood sugars were consistently below goal. * Novolog weight-based stress of 2 (adjusted body weight due to body habitus) PLAN FOR INPATIENT GLYCEMIC CONTROL: * Hold outpatient oral diabetes medications * Basal insulin * Lantus 22 units SQ daily * Bolus insulin * NovoLog per scale ACHS or Q6hrs while NPO * Goal Range: Low 110 mg/dL - High 140 mg/dL * Correction Factor: 20 mg/dL/unit * Nutritional / Prandial insulin per carb ratio of 1 unit per 7 grams CHO consumed
--- NOTE | 2022-07-28 14:08 | Communication Note ---
Date of Service: July 28, 2022 Impression / Recommendations Impression 07/27/2022: Pt was disappointed to learn that her QTc has increased and that currently it does not appear advisable to start paroxetine. She has reported no increase or change in her anxiety, which remains at her baseline. She remains interested in pursuing treatment following discharge. 07/25/2022: Pt appears clearly to meet diagnostic criteria for obsessive-compulsive disorder and generalized anxiety disorder. At least some of her recent water consumption was compulsive. There's a good chance this does not represent psychogenic polydipsia, which is very resistant to treatment. (1) Obsessive compulsive disorder: Present on Admission?: Yes None (2) NINA (generalized anxiety disorder): Present on Admission?: Yes None Plan Once pt is medically stable and QTc is no longer prolonged, I believe she remains a good candidate for paroxetine, starting with 10 mg PO daily and titrating by 10 mg per week to a targe of 40 mg PO daily. Inventory Assets Strengths: supportive relationships, voluntary, good insight, intelligent Needs: medication adjustment, additional coping skills, increased outpatient services Suicide Risk Level Suicide Risk Level: Low (q15 min observation checks) Suicide Risk Level Comments: denies any suicidal thoughts Risk Factors Assessment Male: No : Yes Do You Have Access To A Gun?: No Health Problems: Yes Mental Health Diagnoses: Yes Substance Use Disorders: No Previous Attempt: No Family History of Suicide: No Previous Psychiatric Hospitalization: No Hopelessness: No Protective Factors Assessment Stable Relationships: Yes Supportive Family: Yes Good Rapport with Provider: Yes
--- NOTE | 2022-07-28 17:18 | Cardiology Consultation ---
Date of Consultation July 28, 2022 Assessment & Plan (1) Prolonged QT interval: (2) Chest pain: Plan ASSESSMENT/PLAN: 1. Prolonged QT: Has some ECGs with prolonged QT and others with acceptable QT. No obvious current agent to account for prolonged QT, but has had prolonged QT in 2020. No recent symptoms to suggest symptomatic prolonged QT however reports 3 separate syncopal episodes 6 or more years ago. Recommend electrophysiology consultation, which can be done as an outpatient. Can start low-dose propanolol; long-term treatment plan to be determined by electrophysiology. Recommend avoiding medications which can prolong QT. No obvious arrhythmia on telemetry during this hospital stay. Any future testing can be determined by electrophysiology. Can repeat ECG during this hospital stay. 2. Chest pain: Chest pain appears to be noncardiac. She is tender on exam, suggesting musculoskeletal origin. Fortunately, this has been improving. As per primary hospitalist service. 3. Disposition: Cardiology will sign off for now. Please call with any questions or concerns. Recommend outpatient electrophysiology consultation upon discharge. Patient care communicated with Dr. Call of the primary hospitalist service. Thank you for allowing me to participate in the care of your patient. Please call for any other questions or concerns. Sincerely, Jaron Martin M.D. History of Present Illness Reason for Consultation: Long QT Requesting Physician: Susy Call MD Attending Physician: Susy Call MD History of Present Illness Ms. Becerra is a pleasant 31-year-old female with a history significant for type 2 diabetes, recurrent DKA, asthma, and prolonged QT. She also was diagnosed with pneumomediastinum in June 2022 and was transferred to [facility] but did not require surgery. Consultation was requested due to prolonged QT on ECG. She was admitted on 07/24/2022 with acute respiratory failure with hypoxia. This was felt to be multifactorial by hospitalist service, including hypervolemia. She apparently had consumed large amounts of fluids and also received IV fluids during recent hospital stays. Her oxygen saturation was in the 80s on room air on arrival and CT imaging on 07/24/2022 demonstrated no PE but large right and moderate left pleural effusions with extensive airspace opacities within the lungs, favoring multifocal pneumonia per radiology. Interlobar septal thickening suggested interstitial pulmonary edema per radiology. She has been diuresed and was weaned from supplemental oxygen. Her net fluid balance this hospital stay is nearly 8.2 L negative. She states that her breathing is much better. She had orthopnea but this has since resolved although she has not tried to lay completely flat yet. Edema has resolved. She has had right sided chest pain for at least a month or more but this has improved. She is wearing a lidocaine patch to help improve this. She has had mild lightheadedness today with movements, but not necessarily positional. She admits that she has been quite sedentary with her recent medical issues. She denies any recent syncope, near syncope, palpitations, or bleeding. She does recall having 3 episodes of syncope in the past, at least 6 or more years ago. She recalls feeling lightheaded and then losing consciousness on 3 separate occasions all of which while standing. One was while consuming water standing up, one was while standing on an outside deck and the other 1 was standing at work. These events were witnessed and she recalls being told that she lost consciousness for 30 to 60 seconds. She has not had any further syncope. As an outpatient, she is prescribed hydroxyzine. It is not clear if or how often she uses this medication. She had been using Zofran once daily for approximately 2 weeks but this has since been discontinued. Her oldest ECG on file available for review was on 08/08/2018 and her QT appeared normal. ECG on 12/18/2019 demonstrated prolonged QT of approximately 494 ms when corrected. ECG on 05/14/2022 demonstrated significant artifact. ECG on 06/09/2022 demonstrated normal QT. ECGs during this hospital stay however have demonstrated prolonged QT. Review of systems: As above. Review of systems otherwise negative/unremarkable. Family history: No known sudden cardiac . No known premature CAD in first- degree relatives. Social history: She quit smoking in April 2022. Denies alcohol or drug abuse. She lives with her boyfriend. No children. 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 She was unaccompanied in her hospital room. Allergies Allergy/AdvReac Type Severity Reaction Status Date / Time Penicillins Allergy Unknown HAPPENED Verified 07/16/22 13:43 A SMALL CHILD Home Medications Medication Instructions Recorded Confirmed Type blood sugar diagnostic (TigerTradeuch #100 ea 05/23/22 07/24/22 Rx Ultra Test strips) blood-glucose meter (TigerTradeuch #1 ea 05/23/22 07/24/22 Rx Ultra2 Meter) hydroxyzine HCl 25 mg tablet 25 mg PO HS PRN sleep #30 tabs 05/23/22 07/24/22 Rx insulin glargine 100 unit/mL (3 15 unit (0.15 mL) subcut QAM #15 mL 05/23/22 07/24/22 Rx mL) subcutaneous pen (Lantus Solostar U-100 Insulin) lancets 33 gauge (OneTouch Delica #100 ea 05/23/22 07/24/22 Rx Lancets) ondansetron 4 mg disintegrating 4 mg PO Q6H PRN nausea and 05/23/22 07/24/22 Rx tablet vomiting #10 tabs pen needle, diabetic 32 gauge x #100 ea 05/23/22 07/24/22 Rx 5/32" (Comfort EZ Pen Hitchcock) insulin aspart U-100 100 unit/mL 5 unit subcut DAILY PRN BSG control 06/09/22 07/24/22 History (3 mL) subcutaneous pen (Novolog FlexPen U-100 Insulin aspart) pantoprazole 40 mg tablet,delayed 40 mg PO BID #60 tabs 07/16/22 07/24/22 Rx release metformin 500 mg tablet,extended 500 mg PO UD 07/24/22 07/24/22 History release 24 hr Patient History Medical History Abnormal LFTs Acute renal failure Asthma in childhood, no inhaler Diabetes mellitus, type 2 DKA (diabetic ketoacidoses) currently an inpatient @ [facility] (to be discharged today 07/08/22) for this (admitted on 07/03/22 to [facility] ICU)--pt states she was having severe vomiting History of COVID-19 diagnosed 05/14/22--pt was admitted to [facility] ICU with DKA (found unresponsive and had confusion for 4 days, does not appear to have had any breathing issues, was on room air)--complaints of taste issues still and having vomiting Insomnia Morbid obesity with BMI of 40.0-44.9, adult Pneumomediastinum Surgical History No history of previous surgery Family History Other No family history of adverse response to anesthesia Social History Smoking Status: Former smoker Tobacco Type: E-cigarettes / Vaping Second Hand Exposure: No; Hx Alcohol Use: No Hx Substance Use: Yes Last Used Substance: Unknown Last Used Substance Other:: hx of cocaine use, clean for 8yrs ago Preferred Language: Korean Communication Ability: Effective Grainer Machine Required: No Beliefs That Will Affect Care: None Current Living Situation: Significant Other Current Living Situation Comment: lives with boyfriend Aamir Bond current occupational status: employed Other Information That Helps Us Care for You: No Feels Safe at Home: Yes Safety Concerns: Feels Safe At This Time Assistive Devices: None Physical Exam Physical Exam: Gen.: No acute distress. Alert and oriented. HEENT: Anicteric sclera. Neck: No JVD. No bruits. Normal carotid upstrokes bilaterally. Cardiac: No ventricular heave. Regular. Normal S1-S2. No murmurs, rubs, or gallops. Pulmonary: Clear to auscultation bilaterally without wheezes, rales, or rhonchi. Abdomen: Soft, nontender, nondistended, with normoactive bowel sounds. No bruits noted. Extremities: 2+ radial pulses bilaterally. 2+ posterior tibialis pulses bilaterally. No edema or cyanosis. Psychiatric: Affect appears appropriate. Chest: Right-sided chest tenderness, reproducing her chest pain described in HPI. Results & Data Vital Signs (Past 12 Hours) Vital Signs Temp Pulse Resp BP Pulse Ox O2 Del Method O2 Flow Rate 07/28/22 16:18 36.8 C 102 H 18 99/67 L 95 Room Air 07/28/22 11:51 36.8 C 101 H 18 103/68 97 Room Air 07/28/22 08:00 Nasal Cannula 07/28/22 07:53 36.8 C 104 H 18 111/76 100 Nasal Cannula 2 Intake & Output 07/26/22 07/27/22 07/28/22 07/29/22 06:59 06:59 06:59 06:59 Intake Total 2115.333 / 2115.333 1738 / 1738 1345 / 1345 Output Total 6450 / 6450 2825 / 2825 1000 / 1000 800 / 800 Balance -4334.667 / -4334.667 -1087 / -1087 345 / 345 -800 / -800 Weight 230 lb 9.656 oz 229 lb 4.492 oz 227 lb 8.273 oz Laboratory Results Laboratory Results - last 24 hr 07/27/22 07/28/22 07/28/22 20:15 06:36 06:36 WBC 6.42 RBC 3.34 L Hgb 9.6 L Hct 28.6 L MCV 85.6 MCH 28.7 MCHC 33.6 RDW Std Deviation 52.9 H RDW Coeff of Sandy 17.3 H Plt Count 393 MPV 10.9 Immature Gran % (Auto) 0.5 Neut % (Auto) 62.8 Lymph % (Auto) 27.4 Gosper % (Auto) 7.0 Eos % (Auto) 2.0 Baso % (Auto) 0.3 Neut # (Auto) 4.03 Lymph # (Auto) 1.76 Gosper # (Auto) 0.45 Eos # (Auto) 0.13 Baso # (Auto) 0.02 Immature Gran # (Auto) 0.03 Sodium 137 Potassium 3.7 Chloride 95 L Carbon Dioxide 31 Anion Gap 11 BUN 30 H Creatinine 0.94 Est Cr Clr Drug Dosing 98.6 Est GFR ( Amer) 93.0 Est GFR (Non-Af Amer) 80.3 BUN/Creatinine Ratio 31.9 H Glucose 161 H POC Glucose 138 H Calcium 8.9 Magnesium 2.1 07/28/22 07/28/22 07/28/22 07:33 11:23 16:01 WBC RBC Hgb Hct MCV MCH MCHC RDW Std Deviation RDW Coeff of Sandy Plt Count MPV Immature Gran % (Auto) Neut % (Auto) Lymph % (Auto) Gosper % (Auto) Eos % (Auto) Baso % (Auto) Neut # (Auto) Lymph # (Auto) Gosper # (Auto) Eos # (Auto) Baso # (Auto) Immature Gran # (Auto) Sodium Potassium Chloride Carbon Dioxide Anion Gap BUN Creatinine Est Cr Clr Drug Dosing Est GFR ( Amer) Est GFR (Non-Af Amer) BUN/Creatinine Ratio Glucose POC Glucose 172 H 156 H 125 H Calcium Magnesium Diagnostic Findings On 07/28/2022, several ECGs personally reviewed as summarized in HPI. The rhythm was sinus. Telemetry personally reviewed: Sinus with sinus tachycardia in the low 100s. Labs reviewed from 07/28/2022 demonstrated normal potassium, normal magnesium, normal renal function, anemia. TSH from 05/14/2022 was normal. CTA chest report reviewed as noted above in HPI. Psychiatric consultation from 07/25/2022 reviewed: Paroxetine was recommended for obsessive-compulsive disorder and generalized anxiety disorder. Echo 07/24/2022: Normal LV size, wall motion, systolic function. EF 55 to 60%. No significant valvular abnormality. Large left pleural effusion. Medications Administered Current Inpatient Medications Acetaminophen (Acetaminophen 325 Mg Tab) 650 mg PO Q4H PRN PRN Reason: Pain or Fever Stop: 08/23/22 20:54 Last Admin: 07/25/22 19:58 Dose: 650 mg Cyanocobalamin (Cyanocobalamin 1000 Mcg/Ml Vial) 1,000 mcg IM QAM GALI Stop: 07/29/22 09:01 Last Admin: 07/28/22 08:44 Dose: 1,000 mcg Dextrose (Dextrose 50% 50 Ml Syringe) 25 - 50 ml IV UD PRN; Protocol PRN Reason: Hypoglycemia Protocol Stop: 08/24/22 01:29 Enoxaparin Sodium (Enoxaparin Inj 40 Mg/0.4 Ml Syr) 40 mg SQ Q24H GALI Stop: 08/26/22 20:29 Last Admin: 07/27/22 20:42 Dose: 40 mg Furosemide (Furosemide 40 Mg/4 Ml Vial) 40 mg IV BID GALI Stop: 08/23/22 20:59 Last Admin: 07/28/22 08:47 Dose: 40 mg Glucagon (Glucagon For Inj 1 Mg Vial) 1 mg IM UD PRN; Protocol PRN Reason: Hypoglycemia Protocol Stop: 08/24/22 01:29 Glucose (Glucose 40% Gel 15 Gm Tube) 15 - 30 gm PO UD PRN; Protocol PRN Reason: Hypoglycemia Protocol Stop: 08/24/22 01:29 Glucose (Glucose 10 Tab/Tube) 4 - 8 tab PO UD PRN; Protocol PRN Reason: Hypoglycemia Protocol Stop: 08/24/22 01:29 Insulin Aspart (Insulin Aspart Per Unit Charge) 0 units SC ACHS GALI Stop: 08/24/22 11:29 Last Admin: 07/28/22 16:51 Dose: 5 units Insulin Glargine (Lantus Per Unit Charge) 22 units SQ [facility]; Protocol Stop: 08/25/22 08:59 Last Admin: 07/28/22 08:32 Dose: 22 units Lidocaine (Lidocaine 5% 1 Patch) 1 patch TD [facility] Stop: 08/26/22 13:44 Last Admin: 07/28/22 08:44 Dose: 1 patch Miscellaneous (Carbohydrates For Hypoglycemia ) 15 - 30 gm PO UD PRN PRN Reason: Hypoglycemia Treatment Stop: 08/24/22 01:29 Miscellaneous (Remove Lidoderm Patch) 1 each N/A DAILY@2100 [facility] Stop: 08/26/22 20:59 Last Admin: 07/27/22 20:59 Dose: 1 each Miscellaneous Information (Pharmacy Glycemic Mgmt Consult) 1 each N/A UD PRN; Protocol PRN Reason: Consult Stop: 08/23/22 18:17 Pantoprazole Sodium (Pantoprazole 40 Mg Tab) 40 mg PO BID [facility] Stop: 08/26/22 20:59 Last Admin: 07/28/22 08:44 Dose: 40 mg Spironolactone (Spironolactone 25 Mg Tab) 25 mg PO [facility] Stop: 08/24/22 09:29 Last Admin: 07/28/22 08:45 Dose: 25 mg PG Care Time/CCT Total # of Minutes Spent Total Time Spent with Patient: Total time spent is greater than 50% in coordination of care (as documented) at patient's floor/unit and/or counseling patient: Coding Level of Care Code 22363 INT INP/OBS CARE 2/55MIN Diagnoses Prolonged QT interval R94.31 Chest pain R07.9
[2022-07-28] MEDS: PROPRANOLOL HCL 20 MG TAB PO SCH (21:30)
[2022-07-28] MEDS: ENOXAPARIN INJ 40 MG/0.4 ML SYR SQ SCH (21:30)
--- NOTE | 2022-07-29 05:59 | Electrocardiogram Report ---
Test Reason : Blood Pressure : / mmHG Vent. Rate : 097 BPM Atrial Rate : 097 BPM P-R Int : 146 ms QRS Dur : 064 ms QT Int : 442 ms P-R-T Axes : 029 018 105 degrees QTc Int : 561 ms Normal sinus rhythm Nonspecific T wave abnormality Prolonged QT Abnormal ECG When compared with ECG of 24-JUL-2022 12:39, Questionable change in QRS axis Confirmed by Osbaldo Martin ([id number]) on 07/29/2022 5:58:57 AM Referred By: REFERRED SELF Confirmed By:Osbaldo Martin
[2022-07-29 07:50] LABS: Basophils # (auto) 0.03 K/uL (0-0.2); Basophils % (auto) 0.5 %; Eosinophils # (auto) 0.13 K/uL (0-0.50); Eosinophils % (auto) 2.3 %; Hematocrit (blood only) 27.4 % (37.0-47.0); Hemoglobin 9.3 g/dl (12.0-16.0); Immature Granulocytes # (auto) 0.04 K/uL (0.01-0.20); Immature Granulocytes % (auto) 0.7 %; Lymphocytes # (auto) 1.48 K/uL (1.2-3.4); Lymphocytes % (auto) 26.1 %; Mean Corpuscular Hemoglobin 29.1 pg (25.0-34.0); Mean Corpuscular Hgb Conc 33.9 g/dL (32.0-36.0); Mean Corpuscular Volume 85.6 fL (80.0-100.0); Mean Platelet Volume 10.9 fL (9.4-12.4); Monocytes # (auto) 0.41 K/uL (0.11-0.59); Monocytes % (auto) 7.2 %; Neutrophils # (auto) 3.58 K/uL (1.40-6.50); Neutrophils % (auto) 63.2 %; Platelet Count 406 K/uL (130-400); RDW Coefficient of Variation 17.2 % (11.5-14.5); RDW Standard Deviation 53.5 fL (36.4-46.3); White Blood Count 5.67 K/ul (4.8-10.8)
[2022-07-29 08:05] LABS: BUN Creatinine Ratio 37.2 (10-20); Calcium 9.3 mg/dl (8.6-10.3); Creatinine Clr Calc Pharmacy 103.2 ml/min; Est GFR (African American) 103.6 ml/min; Est GFR (Non-African American) 89.4 ml/min; Potassium 4.3 mmol/L (3.5-5.1)
[2022-07-29] MEDS: INSULIN ASPART PER UNIT CHARGE SC SCH ×2 (08:24→12:00)
[2022-07-29] MEDS: LIDOCAINE 5% 1 PATCH TD SCH (08:33)
[2022-07-29] MEDS: PROPRANOLOL HCL 20 MG TAB PO SCH (08:34)
[2022-07-29] MEDS: CYANOCOBALAMIN 1000 MCG/ML VIAL IM SCH (08:34)
[2022-07-29] MEDS: PANTOprazole 40 MG TAB PO SCH (08:34)
[2022-07-29] MEDS: FUROSEMIDE 40 MG/4 ML VIAL IV SCH (08:34)
[2022-07-29] MEDS: SPIRONOLACTONE 25 MG TAB PO SCH (08:35)
[2022-07-29] MEDS ORDERED: LANTUS PER UNIT CHARGE SQ SCH (09:00)
--- NOTE | 2022-07-29 11:32 | Discharge Summary ---
Date of Service July 29, 2022 Admission HPI Per Admitting Provider Valorie is a 31-year-old female with past medical history of persistent nausea/vomiting, type 2 diabetes with a history of recurrent DKA, prior marijuana use in remission, and recent episode of DKA and Pneumomediastinum who presented to the [facility] on 07/24/22 from an Urgent Care for SOB and acute hypoxic respiratory failure. She was found to be hypoxic in the mid 80's on RA and EMS was called. In the ED the patient was found to be afebrile, hemodynamically stable, but hypoxic at 87% on RA. She was also found to be in sinus tachycardia. Labs were remarkable for a WBC of 4.57, hgb of 7.7 (down from 15.7 as of on 07/04), stable platelets of 262, INR of 1.2, D-dimer of 1660, stable cr of 0.47, potassium of 2.9, calcium of 8.3, alk phos of 167 with other LFT's WNL, initial high sen trop of 66, with covid/influenza/rsv, lactate, BNP pending. At the time of the exam the patient was sitting in bed and appears anxious due to her current clinical status. She states that while down at [place] last month for her Pneumomediastinum she was monitored and did not require intervention. She has not smoked marijuana since April. Since her discharge from [facility] she has been having ongoing LE swelling and poor appetite. She started having recurrent episodes of nausea and vomiting since 07/21. She denies any bloody or coffee ground emesis recently. She started to develop SOB and a non-productive cough approximately 3 days ago. She feels as though she has been having fever and chills but did not take her temperature. She went to urgent care earlier today as she was experiencing some substernal chest discomfort with her cough. She denies radiation of this discomfort. She recently underwent EGD with [facility] on 07/09/22. Per chart review she was found to have severe esophagitis, gastritis, and and flattened mucosa in the duodenum suspicious for celiac disease, biopsies were obtained. She has been without abdominal pain, dysuria, hematuria, melena, diarrhea, and recent trauma. Please refer to Dr. Christianson's attestation for any changes to the treatment plan Principal Diagnosis Volume overload, Acute respiratory failure with hypoxia, pleural effusions Anemia Prolonged QT Discharge Exam Constitutional WD/WN, vitals as above well developed and + obese; no acute distress and not ill appearing Eyes + anicteric sclerae Neck trachea midline, no thyromegaly Respiratory normal respiratory effort; no labored breathing and not tachypneic Auscultation: + diminished lung sounds (At left base); no crackles, no rhonchi and no wheezes Cardiovascular RRR, no murmur, no edema Gastrointestinal (Abdomen) normal bowel sounds, soft, nontender, no hepatosplenomegaly Musculoskeletal Extremities: extremities normal to inspection; no cyanosis and no clubbing Skin no rashes, warm and dry Neurologic moves all extremities and awake; no focal motor deficits Psychiatric Orientation: alert, oriented x 3 and cooperative Affect: euthymic affect Lymphatic no lymphedema Discharge Data Allergies Allergy/AdvReac Type Severity Reaction Status Date / Time Penicillins Allergy Unknown HAPPENED Verified 07/16/22 13:43 A SMALL CHILD Consultations 07/24/22 15:19 ED Decision to Admit Stat 07/24/22 17:49 Consult Poker In Routine 07/24/22 21:12 Consult Psychiatry Routine 07/28/22 10:50 Consult Cardiology Routine Procedures Performed Thoracentesis Ordered Studies 07/24/22 12:35 CT angio chest PE protocol Stat 07/24/22 12:52 CT Abd and Pelvis [CT abd pelvis IV con only] Stat ECHO Hospital Course (1) Acute respiratory failure with hypoxia: Secondary to acute pulmonary edema with pleural effusions from volume overload from recent hospitalization for pneumomediastinum as well as excessive p.o. intake at home-drinking 4.5 L of water per day in addition to Gatorade Now much improved with Lasix diuresis and right-sided thoracentesis with removal of 1100 mL of clear yellow fluid which was transudative by lights criteria, cytology with histiocytes, benign mesothelial cells, and scattered mixed inflammation, negative for malignancy,Pleural fluid culture no growth to date, AFB smear negative. Initially on full facemask 15 L now down to room air and passed a 2 step walk test prior to discharge Initially in ICU and downgraded to PCU on 07/26 CTA chest negative for PE, no evidence of pneumonia. Antibiotics have been discontinued. Repeat chest x-ray on 07/27 shows significant improvement on the right with some atelectasis and ongoing pleural effusion but improved on the left Weight down 12kg, I/O = -8.6L, peripheral edema resolved, still with left pleural effusion but much improved, no RUVALCABA ECHO with preserved EF, normal valves -received copious IV diuresis w/ lasix, Aldactone, but have since discontinued metolazone for relative hypotension causing lightheadedness -dc to home on lasix 20mg po daily x 1 week, then prn after that -f/u CXR in 1-2 weeks with PCP to monitor pleural effusion -daily weights, fluid restrict to 1800mL at home, low sodium diet -no supplemental O2 needed (2) Pulmonary edema: POA. as above, resolved (3) Pleural effusion: As above follow CXR in 2 weeks, continue po lasix on discharge (4) Chest pain: Had acute on chronic right-sided chest pain evaluated in 07/27 ECG with prolonged QTc but no ischemic changes, troponin continues to be trending downward Reproducible with palpation of the right chest wall Chest x-ray improving pleural effusions and pulmonary edema Could be intercostal muscle strain from previous severe vomiting Now much improved with lidocaine patch-continue on discharge -Tylenol as needed (5) Prolonged QT interval: QT prolonged at 568 but in the past as high as 600 for at least the last 4 years She is not on any QT prolonging medications here but does have prn Zofran at home No definite syncope related to arrhythmias but has had multiple hospitalizations for DKA and dehydration, was unresponsive earlier this year when delio [facility] DOes report remote episodes of syncope over 6 years ago keep magnesium and potassium replete Consult cardiology appreciated--started Propranolol and will need EP eval as an outpt EKG on day of discharge with QTc 537 Follow on telemetry-no arrhythmias (6) Anemia: Hemoglobin 7.7 on admission but now up to 9.3 and stable x 3 days with IV diuresis No bowel movement since admission in 5 days so do not suspect GI bleeding Probably had some acute blood loss anemia from her previous gastritis and Boerhaave syndrome Iron transferrin saturation was 18%, ferritin elevated at 602, serum iron mildly low at 32 B12 low at 216-will replace with IM B12 x 3 days, then convert to po B12 on discharge 1000 mcg po daily Folate normal TSH normal in April 2022 EGD 07/09 as an outpatient showed gastritis Was on Protonix drip initially and now on po PPI bid Follow CBC as an outpt with PCP in 2 weeks (7) Nausea & vomiting: Long hx of gastritis/esophagitis, cannabis hyperemesis syndrome . Now resolved. Protonix drip has been discontinued. Converted to p.o. Protonix Never started Emend prescribed to her on discharge from [place] 2 weeks ago due to prior authorization not approved yet-does not seem to cause prolonged QT but may hesitate to start at this time f/u with GI as planned for [facility] as outpt encouraged continued tight control of her DM (8) Elevated troponin: Suspect demand ischemia. No evidence of acute coronary syndrome. No regional wall motion abnormality seen on cardiac echo Troponin continues to trend downward ECG without ischemic changes again on 07/27 with musculoskeletal chest pain (9) Diabetes mellitus type 2, uncontrolled: ADA diet. Sliding scale coverage and Lantus, pharmacy managing. HgbA1C 9.0%, uncontrolled in 05/2022 Has appt with Endocrine for first time in August Increase Lantus to 22 units on discharge, continue home Novolog 5 units with din ner and metformin (10) Obsessive compulsive disorder: Diagnosed by psychiatry this admission Paxil 10 mg daily recommended to be started with titration up to 40 mg daily, ho wever her prolonged QT is prohibitive of starting this at this time Appreciate psychiatry consultation Propranolol may help with some of her anxiety in the meantime Plan DVT prophylaxis- Lovenox SQ given no evidence of GI bleeding and improvement in hemoglobin Disposition-dc to home Total Time Total Time Spent Total Time Spent (In Minutes): 45 min Discharge Plan Discharge Items Patient Disposition: Home - Self-Care Reason For Visit: SOB Discharge Diagnosis: Pleural effusions, Volume overload, Acute respiratory failure with hypoxia Anemia Prolonged QT Condition on Discharge: Good Activity: As commented below Lifting: Gradually increase as tolerated Bathing: No limitations Exercise/Sports: Gradually increase as tolerated Non-emergency contact: Primary Care Provider, [employer] [facility] [employer] Call non-emergency contact if: you have any medication questions and your symptoms worsen Follow-up/Referrals: Garry Mcallister MD [Physician] - (The [facility] office will contact you with your appointment date and time.) Yakelin Casillas MD [Primary Care Provider] - 08/07/22 1:00 pm (Please follow up within 1-2 weeks.) Diet: Carb Count or DM1 and Low Sodium (2gm) Fluids: 1800ml (7 cups) Addtl Attending Provider Instructions: You were admitted for fluid overload and given diuretics to take off a lot of fluid. Please continue taking the water pill called furosemide once daily x 1 week, and then take it as needed for leg swelling or weight gain of 2-3 lbs/day after that. Please have your PCP check a chest xray in 1-2 weeks to ensure the fluid is continuing to improve on the left side. You have an abnormal electrical conduction issue of the heart called prolonged QT which has been present off and on for years. You were seen by Cardiology and started on a medication called Propranolol for this. You will be referred to an [facility] as an outpatient for further evaluation of this. The propranolol will also help your anxiety. You should NOT take ondansetron (Zofran) or the hydroxyzine you were on at home as these can make this condition worse. For your anxiety, the Psychiatrist suspects you have a diagnosis of Obsessive Compulsive Disorder. This issue is definitely treatable with medication and counseling, but unfortunately for now, it is not safe for you to take the medication used to treat this due to your heart issue. You were also found to be anemic which is likely from some recent blood loss from your hospital stay for the esophagus problem. I do not want to start you on iron tablets at this time as they can cause nausea and constipation. You were also B12 deficient which is likely from your recent issues with poor nutrition from vomiting. Your B12 was replaced here with injections and you can start on an oral OTC B12 supplement after discharge. Please have your PCP check your blood count in a few weeks to see if it is improving. Keep your upcoming appointment with Endocrinology. In the meantime, your Lantus dose was increased to 22 units in the morning. Please take your metformin and Novolog with dinner as well when you go home. For the muscular chest pain, you can use over the counter lidocaine patches at the 4% strength. Call your Primary Care doctor if any of the following symptoms or problems start or get worse: * Shortness of breath or difficulty breathing * Wake up at night short of breath * Chest pain * Cough * Swelling of your hands, feet, or legs * More fatigued or tired with your normal activity * Palpitations - sudden fast heart beats WEIGHT * Weigh yourself every morning after using the bathroom. * Use the same scale. * Wear the same amount of clothing. * Write your weight down on a chart. * Call your Primary Care doctor if you gain more than 2-3 pounds in 1-2 days. MEDICATIONS * Use this discharge instruction sheet for medication instructions. * Take your medications at the time your doctor ordered. * Do not skip a dose of your medicines. * If you miss a dose of medicine, take it as soon as possible, but DO NOT DOUBLE A DOSE. * Read your medicine information when you get home. * Know all of the side effects of your medicine. If in doubt, ask your pharmacist * Call your Primary Care doctor's office if you have any side effects. * Be sure all of your doctors know what medicine and herbs you take (including cold, flu, and herbal medicine). Take the following with you to your follow-up doctor appointments: * Weight Chart * Medication List * List of questions Do not drink excessive alcohol, beer or wine, or water/Gatorade. Pending Studies at Discharge: No Stand-Alone Forms: [facility], Smoking Cessation Medications and DC Order Prescriptions: New propranolol 60 mg capsule,extended release 24 hr 60 mg PO HS Qty: 30 0RF furosemide [Lasix] 20 mg tablet 20 mg PO DAILY Qty: 30 0RF acetaminophen 325 mg Tablet 650 mg PO Q4H PRN (Reason: pain) Qty: 60 0RF Rx Instructions: OTC lidocaine 4 % adhesive patch,medicated 1 patch topical DAILY PRN (Reason: pain) Qty: 30 0RF Rx Instructions: may leave on for up to 12 hrs, OTC Apply to right side of chest albuterol sulfate 90 mcg/actuation HFA aerosol inhaler 2 inh inhalation Q8H PRN (Reason: shortness of breath or wheezing) Qty: 8.5 0RF cyanocobalamin (vitamin B-12) 1,000 mcg capsule 1,000 mcg PO DAILY Qty: 30 0RF Rx Instructions: OTC Continued pantoprazole 40 mg tablet,delayed release (DR/EC) 40 mg PO BID Qty: 60 5RF (DME) pen needle, diabetic [Comfort EZ Pen [place]] 32 gauge x 5/32" needle See Rx Instructions .Route Qty: 100 2RF Rx Instructions: As directed - use with lantus pen. (DME) blood-glucose meter [OneTouch Ultra2 Meter] Misc See Rx Instructions .Route Qty: 1 0RF Rx Instructions: As directed (DME) OneTouch Ultra Test Strip See Rx Instructions .Route Qty: 100 2RF Rx Instructions: As directed - check blood sugars at least twice daily. (DME) lancets [OneTouch Delica Lancets] 33 gauge misc See Rx Instructions .Route Qty: 100 2RF Rx Instructions: As directed - check blood sugars at least twice daily. insulin aspart U-100 [Novolog FlexPen U-100 Insulin] 100 unit/mL (3 mL) insulin pen 5 unit subcut DAILY PRN (Reason: BSG control) Rx Instructions: Please use 5 units with dinner metformin 500 mg tablet extended release 24 hr 500 mg PO UD Patient Comments: per pt on 07/08/22 states med is currently on hold but not completely stopped Rx Instructions: take with breakfast & dinner meals. Changed insulin glargine [Lantus Solostar U-100 Insulin] 100 unit/mL (3 mL) insulin pen 22 unit subcut QAM Qty: 15 2RF Discontinued hydroxyzine HCl 25 mg Tablet 25 mg PO HS PRN (Reason: sleep) Qty: 30 0RF ondansetron 4 mg tablet,disintegrating 4 mg PO Q6H PRN (Reason: nausea and vomiting) Qty: 10 0RF Discharge Orders: Discharge Order (Routine); Ordered 07/29/22 Ordered By: Susy Call Admission Data Admit Date/Time: 07/24/22 16:32 Attending Provider: Susy Call Admit Provider: Lenny Christianson Primary Care Provider: Yakelin Casillas Other Providers: Lenny Christianson ; Rafael Gates ; Thalia Uriarte ; Kim Hammond ; Faraz Breaux ; Osbaldo Martin Coding Level of Care Code 95623 INP/OBS DISCH >30 MIN Diagnoses Acute respiratory failure with hypoxia J96.01 Pulmonary edema J81.1 Pleural effusion J90 Chest pain R07.9 Prolonged QT interval R94.31 Anemia D64.9 Nausea & vomiting R11.2 Elevated troponin R77.8 Diabetes mellitus type 2, uncontrolled Obsessive compulsive disorder F42.9
--- NOTE | 2022-07-30 00:08 | Electrocardiogram Report ---
Test Reason : Blood Pressure : / mmHG Vent. Rate : 107 BPM Atrial Rate : 107 BPM P-R Int : 138 ms QRS Dur : 064 ms QT Int : 380 ms P-R-T Axes : 055 056 099 degrees QTc Int : 507 ms Sinus tachycardia Cannot rule out Anterior infarct , age undetermined Nonspecific T wave abnormality Prolonged QT Abnormal ECG When compared with ECG of 27-JUL-2022 13:28, No significant change was found Confirmed by Osbaldo Martin ([id number]) on 07/30/2022 12:08:28 AM Referred By: REFERRED SELF Confirmed By:Osbaldo Martin
--- NOTE | 2022-07-30 05:58 | Electrocardiogram Report ---
Test Reason : Blood Pressure : / mmHG Vent. Rate : 088 BPM Atrial Rate : 088 BPM P-R Int : 154 ms QRS Dur : 066 ms QT Int : 432 ms P-R-T Axes : 024 030 088 degrees QTc Int : 523 ms Normal sinus rhythm Prolonged QT Nonspecific T wave abnormality Abnormal ECG When compared with ECG of 28-JUL-2022 10:42, No significant change was found Confirmed by Osbaldo Martin ([id number] on 07/30/2022 5:57:48 AM Referred By: REFERRED SELF Confirmed By:Osbaldo Martin
== END 2022-07-29 13:07 | disposition home or self-care (01) | DRG 189 ==
LOC: ED 12:29 → SUATTDRO 16:32 → 1E 16:32 → 2S 07-26 18:35

== ENCOUNTER 2022-09-23 16:38 | Observation (INO) ==
[2022-09-23] MEDS ORDERED: ONDANSETRON INJ 2 MG/ML 2 ML VIAL IV STA ×2 (16:49→19:52)
[2022-09-23] MEDS ORDERED: SODIUM CHLORIDE 0.9% 1000ML 2,000 ML IV ONE (16:49)
[2022-09-23] MEDS ORDERED: METOCLOPRAMIDE HCL INJ 5 MG/ML 2 ML VIAL IV STA (17:05)
--- NOTE | 2022-09-23 17:19 | Emergency Department Note ---
Impression & Plan Abdominal pain, Vomiting ED Provider Note NAME: JAMES PARISH AGE: 32 SEX: F : 1990 ARRIVES VIA: Walk-In INFORMANT: Patient ED PROVIDER(S): Rambo Maria DO CHIEF COMPLAINT: N/V HPI: Patient is a 32-year-old female who is a type type I diabetic that presents to the ER for nausea which has been present for the past several days. She notes her blood sugars have been normal. She notes today she started with persistent vomiting. She has been unable to keep anything down. She is thrown up about 6 times. No diarrhea. No headache or change in vision. No chest pain or shortness of breath. No dysuria, urgency, or frequency. Last menstrual period was several months ago when she notes that she has taken a test which were negative. PAST MEDICAL HISTORY:See Below PAST SURGICAL HISTORY:See Below FAMILY HISTORY:See Below SOCIAL HISTORY:See Below HOME MEDICATIONS:See Below ALLERGIES:See Below VITALS:See Below PHYSICAL EXAMINATION: GENERAL: Sitting up in bed, alert, well appearing, well nourished, no distress, non-toxic EYE EXAM: normal conjunctiva. PERRL and EOM's grossly intact. OROPHARYNX: no exudate, no erythema, lips, buccal mucosa, and tongue normal and mucous membranes are moist NECK: supple, no nuchal rigidity, no adenopathy, non-tender LUNGS: Clear to auscultation. Normal chest wall mechanics HEART: no murmurs, S1 normal and S2 normal ABDOMEN: abdomen soft, non-tender, normo-active bowel sounds, no masses, no rebound or guarding. UPPER EXTREMITIES: upper extremities are grossly normal. LOWER EXTREMITIES: No pitting edema. NEURO EXAM: Normal sensorium, cranial nerves II-XII grossly intact, normal speech, no gross weakness of arms, no gross weakness of legs. MEDICAL DECISION MAKING: Patient is a 32-year-old female who presents ER for above-stated complaint. IV was established blood work was obtained. Labs show no significant leukocytosis. No anemia. VBG was unremarkable. BMP with a CO2 of 21 and a gap at 15. Glucose was 102. LFTs bilirubin was unremarkable. Lipase was normal. UA had nitrites although bilirubin present I do favor this because the nitrates. Only 5-10 whites in the setting of greater than 30 epithelial cells and I do favor that this likely contaminant. was negative. Was covered to be on the safe side with Rocephin. Marijuana positive. COVID-negative. Patient was giv en 2 L of IV fluids. Heart rate still remained in the 120s. She was given Reglan, Phenergan and Zofran. She still had persistent vomiting. She was updated at bedside and discussed with Dr. Des Fink for further evaluation management treatment. Triage Nursing notes reviewed. Limited review of prior medical records performed Vital Signs: reviewed and remarkable for no significant abnormalities Differential diagnosis: Differential diagnoses includes but is not limited to gastritis, peptic ulcer disease, GERD, gallbladder disease, pancreatitis, small bowel obstruction, appendicitis, diverticulitis, hernia, urinary tract infection, torsion, /ectopic (if female), perforation, trauma, infectious. ER treatment provided: See below Diagnostics interpreted by me include EKG and cardiac monitoring as listed below: -Cardiac Monitoring: An order was placed for continuous cardiac monitoring. The monitor shows a rate of 130 with sinus rhythm. -ECG: none -Laboratory studies:Interpreted by me as stated above in MDM and shown below. Imaging studies: Xrays: As interpreted by me:none CTs show: CT of the pelvis showed no obstruction per my read CT abdomen pelvis per radiology showed no acute pathology Consultation(s): As described in MDM Procedures:none Critical Care: None Past Med/Surg History Medical History (Updated 09/23/22 @ 22:15 by Rambo Maria DO) Abnormal LFTs Acute renal failure Asthma in childhood, no inhaler Boerhaave syndrome Diabetes mellitus, type 2 DKA (diabetic ketoacidoses) currently an inpatient @ [facility] (to be discharged today 07/08/22) for this (admitted on 07/03/22 to [facility] ICU)--pt states she was having severe vomiting History of COVID-19 diagnosed 05/14/22--pt was admitted to [facility] ICU with DKA (found unresponsive and had confusion for 4 days, does not appear to have had any breathing issues, was on room air)--complaints of taste issues still and having vomiti ng Insomnia Morbid obesity with BMI of 40.0-44.9, adult Patella fracture Pleural effusion Pneumomediastinum Surgical History No history of previous surgery Family History Other No family history of adverse response to anesthesia Social History (Updated 09/18/22 @ 09:36 by DIMPLE Cuadra) Smoking Status: Never smoker Second Hand Exposure: Yes; Do You Dip or Chew Tobacco: No; Hx Alcohol Use: No Hx Substance Use: Yes Last Used Substance: Unknown Last Used Substance Other:: hx of cocaine use, clean for 8yrs ago Preferred Language: Uzbek Communication Ability: Effective Residential Mental Health Worker Required: No Beliefs That Will Affect Care: None Current Living Situation: Significant Other Current Living Situation Comment: lives with boyfriend Aamir Bond current occupational status: employed Feels Safe at Home: Yes Assistive Devices: None Allergies Allergies Allergy/AdvReac Type Severity Reaction Status Date / Time Penicillins Allergy Unknown HAPPENED Verified 09/21/22 16:19 A SMALL CHILD Home Meds Home Medications Medication Instructions Recorded Confirmed calcium carbonate-vitamin D3 See Rx Instructions PO .COMPLEX 09/21/22 09/23/22 [Caltrate with Vitamin D3] insulin aspart U-100 100 unit/mL 10 unit subcut TID BSG control 09/21/22 09/23/22 (3 mL) subcutaneous pen (Novolog FlexPen U-100 Insulin aspart) insulin glargine 100 unit/mL (3 30 unit subcut QPM 09/21/22 09/23/22 mL) subcutaneous pen (Lantus Solostar U-100 Insulin) pen needle, diabetic 32 gauge x 09/21/22 5/32" (Comfort EZ Pen [place]) Previous Rx's Medication Instructions Recorded blood-glucose meter (OneTouch #1 ea 05/23/22 Ultra2 Meter) lancets 33 gauge (OneTouch Delica #100 ea 05/23/22 Lancets) pantoprazole 40 mg tablet,delayed 40 mg PO BID #60 tabs 07/16/22 release acetaminophen 325 mg tablet 650 mg PO Q4H PRN pain #60 tabs 07/29/22 albuterol sulfate 90 mcg/actuation 2 inh inhalation Q8H PRN shortness 07/29/22 aerosol inhaler of breath or wheezing #8.5 grams cyanocobalamin (vitamin B-12) 1,000 mcg PO DAILY #30 caps 07/29/22 1,000 mcg capsule lidocaine 4 % topical patch 1 patch topical DAILY PRN pain #30 07/29/22 ea blood sugar diagnostic (OneTouch #100 ea 08/17/22 Ultra Test strips) furosemide 20 mg tablet (Lasix) 20 mg PO DAILY #30 tabs 08/27/22 pneumococcal 23-radha ps vaccine 25 0.5 ml subcut ONCE #0.5 mL 09/18/22 mcg/0.5 mL injection syringe (Pneumovax-) tetanus-diphtheria toxoids-Td 2 Lf 0.5 ml IM ONCE #0.5 mL 09/18/22 unit-2 Lf unit/0.5 mL IM suspension (TDVAX) Results & Data (ED) Vital Signs Vital Signs - 24 hr 09/23/22 16:40 09/23/22 17:07 09/23/22 17:14 Temperature 37.0 C Temperature Source Temporal Artery Scan Pulse Rate 134 H 123 H Pulse Rate [Apical] Pulse Rhythm [Apical] Respiratory Rate 18 Respiratory Effort / Characteristics Non-Labored Spontaneous Respiratory Depth Normal Respiratory Pattern Regular Blood Pressure 144/85 H Blood Pressure [Right Arm] Blood Pressure Mean 104 Blood Pressure Mean [Right Arm] Blood Pressure Position Sitting Pulse Oximetry 99 99 Oxygen Delivery Method Room Air Room Air Sepsis Recent Fever Within 48 Hours No Sepsis New/Unexplained Change in Mental Status N/A Sepsis Action Taken by Nursing No Action Required 09/23/22 17:20 09/23/22 18:00 09/23/22 19:00 Temperature Temperature Source Pulse Rate Pulse Rate [Apical] 122 H 117 H 120 H Pulse Rhythm [Apical] Respiratory Rate 13 24 17 Respiratory Effort / Characteristics Respiratory Depth Normal Respiratory Pattern Blood Pressure Blood Pressure [Right Arm] 107/76 141/96 H 147/95 H Blood Pressure Mean Blood Pressure Mean [Right Arm] 86 111 112 Blood Pressure Position Pulse Oximetry 100 100 100 Oxygen Delivery Method Room Air Sepsis Recent Fever Within 48 Hours Sepsis New/Unexplained Change in Mental Status Sepsis Action Taken by Nursing 09/23/22 20:30 09/23/22 21:00 09/23/22 21:30 Temperature Temperature Source Pulse Rate Pulse Rate [Apical] 117 H 116 H 120 H Pulse Rhythm [Apical] Regular Respiratory Rate 14 18 23 Respiratory Effort / Characteristics Respiratory Depth Normal Respiratory Pattern Blood Pressure Blood Pressure [Right Arm] 139/96 144/93 H 146/92 H Blood Pressure Mean Blood Pressure Mean [Right Arm] 110 110 110 Blood Pressure Position Pulse Oximetry 100 100 100 Oxygen Delivery Method Sepsis Recent Fever Within 48 Hours Sepsis New/Unexplained Change in Mental Status Sepsis Action Taken by Nursing 09/23/22 21:42 Temperature Temperature Source Pulse Rate 118 H Pulse Rate [Apical] Pulse Rhythm [Apical] Respiratory Rate Respiratory Effort / Characteristics Respiratory Depth Respiratory Pattern Blood Pressure Blood Pressure [Right Arm] Blood Pressure Mean Blood Pressure Mean [Right Arm] Blood Pressure Position Pulse Oximetry Oxygen Delivery Method Sepsis Recent Fever Within 48 Hours Sepsis New/Unexplained Change in Mental Status Sepsis Action Taken by Nursing Laboratory Data 09/23/22 17:25 09/23/22 17:25 Lab Results 09/23/22 09/23/22 09/23/22 Range/Units 17:07 17: 17:07 WBC (4.8-10.8) K/ul RBC (4.20-5.40) M/uL Hgb (12.0-16.0) g/dl POC Hgb (12.0-16.0) g/dl Hct (37.0-47.0) % POC Hct (37-47) % MCV (80.0-100.0) fL MCH (25.0-34.0) pg MCHC (32.0-36.0) g/dL RDW Std Deviation (36.4-46.3) fL RDW Coeff of Sandy (11.5-14.5) % Plt Count (130-400) K/uL MPV (9.4-12.4) fL Immature Gran % (Auto) % Neut % (Auto) % Lymph % (Auto) % [place] % (Auto) % Eos % (Auto) % Baso % (Auto) % Neut # (Auto) (1.40-6.50) K/uL Lymph # (Auto) (1.2-3.4) K/uL [place] # (Auto) (0.11-0.59) K/uL Eos # (Auto) (0-0.50) K/uL Baso # (Auto) (0-0.2) K/uL Immature Gran # (Auto) (0.01-0.20) K/uL VBG pH (7.36-7.41) VBG pCO2 (38-50) mmHg VBG pO2 mmHg VBG HCO3 mmol/L VBG O2 Saturation % VBG Base Excess mEq/L POC Sodium (135-144) mmol/L Sodium (136-145) mmol/L POC Potassium (3.3-5.0) mmol/L Potassium (3.5-5.1) mmol/L POC Chloride (101-112) mmol/L Chloride (98-107) mmol/L Carbon Dioxide (21-32) mmol/L POC Total CO2 (24-31) mmol/L Anion Gap (3-11) POC Anion Gap (16-25) mmol/L POC BUN (7-18) mg/dl BUN (6-23) mg/dl Creatinine (0.6-1.2) mg/dl POC Creatinine (0.6-1.3) mg/dl Est Cr Clr Drug Dosing ml/min Est GFR ( Amer) ml/min Est GFR (Non-Af Amer) ml/min BUN/Creatinine Ratio (10-20) Glucose (70-99(Fasting)) mg/dl POC Glucose (other) (70-99) mg/dl Calcium (8.6-10.3) mg/dl POC Ioniz Calcium Elie (1.12-1.32) mmol/l Total Bilirubin (0.2-1.0) mg/dl AST (13-39) U/L ALT (7-52) U/L Alkaline Phosphatase (34-104) U/L Total Protein (6.0-8.3) gm/dl Albumin (3.4-5.0) gm/dl Globulin (2.5-4.0) gm/dl Albumin/Globulin Ratio (0.9-2) Lipase (11-82) U/L Urine Color Dark Yellow Urine Appearance Cloudy A (Clear) Urine pH 5.5 (4.5-7.5) Ur Specific [place] 1.038 H (1.000-1.030) Urine Protein 2+ H (Negative) Urine Glucose (UA) Negative (Negative) Urine Ketones 2+ H (Negative) Urine Blood Negative (Negative) Urine Nitrite Positive A (Negative) Urine Bilirubin 2+ H (Negative) Urine Urobilinogen Negative (Negative) Ur Leukocyte Esterase Negative (Negative) Urine WBC (Auto) 5-10 H (0-5) /hpf Urine RBC (Auto) 0-4 (0-4) /hpf U Hyaline Cast (Auto) 1-5 (0-5) /lpf U Epithel Cells (Auto) >30 H (0-5) /lpf Urine Bacteria (Auto) 1+ H (Negative) Ur Renal Epithelial Cell Not Reportable Urine Mucus Present A (None Prsent) POC Ur Test NEG (NEG) Urine Opiates Screen (Neg) Ur Methadone, Qual (Neg) Urine Barbiturates (Neg) Ur Phencyclidine (PCP) (Neg) U Amphetamin/Meth Scrn (Neg) MDMA (Ecstasy) Screen (Neg) U Benzodiazepines Scrn (Neg) Ur Cocaine Metabolite (Neg) U Marijuana (THC) Screen (Neg) SARS-CoV-2, RNA, NAAT NEGATIVE (NEGATIVE) 09/23/22 09/23/22 09/23/22 Range/Units 17:07 17:25 17:25 WBC 8.68 (4.8-10.8) K/ul RBC 4.17 L (4.20-5.40) M/uL Hgb 11.3 L (12.0-16.0) g/dl POC Hgb (12.0-16.0) g/dl Hct 33.8 L (37.0-47.0) % POC Hct (37-47) % MCV 81.1 (80.0-100.0) fL MCH 27.1 (25.0-34.0) pg MCHC 33.4 (32.0-36.0) g/dL RDW Std Deviation 40.4 (36.4-46.3) fL RDW Coeff of Sandy 13.9 (11.5-14.5) % Plt Count 325 (130-400) K/uL MPV 10.5 (9.4-12.4) fL Immature Gran % (Auto) 0.5 % Neut % (Auto) 80.3 % Lymph % (Auto) 15.7 % [place] % (Auto) 3.1 % Eos % (Auto) 0.2 % Baso % (Auto) 0.2 % Neut # (Auto) 6.97 H (1.40-6.50) K/uL Lymph # (Auto) 1.36 (1.2-3.4) K/uL [place] # (Auto) 0.27 (0.11-0.59) K/uL Eos # (Auto) 0.02 (0-0.50) K/uL Baso # (Auto) 0.02 (0-0.2) K/uL Immature Gran # (Auto) 0.04 (0.01-0.20) K/uL VBG pH (7.36-7.41) VBG pCO2 (38-50) mmHg VBG pO2 mmHg VBG HCO3 mmol/L VBG O2 Saturation % VBG Base Excess mEq/L POC Sodium (135-144) mmol/L Sodium 138 (136-145) mmol/L POC Potassium (3.3-5.0) mmol/L Potassium 3.9 (3.5-5.1) mmol/L POC Chloride (101-112) mmol/L Chloride 102 (98-107) mmol/L Carbon Dioxide 21 (21-32) mmol/L POC Total CO2 (24-31) mmol/L Anion Gap 15 H (3-11) POC Anion Gap (16-25) mmol/L POC BUN (7-18) mg/dl BUN 23 (6-23) mg/dl Creatinine 0.69 (0.6-1.2) mg/dl POC Creatinine (0.6-1.3) mg/dl Est Cr Clr Drug Dosing 127.7 ml/min Est GFR ( Amer) 132.6 ml/min Est GFR (Non-Af Amer) 114.4 ml/min BUN/Creatinine Ratio 33.3 H (10-20) Glucose 102 H (70-99(Fasting)) mg/dl POC Glucose (other) (70-99) mg/dl Calcium 10.2 (8.6-10.3) mg/dl POC Ioniz Calcium Elie (1.12-1.32) mmol/l Total Bilirubin 0.6 (0.2-1.0) mg/dl AST 12 L (13-39) U/L ALT 11 (7-52) U/L Alkaline Phosphatase 83 (34-104) U/L Total Protein 8.5 H (6.0-8.3) gm/dl Albumin 4.6 (3.4-5.0) gm/dl Globulin 3.9 (2.5-4.0) gm/dl Albumin/Globulin Ratio 1.2 (0.9-2) Lipase 10 L (11-82) U/L Urine Color Urine Appearance (Clear) Urine pH (4.5-7.5) Ur Specific [place] (1.000-1.030) Urine Protein (Negative) Urine Glucose (UA) (Negative) Urine Ketones (Negative) Urine Blood (Negative) Urine Nitrite (Negative) Urine Bilirubin (Negative) Urine Urobilinogen (Negative) Ur Leukocyte Esterase (Negative) Urine WBC (Auto) (0-5) /hpf Urine RBC (Auto) (0-4) /hpf U Hyaline Cast (Auto) (0-5) /lpf U Epithel Cells (Auto) (0-5) /lpf Urine Bacteria (Auto) (Negative) Ur Renal Epithelial Cell Urine Mucus (None Prsent) POC Ur Test (NEG) Urine Opiates Screen Neg (Neg) Ur Methadone, Qual Neg (Neg) Urine Barbiturates Neg (Neg) Ur Phencyclidine (PCP) Neg (Neg) U Amphetamin/Meth Scrn Neg (Neg) MDMA (Ecstasy) Screen Neg (Neg) U Benzodiazepines Scrn Neg (Neg) Ur Cocaine Metabolite Neg (Neg) U Marijuana (THC) Screen Pos H (Neg) SARS-CoV-2, RNA, NAAT (NEGATIVE) 09/23/22 09/23/22 Range/Units 17:25 17:29 WBC (4.8-10.8) K/ul RBC (4.20-5.40) M/uL Hgb (12.0-16.0) g/dl POC Hgb 11.9 L (12.0-16.0) g/dl Hct (37.0-47.0) % POC Hct 35 L (37-47) % MCV (80.0-100.0) fL MCH (25.0-34.0) pg MCHC (32.0-36.0) g/dL RDW Std Deviation (36.4-46.3) fL RDW Coeff of Sandy (11.5-14.5) % Plt Count (130-400) K/uL MPV (9.4-12.4) fL Immature Gran % (Auto) % Neut % (Auto) % Lymph % (Auto) % [place] % (Auto) % Eos % (Auto) % Baso % (Auto) % Neut # (Auto) (1.40-6.50) K/uL Lymph # (Auto) (1.2-3.4) K/uL [place] # (Auto) (0.11-0.59) K/uL Eos # (Auto) (0-0.50) K/uL Baso # (Auto) (0-0.2) K/uL Immature Gran # (Auto) (0.01-0.20) K/uL VBG pH 7.40 (7.36-7.41) VBG pCO2 39 (38-50) mmHg VBG pO2 42 mmHg VBG HCO3 24 mmol/L VBG O2 Saturation 75.6 % VBG Base Excess -0.5 mEq/L POC Sodium 139 (135-144) mmol/L Sodium (136-145) mmol/L POC Potassium 3.9 (3.3-5.0) mmol/L Potassium (3.5-5.1) mmol/L POC Chloride 103 (101-112) mmol/L Chloride (98-107) mmol/L Carbon Dioxide (21-32) mmol/L POC Total CO2 21 L (24-31) mmol/L Anion Gap (3-11) POC Anion Gap 20.0 (16-25) mmol/L POC BUN 21 H (7-18) mg/dl BUN (6-23) mg/dl Creatinine (0.6-1.2) mg/dl POC Creatinine 0.6 (0.6-1.3) mg/dl Est Cr Clr Drug Dosing ml/min Est GFR ( Amer) ml/min Est GFR (Non-Af Amer) ml/min BUN/Creatinine Ratio (10-20) Glucose (70-99(Fasting)) mg/dl POC Glucose (other) 106 H (70-99) mg/dl Calcium (8.6-10.3) mg/dl POC Ioniz Calcium Elie 1.24 (1.12-1.32) mmol/l Total Bilirubin (0.2-1.0) mg/dl AST (13-39) U/L ALT (7-52) U/L Alkaline Phosphatase (34-104) U/L Total Protein (6.0-8.3) gm/dl Albumin (3.4-5.0) gm/dl Globulin (2.5-4.0) gm/dl Albumin/Globulin Ratio (0.9-2) Lipase (11-82) U/L Urine Color Urine Appearance (Clear) Urine pH (4.5-7.5) Ur Specific [place] (1.000-1.030) Urine Protein (Negative) Urine Glucose (UA) (Negative) Urine Ketones (Negative) Urine Blood (Negative) Urine Nitrite (Negative) Urine Bilirubin (Negative) Urine Urobilinogen (Negative) Ur Leukocyte Esterase (Negative) Urine WBC (Auto) (0-5) /hpf Urine RBC (Auto) (0-4) /hpf U Hyaline Cast (Auto) (0-5) /lpf U Epithel Cells (Auto) (0-5) /lpf Urine Bacteria (Auto) (Negative) Ur Renal Epithelial Cell Urine Mucus (None Prsent) POC Ur Test (NEG) Urine Opiates Screen (Neg) Ur Methadone, Qual (Neg) Urine Barbiturates (Neg) Ur Phencyclidine (PCP) (Neg) U Amphetamin/Meth Scrn (Neg) MDMA (Ecstasy) Screen (Neg) U Benzodiazepines Scrn (Neg) Ur Cocaine Metabolite (Neg) U Marijuana (THC) Screen (Neg) SARS-CoV-2, RNA, NAAT (NEGATIVE) Administered Medications Discontinued Medications Sodium Chloride (Nss 1000ml) 2,000 mls @ 999 mls/hr IV .Q2H1M ONE Stop: 09/23/22 18:49 Last Infusion: 09/23/22 19:24 Dose: 0 mls/hr Documented By: Admin: 09/23/22 17:22 Dose: 999 mls/hr Documented By: EMB Promethazine HCl (Phenergan) 25 mg in 51 mls @ 204 mls/hr IV NOW STA Stop: 09/23/22 18:14 Last Infusion: 09/23/22 18:44 Dose: 0 mls/hr Documented By: Admin: 09/23/22 18:10 Dose: 204 mls/hr Documented By: EMB Ceftriaxone Sodium (Rocephin) 2,000 mg in 70 mls @ 140 mls/hr IV NOW STA Stop: 09/23/22 18:43 Last Infusion: 09/23/22 19:24 Dose: 0 mls/hr Documented By: Admin: 09/23/22 18:53 Dose: 140 mls/hr Documented By: NANETTE Parenteral Electrolytes (Plasma-Lyte A Ph 7.4) 1,000 mls @ 999 mls/hr IV .Q1H1M ONE Stop: 09/23/22 20:52 Last Infusion: 09/23/22 21:50 Dose: 0 mls/hr Documented By: Admin: 09/23/22 20:49 Dose: 999 mls/hr Documented By: NANETTE Ioversol (Optiray 320 100ml) 85 ml IV ONCE ONE Stop: 09/23/22 18:33 Last Admin: 09/23/22 18:32 Dose: 85 ml Documented By: PERLA Metoclopramide HCl (Metoclopramide Hcl Inj 5 Mg/Ml 2 Ml Vial) 10 mg IV NOW STA Stop: 09/23/22 17:06 Last Admin: 09/23/22 17:22 Dose: 10 mg Documented By: NANETTE Ondansetron HCl (Ondansetron Inj 2 Mg/Ml 2 Ml Vial) 4 mg IV NOW STA Stop: 09/23/22 16:50 Last Admin: 09/23/22 17:10 Dose: Not Given Documented By: NANETTE Ondansetron HCl (Ondansetron Inj 2 Mg/Ml 2 Ml Vial) 4 mg IV NOW STA Stop: 09/23/22 19:53 Last Admin: 09/23/22 20:04 Dose: 4 mg Documented By: NANETTE Imaging Data Radiologist's Impression: Abdomen/Pelvis CT 09/23/22 18:14 Exam(s): CT ABDOMEN + PELVIS With Contrast IV Amt: 86ml of optiray 320 EXAM: CT Abdomen and Pelvis With Intravenous Contrast CLINICAL HISTORY: Reason for exam: n/v. TECHNIQUE: Axial computed tomography images of the abdomen and pelvis with intravenous contrast. CTDI is 27.04 mGy and DLP is 1400.5 mGy-cm. Automated exposure control was utilized for the study. A dose lowering technique was utilized adhering to the principles of ALARA. CONTRAST: Patient received 86ml of optiray 320 of IV contrast COMPARISON: No relevant prior studies available. FINDINGS: ABDOMEN: Liver: Unremarkable. Gallbladder and bile ducts: No radiodense stones. No biliary ductal dilation. Pancreas: Unremarkable. Spleen: Unremarkable. Adrenals: Unremarkable. Kidneys and ureters: No renal or ureteral calculi. No obstructive changes. Stomach and bowel: No marky mural thickening. Nonobstructive bowel gas pattern. PELVIS: Appendix: Unremarkable appendix. Bladder: Unremarkable. Reproductive: Unremarkable. ABDOMEN and PELVIS: Intraperitoneal space: Unremarkable. Bones/joints: No acute fracture. Soft tissues: Unremarkable. Vasculature: No acute process. Lymph nodes: No bulky adenopathy. IMPRESSION: No acute findings in the abdomen or pelvis. Electronically signed by: Tamiko Reed M.D. 09/23/22 19:10 PM Discharge Plan Visit Data Chief Complaint: Vomiting Stated Complaint: VOMITING,TYPE 1 DIABETIC,HIGH KETONES ED Provider: Rambo Maria Discharge Problem: Abdominal pain, Vomiting Forms Stand Alone Forms: My [facility] [place] [employer] Prescriptions Prescriptions: No Action (DME) OneTouch Ultra Test Strip See Rx Instructions .Route Qty: 100 3RF Rx Instructions: As directed - check blood sugars at least twice daily. furosemide [Lasix] 20 mg tablet 20 mg PO DAILY Qty: 30 0RF pantoprazole 40 mg tablet,delayed release (DR/EC) 40 mg PO BID Qty: 60 5RF TDVAX 2-2 Lf unit/0.5 mL suspension 0.5 ml IM ONCE Qty: 0.5 0RF Patient Comments: Pt hasn't received injection yet Rx Instructions: Pt hasnt recieved injection yet please administer Pneumovax-23 25 mcg/0.5 mL syringe 0.5 ml subcut ONCE Qty: 0.5 0RF Patient Comments: Pt hasn't received injection yet Rx Instructions: Pt hasn't received injection yet Please administer insulin glargine [Lantus Solostar U-100 Insulin] 100 unit/mL (3 mL) insulin pen 30 unit subcut QPM (DME) pen needle, diabetic [Comfort EZ Pen [place]] 32 gauge x 5/32" needle See Rx Instructions .Route Rx Instructions: Inject insulin four times daily calcium carbonate-vitamin D3 [Caltrate with Vitamin D3] See Rx Instructions PO .COMPLEX Rx Instructions: 600 mg daily (DME) blood-glucose meter [OneTouch Ultra2 Meter] Misc See Rx Instructions .Route Qty: 1 0RF Rx Instructions: As directed (DME) lancets [OneTouch Delica Lancets] 33 gauge misc See Rx Instructions .Route Qty: 100 2RF Rx Instructions: As directed - check blood sugars at least twice daily. insulin aspart U-100 [Novolog FlexPen U-100 Insulin] 100 unit/mL (3 mL) insulin pen 10 unit subcut TID acetaminophen 325 mg Tablet 650 mg PO Q4H PRN (Reason: pain) Qty: 60 0RF Rx Instructions: OTC lidocaine 4 % adhesive patch,medicated 1 patch topical DAILY PRN (Reason: pain) Qty: 30 0RF Rx Instructions: may leave on for up to 12 hrs, OTC Apply to right side of chest albuterol sulfate 90 mcg/actuation HFA aerosol inhaler 2 inh inhalation Q8H PRN (Reason: shortness of breath or wheezing) Qty: 8.5 0RF cyanocobalamin (vitamin B-12) 1,000 mcg capsule 1,000 mcg PO DAILY Qty: 30 0RF Rx Instructions: OTC Referrals Referrals: Yakelin Casillas MD [Primary Care Provider] -
[2022-09-23 17:32] LABS: Appearance Urine Cloudy (Clear); Bacteria Urine Automated 1+ (Negative); Blood Urine Negative (Negative); Color Urine Dark Yellow; Epithelial Cell Urine Auto >30 /lpf (0-5); Glucose Urine UA Negative (Negative); Ketones Urine 2+ (Negative); Leukocyte Esterase Urine Negative (Negative); Nitrite Urine Positive (Negative); Protein Urine 2+ (Negative); RBC Urine Automated 0-4 /hpf (0-4); Specific Gravity Urine 1.038 (1.000-1.030); Urobilinogen Urine Negative (Negative); pH Urine 5.5 (4.5-7.5)
[2022-09-23 17:39] LABS: Base Excess VBG -0.5 mEq/L; HCO3 VBG 24 mmol/L; Oxygen Saturation VBG 75.6 %; PCO2 VBG 39 mmHg (38-50); PO2 VBG 42 mmHg
[2022-09-23 17:39] LABS: Bilirubin Urine 2+ (Negative)
[2022-09-23 17:48] LABS: iSTAT Creatinine 0.6 mg/dl (0.6-1.3); iSTAT Hemoglobin 11.9 g/dl (12.0-16.0); iSTAT Ionized Calcium 1.24 mmol/l (1.12-1.32); iSTAT Potassium 3.9 mmol/L (3.3-5.0)
[2022-09-23 17:59] LABS: Basophils # (auto) 0.02 K/uL (0-0.2); Basophils % (auto) 0.2 %; Eosinophils # (auto) 0.02 K/uL (0-0.50); Eosinophils % (auto) 0.2 %; Hematocrit (blood only) 33.8 % (37.0-47.0); Hemoglobin 11.3 g/dl (12.0-16.0); Immature Granulocytes # (auto) 0.04 K/uL (0.01-0.20); Immature Granulocytes % (auto) 0.5 %; Lymphocytes # (auto) 1.36 K/uL (1.2-3.4); Lymphocytes % (auto) 15.7 %; Mean Corpuscular Hemoglobin 27.1 pg (25.0-34.0); Mean Corpuscular Hgb Conc 33.4 g/dL (32.0-36.0); Mean Corpuscular Volume 81.1 fL (80.0-100.0); Mean Platelet Volume 10.5 fL (9.4-12.4); Monocytes # (auto) 0.27 K/uL (0.11-0.59); Monocytes % (auto) 3.1 %; Neutrophils # (auto) 6.97 K/uL (1.40-6.50); Neutrophils % (auto) 80.3 %; Platelet Count 325 K/uL (130-400); RDW Coefficient of Variation 13.9 % (11.5-14.5); RDW Standard Deviation 40.4 fL (36.4-46.3); Red Blood Count 4.17 M/uL (4.20-5.40); White Blood Count 8.68 K/ul (4.8-10.8)
[2022-09-23] MEDS ORDERED: PROMETHAZINE 25 MG/51 ML BAG IV STA (18:00)
[2022-09-23 18:01] LABS: Mucus Urine Present (None Prsent)
[2022-09-23 18:06] LABS: Albumin Globulin Ratio 1.2 (0.9-2); Albumin Level 4.6 gm/dl (3.4-5.0); BUN Creatinine Ratio 33.3 (10-20); Bilirubin,Total 0.6 mg/dl (0.2-1.0); Calcium 10.2 mg/dl (8.6-10.3); Creatinine Clr Calc Pharmacy 127.7 ml/min; Est GFR (African American) 132.6 ml/min; Est GFR (Non-African American) 114.4 ml/min; Globulin 3.9 gm/dl (2.5-4.0); Potassium 3.9 mmol/L (3.5-5.1); Total Protein 8.5 gm/dl (6.0-8.3)
[2022-09-23] MEDS ORDERED: cefTRIAXone SODIUM 2,000 MG/70 ML BAG IV STA (18:14)
[2022-09-23] MEDS ORDERED: OPTIRAY 320 100ml IV ONE (18:32)
--- NOTE | 2022-09-23 19:11 | CT Scan Report ---
Exam(s): CT ABDOMEN + PELVIS With Contrast IV Amt: 86ml of optiray 320 EXAM: CT Abdomen and Pelvis With Intravenous Contrast CLINICAL HISTORY: Reason for exam: n/v. TECHNIQUE: Axial computed tomography images of the abdomen and pelvis with intravenous contrast. CTDI is 27.04 mGy and DLP is 1400.5 mGy-cm. Automated exposure control was utilized for the study. A dose lowering technique was utilized adhering to the principles of ALARA. CONTRAST: Patient received 86ml of optiray 320 of IV contrast COMPARISON: No relevant prior studies available. FINDINGS: ABDOMEN: Liver: Unremarkable. Gallbladder and bile ducts: No radiodense stones. No biliary ductal dilation. Pancreas: Unremarkable. Spleen: Unremarkable. Adrenals: Unremarkable. Kidneys and ureters: No renal or ureteral calculi. No obstructive changes. Stomach and bowel: No marky mural thickening. Nonobstructive bowel gas pattern. PELVIS: Appendix: Unremarkable appendix. Bladder: Unremarkable. Reproductive: Unremarkable. ABDOMEN and PELVIS: Intraperitoneal space: Unremarkable. Bones/joints: No acute fracture. Soft tissues: Unremarkable. Vasculature: No acute process. Lymph nodes: No bulky adenopathy. IMPRESSION: No acute findings in the abdomen or pelvis. Electronically signed by: Tamiko Reed M.D. 09/23/22 19:10 PM
[2022-09-23] MEDS ORDERED: PLASMA-LYTE A 1,000 ML IV ONE (19:52)
[2022-09-23 21:32] LABS: Amphetamines+Metham, Urine Neg (Neg); Barbiturates, Urine Neg (Neg); Benzodiazepine, Urine Neg (Neg); Cocaine, Urine Neg (Neg); MDMA (Ecstacy), Urine Neg (Neg); Methadone, Urine Neg (Neg); Opiate, Urine Neg (Neg); Phencyclidine, Urine Neg (Neg)
--- NOTE | 2022-09-23 23:23 | History & Physical Report ---
Date of Service September 23, 2022 Assessment & Plan (1) Vomiting: Plan: Patient is a 32-year-old female with past medical history of type 1 diabetes, long QT syndrome, OCD, and NINA who presents to the hospital for evaluation of nausea and vomiting for the past week. Patient has received fluid resuscitation and multiple antiemetics and is still having signs of dehydration and active nausea and vomiting. Patient has been admitted for observation for volume depletion and nausea/vomiting. Patient is hemodynamically stable but does have tachycardia. -Admit to [facility] with telemetry -Because of nausea and vomiting includes several differentials at this time: -CT scan showed large stool burden with solid stool in the ascending colon -Acute viral gastroenteritis secondary to possible norovirus infection -Complicated urinary tract infection based off UA results and current symptoms -Low on the differential including gastroparesis (negative gastric emptying study), cyclic vomiting syndrome from cannabis usage: marijuana quant pending -Fluid resuscitation with Plasma-Lyte bolus in the ED, continue D5W and half- normal saline at 125 cc/h until intake improves -Nausea control with antiemetics. Given patient's prolonged QTc history will start with Compazine as it has the lowest QTc prolonging potential -Consider additional metoclopramide or azithromycin for prokinetic modalities -MiraLAX for stool burden -Clear liquid diet, advance as tolerated -Protonix IV twice daily -Trend CBC, CMP, Mag (2) UTI (urinary tract infection): Plan: - Urinalysis positive for nitrites plus white blood cells plus current symptoms of nausea and vomiting -Given Rocephin in ED, continue. -Urine culture taken prior to antibiotics, follow culture and sensitivities -Given tachycardia and unrelenting nausea and vomiting, would qualify for complicated urinary tract infection (3) Diabetes mellitus type 1: Plan: - Typically takes 30 units of Lantus at night -Given poor p.o. intake, will make dosage 10 units twice daily with sliding scale insulin -Last A1c was 4.5 on 09/22/2022 Putting her average blood sugars at 86 mg/dL (4) Long QT syndrome: Plan: -Daily EKG -Use of Compazine for now but may have to add other modalities of antiemetics if this is not satisfactory control (5) Abdominal pain: Plan: - Likely secondary to stool burden and chronic constipation -Negative Craven sign -CT of the abdomen showing no acute process at this time Plan Diet: Clear liquids, DM 1 diet, D5W plus half-normal saline at 125 cc/h DVT prophylaxis: Low risk Disposition: Admit to [facility] with telemetry for treatment of nausea and fluid resuscitation as well as antibiotic treatment CODE STATUS: Full code History of Present Illness Chief Complaint: N/V Primary Care Provider: Yakelin Casillas MD Patient is a 32-year-old female with past medical history of type 1 diabetes, long QT syndrome, OCD, and NINA who presents to the hospital for evaluation of nausea and vomiting for the past week. Patient reports that she has initially had cold-like symptoms that started on Wednesday with sinus pressure and congestion as well as nausea but did not actually vomit until Wednesday. Overall symptoms were mild but over the past 12 hours, the patient has had 6-7 episodes of vomiting prior to coming to the emergency department. Reports that her sugars have been under control at home without any episodes of hypo or h yperglycemia. Denies diarrhea but does report constipation as patient does tend to have hard stools and has gone a couple of days without a bowel movement. No fevers at home. Denies dysuria, urgency, or frequency. No chest pain or shortness of breath. Last menstrual period was several months ago at that time she had taken a test that was negative. test in the ED was also negative. Of note, patient has been tested for gastroparesis with a emptying study in August which returned negative. Patient's overall intake has been poor over the past week. She reports that her last real meal was Wednesday and has since that has had minimal oral intake. She reports she is able to keep some water down but has not been taking adequate hydration. Patient is also a cannabis user but reports that over the past year has really decreased her typical amount. She reports the last time she smoked was in August for her birthday. No other complaints at this time. ED course: Patient was brought back and evaluated by ED provider. Lab work was significant for a negative white blood cell count, VBG pH of 7.4, anion gap of 15, creatinine of 0.69, glucose of 102, negative lipase, and a urinalysis which is positive for ketones, nitrites, and white blood cells. Urine test negative. Urine drug screen is positive for cannabis. Patient was bolused in the ED with Plasma-Lyte. Patient was also given metoclopramide, Zofran x2, and promethazine and vomiting did persist x2 episodes in ED. Due to urinalysis and current symptoms, patient was given 2 g of Rocephin. Urine culture was taken prior to antibiotic administration. CT of the abdomen was negative for acute process. Due to unrelenting nausea and vomiting, patient was asked to be evaluated by hospitalist for admission to the hospital. Allergies Allergy/AdvReac Type Severity Reaction Status Date / Time Penicillins Allergy Unknown HAPPENED Verified 09/21/22 16:19 A SMALL CHILD Home Medications Medication Instructions Recorded Confirmed Type blood-glucose meter (AlephCloud SystemsTouch #1 ea 05/23/22 09/21/22 Rx Ultra2 Meter) lancets 33 gauge (OneTouch Delica #100 ea 05/23/22 09/21/22 Rx Lancets) pantoprazole 40 mg tablet,delayed 40 mg PO BID #60 tabs 07/16/22 09/23/22 Rx release acetaminophen 325 mg tablet 650 mg PO Q4H PRN pain #60 tabs 07/29/22 09/23/22 Rx albuterol sulfate 90 mcg/actuation 2 inh inhalation Q8H PRN shortness 07/29/22 09/23/22 Rx aerosol inhaler of breath or wheezing #8.5 grams cyanocobalamin (vitamin B-12) 1,000 mcg PO DAILY #30 caps 07/29/22 09/23/22 Rx 1,000 mcg capsule lidocaine 4 % topical patch 1 patch topical DAILY PRN pain #30 07/29/22 09/23/22 Rx ea blood sugar diagnostic (OneTouch #100 ea 08/17/22 09/21/22 Rx Ultra Test strips) furosemide 20 mg tablet (Lasix) 20 mg PO DAILY #30 tabs 08/27/22 09/23/22 Rx pneumococcal 23-radha ps vaccine 25 0.5 ml subcut ONCE #0.5 mL 09/18/22 09/23/22 Rx mcg/0.5 mL injection syringe (Pneumovax-) tetanus-diphtheria toxoids-Td 2 Lf 0.5 ml IM ONCE #0.5 mL 09/18/22 09/23/22 Rx unit-2 Lf unit/0.5 mL IM suspension (TDVAX) calcium carbonate-vitamin D3 See Rx Instructions PO .COMPLEX 09/21/22 09/23/22 History [Caltrate with Vitamin D3] insulin aspart U-100 100 unit/mL 10 unit subcut TID BSG control 09/21/22 09/23/22 History (3 mL) subcutaneous pen (Novolog FlexPen U-100 Insulin aspart) insulin glargine 100 unit/mL (3 30 unit subcut QPM 09/21/22 09/23/22 History mL) subcutaneous pen (Lantus Solostar U-100 Insulin) pen needle, diabetic 32 gauge x 09/21/22 History " (Comfort EZ Pen Tiff) promethazine 25 mg rectal 25 mg SC Q6H PRN nausea/vomiting 09/24/22 Rx suppository #12 ea Past Med/Surg History Medical History (Updated 09/23/22 @ 23:38 by Fuentes Heart DO) Abnormal LFTs Acute renal failure Asthma in childhood, no inhaler Boerhaave syndrome Diabetes mellitus, type 2 DKA (diabetic ketoacidoses) currently an inpatient @ [facility] (to be discharged today 07/08/22) for this (admitted on 07/03/[address] [facility] ICU)--pt states she was having severe vomiting History of COVID-19 diagnosed 05/14/22--pt was admitted to [facility] ICU with DKA (found unresponsive and had confusion for 4 days, does not appear to have had any breathing issues, was on room air)--complaints of taste issues still and having vomiting Insomnia Morbid obesity with BMI of 40.0-44.9, adult Patella fracture Pleural effusion Pneumomediastinum Surgical History No history of previous surgery Family History Other No family history of adverse response to anesthesia Social History (Updated 09/18/22 @ 09:36 by DIMPLE Cuadra) Smoking Status: Former smoker Second Hand Exposure: No; Do You Dip or Chew Tobacco: No; Hx Alcohol Use: No Hx Substance Use: Yes Last Used Substance: Hours (ago) Last Used Substance Other:: hx of cocaine use, clean for 8yrs ago Preferred Language: Icelandic Communication Ability: Effective Surgical Training Specialist Required: No Beliefs That Will Affect Care: None Current Living Situation: Significant Other Current Living Situation Comment: lives with boyfriendorina Bond current occupational status: employed Feels Safe at Home: Yes Assistive Devices: None Review of Systems Review of Systems: All systems reviewed & are unremarkable except as noted in HPI & below Physical Exam Constitutional: + ill appearing, + morbidly obese and cooperative Eyes: + anicteric sclerae ENMT: Dry mucosa Neck: normal visual inspection Respiratory: normal respiratory effort, lungs clear to auscultation Cardiovascular: Rate/Rhythm: regular rhythm and + tachycardic Heart Sounds: no murmur Gastrointestinal (Abdomen): Inspection/Auscultation: + hypoactive bowel sounds Percussion/Palpation: + abdomen tender (RLQ) and abdomen soft negative craven sign Musculoskeletal: Head/Neck/Chest: normocephalic and head atraumatic Skin: no rashes, warm and dry Neurologic: moves all extremities Results & Data Results & Data Vital Signs (Past 12 Hours) Vital Signs Temp Pulse Pulse Resp BP BP Pulse Ox 09/23/22 22:00 119 H 17 149/93 H 100 09/23/22 21:42 118 H 09/23/22 21:30 120 H 23 146/92 H 100 09/23/22 21:00 116 H 18 144/93 H 100 09/23/22 20:30 117 H 14 139/96 100 09/23/22 19:00 120 H 17 147/95 H 100 09/23/22 18:00 117 H 24 141/96 H 100 09/23/22 17:20 122 H 13 107/76 100 09/23/22 17:14 99 09/23/22 17:07 123 H 09/23/22 16:40 37.0 C 134 H 18 144/85 H 99 O2 Del Method 09/23/22 22:00 Room Air 09/23/22 21:42 09/23/22 21:30 09/23/22 21:00 09/23/22 20:30 09/23/22 19:00 09/23/22 18:00 09/23/22 17:20 Room Air 09/23/22 17:14 Room Air 09/23/22 17:07 09/23/22 16:40 Room Air Supervising Physician Co-Signing Physician Notes Attending addendum: I have physically seen this patient, have supervised the medical residents activities, and agree with the H&P unless as otherwise noted. Assessment and Plan: Intractable nausea and vomiting- CT showing large stool burden Gastroenteritis/food intolerance, cannabinol hyperemesis syndrome, diabetic gastroparesis, and others in differential Viral PCR negative UDS positive for marijuana use IV fluids Bowel protocol Urinary tract infection- Follow urine culture sensitivity Empiric ceftriaxone IV fluids Diabetes mellitus- Cut usual Lantus dosing from 30 to 10 units at bedtime due to poor intake Placed on Accu-Cheks with NovoLog SSI Remaining orders and notations as noted
[2022-09-24] MEDS ORDERED: ALBUTEROL HFA 8 GM INHALER INH PRN
[2022-09-24] MEDS ORDERED: PROCHLORPERAZINE 5 MG in SYRINGE 4 ML IV PRN
[2022-09-24] MEDS ORDERED: ACETAMINOPHEN 1,000 MG/100 ML VIAL IV PRN
[2022-09-24] MEDS: PANTOprazole 40 MG in SYRINGE 0 ML IV SCH ×2 (00:37→08:07)
[2022-09-24] MEDS: D5W AND 1/2NSS 1,000 ML IV SCH ×2 (08:08)
[2022-09-24 08:48] LABS: Hemoglobin 9.7 g/dl (12.0-16.0); Mean Corpuscular Hemoglobin 27.1 pg (25.0-34.0); Mean Corpuscular Hgb Conc 33.4 g/dL (32.0-36.0); Mean Platelet Volume 10.3 fL (9.4-12.4); Platelet Count 265 K/uL (130-400); RDW Coefficient of Variation 13.8 % (11.5-14.5); RDW Standard Deviation 40.5 fL (36.4-46.3); Red Blood Count 3.58 M/uL (4.20-5.40); White Blood Count 6.55 K/ul (4.8-10.8)
[2022-09-24] MEDS ORDERED: POLYETHYLENE (MIRALAX) 17 GM PACK PO SCH (09:00)
[2022-09-24 09:55] LABS: Albumin Level 3.9 gm/dl (3.4-5.0); Bilirubin,Total 0.4 mg/dl (0.2-1.0); Calcium 9.1 mg/dl (8.6-10.3); Magnesium 1.7 mg/dl (1.7-2.4); Potassium 3.6 mmol/L (3.5-5.1)
[2022-09-24 10:01] LABS: Albumin Globulin Ratio 1.3 (0.9-2); BUN Creatinine Ratio 26.9 (10-20); Creatinine Clr Calc Pharmacy 170.5 ml/min; Est GFR (African American) 145.5 ml/min; Est GFR (Non-African American) 125.5 ml/min; Total Protein 6.9 gm/dl (6.0-8.3)
[2022-09-24] MEDS ORDERED: cefTRIAXone SODIUM 2,000 MG in DEXTROSE 5% 50 ML IV SCH ×2 (17:00→19:00)
--- NOTE | 2022-09-24 17:00 | Discharge Summary ---
Date of Service September 24, 2022 Admission HPI Per Admitting Provider Patient is a 32-year-old female with past medical history of type 1 diabetes, long QT syndrome, OCD, and NINA who presents to the hospital for evaluation of nausea and vomiting for the past week. Patient reports that she has initially had cold-like symptoms that started on Wednesday with sinus pressure and congestion as well as nausea but did not actually vomit until Wednesday. Overall symptoms were mild but over the past 12 hours, the patient has had 6-7 episodes of vomiting prior to coming to the emergency department. Reports that her sugars have been under control at home without any episodes of hypo or hyperglyc emia. Denies diarrhea but does report constipation as patient does tend to have hard stools and has gone a couple of days without a bowel movement. No fevers at home. Denies dysuria, urgency, or frequency. No chest pain or shortness of breath. Last menstrual period was several months ago at that time she had taken a test that was negative. test in the ED was also negative. Of note, patient has been tested for gastroparesis with a emptying study in August which returned negative. Patient's overall intake has been poor over the past week. She reports that her last real meal was Wednesday and has since that has had minimal oral intake. She reports she is able to keep some water down but has not been taking adequate hydration. Patient is also a cannabis user but reports that over the past year has really decreased her typical amount. She reports the last time she smoked was in August for her birthday. No other complaints at this time. ED course: Patient was brought back and evaluated by ED provider. Lab work was significant for a negative white blood cell count, VBG pH of 7.4, anion gap of 15, creatinine of 0.69, glucose of 102, negative lipase, and a urinalysis which is positive for ketones, nitrites, and white blood cells. Urine test negative. Urine drug screen is positive for cannabis. Patient was bolused in the ED with Plasma-Lyte. Patient was also given metoclopramide, Zofran x2, and promethazine and vomiting did persist x2 episodes in ED. Due to urinalysis and current symptoms, patient was given 2 g of Rocephin. Urine culture was taken prior to antibiotic administration. CT of the abdomen was negative for acute process. Due to unrelenting nausea and vomiting, patient was asked to be evaluated by hospitalist for admission to the hospital. Admission Exam Per Admitting Provider Constitutional: + ill appearing, + morbidly obese and cooperative Eyes: + anicteric sclerae ENMT: Dry mucosa Neck: normal visual inspection Respiratory: normal respiratory effort, lungs clear to auscultation Cardiovascular: Rate/Rhythm: regular rhythm and + tachycardic Heart Sounds: no murmur Gastrointestinal (Abdomen): Inspection/Auscultation: + hypoactive bowel sounds Percussion/Palpation: + abdomen tender (RLQ) and abdomen soft negative craven sign Musculoskeletal: Head/Neck/Chest: normocephalic and head atraumatic Skin: no rashes, warm and dry Neurologic: moves all extremities Principal Diagnosis Nausea/vomiting of unknown etiology, gastritis versus cyclic vomiting Discharge Exam GENERAL: 32 yo well-developed, well-nourished obese F. AAOx4. NAD. LUNGS: Clear to auscultation bilaterally w/o W/R/R. CARDIOVASCULAR: Regular rate and rhythm. ABDOMEN: Soft, non-tender and non-distended. BS normoactive x 4 quad. EXTREMITIES: No edema. Non-tender. Peripheral pulses +2/4. Discharge Data Allergies Allergy/AdvReac Type Severity Reaction Status Date / Time Penicillins Allergy Unknown HAPPENED Verified 09/21/22 16:19 A SMALL CHILD Consultations 09/23/22 19:52 ED Decision to Admit Stat Ordered Studies Abdomen/Pelvis CT 09/23/22 18:14 Exam(s): CT ABDOMEN + PELVIS With Contrast IV Amt: 86ml of optiray 320 EXAM: CT Abdomen and Pelvis With Intravenous Contrast CLINICAL HISTORY: Reason for exam: n/v. TECHNIQUE: Axial computed tomography images of the abdomen and pelvis with intravenous contrast. CTDI is 27.04 mGy and DLP is 1400.5 mGy-cm. Automated exposure control was utilized for the study. A dose lowering technique was utilized adhering to the principles of ALARA. CONTRAST: Patient received 86ml of optiray 320 of IV contrast COMPARISON: No relevant prior studies available. FINDINGS: ABDOMEN: Liver: Unremarkable. Gallbladder and bile ducts: No radiodense stones. No biliary ductal dilation. Pancreas: Unremarkable. Spleen: Unremarkable. Adrenals: Unremarkable. Kidneys and ureters: No renal or ureteral calculi. No obstructive changes. Stomach and bowel: No marky mural thickening. Nonobstructive bowel gas pattern. PELVIS: Appendix: Unremarkable appendix. Bladder: Unremarkable. Reproductive: Unremarkable. ABDOMEN and PELVIS: Intraperitoneal space: Unremarkable. Bones/joints: No acute fracture. Soft tissues: Unremarkable. Vasculature: No acute process. Lymph nodes: No bulky adenopathy. IMPRESSION: No acute findings in the abdomen or pelvis. Electronically signed by: Tamiko Reed M.D. 09/23/22 19:10 PM Hospital Course (1) Vomiting: Patient is a 32-year-old female with past medical history of type 1 diabetes, long QT syndrome, OCD, and NINA who presents to the hospital for evaluation of nausea and vomiting for the past week. Patient has received fluid resuscitation and multiple antiemetics and is still having signs of dehydration and active nausea and vomiting. Patient has been admitted for observation for volume depletion and nausea/vomiting. Patient is hemodynamically stable but does have intermittent tachycardia. - etiology of nausea and vomiting includes several differentials at this time: -CT scan showed large stool burden with solid stool in the ascending colon -Acute viral gastroenteritis secondary to possible norovirus infection - feel that this is less likely given her lack of associated diarrhea -Complicated urinary tract infection based off UA results and current symptoms - less likely given her lack of sx and lack of fever/leukocytosis -Low on the differential including gastroparesis (negative gastric emptying study), cyclic vomiting syndrome from cannabis usage: marijuana quant pending -Fluid resuscitation with Plasma-Lyte bolus in the ED, continue D5W and half- normal saline at 125 cc/h until intake improves -Nausea control with antiemetics. Given patient's prolonged QTc history will start with Compazine as it has the lowest QTc prolonging potential -MiraLAX for stool burden - advised patient to continue this daily upon d/c daily -Clear liquid diet tolerated by pt and advanced this afternoon to T1DM carb consistent -Protonix IV twice daily - can resume Pantoprazole upon dc and consider adding OTC Pepcid daily (2) UTI (urinary tract infection): -Urinalysis positive for nitrites plus white blood cells plus current symptoms of nausea and vomiting -Given Rocephin in ED, continued, received 2 doses while in house -Urine culture taken prior to antibiotics, follow culture and sensitivities - still pending at time of dc with pinpoint growth noted -Given lack of symptoms, do not believe that this patient truly has a UTI therefore defer further antibiotics (3) Diabetes mellitus type 1: -Typically takes 30 units of Lantus at night -Given poor p.o. intake, will make dosage 10 units twice daily with sliding scale insulin -Last A1c was 4.5 on 09/22/2022 Putting her average blood sugars at 86 mg/dL -Follow up with PCP/drawing in machine tender helper regarding BSG/insulin management (4) Long QT syndrome: -Daily EKG -Use of Compazine for now, but may have to add other modalities of antiemetics if this is not satisfactory control (5) Abdominal pain: -Likely secondary to stool burden and chronic constipation, resolved on discharge -Negative Craven sign -CT of the abdomen showing no acute process at this time Plan She is medically and hemodynamically stable for discharge home. Has had no furt her n/v since admission. Tolerated advanced diet this afternoon. Plan for PCP follow up. Advised cutting back and stopping marijuana as this could be contributing to her symptoms. Plan has been d/w Dr. Garcia who has also seen and evaluated this patient and agrees with aforementioned. Total Time Total Time Spent Total Time Spent (In Minutes): 40 minutes Discharge Plan Discharge Items Patient Disposition: Home - Self-Care Reason For Visit: VOMITING Discharge Diagnosis: vomiting Activity: Resume your previous activity Non-emergency contact: Primary Care Provider Call non-emergency contact if: you have any medication questions and your symptoms worsen Follow-up/Referrals: Yakelin Casillas MD [Primary Care Provider] - 09/29/22 3:00 pm (WITH [facility] ESCOBAR) Diet: Carb Count or DM1 Addtl Attending Provider Instructions: You were hospitalized due to vomiting. Your CT of your belly did indicate that you have a large amount of stool consistent with constipation but no other abnormalities found. You will be prescribed Phenergan suppositories to use as needed for your na usea/vomiting. Could also trial Pepcid which can be purchased over the counter and taken daily. It is recommended that you follow up with your family doctor regarding this issue. It is possible that the marijuana use is contributing to your nausea and vomiting. If you have any questions after you leave the hospital, please call the nonemergency contact number provided on your discharge paperwork. In the event of a medical emergency, call 911. Pending Studies at Discharge: Yes Studies:: urine culture Stand-Alone Forms: My [facility] [employer] Smoking Cessation Medications and DC Order Prescriptions: New promethazine 25 mg suppository 25 mg SD Q6H PRN (Reason: nausea/vomiting) Qty: 12 0RF Continued (DME) OneTouch Ultra Test Strip See Rx Instructions .Route Qty: 100 3RF Rx Instructions: As directed - check blood sugars at least twice daily. furosemide [Lasix] 20 mg tablet 20 mg PO DAILY Qty: 30 0RF pantoprazole 40 mg tablet,delayed release (DR/EC) 40 mg PO BID Qty: 60 5RF TDVAX 2-2 Lf unit/0.5 mL suspension 0.5 ml IM ONCE Qty: 0.5 0RF Patient Comments: Pt hasn't received injection yet Rx Instructions: Pt hasnt recieved injection yet please administer Pneumovax-23 25 mcg/0.5 mL syringe 0.5 ml subcut ONCE Qty: 0.5 0RF Patient Comments: Pt hasn't received injection yet Rx Instructions: Pt hasn't received injection yet Please administer insulin glargine [Lantus Solostar U-100 Insulin] 100 unit/mL (3 mL) insulin pen 30 unit subcut QPM (DME) pen needle, diabetic [Comfort EZ Pen [place]] 32 gauge x 5/32" needle See Rx Instructions .Route Rx Instructions: Inject insulin four times daily calcium carbonate-vitamin D3 [Caltrate with Vitamin D3] See Rx Instructions PO .COMPLEX Rx Instructions: 600 mg daily (DME) blood-glucose meter [OneTouch Ultra2 Meter] Misc See Rx Instructions .Route Qty: 1 0RF Rx Instructions: As directed (DME) lancets [OneTouch Delica Lancets] 33 gauge misc See Rx Instructions .Route Qty: 100 2RF Rx Instructions: As directed - check blood sugars at least twice daily. insulin aspart U-100 [Novolog FlexPen U-100 Insulin] 100 unit/mL (3 mL) insulin pen 10 unit subcut TID acetaminophen 325 mg Tablet 650 mg PO Q4H PRN (Reason: pain) Qty: 60 0RF Rx Instructions: OTC lidocaine 4 % adhesive patch,medicated 1 patch topical DAILY PRN (Reason: pain) Qty: 30 0RF Rx Instructions: may leave on for up to 12 hrs, OTC Apply to right side of chest albuterol sulfate 90 mcg/actuation HFA aerosol inhaler 2 inh inhalation Q8H PRN (Reason: shortness of breath or wheezing) Qty: 8.5 0RF cyanocobalamin (vitamin B-12) 1,000 mcg capsule 1,000 mcg PO DAILY Qty: 30 0RF Rx Instructions: OTC Discharge Orders: Discharge Order (Routine); Ordered 09/24/22 Ordered By: Yasmin Roque Admission Data Admit Date/Time: 09/23/22 22:31 Attending Provider: Jina Garcia Admit Provider: [facility] Primary Care Provider: Yakelin Casillas Other Providers: Des Fink Other Interventions: Discharge Summary Assessment (RN) Last Done: 09/24/22 16:59 Supervising Physician Co-Signing Physician Notes PA Supervision Note: I personally saw and examined the patient. I verified all grey points and agree with BINU Roque with the following exceptions and/or additions: Subjective: 32-year-old female with history of DM 1, NINA, OCD, long QT syndrome, marijuana use presented for vomiting. Symptoms of nausea and vomiting are improved on day of discharge, though not completely resolved. Patient was most concerned for DKA as she has had this in the past and felt similarly, however did not have evidence of this. Physical exam: Vitals reviewed Gen: Alert and oriented, NAD HEENT: anicteric sclerae, EOMI CV: RRR no mgr Pulm: CTAB no wheezes or crackles Abd: +BS soft NT ND no masses Skin: no rashes, warm/dry Neuro: No focal neurologic deficits Labs, Rads, and ECG reviewed Assessment and Plan: Nausea and vomiting: Has underwent in the recent past of relatively robust evaluation of nausea and vomiting. Had a gastric emptying study that was normal, CTAP this admission without evidence of acute pathology, patient without evidence of DKA (in fact has excellent glycemic control with an A1c of 4.5). Symptoms improved with medications such as Zofran and Compazine, but does have a reported long QT so these medications are deferred when able. Differential includes gastritis/PUD, cyclic vomiting, marijuana induced, gastroparesis. Recent gastric emptying study does not suggest gastroparesis, although would be common in a diabetic. Gastritis is possible however patient does take twice daily PPI, recommended trial of Pepcid to see if the addition of such is helpful for her symptoms. Did recommend marijuana cessation if able to eliminate this as one of the possible causes of undifferentiated nausea and vomiting. Patient's glycemic control is very good, it is possible that hypoglycemia rather than hyperglycemia could be causing nausea and vomiting episodes, recommend follow-up with PCP/endocrinology. Did have urinalysis with nitrites however was a dirty catch, and patient did not have symptoms suggestive of UTI. Negative urine test. Did also suggest possibly GI follow-up if symptoms continue to remain stagnant despite the interventions suggested by both by her primary care provider and the hospitalist service. Plan otherwise as stated above Coding Level of Care Code 82936 INP/OBS DISCH >30 MIN Diagnoses Vomiting R11.10 UTI (urinary tract infection) N39.0 Diabetes mellitus type 1 E10.9 Long QT syndrome I45.81 Abdominal pain R10.9
--- NOTE | 2022-09-24 20:34 | Billing Data ---
Date of Service September 24, 2022 Coding Level of Care Code 56779 INT INP/OBS CARE
[2022-09-26 13:23] LABS: Marijuana Quant, GCMS Urine 36 ng/mL (<5)
== END 2022-09-24 17:21 | disposition home or self-care (01) ==
LOC: 3W 16:38 → ED 16:38 → SUATTDRO 22:31 → 3W 09-24 00:05